=== PATIENT | female | born 1960 | race Caucasian/White ===

== ENCOUNTER 2017-02-13 14:07 | Emergency (ER) | payer OTHER ==
[~2017-02-13] VITALS: Ht 175.3 cm; Wt 78.0 kg
[~2017-02-13 14:07] MED LIST: CIPR1TAB10 PO; LACTCHW3 PO; LISI-729 PO; MAGN400T6 PO; NYSS/ PO; OMEP40CA PO; POTA1TAB97 PO; PRED10TA PO
[2017-02-13 14:15] VITALS: TEMP 37.2; Ht 175.3 cm; Wt 78.0 kg
[2017-02-13] MEDS ORDERED: OXYC-164 PO (14:43)
[2017-02-13] MEDS ORDERED: GING550C PO (14:43)
[2017-02-13] MEDS ORDERED: ZNTT/150 PO (14:43)
[2017-02-13] MEDS ORDERED: ASPI81TA28 PO (14:43)
[2017-02-13 15:08] LABS: BASO % 0.2 %; BASO ABS # 0.03 K/uL (0-0.2); COMPLETE YES; EOS % 0.4 %; HEMATOCRIT 45.7 % (37-47); IG% 0.2 %; LYMPH % 7.8 %; LYMPH ABS # 1.39 K/uL (1.2-3.4); MEAN CELL VOLUME 93.5 fL (80-100); MEAN CORPUSCULAR HEMOGLOBIN 30.7 pg (25-34); MEAN CORPUSCULAR HGB CONC 32.8 g/dl (32-36); MEAN PLATELET VOLUME 10.1 fL (7.4-10.4); MONO % 3.3 %; NEUT % 88.1 %; PLATELET COUNT 398 K/uL (130-400); RED BLOOD COUNT 4.89 M/uL (4.2-5.4); WHITE BLOOD COUNT 17.93 K/uL (4.8-10.8)
[2017-02-13 15:12] LABS: PREG INTERNAL NEGATIVE QC NEG CLEAR BACKGROUND; PREG INTERNAL POSITIVE QC POS CONTROL LINE
--- NOTE | 2017-02-13 15:17 | DIAGNOSTIC IMAGING REPORT ---
CHEST ONE VIEW PORTABLE HISTORY: Atypical CHEST PAIN COMPARISON: Chest 11/24/2014. FINDINGS: The lungs are clear. Cardiac silhouette is normal in size. No pleural effusions. No pneumothorax. IMPRESSION: No acute process. Electronically signed by: Quincy Zepeda M.D. 02/13/2017 3:15 PM Dictated Date/Time: 02/13/2017 3:14 PM
[2017-02-13 15:20] VITALS: O2SAT 95
[2017-02-13 15:20] LABS: BLOOD UREA NITROGEN 19 mg/dl (7-18); BUN/CREATININE RATIO 12.6 (10-20); CALCIUM 9.6 mg/dl (8.5-10.1); CARBON DIOXIDE 30 mmol/L (21-32); CHLORIDE 103 mmol/L (98-107); GLUCOSE 114 mg/dl (70-99); POTASSIUM 4.2 mmol/L (3.5-5.1); SODIUM 139 mmol/L (136-145)
[2017-02-13 15:27] LABS: ALKALINE PHOSPHATASE 67 U/L (45-117); ALT/SGPT 21 U/L (12-78); AST/SGOT 15 U/L (15-37); CKMB/CK RATIO 1.9 (0-3.0)
[2017-02-13] MEDS ORDERED: OPTIRAY 320 IV PRN (16:15)
--- NOTE | 2017-02-13 17:16 | DIAGNOSTIC IMAGING REPORT ---
CHEST CTA for AORTIC DISSECTION CT DOSE: 595.23 mGy.cm HISTORY: Right upper chest pain. TECHNIQUE: Multiaxial CT images of the chest were performed both before and after the intravenous administration of contrast to evaluate the aorta. Maximal intensity projection images were also obtained. COMPARISON STUDY: Chest 02/13/2017. FINDINGS: Normal caliber thoracic aorta with no evidence for dissection. Mild atherosclerotic plaque within the thoracic aorta. The central pulmonary arteries are patent. No pleural or pericardial effusions. The visualized liver, spleen, and adrenal glands are unremarkable. Cholecystectomy. An 11 mm hypodense lesion within the upper pole the left kidney. This favors a cyst. No mediastinal or hilar lymphadenopathy. No fractures within the visualized osseous structures. Approximately 80% stenosis at the proximal left subclavian artery due to the atherosclerotic plaque. No pneumothorax. The central airways are patent. Mild emphysema. A 7 mm groundglass nodule within the left upper lobe on image 142. Groundglass densities at the lung bases favor mild dependent change. No focal lung consolidations to suggest pneumonia. There are 2 adjacent 3 mm nodules within the right lower lobe on image 171. IMPRESSION: 1. No evidence for an aortic dissection. 2. Mild emphysema. 3. A few subcentimeter indeterminate pulmonary nodules as described above. Dominant 7 mm groundglass nodule seen within the left upper lobe. Please refer to the chart below for recommended follow-up. 4. Approximately 80% stenosis at the proximal left subclavian artery due to the atherosclerotic plaque. Please refer to below summary of Fleischner criteria recommendations for follow-up of incidental CT nodules (Oral Waldrop, Guidelines for management of small pulmonary nodules detected on CT scans: A statement from the Fleischner Society, Radiology 237: [phone].) SOLID NODULES Solitary nodule size: <6 mm * Low risk patients: no follow-up needed * high risk patients: optional CT at 12 months Solitary nodule size: 6-8 mm * Low risk patients: follow-up at 6-12 months, then consider further follow-up at 18-24 months * high risk patients: initial follow-up CT at 6-12 months and then at 18-24 months if no change Solitary nodule size: >8 mm * either low or high risk patients - consider follow-up CT at 3 months, and/or CT-PET, and/or biopsy Multiple nodules size: <6 mm * Low risk patients: no routine follow-up * high risk patients: optional CT at 12 months Multiple nodules size: 6-8 mm * Low risk patients: follow-up at 3-6 months, then consider further follow-up at 18-24 months * high risk patients: follow-up at 3-6 months, then at 18-24 months if no change Multiple nodules size: >8 mm * Low risk patients: follow-up at 3-6 months, then consider further follow-up at 18-24 months * high risk patients: follow-up at 3-6 months, then at 18-24 months if no change Note: newly detected indeterminate nodule in persons 35 years of age or older. * Low risk patients: minimal or absent history of smoking and/or other known risk factors * high risk patients: history of smoking or of other known risk factors (e.g. first degree relative with lung cancer, or exposure to asbestos, radon, uranium) * if a nodule up to 8 mm is partly solid or is ground glass further follow-up is required after 24 months to exclude possible slow growing adenocarcinoma (BOBBY) SUBSOLID NODULES Solitary pure ground-glass nodule * nodule size <6 mm - no CT follow-up required * nodule size >=6 mm - follow-up CT at 6-12 months, then every 2 years until 5 years Solitary part-solid nodule * nodule size <6 mm - no CT follow-up required * nodule size >=6 mm - follow-up CT at 3-6 months. If unchanged, and solid component remains <6 mm, then annual follow-up for 5 years Multiple subsolid nodules * nodule size <6 mm - follow-up CT at 3-6 months, consider further follow-up at 2 and 4 years if stable * nodule size >=6 mm - follow-up CT at 3-6 months, subsequent management based on the most suspicious nodule(s) Electronically signed by: Quincy Zepeda M.D. 02/13/2017 5:15 PM Dictated Date/Time: 02/13/2017 5:06 PM
[2017-02-13 17:42] VITALS: BP 130/78; PULSE 79; O2SAT 96
--- NOTE | 2017-02-13 23:44 | EMERGENCY ROOM VISIT NOTE ---
History Report prepared by Chris: Heidi Olivera Under the Supervision of: Dr. Luis Carlos Weeks M.D. First contact with patient: 14:58 Chief Complaint: CHEST PAIN Stated Complaint: CHEST PAIN RADIATIING IN BACK RIGHT SHOULDER AND N Nursing Triage Summary: Chest pain radiating through to back. Patient was seen at [facility] ER on . The pain has been present since Wednesday and it has really never really gone away. History of Present Illness The patient is a 56 year old female who presents to the Emergency Room with complaints of constant right-sided chest pain for the past 4 days. She was evaluated 2 days ago in the ER at [facility] for this pain. She had negative testing for blood clots and was diagnosed with indigestion and discharged. She states that her pain has continued since that time. It has not worsened, but has been persistent at about a 7/10 in severity. Her pain is exacerbated with deep breathing and lying flat. She states that her pain goes into her back and radiates up the right side of her neck. She has never experienced pain like this before. She was given Toradol while in [place] and states that helped to alleviate her pain for a short time. She takes 40mg of oxycodone daily for chronic back pain. Pt denies LOC, headache, fevers, chills, diaphoresis, visual changes, tearing pain radiating to the back, personal history or family history of aneurysm or pulmonary embolism, uncontrolled hypertension, breathing difficulties, leg swelling, coagulation abnormalities, prolonged travel, recent surgery or immobilization, nausea, vomiting, abdominal pain, melena, hematochezia, urinary symptoms, numbness, weakness, lymphadenopathy, rash, or other complaints. Source of History: patient, family (daughter) Onset: 4 days ago Position: chest (right) Symptom Intensity: 7/10 Quality: other (radiating) Timing: constant Modifying Factors (Worsening): breathing, other (lying flat) Modifying Factors (Relieving): other (Toradol) Review of Systems See HPI for pertinent positives and negatives. A total of ten systems were reviewed and were otherwise negative. Past Medical & Surgical Medical Problems: (1) Abdominal aortic aneurysm without rupture (2) C. difficile colitis (3) Chronic headache disorder (4) Chronic renal failure, stage 3 (moderate) (5) COPD exacerbation (6) Diverticulosis of colon without diverticulitis (7) History of - peptic ulcer (8) Hypercholesterolemia (9) L5 disc disease (10) Lumbar vertebral fracture (11) Nicotine dependence (12) Rheumatoid arthritis Surgical Problems: (1) History of endovascular stent graft for abdominal aortic aneurysm (AAA) Family History Cancer Gallbladder disease Heart disease Hypertension Lung disease Social History Smoking Status: Current Every Day Smoker Alcohol Use: none Drug Use: none Marital Status: Housing Status: lives with family Occupation Status: employed Current/Historical Medications Scheduled Aspirin (Aspirin Ec), 81 MG PO DAILY Judith (Zingiber Officinalis) (Judith Root), 1,100 MG PO DAILY Lisinopril (Zestril), 5 MG PO DAILY Oxycodone Hcl (Oxycodone Hcl), 1 TAB PO QID Prednisone (Prednisone), 10 MG PO DAILY Ranitidine (Zantac), 150 MG PO DAILY Allergies Coded Allergies: Codeine (Verified Allergy, Severe, Difficulty Breathing, 02/13/17) Adalimumab (Verified Allergy, Intermediate, Rash, 02/13/17) Penicillins (Verified Allergy, Intermediate, Rash, 02/13/17) Physical Exam Vital Signs Date Time Temp Pulse Resp B/P Pulse Ox O2 Delivery O2 Flow Rate FiO2 02/13/17 17:42 79 18 130/78 96 Room Air 02/13/17 16:05 90 20 114/74 95 Room Air 02/13/17 15:20 95 Room Air 02/13/17 14:33 94 02/13/17 14:32 94 Room Air 02/13/17 14:24 95 Room Air 02/13/17 14:15 37.2 97 20 148/84 95 Room Air Physical Exam GENERAL: Awake, alert, well-appearing, in no distress HENT: Normocephalic, atraumatic. Oropharynx unremarkable. EYES: Normal conjunctiva. Sclera non-icteric. NECK: Supple. No nuchal rigidity. FROM. No JVD. RESPIRATORY: Clear to auscultation. CARDIAC: Regular rate, normal rhythm. Extremities warm and well perfused. Pulses equal. ABDOMEN: Soft, non-distended. No tenderness to palpation. No rebound or guarding. No masses. RECTAL: Deferred. MUSCULOSKELETAL: Chest examination reveals no tenderness. The back is symmetrical on inspection without obvious abnormality. There is no CVA tenderness to palpation. No joint edema. Sore to touch over the right posterior lateral ribs. LOWER EXTREMITIES: Calves are equal size bilaterally and non-tender. No edema. No discoloration. NEURO: Normal sensorium. No sensory or motor deficits noted. SKIN: No rash or jaundice noted. Medical Decision & Procedures ER Provider Diagnostic Interpretation: Radiology results as stated below per my review and radiologist interpretation: CHEST ONE VIEW PORTABLE HISTORY: Atypical CHEST PAIN COMPARISON: Chest 11/24/2014. FINDINGS: The lungs are clear. Cardiac silhouette is normal in size. No pleural effusions. No pneumothorax. IMPRESSION: No acute process. Electronically signed by: Quincy Zepeda M.D. 02/13/2017 3:15 PM Dictated Date/Time: 02/13/2017 3:14 PM CHEST CTA for AORTIC DISSECTION CT DOSE: 595.23 mGy.cm HISTORY: Right upper chest pain. TECHNIQUE: Multiaxial CT images of the chest were performed both before and after the intravenous administration of contrast to evaluate the aorta. Maximal intensity projection images were also obtained. COMPARISON STUDY: Chest 02/13/2017. FINDINGS: Normal caliber thoracic aorta with no evidence for dissection. Mild atherosclerotic plaque within the thoracic aorta. The central pulmonary arteries are patent. No pleural or pericardial effusions. The visualized liver, spleen, and adrenal glands are unremarkable. Cholecystectomy. An 11 mm hypodense lesion within the upper pole the left kidney. This favors a cyst. No mediastinal or hilar lymphadenopathy. No fractures within the visualized osseous structures. Approximately 80% stenosis at the proximal left subclavian artery due to the atherosclerotic plaque. No pneumothorax. The central airways are patent. Mild emphysema. A 7 mm groundglass nodule within the left upper lobe on image 142. Groundglass densities at the lung bases favor mild dependent change. No focal lung consolidations to suggest pneumonia. There are 2 adjacent 3 mm nodules within the right lower lobe on image 171. IMPRESSION: 1. No evidence for an aortic dissection. 2. Mild emphysema. 3. A few subcentimeter indeterminate pulmonary nodules as described above. Dominant 7 mm groundglass nodule seen within the left upper lobe. Please refer to the chart below for recommended follow-up. 4. Approximately 80% stenosis at the proximal left subclavian artery due to the atherosclerotic plaque. Please refer to below summary of Fleischner criteria recommendations for follow-up of incidental CT nodules (Oral Waldrop, Guidelines for management of small pulmonary nodules detected on CT scans: A statement from the Fleischner Society, Radiology 237: [phone].) SOLID NODULES Solitary nodule size: <6 mm * Low risk patients: no follow-up needed * high risk patients: optional CT at 12 months Solitary nodule size: 6-8 mm * Low risk patients: follow-up at 6-12 months, then consider further follow-up at 18-24 months * high risk patients: initial follow-up CT at 6-12 months and then at 18-24 months if no change Solitary nodule size: >8 mm * either low or high risk patients - consider follow-up CT at 3 months, and/or CT-PET, and/or biopsy Multiple nodules size: <6 mm * Low risk patients: no routine follow-up * high risk patients: optional CT at 12 months Multiple nodules size: 6-8 mm * Low risk patients: follow-up at 3-6 months, then consider further follow-up at 18-24 months * high risk patients: follow-up at 3-6 months, then at 18-24 months if no change Multiple nodules size: >8 mm * Low risk patients: follow-up at 3-6 months, then consider further follow-up at 18-24 months * high risk patients: follow-up at 3-6 months, then at 18-24 months if no change Note: newly detected indeterminate nodule in persons 35 years of age or older. * Low risk patients: minimal or absent history of smoking and/or other known risk factors * high risk patients: history of smoking or of other known risk factors (e.g. first degree relative with lung cancer, or exposure to asbestos, radon, uranium) * if a nodule up to 8 mm is partly solid or is ground glass further follow-up is required after 24 months to exclude possible slow growing adenocarcinoma (BOBBY) SUBSOLID NODULES Solitary pure ground-glass nodule * nodule size <6 mm - no CT follow-up required * nodule size >=6 mm - follow-up CT at 6-12 months, then every 2 years until 5 years Solitary part-solid nodule * nodule size <6 mm - no CT follow-up required * nodule size >=6 mm - follow-up CT at 3-6 months. If unchanged, and solid component remains <6 mm, then annual follow-up for 5 years Multiple subsolid nodules * nodule size <6 mm - follow-up CT at 3-6 months, consider further follow-up at 2 and 4 years if stable * nodule size >=6 mm - follow-up CT at 3-6 months, subsequent management based on the most suspicious nodule(s) Electronically signed by: Quincy Zepeda M.D. 02/13/2017 5:15 PM Dictated Date/Time: 02/13/2017 5:06 PM Laboratory Results 02/13/17 14:30 Red Blood Count 4.89, Mean Corpuscular Volume 93.5, Mean Corpuscular Hemoglobin 30.7, Mean Corpuscular Hemoglobin Concent 32.8, Mean Platelet Volume 10.1, Neutrophils (%) (Auto) 88.1, Lymphocytes (%) (Auto) 7.8, Monocytes (%) (Auto) 3.3, Eosinophils (%) (Auto) 0.4, Basophils (%) (Auto) 0.2, Neutrophils # (Auto) 15.81, Lymphocytes # (Auto) 1.39, Monocytes # (Auto) 0.59, Eosinophils # (Auto) 0.07, Basophils # (Auto) 0.03 02/13/17 14:30 Test 02/13/17 14:30 02/13/17 15:03 White Blood Count 17.93 K/uL (4.8-10.8) Red Blood Count 4.89 M/uL (4.2-5.4) Hemoglobin 15.0 g/dL (12.0-16.0) Hematocrit 45.7 % (37-47) Mean Corpuscular Volume 93.5 fL (80-100) Mean Corpuscular Hemoglobin 30.7 pg (25-34) Mean Corpuscular Hemoglobin Concent 32.8 g/dl (32-36) Platelet Count 398 K/uL (130-400) Mean Platelet Volume 10.1 fL (7.4-10.4) Neutrophils (%) (Auto) 88.1 % Lymphocytes (%) (Auto) 7.8 % Monocytes (%) (Auto) 3.3 % Eosinophils (%) (Auto) 0.4 % Basophils (%) (Auto) 0.2 % Neutrophils # (Auto) 15.81 K/uL (1.4-6.5) Lymphocytes # (Auto) 1.39 K/uL (1.2-3.4) Monocytes # (Auto) 0.59 K/uL (0.11-0.59) Eosinophils # (Auto) 0.07 K/uL (0-0.5) Basophils # (Auto) 0.03 K/uL (0-0.2) RDW Standard Deviation 48.3 fL (36.4-46.3) RDW Coefficient of Variation 14.2 % (11.5-14.5) Immature Granulocyte % (Auto) 0.2 % Immature Granulocyte # (Auto) 0.04 K/uL (0.00-0.02) Anion Gap 6.0 mmol/L (3-11) Est Creatinine Clear Calc Drug Dose 44.8 ml/min Estimated GFR () 45.3 Estimated GFR (Non- 39.1 BUN/Creatinine Ratio 12.6 (10-20) Calcium Level 9.6 mg/dl (8.5-10.1) Total Bilirubin 0.4 mg/dl (0.2-1) Direct Bilirubin < 0.1 mg/dl (0-0.2) Aspartate Amino Transf (AST/SGOT) 15 U/L (15-37) Alanine Aminotransferase (ALT/SGPT) 21 U/L (12-78) Alkaline Phosphatase 67 U/L (45-117) Total Creatine Kinase 74 U/L (26-192) Creatine Kinase MB 1.4 ng/ml (0.5-3.6) Creatine Kinase MB Ratio 1.9 (0-3.0) Total Protein 7.5 gm/dl (6.4-8.2) Albumin 3.7 gm/dl (3.4-5.0) Lipase 292 U/L (73-393) Human Chorionic Gonadotropin, Qual NEG (NEG) Bedside D-Dimer > 450 ng/mlFEU (0-450) Bedside Troponin I 0.000 ng/ml (0-0.045) Laboratory results reviewed by me ECG Indication: chest pain Rate (beats per minute): 86 Rhythm: normal sinus Findings: Q waves (Septal), no acute ischemic change, no ectopy ED Course 1501: The patient was evaluated in room C3. A complete history and physical exam was performed. 1558: I reassessed the patient at this time. She is doing well and resting comfortably. I informed her about her thoracic aortic aneurysm that was found at [place]. 1729: I reassessed the patient at this time. She is feeling better and resting comfortably. I discussed the results and treatment plan with the patient. I answered all pertaining questions that she had. She expressed understanding and verbalized agreement. The patient will be discharged home. Medical Decision Triage Nursing notes reviewed. The patient's presentation and history were concerning for chest pain. Etiologies such as cardiac ischemia, aortic dissection, pulmonary embolism, pneumonia, pneumothorax, musculoskeletal, infections, gastrointestinal, as well as others were entertained. The patient was evaluated. She had right-sided chest discomfort for 4 days. It was constant. She has this despite taking oxycodone for her chronic back pain. The patient notes a workup done 2 days ago at the [facility]. She had a CT performed and was told it was negative. ECG was nonischemic. The patient had blood work obtained. She had an unremarkable chemistry panel. CBC was concerning for leukocytosis. Record was obtained from the [place] ED visit. This patient had serial troponins that were reported as negative. Her CT scan did not reveal any obvious PE. 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 The patient had an elevated leukocytosis. The patient's record review reveals she has had a leukocytosis pre-much consistently. The patient is on prednisone as well. She has rheumatoid. Her CBC and chemistry panel were otherwise unremarkable. The patient does have an elevated d-dimer. This does raise some concerns although it is difficult to interpret in light of her recent negative PE study and her rheumatoid arthritis. Because of the questionable aortic issues and her history of AAA the patient underwent CT scan for dissection. No significant aortic issues were seen. 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 She was counseled on this. The patient has had constant pain for 4 days. She had serial troponins a [place] or negative. She had a troponin here that was negative. This does not appear to be consistent with cardiac chest pain. She has no findings to support aortic pathology. There is no pneumothorax or pneumonia. The patient did have some tenderness in her right posterior lateral ribs. This may be musculoskeletal. The patient does have pain issues and is on chronic pain medication. She did not want pain medication here. After discussing all of the findings with her, the patient was satisfied with the results and feels comfortable with conservative outpatient management. I spent significant amount of time talking with her and she was comfortable. I gave my usual and customary discussion regarding this issue. By the evaluation outlined above other emergent etiologies such as those listed in the differential, as well as others, were deemed relatively unlikely. The patient and family were informed about the findings as listed above. All questions were answered and they were pleased with the treatment. Return instructions were outlined and the patient was discharged in stable condition. The patient was referred to her PCP for follow-up Wednesday for a recheck of the current condition. The chart was completed utilizing [employer] Speech voice recognition software. Grammatical errors, random word insertions, pronoun errors, and incomplete sentences are an occasional consequence of this system due to software limitations, ambient noise, and hardware issues. Any formal questions or concerns about the content, text, or information contained within the body of this dictation should be directly addressed to the physician for clarification. Impression Primary Impression: Right-sided chest pain Scribe Attestation The scribe's documentation has been prepared under my direction and personally reviewed by me in its entirety. I confirm that the note above accurately reflects all work, treatment, procedures, and medical decision making performed by me. Departure Information Dispostion Home / Self-Care Referrals Gustavo Stone M.D. (PCP) Forms HOME CARE DOCUMENTATION FORM, IMPORTANT VISIT INFORMATION Patient Instructions My [facility] Additional Instructions CHEST PAIN INSTRUCTIONS: Warm compresses for 20 minutes at a time four times daily for 2-3 days. Rest and drink plenty of fluids as tolerated. Continue current medications. Avoid strenuous activities and anything that worsens your pain. Resume normal activities once your symptoms resolve. Return to the ER immediately for worsening or persistent chest pain, abdominal pain, vomiting, fevers, chest pains, difficulty breathing, worsening of your condition, or as needed. Follow up with your primary physician in 2-3 days for a recheck of your current condition. A follow-up chest CT will be necessary in 6 months as discussed. You will also need another in 12 months after that. This can be coordinated with your primary office as pulmonary nodules were seen and being a smoker this puts you at high risk. If these develop further specialty referral will be necessary to rule out cancer.
== END 2017-02-13 18:10 | disposition home or self-care (01) ==
LOC: C.EDB 14:09 → C.EDC 18:10
DX: R07.89 Other chest pain (principal); N18.3 Chronic kidney disease, stage 3 (moderate); Z87.11 Personal history of peptic ulcer disease; M06.9 Rheumatoid arthritis, unspecified; G89.29 Other chronic pain; M54.9 Dorsalgia, unspecified; F17.200 Nicotine dependence, unspecified, uncomplicated; Z98.890 Other specified postprocedural states; Z82.49 Family history of ischemic heart disease and other diseases of the circulatory system; Z79.82 Long term (current) use of aspirin; Z79.52 Long term (current) use of systemic steroids; Z79.899 Other long term (current) drug therapy

== ENCOUNTER 2018-02-03 15:01 | Emergency (ER) | payer OTHER ==
[~2018-02-03] VITALS: Ht 172.7 cm; Wt 78.0 kg
[~2018-02-03 15:01] MED LIST changes: +ASPI81TA28 PO; -CIPR1TAB10 PO; +GING550C PO; -LACTCHW3 PO; -MAGN400T6 PO; -NYSS/ PO; -OMEP40CA PO; +OXYC-164 PO; -POTA1TAB97 PO; +RANI150T85 PO
[2018-02-03 15:17] VITALS: Ht 172.7 cm; Wt 78.0 kg
[2018-02-03 16:56] VITALS: TEMP 37.3
[2018-02-03 17:25] LABS: BASO % 0.2 %; BASO ABS # 0.03 K/uL (0-0.2); EOS % 0.1 %; EOS ABS # 0.02 K/uL (0-0.5); HEMATOCRIT 46.4 % (37-47); HEMOGLOBIN 15.3 g/dL (12.0-16.0); IG# 0.05 K/uL (0.00-0.02); LYMPH % 14.6 %; LYMPH ABS # 2.46 K/uL (1.2-3.4); MEAN CELL VOLUME 91.9 fL (80-100); MEAN CORPUSCULAR HEMOGLOBIN 30.3 pg (25-34); MEAN PLATELET VOLUME 9.5 fL (7.4-10.4); MONO % 3.1 %; MONO ABS # 0.52 K/uL (0.11-0.59); NEUT % 81.7 %; NEUT ABS # 13.73 K/uL (1.4-6.5); PLATELET COUNT 381 K/uL (130-400); RED CELL DISTRIBUTION WIDTH CV 14.3 % (11.5-14.5); WHITE BLOOD COUNT 16.81 K/uL (4.8-10.8)
[2018-02-03 17:44] LABS: ALBUMIN 3.8 gm/dl (3.4-5.0); ALT/SGPT 62 U/L (12-78); AST/SGOT 45 U/L (15-37); BLOOD UREA NITROGEN 16 mg/dl (7-18); CALCIUM 9.7 mg/dl (8.5-10.1); CARBON DIOXIDE 28 mmol/L (21-32); CREATININE 1.28 mg/dl (0.60-1.20); GLUCOSE 103 mg/dl (70-99); LIPASE 166 U/L (73-393); SODIUM 138 mmol/L (136-145)
[2018-02-03 17:46] LABS: ALKALINE PHOSPHATASE 58 U/L (45-117); TOTAL PROTEIN 7.8 gm/dl (6.4-8.2)
--- NOTE | 2018-02-03 17:47 | DIAGNOSTIC IMAGING REPORT ---
THORACIC SPINE 3 VIEWS ROUTINE CLINICAL HISTORY: 57 years-old Female presenting with mid back pain. TECHNIQUE: 3 views of the thoracic spine were obtained. COMPARISON: CT from 02/13/2017. FINDINGS: No scoliosis. Normal thoracic kyphosis. Visualization of the upper thoracic spine is slightly limited due to overlapping structures. Allowing for this, vertebral bodies maintain normal height and alignment. Intervertebral disc heights preserved. Degenerative changes evidenced by osteophytosis noted at the thoracolumbar junction. Mild compression deformity in a mid thoracic vertebral body with approximately 25% anterior vertebral body height loss. Visualized portion of the cervical spine normal. Visualized portion of the thorax normal. IMPRESSION: Approximately 25% anterior vertebral body height loss of a midthoracic level concerning for compression deformity. This is new since the prior CT. The report will be called/faxed according to standard departmental protocol. Electronically signed by: Ramakrishna Cartagena M.D. 02/03/2018 5:46 PM Dictated Date/Time: 02/03/2018 5:43 PM
[2018-02-03] MEDS ORDERED: OPTIRAY 320 IV PRN (18:00)
--- NOTE | 2018-02-03 18:55 | DIAGNOSTIC IMAGING REPORT ---
ABDOMEN AND PELVIS CT WITH IV CONTRAST CT DOSE: 780.78 mGycm HISTORY: Acute lower back pain with bilateral flank pain lower back/flank pain TECHNIQUE: Multiaxial CT images of the abdomen and pelvis were performed following the use of intravenous contrast. A dose lowering technique was utilized adhering to the principles of ALARA. COMPARISON STUDY: CT abdomen and pelvis 08/19/2011. FINDINGS: Mild dependent subsegmental bibasilar atelectasis. There are a few solid pulmonary nodules of the right middle lobe measuring up to 2 mm. No pneumatosis or pneumoperitoneum identified. Imaged inferior cardiac chambers are unremarkable. Mitral annular calcifications. Prior cholecystectomy. Mild intrahepatic biliary ductal dilation, likely secondary to postcholecystectomy state. 5 mm low attenuating lesion of the lateral left hepatic lobe is too small to characterize however suggests hepatic cyst. Spleen, pancreas and adrenal glands are within normal limits. Low attenuating lesions of the kidneys bilaterally are seen measuring up to 1.7 cm within the superior pole left kidney suggesting cysts. Parenchymal thinning with cortical scarring is noted within the inferior pole left kidney. No renal calculi or hydronephrosis. Ureters and urinary bladder are within normal limits. Uterus and adnexa are also unremarkable. Extensive mixed plaquing of the abdominal aorta. Aneurysmal dilation of the abdominal aorta level of the kidneys measures 2.7 x 3.3 cm. Aortobiiliac stent graft is noted within a fusiform infrarenal abdominal aortic aneurysm measuring 3.0 cm. The right common iliac artery is dilated measuring 3.3 cm. The left is dilated measuring 2.7 cm. Normal caliber iliac vessels seen on comparison from 2010. No bulky adenopathy. No bowel obstruction or focal bowel wall thickening identified. Colonic diverticulosis without evidence of acute diverticulitis. Normal appendix. Scattered air-fluid levels within nondilated loops of small bowel are likely physiologic. Mild asymmetric atrophy of the right rectus musculature. Bones appear intact. No compression deformity with kyphoplasty changes at L2. Discectomy with posterior interbody tay and screw fusion at L4-L5. IMPRESSION: 1. No acute intra-abdominal or intrapelvic abnormality identified. No bowel obstruction or focal bowel wall thickening. 2. Prior cholecystectomy. 3. Fusiform aneurysmal dilation of the suprarenal abdominal aorta measures up to 3.3 cm. Aortobiiliac stent graft is in place with progressive dilation of the bilateral common iliac arteries, right greater than left as above. 4. Colonic diverticulosis without evidence of acute diverticulitis. 5. Additional findings as above. Electronically signed by: Td Mullins M.D. 02/03/2018 6:53 PM Dictated Date/Time: 02/03/2018 6:44 PM
--- NOTE | 2018-02-03 19:29 | DIAGNOSTIC IMAGING REPORT ---
CHEST ONE VIEW PORTABLE CLINICAL HISTORY: 57 years-old Female presenting with cough. TECHNIQUE: Portable upright AP view of the chest was obtained. COMPARISON: 02/13/2017. FINDINGS: Atherosclerosis of the aortic arch. Cardiac silhouette normal in size. Lungs and pleural spaces clear. Osseous structures normal. Upper abdomen normal. IMPRESSION: 1. No acute cardiopulmonary disease. Electronically signed by: Ramakrishna Cartagena M.D. 02/03/2018 7:28 PM Dictated Date/Time: 02/03/2018 7:27 PM
--- NOTE | 2018-02-03 19:29 | DIAGNOSTIC IMAGING REPORT ---
LUMBAR SPINE WITHOUT CLINICAL HISTORY: 57 years-old Female presenting with lower back/ flank pain . TECHNIQUE: Multidetector CT of the lumbar spine was performed without the use of intravenous contrast. IV contrast: None. A dose lowering technique was used consistent with the principles of ALARA (as low as reasonably achievable). COMPARISON: MR of the lumbar spine January 2012. CT DOSE (mGy.cm): The estimated cumulative dose is 780.70. 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 Aortic endograft stent. Kyphoplasty. Posterior lumbar fusion at L4-5. Postsurgical changes of bilateral transpedicular screw and tay fixation of L4-5 with an interbody spacer. No hardware complication. Post procedural changes of kyphoplasty of L2 with a chronic compression deformity. Minimal retropulsion of the superior aspect of the L2 vertebral body without significant osseous spinal canal narrowing. No scoliosis. Normal lumbar lordosis is essentially preserved. No acute compression deformity or subluxation. Mild degenerative changes in the lower lumbar spine. The spinal canal appears narrowed at L3-4 secondary to disc bulge and epidural fat prominence. Neural foraminal narrowing suggested at L5-S1. Sacrum intact. Visualized soft tissues demonstrate cortical atrophy of the lower pole of the left kidney as well as a left renal cyst. An aortobiiliac endograft stent is patent. Aneurysmal dilatation of the bilateral common iliac arteries, which measure 3.4 cm on the right and 3.1 cm on the left. Paraspinal musculature within normal limits. IMPRESSION: 1. No acute osseous injury of the lumbar spine. 2. Postsurgical changes of posterior fusion of L4-5. 3. Kyphoplasty changes of L2 with a chronic compression deformity. 4. Within limitations of CT, suggestion of spinal canal narrowing at L3-4. 5. Neural foraminal narrowing suggested at L5-S1. Electronically signed by: Ramakrishna Cartagena M.D. 02/03/2018 7:27 PM Dictated Date/Time: 02/03/2018 7:22 PM
[2018-02-03 20:13] VITALS: BP 153/101; PULSE 96; O2SAT 96
--- NOTE | 2018-02-03 22:19 | EMERGENCY ROOM VISIT NOTE ---
History Report prepared by Chris: Basim Kinney Under the Supervision of: Dr. Andrae Elam D.O. First contact with patient: 16:58 Chief Complaint: BACK PAIN Stated Complaint: LOWER BACK PAIN, HEADACHE, NAUSEA History of Present Illness The patient is a 57 year old female who presents to the Emergency Room with complaints of "continuously worsening" lower back pain which she deals with chronically. The patient has been experiencing the acute worsening of her pain for the past week or so. She describes the pain as an "ache" and "burn" across her whole lower back. The pain is worsened with "every move I make." Pain tracks from the thoracic region to her lower lumbar. There is no numbness in the left groin and she has normal control of her bowels and bladder. This is the patient's third visit to an ER, as she has been to the [facility] twice prior to this visit. She has had multiple abdominal CTs and blood work performed which were all normal. She is also currently complaining of blurred vision and a headache, as well as some unusual "pressure" with urination. She did have some sort of infection, which she states was "an infection in my blood " and was placed on an Antibiotic. She did not have an inpatient hospitalization. She denies any fevers. The patient stated that she has had leukocytosis for 10+ years. [facility]. Source of History: patient Onset: Chronic Position: back (lower) Quality: ache, burning Timing: worsening Modifying Factors (Worsening): other (Every movement) Associated Symptoms: + headache, + urinary symptoms ("pressure") Note: Pt complains of blurred vision. Review of Systems See HPI for pertinent positives & negatives. A total of 10 systems reviewed and were otherwise negative. Past Medical & Surgical Medical Problems: (1) Abdominal aortic aneurysm without rupture (2) C. difficile colitis (3) Chronic headache disorder (4) Chronic renal failure, stage 3 (moderate) (5) COPD exacerbation (6) Diverticulosis of colon without diverticulitis (7) History of - peptic ulcer (8) Hypercholesterolemia (9) L5 disc disease (10) Lumbar vertebral fracture (11) Nicotine dependence (12) Rheumatoid arthritis Surgical Problems: (1) History of endovascular stent graft for abdominal aortic aneurysm (AAA) Family History Cancer Gallbladder disease Heart disease Hypertension Lung disease Social History Smoking Status: Current Every Day Smoker Alcohol Use: none Drug Use: none Marital Status: Housing Status: lives with family Occupation Status: employed Current/Historical Medications Scheduled Aspirin (Aspirin Ec), 81 MG PO DAILY Judith (Zingiber Officinalis) (Judith Root), 1,100 MG PO DAILY Lisinopril (Zestril), 5 MG PO DAILY Oxycodone Hcl (Oxycodone Hcl), 1 TAB PO QID Prednisone (Prednisone), 10 MG PO DAILY Ranitidine (Zantac), 150 MG PO DAILY Allergies Coded Allergies: Codeine (Verified Allergy, Severe, Difficulty Breathing, 02/03/18) Adalimumab (Verified Allergy, Intermediate, Rash, 02/03/18) Penicillins (Verified Allergy, Intermediate, Rash, 02/03/18) Physical Exam Vital Signs Date Time Temp Pulse Resp B/P (MAP) Pulse Ox O2 Delivery O2 Flow Rate FiO2 02/03/18 20:13 96 20 153/101 96 02/03/18 18:49 86 18 138/84 96 Room Air 02/03/18 16:56 37.3 114 20 108/70 96 Room Air 02/03/18 15:17 36.9 110 20 112/79 96 Room Air Physical Exam GENERAL: Sitting up in bed, alert, chronically-ill appearing, well nourished, disheveled, non-toxic EYE EXAM: normal conjunctiva. OROPHARYNX: no exudate, no erythema, lips, buccal mucosa, and tongue normal and mucous membranes are moist NECK: supple, no nuchal rigidity, no adenopathy, non-tender LUNGS: Clear to auscultation. Normal chest wall mechanics HEART: no murmurs, S1 normal and S2 normal ABDOMEN: abdomen soft, with faint tenderness in the left mid abdomen. normo- active bowel sounds, no masses, no rebound or guarding. BACK: Back is symmetrical on inspection and there is no deformity, there is an old midline incisional scar in the lower lumbar region with midline and paraspinal tenderness. This is worse on the left. SKIN: no rashes and no bruising UPPER EXTREMITIES: upper extremities are grossly normal. LOWER EXTREMITIES: No pitting edema. Flexion and extension of the hip/knee/ ankle and EHL are 5/5 bilaterally. Gross sensation is intact. DPs are 2/4, patellar and Achilles reflexes are 1/4. Ambulates without difficulty NEURO EXAM: Normal sensorium, cranial nerves II-XII grossly intact, normal speech, no gross weakness of arms. Medical Decision & Procedures ER Provider Diagnostic Interpretation: Radiology results as stated below per my review and the radiologist's interpretation: CHEST ONE VIEW PORTABLE CLINICAL HISTORY: 57 years-old Female presenting with cough. TECHNIQUE: Portable upright AP view of the chest was obtained. COMPARISON: 02/13/2017. FINDINGS: Atherosclerosis of the aortic arch. Cardiac silhouette normal in size. Lungs and pleural spaces clear. Osseous structures normal. Upper abdomen normal. IMPRESSION: 1. No acute cardiopulmonary disease. Electronically signed by: Ramakrishna Cartagena M.D. 02/03/2018 7:28 PM Dictated Date/Time: 02/03/2018 7:27 PM ABDOMEN AND PELVIS CT WITH IV CONTRAST CT DOSE: 780.78 mGycm HISTORY: Acute lower back pain with bilateral flank pain lower back/flank pain TECHNIQUE: Multiaxial CT images of the abdomen and pelvis were performed following the use of intravenous contrast. A dose lowering technique was utilized adhering to the principles of ALARA. COMPARISON STUDY: CT abdomen and pelvis 08/19/2011. FINDINGS: Mild dependent subsegmental bibasilar atelectasis. There are a few solid pulmonary nodules of the right middle lobe measuring up to 2 mm. No pneumatosis or pneumoperitoneum identified. Imaged inferior cardiac chambers are unremarkable. Mitral annular calcifications. Prior cholecystectomy. Mild intrahepatic biliary ductal dilation, likely secondary to postcholecystectomy state. 5 mm low attenuating lesion of the lateral left hepatic lobe is too small to characterize however suggests hepatic cyst. Spleen, pancreas and adrenal glands are within normal limits. Low attenuating lesions of the kidneys bilaterally are seen measuring up to 1.7 cm within the superior pole left kidney suggesting cysts. Parenchymal thinning with cortical scarring is noted within the inferior pole left kidney. No renal calculi or hydronephrosis. Ureters and urinary bladder are within normal limits. Uterus and adnexa are also unremarkable. Extensive mixed plaquing of the abdominal aorta. Aneurysmal dilation of the abdominal aorta level of the kidneys measures 2.7 x 3.3 cm. Aortobiiliac stent graft is noted within a fusiform infrarenal abdominal aortic aneurysm measuring 3.0 cm. The right common iliac artery is dilated measuring 3.3 cm. The left is dilated measuring 2.7 cm. Normal caliber iliac vessels seen on comparison from 2010. No bulky adenopathy. No bowel obstruction or focal bowel wall thickening identified. Colonic diverticulosis without evidence of acute diverticulitis. Normal appendix. Scattered air-fluid levels within nondilated loops of small bowel are likely physiologic. Mild asymmetric atrophy of the right rectus musculature. Bones appear intact. No compression deformity with kyphoplasty changes at L2. Discectomy with posterior interbody tay and screw fusion at L4-L5. IMPRESSION: 1. No acute intra-abdominal or intrapelvic abnormality identified. No bowel obstruction or focal bowel wall thickening. 2. Prior cholecystectomy. 3. Fusiform aneurysmal dilation of the suprarenal abdominal aorta measures up to 3.3 cm. Aortobiiliac stent graft is in place with progressive dilation of the bilateral common iliac arteries, right greater than left as above. 4. Colonic diverticulosis without evidence of acute diverticulitis. 5. Additional findings as above. Electronically signed by: Td Mullins M.D. 02/03/2018 6:53 PM Dictated Date/Time: 02/03/2018 6:44 PM LUMBAR SPINE WITHOUT CLINICAL HISTORY: 57 years-old Female presenting with lower back/ flank pain . TECHNIQUE: Multidetector CT of the lumbar spine was performed without the use of intravenous contrast. IV contrast: None. A dose lowering technique was used consistent with the principles of ALARA (as low as reasonably achievable). COMPARISON: MR of the lumbar spine January 2012. CT DOSE (mGy.cm): The estimated cumulative dose is 780.70. 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 Aortic endograft stent. Kyphoplasty. Posterior lumbar fusion at L4-5. Postsurgical changes of bilateral transpedicular screw and tay fixation of L4-5 with an interbody spacer. No hardware complication. Post procedural changes of kyphoplasty of L2 with a chronic compression deformity. Minimal retropulsion of the superior aspect of the L2 vertebral body without significant osseous spinal canal narrowing. No scoliosis. Normal lumbar lordosis is essentially preserved. No acute compression deformity or subluxation. Mild degenerative changes in the lower lumbar spine. The spinal canal appears narrowed at L3-4 secondary to disc bulge and epidural fat prominence. Neural foraminal narrowing suggested at L5-S1. Sacrum intact. Visualized soft tissues demonstrate cortical atrophy of the lower pole of the left kidney as well as a left renal cyst. An aortobiiliac endograft stent is patent. Aneurysmal dilatation of the bilateral common iliac arteries, which measure 3.4 cm on the right and 3.1 cm on the left. Paraspinal musculature within normal limits. IMPRESSION: 1. No acute osseous injury of the lumbar spine. 2. Postsurgical changes of posterior fusion of L4-5. 3. Kyphoplasty changes of L2 with a chronic compression deformity. 4. Within limitations of CT, suggestion of spinal canal narrowing at L3-4. 5. Neural foraminal narrowing suggested at L5-S1. Electronically signed by: Ramakrishna Cartagena M.D. 02/03/2018 7:27 PM Dictated Date/Time: 02/03/2018 7:22 PM THORACIC SPINE 3 VIEWS ROUTINE CLINICAL HISTORY: 57 years-old Female presenting with mid back pain. TECHNIQUE: 3 views of the thoracic spine were obtained. COMPARISON: CT from 02/13/2017. FINDINGS: No scoliosis. Normal thoracic kyphosis. Visualization of the upper thoracic spine is slightly limited due to overlapping structures. Allowing for this, vertebral bodies maintain normal height and alignment. Intervertebral disc heights preserved. Degenerative changes evidenced by osteophytosis noted at the thoracolumbar junction. Mild compression deformity in a mid thoracic vertebral body with approximately 25% anterior vertebral body height loss. Visualized portion of the cervical spine normal. Visualized portion of the thorax normal. IMPRESSION: Approximately 25% anterior vertebral body height loss of a midthoracic level concerning for compression deformity. This is new since the prior CT. The report will be called/faxed according to standard departmental protocol. Electronically signed by: Ramakrishna Cartagena M.D. 02/03/2018 5:46 PM Dictated Date/Time: 02/03/2018 5:43 PM Laboratory Results 02/03/18 17:15 Red Blood Count 5.05, Mean Corpuscular Volume 91.9, Mean Corpuscular Hemoglobin 30.3, Mean Corpuscular Hemoglobin Concent 33.0, Mean Platelet Volume 9.5, Neutrophils (%) (Auto) 81.7, Lymphocytes (%) (Auto) 14.6, Monocytes (%) (Auto) 3.1, Eosinophils (%) (Auto) 0.1, Basophils (%) (Auto) 0.2, Neutrophils # (Auto) 13.73, Lymphocytes # (Auto) 2.46, Monocytes # (Auto) 0.52, Eosinophils # (Auto) 0.02, Basophils # (Auto) 0.03 02/03/18 17:15 Test 02/03/18 14:56 02/03/18 17:15 Urine Color DK YELLOW Urine Appearance CLEAR (CLEAR) Urine pH 7.0 (4.5-7.5) Urine Specific [place] 1.019 (1.000-1.030) Urine Protein NEG (NEG) Urine Glucose (UA) NEG (NEG) Urine Ketones NEG (NEG) Urine Occult Blood TRACE (NEG) Urine Nitrite NEG (NEG) Urine Bilirubin NEG (NEG) Urine Urobilinogen NEG (NEG) Urine Leukocyte Esterase NEG (NEG) Urine WBC (Auto) 1-5 /hpf (0-5) Urine RBC (Auto) 10-30 /hpf (0-4) Urine Hyaline Casts (Auto) 1-5 /lpf (0-5) Urine Epithelial Cells (Auto) 20-30 /lpf (0-5) Urine Bacteria (Auto) NEG (NEG) White Blood Count 16.81 K/uL (4.8-10.8) Red Blood Count 5.05 M/uL (4.2-5.4) Hemoglobin 15.3 g/dL (12.0-16.0) Hematocrit 46.4 % (37-47) Mean Corpuscular Volume 91.9 fL (80-100) Mean Corpuscular Hemoglobin 30.3 pg (25-34) Mean Corpuscular Hemoglobin Concent 33.0 g/dl (32-36) Platelet Count 381 K/uL (130-400) Mean Platelet Volume 9.5 fL (7.4-10.4) Neutrophils (%) (Auto) 81.7 % Lymphocytes (%) (Auto) 14.6 % Monocytes (%) (Auto) 3.1 % Eosinophils (%) (Auto) 0.1 % Basophils (%) (Auto) 0.2 % Neutrophils # (Auto) 13.73 K/uL (1.4-6.5) Lymphocytes # (Auto) 2.46 K/uL (1.2-3.4) Monocytes # (Auto) 0.52 K/uL (0.11-0.59) Eosinophils # (Auto) 0.02 K/uL (0-0.5) Basophils # (Auto) 0.03 K/uL (0-0.2) RDW Standard Deviation 48.0 fL (36.4-46.3) RDW Coefficient of Variation 14.3 % (11.5-14.5) Immature Granulocyte % (Auto) 0.3 % Immature Granulocyte # (Auto) 0.05 K/uL (0.00-0.02) Anion Gap 3.0 mmol/L (3-11) Est Creatinine Clear Calc Drug Dose 54.5 ml/min Estimated GFR () 54.5 Estimated GFR (Non- 47.0 BUN/Creatinine Ratio 12.9 (10-20) Calcium Level 9.7 mg/dl (8.5-10.1) Total Bilirubin 0.4 mg/dl (0.2-1) Direct Bilirubin < 0.1 mg/dl (0-0.2) Aspartate Amino Transf (AST/SGOT) 45 U/L (15-37) Alanine Aminotransferase (ALT/SGPT) 62 U/L (12-78) Alkaline Phosphatase 58 U/L (45-117) Total Protein 7.8 gm/dl (6.4-8.2) Albumin 3.8 gm/dl (3.4-5.0) Lipase 166 U/L (73-393) Laboratory results per my review. ED Course ED COURSE: Vital signs were reviewed and showed tachycardic vitals. The patients medical record was reviewed The above diagnostic studies were performed and reviewed. ED treatments and interventions as stated above. 1658: The patient was evaluated in room A10. A complete history and physical examination was performed. 8: I checked on the patient she is doing well. 1947: I discussed the case with Dr. Lunsford - Orthopedics. He states that the patient should follow-up in the outpatient setting. 2004: Upon reevaluation, the patient is resting in bed.I discussed my findings with the patient and she understands and agrees with the treatment plan. Based on the patients age, coexisting illnesses, exam and lab findings the decision to treat as an outpatient was made. The patient remained stable while under my care. The patient appeared well at the time of discharge. Medical Decision Differential diagnoses includes but is not limited to lumbar radiculopathy, kidney stone, muscle strain, facture, cauda equina, mass, and disc herniation. Patient is a 57-year-old female who presents the ER for back pain which is been present for the past week and a half. She also admits to pressure with urination with cough present since September. No focal weakness or numbness in her legs. No fevers. Does have a history of a chronic leukocytosis. On steroids. Patient had a leukocytosis of 16,000. Upon review white count appears to trend around 13 17,000. This appears to be consistent with her baseline. BMP along with LFTs, bilirubin lipase is normal. UA was negative. CT abdomen was benign. CT lumbar spine was unremarkable. X-rays of the thoracic spine do show an acute fracture with 25% loss and compression deformity. Discussed with spine. Patient will follow up with them as an outpatient. Patient has been afebrile. Did entertain possible abscess but with the persistent elevation in her white count which is been present for the past decade without fevers I did not feel it was prudent to MRI her spine at this point. There is no focal deficit. Patient was discharged to follow-up with orthopedics as an outpatient. She does have pain meds at home. Discussed with Pt concerning signs and symptoms to watch out for. Pt was instructed to follow up with their PCP and discussed with the patient their option to return to the ED at anytime for persistent or worsening symptoms. The appropriate anticipatory guidance and out-patient management, including indications for return to the emergency department, were explained at length to the patient and understood. Medication Reconcilliation Current Medication List: was personally reviewed by me Blood Pressure Screening Patient's blood pressure: Normal blood pressure Consults Time Called: 1941 Consulting Physician: Dr. Isatu Dunbar Returned Call: 1947 I discussed the case with Dr. Isatu Dunbar. He states that the patient should follow-up in the outpatient setting. Impression Primary Impression: Thoracic spine fracture Additional Impressions: Back pain Leukocytosis Scribe Attestation The scribe's documentation has been prepared under my direction and personally reviewed by me in its entirety. I confirm that the note above accurately reflects all work, treatment, procedures, and medical decision making performed by me. Departure Information Dispostion Home / Self-Care Referrals Gustavo Stone M.D. (PCP) Forms HOME CARE DOCUMENTATION FORM, IMPORTANT VISIT INFORMATION Patient Instructions My [facility] Additional Instructions Please follow up with your primary care doctor with in the next 24 hours. Any worsening of your symptoms, please return to the ED immediately. This includes any fevers greater than 100.4, worsening pain, chest pain, shortness breath, persistent nausea, vomiting, unable to eat or drink, weakness or numbness in your groin or legs, unable to urinate, unable to move her bowels, or any other concerning signs or symptoms from your standpoint. You were given medications during this visit that will inhibit your ability to drive, operate machinery and work. Please do NOT drive, operate machinery, drink alcohol or work for the next 12hrs. Please follow-up with your spine surgeon within 1 week. Please follow-up with your vascular surgeon as you have slight increase in dilation of your aorta within the next month. Problem Qualifiers Primary Impression: Thoracic spine fracture Encounter type: initial encounter Thoracic vertebra fracture level: unspecified thoracic vertebra Fracture type: closed Fracture morphology: unspecified fracture morphology Qualified Codes: S22.009A - Unspecified fracture of unspecified thoracic vertebra, initial encounter for closed fracture Additional Impressions: Back pain Back pain location: back pain in unspecified location Chronicity: acute Back pain laterality: midline Qualified Codes: M54.9 - Dorsalgia, unspecified Leukocytosis Leukocytosis type: unspecified Qualified Codes: D72.829 - Elevated white blood cell count, unspecified
== END 2018-02-03 20:13 | disposition home or self-care (01) ==
LOC: C.EDB 15:01 → C.EDA 20:13
DX: S22.000A Wedge compression fracture of unspecified thoracic vertebra, initial encounter for closed fracture (principal); X58.XXXA Exposure to other specified factors, initial encounter; D72.829 Elevated white blood cell count, unspecified; G89.29 Other chronic pain; H53.8 Other visual disturbances; R51 Headache; R05 Cough; R39.9 Unspecified symptoms and signs involving the genitourinary system; N18.3 Chronic kidney disease, stage 3 (moderate); J44.9 Chronic obstructive pulmonary disease, unspecified; F17.200 Nicotine dependence, unspecified, uncomplicated; Z79.82 Long term (current) use of aspirin; Z79.899 Other long term (current) drug therapy; Z88.0 Allergy status to penicillin; Z88.8 Allergy status to other drugs, medicaments and biological substances; Z88.6 Allergy status to analgesic agent; Z83.79 Family history of other diseases of the digestive system; Z82.49 Family history of ischemic heart disease and other diseases of the circulatory system; Z83.6 Family history of other diseases of the respiratory system

== ENCOUNTER 2020-08-07 20:39 | Inpatient (IN) ==
--- NOTE | 2020-08-07 21:17 | Emergency Department Note ---
Impression & Plan Pulmonary emboli, Abdominal pain, Arterial aneurysm, DVT (deep venous thrombosis) ED Provider Note NAME: SOLITARIO CONTE AGE: 60 SEX: F : 1960 ARRIVES VIA: Walk-In INFORMANT: Patient, ED PROVIDER(S): Mata Dodson MD Chief Complaint: Lump in arm, abdominal pain HPI: Patient states that she first noticed that she had a lump in her right axilla. The patient noticed that this morning that the patient did have some bruising from the axilla down to the elbow. The patient does have some mild discomfort but denies any numbness tingling or weakness. Patient also has associated abdominal pain that she describes in the right lower quadrant with radiation to the back. The patient is a prior history of aneurysms status post repair were completed before by Dr. Black. He does take oxycodone 10 mg every 6 hours. Patient states that she has been compliant with her medications and does not take any blood thinners. The patient denies any nausea or vomiting. The patient denies any dysuria or hematuria. ROS: See HPI for pertinent positives and negatives. A total of 10 systems were reviewed and otherwise negative. Past medical history: See below Surgical history: See below Social history: See below Physical Exam: GENERAL: Tearful, uncomfortable in appearance. NAD, non-toxic. EYE EXAM: Normal conjunctiva. PERRL, no anisocoria and EOM's grossly intact w/o pain. NECK: Supple, no nuchal rigidity, no adenopathy, non-tender. No signs of meningismus. LUNGS: Clear to auscultation. Normal chest wall mechanics. HEART: NSR, no MRG. ABDOMEN: Abdomen soft, right lower quadrant pain. Normo-active bowel sounds, no masses, no rebound or guarding. BACK: No CVA TTP. SKIN: No rashes and no bruising. UPPER EXTREMITIES: Ecchymosis on the dorsal aspect of the right upper extremity from the right axilla distally just proximal to the elbow, neurovascularly intact distally to sensation and motor, good radial pulse. LOWER EXTREMITIES: Grossly normal, no edema. NEURO EXAM: A&O x3, cranial nerves II-XII grossly intact, normal speech, moves all 4 extremities on command w/o issue. Differential diagnoses: Appendicitis, ovarian cyst, ovarian torsion, ectopic , TOA, PID, infections, diverticulitis, UTI, obstruction, mesenteric ischemia, aortic pathology, inflammatory bowel disease, renal colic, PUD, pancreatitis, biliary pathology, hernia, volvulus, constipation, as well as other pathologies. Course: Patient was seen and evaluated the bedside. Full history physical exam was per formed. EKG: Indication: Abdominal pain Sinus tachycardia, rate of 107, normal intervals, normal axis, no obvious ST changes or T WI. Imaging Studies: Chest x-ray Impression: No acute abnormality. CT angiography of the chest shows no thoracic aortic dissection. There are acute occlusive pulmonary emboli within the medial right lower lobe and possible right upper lobe segmental branches. No central PE. 1 cm posterior left upper lobe groundglass nodule. No pathologic adenopathy within the chest. CT abdomen pelvis with and without contrast. Patient does not have any evidence of abdominal aortic aneurysm or dissection. Enlarging 7 cm distal right common iliac artery aneurysm with mild mural thrombus. No evidence for rupture. Enlarging 4.6 distal left common iliac artery aneurysm with moderate mural thrombus. Patent bilateral external iliac and common femoral arteries. Acute DVT in the right common femoral and iliac vein and probably within bilateral pelvic veins. Marked atrophy right kidney with left renal cyst. No hydronephrosis. No evidence of diverticulitis. Old left sacral fracture. CT angiogram right humerus patent right innominate, subclavian, axillary and b rachial arteries. Presumed high bifurcation of the brachial artery. Patent radial ulnar and interosseous arteries into the forearm proximally. No aneurysm. Cardiac monitoring: An order was placed for continuous cardiac monitoring. The monitor shows a rate of 105 with sinus tachycardia rhythm. MDM: Patient did present with multiple complaints and given the patient's prior history of aneurysm the patient did have blood work completed along with a CT angiography of the right humerus chest abdomen and pelvis. The patient's imaging noted that the patient did have pulmonary emboli, DVT, worsening aneurysms. There is no evidence of any dissection or rupture. The patient does have a white count of 19 with a normal H&H. The patient does have some kidney dysfunction and the patient was ordered some IV fluids. Patient also did have an elevated lipase. There is no evidence of obvious pancreatitis on CT per the radiologist read and the patient did not have epigastric pain. I did inform the patient of these findings. I did speak with the on-call vascular surgeon Dr. Wayne MD who stated that given the current findings that should be amenable to fix and heparin would not be a contraindication to undergoing a procedure as she would require this for the DVT and PEs. I did speak the on-call hospitalist Dr. Johnny DO and the patient was admitted to the medicine service. Critical Care: I have personally spent 95 minutes of critical care time in direct management of this patient. This includes bedside care, interpretation of diagnostic studies, and testing, discussion with consultants, patient, and family members, and other require inpatient management activities. This 95 minutes is in excess of all separately billable procedures. Past Med/Surg History Medical History Aortic aneurysm s/p AAA repair (2010, revision 2018) Chronic back pain Chronic kidney disease, stage 3 Diverticular disease Hearing deficit History of bronchitis reason for inhaler prn History of peptic ulcer Hx of blood clots developed in right kidney after stent placement Hyperlipidemia Hypertension Lung nodules found on CT scan--under surveillance Rheumatoid arthritis Seizure 12/2018--felt r/t lisinopril--no deficits, follows with Dr. Saba Pop in [place] Stroke 12/2018--felt r/t lisinopril--no deficits, follows with Dr. Saba Pop in [place] Surgical History Fusion of spine 2010 @ [facility] Dr. Sanchez H/O abdominal aortic aneurysm repair 2010 Dr. Black @ [facility] History of abdominal aortic aneurysm (AAA) repair 06/2018 @ [place]--per pt had to "put a collar around the previous AAA repair" also had a renal artery stent placed at the same time History of cholecystectomy History of colonoscopy History of esophagogastroduodenoscopy (EGD) History of kyphoplasty 2014 @ [facility] History of stent insertion of renal artery 2017 @ [place] History of tubal ligation History of wisdom tooth extraction Family History Mother Family history of diabetes mellitus Brother Family hx of colon cancer Other No family history of adverse response to anesthesia Rheumatoid arthritis Stroke Social History Smoking Status: Never smoker Second Hand Exposure: Yes (parents/family smoked); Hx Alcohol Use: No Hx Substance Use: No Preferred Language: Libyan Communication Ability: Effective Blow Torch Burner Required: No Beliefs That Will Affect Care: None Current Living Situation: Family Current Living Situation Comment: Lives with son Feels Safe at Home: Yes Assistive Devices: Glasses Allergies Allergies Allergy/AdvReac Type Severity Reaction Status Date / Time codeine Allergy Severe Difficulty Verified 08/07/20 22:27 Breathing lisinopril Allergy Severe caused Verified 08/07/20 22:27 seizure/stroke adalimumab Allergy Intermediate Rash Verified 08/07/20 22:27 hydroxychloroquine Allergy Intermediate "whole Verified 08/07/20 22:27 [From Plaquenil] body turns red" leflunomide [From Arava] Allergy Intermediate rash/hive Verified 08/07/20 22:27 at injection site nickel Allergy Intermediate swelling Verified 08/07/20 22:27 with earrings Penicillins Allergy Intermediate Rash Verified 08/07/20 22:27 hydromorphone Allergy Mild Rash Verified 08/07/20 22:27 Home Meds Home Medications Medication Instructions Recorded Confirmed acetaminophen 500 mg PO BID 04/05/20 08/07/20 albuterol sulfate 2 puff INHALATION QID PRN 04/05/20 08/07/20 amlodipine 5 mg PO QAM 04/05/20 08/07/20 aspirin [Aspirin Low Dose] 81 mg PO QAM 04/05/20 08/07/20 cholecalciferol (vitamin D3) 2,000 unit PO QAM 04/05/20 08/07/20 [Vitamin D3] losartan 50 mg PO HS 04/05/20 08/07/20 meclizine 25 mg PO TID PRN 04/05/20 08/07/20 metoprolol tartrate 25 mg PO BID 04/05/20 08/07/20 omeprazole 20 mg PO DAILY PRN 04/05/20 08/07/20 oxycodone 10 mg PO Q6H 04/05/20 08/07/20 potassium gluconate 50 mg PO QAM 04/05/20 08/07/20 prednisone 10 mg PO QAM 04/05/20 08/07/20 cyclobenzaprine [Flexeril] 5 mg PO HS 08/07/20 08/07/20 Results & Data (ED) Vital Signs Vital Signs - 24 hr 08/07/20 20:41 08/07/20 22:16 08/07/20 22:20 Temperature 37.2 C Temperature Source Oral Pulse Rate 110 H 103 H 104 H Pulse Rate from SpO2 Sensor 104 H 104 H Respiratory Rate 18 28 H 19 Respiratory Effort / Characteristics Non-Labored Spontaneous Respiratory Depth Normal Blood Pressure 148/75 H Blood Pressure Mean 99 Pulse Oximetry 97 96 94 Oxygen Delivery Method Room Air Sepsis Recent Fever Within 48 Hours No Sepsis New/Unexplained Change in Mental Status No Sepsis Action Taken by Nursing No Action Required 08/07/20 22:30 08/08/20 01:18 Temperature Temperature Source Pulse Rate 103 H 113 H Pulse Rate from SpO2 Sensor 103 H 112 H Respiratory Rate 18 16 Respiratory Effort / Characteristics Respiratory Depth Blood Pressure 149/86 H Blood Pressure Mean 112 Pulse Oximetry 91 96 Oxygen Delivery Method Sepsis Recent Fever Within 48 Hours Sepsis New/Unexplained Change in Mental Status Sepsis Action Taken by Intermediate Medications Current Medication List: was personally reviewed by me Laboratory Data Attestation: I reviewed the patient's lab results. Result diagrams: 08/07/20 21:57 08/07/20 21:57 Lab Results 08/07/20 08/07/20 08/07/20 Range/Units 21:57 21:57 21:57 WBC 19.26 H (4.8-10.8) K/uL RBC 4.64 (4.2-5.4) M/uL Hgb 14.5 (12.0-16.0) g/dL Hct 43.7 (37-47) % MCV 94.2 (80-100) fL MCH 31.3 (25-34) pg MCHC 33.2 (32-36) g/dL RDW Std Deviation 50.8 H (36.4-46.3) fL RDW Coeff of Jesus 14.9 H (11.5-14.5) % Plt Count 395 (130-400) K/uL MPV 9.9 (7.4-10.4) fL Immature Gran % (Auto) 0.3 % Neut % (Auto) 87.0 % Lymph % (Auto) 7.2 % Frederick % (Auto) 5.3 % Eos % (Auto) 0.1 % Baso % (Auto) 0.1 % Neut # (Auto) 16.75 H (1.4-6.5) K/uL Lymph # (Auto) 1.39 (1.2-3.4) K/uL Frederick # (Auto) 1.03 H (0.11-0.59) K/uL Eos # (Auto) 0.01 (0-0.5) K/uL Baso # (Auto) 0.02 (0-0.2) K/uL Immature Gran # (Auto) 0.06 H (0.00-0.02) K/uL PT 9.8 (9.0-12.0) Seconds INR 0.9 (0.9-1.1) APTT 24.0 (21.0-31.0) Seconds PTT Ratio 0.9 Sodium 138 (136-145) mmol/L Potassium 4.1 (3.5-5.1) mmol/L Chloride 105 (98-107) mmol/L Carbon Dioxide 28 (21-32) mmol/L Anion Gap 5.0 (3-11) BUN 28 H (7-18) mg/dl Creatinine 2.28 H (0.6-1.2) mg/dl Est Cr Clr Drug Dosing 30.6 ml/min Est GFR ( Amer) 26.6 Est GFR (Non-Af Amer) 22.9 BUN/Creatinine Ratio 12.4 (10-20) Glucose 115 H (70-99) mg/dl Calcium 10.6 H (8.5-10.1) mg/dl Total Bilirubin 0.4 (0.2-1) mg/dl AST 16 (15-37) U/L ALT 24 (12-78) U/L Alkaline Phosphatase 66 (45-117) U/L Troponin I < 0.015 (0-0.045) ng/ml Total Protein 8.1 (6.4-8.2) gm/dl Albumin 3.5 (3.4-5.0) gm/dl Globulin 4.6 H (2.5-4.0) gm/dl Albumin/Globulin Ratio 0.8 L (0.9-2) Lipase 925 H (73-393) U/L Blood Type Antibody Screen 08/08/20 Range/Units 00:53 WBC (4.8-10.8) K/uL RBC (4.2-5.4) M/uL Hgb (12.0-16.0) g/dL Hct (37-47) % MCV (80-100) fL MCH (25-34) pg MCHC (32-36) g/dL RDW Std Deviation (36.4-46.3) fL RDW Coeff of Jesus (11.5-14.5) % Plt Count (130-400) K/uL MPV (7.4-10.4) fL Immature Gran % (Auto) % Neut % (Auto) % Lymph % (Auto) % Frederick % (Auto) % Eos % (Auto) % Baso % (Auto) % Neut # (Auto) (1.4-6.5) K/uL Lymph # (Auto) (1.2-3.4) K/uL Frederick # (Auto) (0.11-0.59) K/uL Eos # (Auto) (0-0.5) K/uL Baso # (Auto) (0-0.2) K/uL Immature Gran # (Auto) (0.00-0.02) K/uL PT (9.0-12.0) Seconds INR (0.9-1.1) APTT (21.0-31.0) Seconds PTT Ratio Sodium (136-145) mmol/L Potassium (3.5-5.1) mmol/L Chloride (98-107) mmol/L Carbon Dioxide (21-32) mmol/L Anion Gap (3-11) BUN (7-18) mg/dl Creatinine (0.6-1.2) mg/dl Est Cr Clr Drug Dosing ml/min Est GFR ( Amer) Est GFR (Non-Af Amer) BUN/Creatinine Ratio (10-20) Glucose (70-99) mg/dl Calcium (8.5-10.1) mg/dl Total Bilirubin (0.2-1) mg/dl AST (15-37) U/L ALT (12-78) U/L Alkaline Phosphatase (45-117) U/L Troponin I (0-0.045) ng/ml Total Protein (6.4-8.2) gm/dl Albumin (3.4-5.0) gm/dl Globulin (2.5-4.0) gm/dl Albumin/Globulin Ratio (0.9-2) Lipase (73-393) U/L Blood Type O Positive Antibody Screen NEGATIVE Administered Medications Fentanyl Citrate (Fentanyl Citrate 100 Mcg/2 Ml Vial) 50 mcg IV Q30M PRN PRN Reason: Pain Stop: 08/22/20 00:50 Last Admin: 08/08/20 02:58 Dose: 50 mcg Documented by: [id number] Admin: 08/08/20 02:20 Dose: 50 mcg Documented by: [id number] Admin: 08/08/20 01:18 Dose: 50 mcg Documented by: [id number] Heparin Sodium/Dextrose (Heparin Sodium/Dextrose) 25,000 units in 500 mls @ 26 mls/hr IV .[id number] [facility]; Protocol Stop: 09/07/20 00:59 Last Admin: 08/08/20 01:35 Dose: 1,300 units/hr, 26 mls/hr Documented by: [id number] Cosigned by: [id number] Discontinued Medications Fentanyl Citrate (Fentanyl Citrate 100 Mcg/2 Ml Vial) 75 mcg IV NOW STA Stop: 08/07/20 21:44 Last Admin: 08/07/20 22:07 Dose: 75 mcg Documented by: [id number] Fentanyl Citrate (Fentanyl Citrate 100 Mcg/2 Ml Vial) 100 mcg IV NOW STA Stop: 08/07/20 23:32 Last Admin: 08/08/20 00:14 Dose: 100 mcg Documented by: [id number] Heparin Sodium (Porcine) (Heparin Bolus Ed Use Only) 5,000 units IV NOW STA Stop: 08/08/20 01:03 Last Admin: 08/08/20 01:35 Dose: 5,000 units Documented by: [id number] Cosigned by: [id number] Heparin Sodium/Dextrose (Heparin Iv Standard With Bolus) 1 ea IV NOW STA; Protocol Stop: 08/08/20 00:49 Last Admin: 08/08/20 01:40 Dose: Not Given Documented by: [id number] Ioversol (Optiray 320 125ml) 125 ml IV ONCE ONE Stop: 08/08/20 00:08 Last Admin: 08/08/20 00:07 Dose: 119 ml Documented by: [id number] Ondansetron HCl (Ondansetron Inj 2 Mg/Ml 2 Ml Vial) 4 mg IV NOW STA Stop: 08/07/20 21:39 Last Admin: 08/07/20 22:07 Dose: 4 mg Documented by: [id number] Discharge Plan Visit Data Chief Complaint: Skin Problem Stated Complaint: LUMP/HEMATOMA UNDER RIGHT ARMPIT ED Provider: Mata Dodson Discharge Problem: Pulmonary emboli, Abdominal pain, Arterial aneurysm, DVT (deep venous thrombosis) Forms Stand Alone Forms: [facility] Prescriptions Prescriptions: No Action losartan 50 mg Tablet 50 mg PO HS RF: 0 prednisone 10 mg Tablet 10 mg PO QAM RF: 0 amlodipine 5 mg Tablet 5 mg PO QAM RF: 0 aspirin [Aspirin Low Dose] 81 mg Tablet,Delayed Release (Dr/Ec) 81 mg PO QAM RF: 0 acetaminophen 500 mg Tablet 500 mg PO BID RF: 0 meclizine 25 mg Tablet 25 mg PO TID PRN (Reason: Dizziness) RF: 0 metoprolol tartrate 50 mg Tablet 25 mg PO BID RF: 0 albuterol sulfate 90 mcg/actuation Hfa Aerosol Inhaler 2 puff INHALATION QID PRN (Reason: Shortness Of Breath) RF: 0 potassium gluconate 595 mg (99 mg) Tablet 50 mg PO QAM RF: 0 omeprazole 20 mg Tablet,Delayed Release (Dr/Ec) 20 mg PO DAILY PRN (Reason: Acid Reflux) RF: 0 oxycodone 10 mg Tablet 10 mg PO Q6H RF: 0 cholecalciferol (vitamin D3) [Vitamin D3] 50 mcg (2,000 unit) Tablet 2,000 unit PO QAM RF: 0 cyclobenzaprine [Flexeril] 5 mg Tablet 5 mg PO HS RF: 0 Discharge Problem: Pulmonary emboli Qualifiers: Pulmonary embolism type: unspecified Chronicity: acute Acute cor pulmonale presence: unspecified Qualified Code(s): I26.99 - Other pulmonary embolism without acute cor pulmonale Abdominal pain Qualifiers: Abdominal location: right lower quadrant Qualified Code(s): R10.31 - Right lower quadrant pain DVT (deep venous thrombosis) Qualifiers: DVT location: lower extremity Affected thrombotic vein of extremity: femoral Chronicity: acute Laterality: right Qualified Code(s): I82.411 - Acute embolism and thrombosis of right femoral vein
[2020-08-07] MEDS ORDERED: ONDANSETRON INJ 2 MG/ML 2 ML VIAL IV STA (21:38)
[2020-08-07] MEDS ORDERED: fentaNYL citrate 100 MCG/2 ML VIAL IV STA ×2 (21:43→23:31)
[2020-08-07 22:12] LABS: Basophils # (auto) 0.02 K/uL (0-0.2); Basophils % (auto) 0.1 %; Eosinophils # (auto) 0.01 K/uL (0-0.5); Eosinophils % (auto) 0.1 %; Hematocrit (blood only) 43.7 % (37-47); Hemoglobin 14.5 g/dL (12.0-16.0); Immature Granulocytes # (auto) 0.06 K/uL (0.00-0.02); Immature Granulocytes % (auto) 0.3 %; Lymphocytes # (auto) 1.39 K/uL (1.2-3.4); Lymphocytes % (auto) 7.2 %; Mean Corpuscular Hemoglobin 31.3 pg (25-34); Mean Corpuscular Hgb Conc 33.2 g/dL (32-36); Mean Corpuscular Volume 94.2 fL (80-100); Mean Platelet Volume 9.9 fL (7.4-10.4); Monocytes # (auto) 1.03 K/uL (0.11-0.59); Monocytes % (auto) 5.3 %; Neutrophils # (auto) 16.75 K/uL (1.4-6.5); Platelet Count 395 K/uL (130-400); RDW Coefficient of Variation 14.9 % (11.5-14.5); RDW Standard Deviation 50.8 fL (36.4-46.3); Red Blood Count 4.64 M/uL (4.2-5.4); White Blood Count 19.26 K/uL (4.8-10.8)
[2020-08-07 22:30] LABS: INR 0.9 (0.9-1.1); Partial Thromboplastin Ratio 0.9; Prothrombin Time 9.8 Seconds (9.0-12.0)
[2020-08-07 22:35] LABS: Alanine Aminotransferase 24 U/L (12-78); Albumin Level 3.5 gm/dl (3.4-5.0); Aspartate Aminotransferase 16 U/L (15-37); BUN Creatinine Ratio 12.4 (10-20); Blood Urea Nitrogen 28 mg/dl (7-18); Calcium 10.6 mg/dl (8.5-10.1); Carbon Dioxide 28 mmol/L (21-32); Chloride 105 mmol/L (98-107); Creatinine Clr Calc Pharmacy 30.6 ml/min; Est GFR (African American) 26.6; Est GFR (Non-African American) 22.9; Glucose 115 mg/dl (70-99); Lipase 925 U/L (73-393); Potassium 4.1 mmol/L (3.5-5.1); Sodium 138 mmol/L (136-145)
[2020-08-07 22:40] LABS: Albumin Globulin Ratio 0.8 (0.9-2); Alkaline Phosphatase 66 U/L (45-117); Bilirubin,Total 0.4 mg/dl (0.2-1); Globulin 4.6 gm/dl (2.5-4.0); Total Protein 8.1 gm/dl (6.4-8.2); Troponin I < 0.015 ng/ml (0-0.045)
[2020-08-08] MEDS ORDERED: OPTIRAY 320 125ml IV ONE (00:07)
[2020-08-08] MEDS ORDERED: Heparin BOLUS **ED Use Only IV STA (01:02)
[2020-08-08] MEDS: fentaNYL citrate 100 MCG/2 ML VIAL IV PRN ×4 (01:18→03:56)
[2020-08-08] MEDS: HEPARIN SODIUM/DEXTROSE 25,000 UNITS/500 ML BAG IV SCH ×2 (01:35→19:48)
--- NOTE | 2020-08-08 02:45 | History & Physical Report ---
Date of Service August 08, 2020 Assessment & Plan (1) Pulmonary emboli: Pt is a 60yo with a PMHx significant for AAA, iliac artery aneurysms, CKD stage 4, chronic back pain, COPD and a Hx of blood clots in the right kidney after stent placement who was admitted with acute PEs and DVTs. Acute PEs/DVTs -Pt states she had a lump under her R arm that eventually became a large bruise, associated w/ right groin pain -CTA chest showed occlusive PEs within the RLL and RUL segmental branches, diffuse atherosclerosis of the great vessels, moderate to severe stenosis of proximal L subclavian artery and tiny pulmonary nodules with a 1cm posterior LENARD ground glass nodule. -CTA abd/pelvis showed an acute DVT in R common femoral and iliac vein and possibly bilateral pelvic veins, 7cm and 4.6cm iliac artery anuerysms with mural thrombi, an atrophic R kidney and a L renal cyst with inferior L renal calculi. -CTA right humerus showed patent arteries, no anuerysm. -Of note pt states she has been a smoker since age of 8 (SIX). Quit 2 years ago. -lipid panel, hgba1c ordered for AM -continue heparin drip started in the ED -NPO -consult placed to vascular surgery, Dr. Black Chronic Back pain -pt states she takes oxycodone 10mg q6h daily for her back pain -Follows with a pain clinic in [place] -continue oxycodone 10mg q6h daily -continue home flexeril 5mg qhs -consider pain management consult Acute on Chronic Kidney Injury -Baseline Cr of 1.61 -Cr elevated to 2.28 this admission -NSS @125mls/hr -trend Cr with AM labs -hold nephrotoxic meds (losartan 50mg qhs) Elevated lipase -lipase increased to 925 -does not appear to be acute pancreatitis, possibly due to embolic infarction? -pt on fluids as above, however @ 125mls/hr COPD -continue home inhaler HTN -continue home amlodipine 5mg, metoprolol tartrate 25mg bid -hold losartan 50mg with BRITTANY above -consider PRN lopressor or hydralazine for additional BP support until Cr myriam ntrends to baseline GERD -continue home omeprazole 20mg daily RA -continue home prednisone 10mg daily FEN/GI: NPO, NSS @125mls/hr DVT prophylaxis: on heparin drip CODE STATUS: Conditional code- wants CPR,defibrillation, no intubation or ventilator support. Dispo: PCU/tele (2) DVT (deep venous thrombosis): (3) Chronic kidney disease, stage 3: (4) Chronic back pain: History of Present Illness Primary Care Provider: Gustavo Stone Pt is a 60yo with a PMHx significant for AAA, iliac artery aneurysms, CKD stage 4, chronic back pain, COPD and a Hx of blood clots in the right kidney after stent placement who was admitted with acute PEs and DVTs. Pt states that she noticed a lump under her right arm 4 days ago that progressed to purplish bruising. Was also having right groin pain with it and that brought her in today. No Hx of DVTs except years ago when she had one develop after a stent was placed in her kidney. No fam Hx of blood clots. No recent surgery or travel. Was a smoker for many years, says she started at age 8 because her older siblings forced her to. She states that by age 15 she was smoking 1 ppd. Quit smoking 2 years ago. Also has a history of chronic back pain for which she follows with a pain clinic in [place]. States she has lumbar stenosis and had shattered vetebrae. She currently takes oxycodone 10mg q6h daily. She lives at home with her son in a [address] home but she stays mostly on the first floor. She has not touched alcohol for the last 5 years. No recreational drug use. Allergies Allergy/AdvReac Type Severity Reaction Status Date / Time codeine Allergy Severe Difficulty Verified 08/07/20 22:27 Breathing lisinopril Allergy Severe caused Verified 08/07/20 22:27 seizure/stroke adalimumab Allergy Intermediate Rash Verified 08/07/20 22:27 hydroxychloroquine Allergy Intermediate "whole Verified 08/07/20 22:27 [From Plaquenil] body turns red" leflunomide [From Arava] Allergy Intermediate rash/hive Verified 08/07/20 22:27 at injection site nickel Allergy Intermediate swelling Verified 08/07/20 22:27 with earrings Penicillins Allergy Intermediate Rash Verified 08/07/20 22:27 hydromorphone Allergy Mild Rash Verified 08/07/20 22:27 Home Medications Home Medications Medication Instructions Recorded Confirmed Type acetaminophen 500 mg PO BID 04/05/20 08/07/20 History albuterol sulfate 2 puff INHALATION QID PRN 04/05/20 08/07/20 History amlodipine 5 mg PO QAM 04/05/20 08/07/20 History aspirin [Aspirin Low Dose] 81 mg PO QAM 04/05/20 08/07/20 History cholecalciferol (vitamin D3) 2,000 unit PO QAM 04/05/20 08/07/20 History [Vitamin D3] losartan 50 mg PO HS 04/05/20 08/07/20 History meclizine 25 mg PO TID PRN 04/05/20 08/07/20 History metoprolol tartrate 25 mg PO BID 04/05/20 08/07/20 History omeprazole 20 mg PO DAILY PRN 04/05/20 08/07/20 History oxycodone 10 mg PO Q6H PRN 04/05/20 08/07/20 History potassium gluconate 50 mg PO QAM 04/05/20 08/07/20 History prednisone 10 mg PO QAM 04/05/20 08/07/20 History cyclobenzaprine [Flexeril] 5 mg PO HS 08/07/20 08/07/20 History Past Med/Surg History Medical History Aortic aneurysm s/p AAA repair (2010, revision 2018) Chronic back pain Chronic kidney disease, stage 3 Diverticular disease Hearing deficit History of bronchitis reason for inhaler prn History of peptic ulcer Hx of blood clots developed in right kidney after stent placement Hyperlipidemia Hypertension Lung nodules found on CT scan--under surveillance Rheumatoid arthritis Seizure 12/2018--felt r/t lisinopril--no deficits, follows with Dr. Saba Pop in [place] Stroke 12/2018--felt r/t lisinopril--no deficits, follows with Dr. Saba Pop in [place] Surgical History Fusion of spine 2010 @ [facility] Dr. Sanchez H/O abdominal aortic aneurysm repair 2010 Dr. Black @ [facility] History of abdominal aortic aneurysm (AAA) repair 06/2018 @ [place]--per pt had to "put a collar around the previous AAA repair" also had a renal artery stent placed at the same time History of cholecystectomy History of colonoscopy History of esophagogastroduodenoscopy (EGD) History of kyphoplasty 2015 @ [facility] History of stent insertion of renal artery 2018 @ [place] History of tubal ligation History of wisdom tooth extraction Family History Mother Family history of diabetes mellitus Brother Family hx of colon cancer Other No family history of adverse response to anesthesia Rheumatoid arthritis Stroke Social History Smoking Status: Former smoker Second Hand Exposure: Yes (parents/family smoked); Hx Alcohol Use: Yes Hx Substance Use: No Preferred Language: Kiswahili Communication Ability: Effective Barge Captain Required: No Beliefs That Will Affect Care: None Current Living Situation: Family Current Living Situation Comment: Lives with son Feels Safe at Home: Yes Assistive Devices: Glasses and Walker Review of Systems Constitutional: no fever, no chills and no sweats Eyes: no worsening vision Ear, Nose, Mouth, Throat: no nasal congestion and no sore throat Respiratory: no cough and no dyspnea Cardiovascular: no chest pain, no dyspnea on exertion, no palpitations and no edema Gastrointestinal: no abdominal pain, no nausea, no vomiting, no constipation and no diarrhea/loose stools Genitourinary: no dysuria and no hematuria Musculoskeletal: + back pain and + muscle weakness Integumentary: no rash Neurologic: no tingling, no numbness, no headache(s) and no confusion Psychiatric: no confusion Physical Exam Physical Exam: General: Alert, oriented. In some distress on the bed, tearful Skin: purple bruise noted on right inner arm Psych: Depressed mood and affect Neuro: No gross deficits HEENT: NC/AT Chest: Nontender to palpation. CV: RRR, Normal s1, s2. No murmurs appreciated Resp: Breath sounds clear bilaterally, no increased effort of breathing. No crackles/rhonchi/rales. Abdomen: Soft, tender in lower abdomen, nondistended. No guarding. Extremities: No edema in lower extremities bilaterally. Results & Data Results & Data ([facility]) Vital Signs (Past 12 Hours) Vital Signs Temp Pulse Resp BP Pulse Ox 08/08/20 01:18 113 H 16 149/86 H 96 08/07/20 22:30 103 H 18 91 08/07/20 22:20 104 H 19 94 08/07/20 22:16 103 H 28 H 96 08/07/20 20:41 37.2 C 110 H 18 148/75 H 97 Code Status & VTE Plan VTE Prophylaxis Plan VTE Prophylaxis will be ordered: Yes Supervising Physician Co-Signing Physician Notes Patient seen and examined, chart reviewed, case discussed with Dr. [facility] and I agree with her assessment and plan as documented above. Resident Activity Tracking Resident Involvement: Resident Care Provided Care Provided: Adult Hospital Medicine (1) DVT (deep venous thrombosis) Affected thrombotic vein of extremity: femoral Chronicity: acute DVT location: lower extremity Laterality: right Qualified Code(s): I82.411 - Acute embolism and thrombosis of right femoral vein (2) Pulmonary emboli Acute cor pulmonale presence: unspecified Chronicity: acute Pulmonary embolism type: unspecified Qualified Code(s): I26.99 - Other pulmonary embolism without acute cor pulmonale
[2020-08-08] MEDS ORDERED: SODIUM CHLORIDE 0.9% 1000ML 1,000 ML IV ONE (03:06)
[2020-08-08] MEDS ORDERED: MoRPHine SULFATE 4 MG/ML 1 ML CARP\\VIAL IV STA ×2 (04:12→05:48)
[2020-08-08] MEDS ORDERED: MECLIZINE HCL 25 MG TAB PO PRN (05:49)
[2020-08-08] MEDS ORDERED: ALBUTEROL HFA 8 GM INHALER INH PRN (05:49)
[2020-08-08] MEDS ORDERED: Heparin IV Standard *NO* Bolus IV ONE (05:49)
[2020-08-08] MEDS ORDERED: ONDANSETRON INJ 2 MG/ML 2 ML VIAL IV PRN (05:49)
[2020-08-08] MEDS ORDERED: ACETAMINOPHEN 1000 MG/100 ML IV IV PRN (05:49)
[2020-08-08] MEDS ORDERED: HEPARIN SODIUM/DEXTROSE 25,000 UNITS/500 ML BAG IV SCH (05:49)
[2020-08-08] MEDS ORDERED: CLINDAMYCIN 600 MG/54 ML BAG IV SCH (06:00)
[2020-08-08] MEDS ORDERED: PANTOprazole 40 MG TAB PO PRN (06:01)
--- NOTE | 2020-08-08 06:22 | Billing Data ---
Date of Service August 08, 2020 Coding Level of Care Code 19034 Initial Inpt Care Lvl 3
[2020-08-08] MEDS: SODIUM CHLORIDE 0.9% 1000ML 1,000 ML IV SCH ×3 (06:26→22:15)
[2020-08-08] MEDS: oxyCODONE HCL IR 5 MG TAB (IMMEDIATE RELEASE) PO PRN ×3 (08:07→23:53)
--- NOTE | 2020-08-08 08:07 | CT Scan Report ---
CT angio humerus RT wo/w con HISTORY: 60 years-old Female r/o aneurysm acute pain of the right axilla with clinical concern for p ossible axillary or brachial aneurysm. COMPARISON: CTA of the chest of same day TECHNIQUE: CTA of the right humerus was obtained both with and without the use of moderate 119 mL Opt iray 320. 3-D coronal and sagittal MIPS were obtained from the axial data set and were symmetric for review. All measurements were obtained according to NASCET criteria. A dose lowering technique was us ed consistent with the principals of MARGUERITE. FINDINGS: Pulmonary bullae are noted within segmental branches of the right upper and lower lobes. Mild emphyse ma with right-sided bronchial wall thickening. Soft tissues of the right chest are unremarkable. Chol ecystectomy. Dilation of the common bile duct, likely postsurgical. Severe right renal atrophy with p unctate interpolar calcification. The soft tissues of the right upper extremity are unremarkable. The visualized innominate artery is patent. Mild mixed plaque of the proximal right subclavian and ax illary arteries without high-grade stenosis. Patent subclavian, axillary and brachial arteries. The i giovanni radial and ulnar arteries also appear patent. There is no aneurysm, dissection, high-grade sten osis or occlusion identified. No pseudoaneurysm. Mild subcutaneous edema of the dorsomedial elbow. No acute fracture. Kyphoplasty changes of the lumbar spine. IMPRESSION: 1. Unremarkable CTA of the right humerus. 2. Segmental pulmonary emboli of the right upper and lower lobes. Please refer to CTA chest study of same day. 3. Emphysema. 4. Severe right renal atrophy. ACT 112: Negative or not required by law. The above report was generated using voice recognition software. It may contain grammatical, syntax o r spelling errors. Electronically signed by: Td Mullins M.D. 08/08/2020 8:05 AM
--- NOTE | 2020-08-08 08:24 | XRay Report ---
SINGLE VIEW CHEST CLINICAL HISTORY: Atypical chest pain. FINDINGS: An AP, portable, upright chest radiograph is compared to study dated 08/07/2020. The cardio mediastinal silhouette is unremarkable noting atherosclerotic calcification of the thoracic aorta. Em physematous change is noted. There is mild elevation of left hemidiaphragm with plate like atelectasi s at the left lung base. The lungs and pleural spaces are otherwise clear. No pneumothorax is seen. T he bony thorax is grossly intact. IMPRESSION: Emphysematous change with no acute cardiopulmonary abnormality. ACT 112: Negative or not required by law. Electronically signed by: Neville Saravia M.D. 08/08/2020 8:22 AM
[2020-08-08 08:58] LABS: Partial Thromboplastin Ratio 1.9
[2020-08-08 09:10] LABS: Partial Thromboplastin Time 53.6 Seconds (21.0-31.0)
--- NOTE | 2020-08-08 09:30 | Consultation ---
Date of Consultation August 08, 2020 Assessment & Plan (1) Iliac artery aneurysm, bilateral: Pateint with very large bilateral iliac artery aneurysms. Would recommend extensions of her previously placed endograft. This would cover her internal iliac arteries however they don't show up that well on CTA. This would be done tomorrow. I have discussed the risks options and benefits of the procedure with the patient. The patient understands the risks options and benefits and agrees to the procedure. Would keep the heparin running till surgery. No need to stop it pre op. Thank you very much for letting us participate in the care of this patient. History of Present Illness Reason for Consultation: Bilateral iliac artery aneurysms Attending Physician: Brad Castro History of Present Illness Pt is a 60yo who had a PEVAR of her AAA done in 2010. She also has had a left renal artery stent and a proximal extension of her endograft. She has CKD stage 4, chronic back pain, COPD and a Hx of blood clots in the right kidney after stent placement. She is admitted now for acute DVT of the lower extremity and small PE's. Hx of DVTs. o fam Hx of blood clots. No recent surgery or travel. Was a smoker for many years, says she started at age 8 because her older siblings forced her to. She states that by age 15 she was smoking 1 ppd. Quit smoking 2 years ago. She denies any claudication or symptoms of cerebrovascular insufficiency. Allergies Allergy/AdvReac Type Severity Reaction Status Date / Time codeine Allergy Severe Difficulty Verified 08/07/20 22:27 Breathing lisinopril Allergy Severe caused Verified 08/07/20 22:27 seizure/stroke adalimumab Allergy Intermediate Rash Verified 08/07/20 22:27 hydroxychloroquine Allergy Intermediate "whole Verified 08/07/20 22:27 [From Plaquenil] body turns red" leflunomide [From Arava] Allergy Intermediate rash/hive Verified 08/07/20 22:27 at injection site nickel Allergy Intermediate swelling Verified 08/07/20 22:27 with earrings Penicillins Allergy Intermediate Rash Verified 08/07/20 22:27 hydromorphone Allergy Mild Rash Verified 08/07/20 22:27 Home Medications Home Medications Medication Instructions Recorded Confirmed Type acetaminophen 500 mg PO BID 04/05/20 08/07/20 History albuterol sulfate 2 puff INHALATION QID PRN 04/05/20 08/07/20 History amlodipine 5 mg PO QAM 04/05/20 08/07/20 History aspirin [Aspirin Low Dose] 81 mg PO QAM 04/05/20 08/07/20 History cholecalciferol (vitamin D3) 2,000 unit PO QAM 04/05/20 08/07/20 History [Vitamin D3] losartan 50 mg PO HS 04/05/20 08/07/20 History meclizine 25 mg PO TID PRN 04/05/20 08/07/20 History metoprolol tartrate 25 mg PO BID 04/05/20 08/07/20 History omeprazole 20 mg PO DAILY PRN 04/05/20 08/07/20 History oxycodone 10 mg PO Q6H PRN 04/05/20 08/07/20 History potassium gluconate 50 mg PO QAM 04/05/20 08/07/20 History prednisone 10 mg PO QAM 04/05/20 08/07/20 History cyclobenzaprine [Flexeril] 5 mg PO HS 08/07/20 08/07/20 History Patient History Medical History Aortic aneurysm s/p AAA repair (2010, revision 2018) Chronic back pain Chronic kidney disease, stage 3 Diverticular disease Hearing deficit History of bronchitis reason for inhaler prn History of peptic ulcer Hx of blood clots developed in right kidney after stent placement Hyperlipidemia Hypertension Lung nodules found on CT scan--under surveillance Rheumatoid arthritis Seizure 12/2018--felt r/t lisinopril--no deficits, follows with Dr. Saba Pop in [place] Stroke 12/2018--felt r/t lisinopril--no deficits, follows with Dr. Saba Pop in [place] Surgical History Fusion of spine 2010 @ [facility] Dr. Sanchez H/O abdominal aortic aneurysm repair 2010 Dr. Black @ [facility] History of abdominal aortic aneurysm (AAA) repair 06/2018 @ [place]--per pt had to "put a collar around the previous AAA repair" also had a renal artery stent placed at the same time History of cholecystectomy History of colonoscopy History of esophagogastroduodenoscopy (EGD) History of kyphoplasty 2014 @ [facility] History of stent insertion of renal artery 2018 @ [place] History of tubal ligation History of wisdom tooth extraction Family History Mother Family history of diabetes mellitus Brother Family hx of colon cancer Other No family history of adverse response to anesthesia Rheumatoid arthritis Stroke Social History Smoking Status: Former smoker Second Hand Exposure: Yes (parents/family smoked); Hx Alcohol Use: Yes Hx Substance Use: No Preferred Language: Sinhala Communication Ability: Effective Financial Services Technician Required: No Beliefs That Will Affect Care: None Current Living Situation: Family Current Living Situation Comment: Lives with son Feels Safe at Home: Yes Assistive Devices: Oxygen - Continuous Review of Systems Review of Systems: All systems reviewed & are unremarkable except as noted in HPI & below Physical Exam Constitutional: WD/WN, vitals as above well developed, well nourished, cooperative and comfortable; no acute distress Respiratory: normal respiratory effort, lungs clear to auscultation Cardiovascular: Rate/Rhythm: regular rate and regular rhythm Heart Sounds: normal S1 and normal S2; no murmur Vessels: femoral pulses present and radial pulses present Extremities: normal capillary refill Gastrointestinal (Abdomen): Inspection/Auscultation: abdomen normal to inspection Percussion/Palpation: abdomen soft; abdomen nontender pulsatile masses felt in lower pelvis Musculoskeletal: Extremities: extremities normal to inspection Neurologic: normal touch/pain/proprioception and CN's II-XI intact bilaterally Psychiatric: Orientation: alert and oriented x 3 Results & Data ([facility]) Vital Signs (Past 12 Hours) Vital Signs Temp Pulse Pulse Resp BP BP Pulse Ox 08/08/20 08:19 37.1 C 128 H 128 H 21 119/63 95 08/08/20 05:53 37.1 C 114 H 16 154/93 H 93 08/08/20 05:30 116 H 18 154/93 H 97 08/08/20 05:00 112 H 20 154/94 H 100 08/08/20 04:39 89 L 08/08/20 04:30 112 H 15 156/87 H 87 L 08/08/20 04:00 114 H 22 173/88 H 91 08/08/20 03:59 116 H 17 181/86 H 93 10/22/20 02:55 114 H 14 160/93 H 91 08/08/20 01:18 113 H 16 149/86 H 96 08/07/20 22:30 103 H 18 91 08/07/20 22:20 104 H 19 94 08/07/20 22:16 103 H 28 H 96
[2020-08-08] MEDS: ASPIRIN 81 MG ECTAB PO SCH (09:42)
[2020-08-08] MEDS: amLODIPine BESYLATE 5 MG TAB PO SCH (09:42)
[2020-08-08] MEDS: METOPROLOL TARTRATE 25 MG TAB PO SCH ×2 (09:42→20:23)
[2020-08-08] MEDS: predniSONE 10 MG TABLET PO SCH (09:43)
--- NOTE | 2020-08-08 10:29 | CT Scan Report ---
CT angio chest dissec wo/w con, CT angio abdomen pelvis w con HISTORY: 60 years-old Female r/o dissection follow-up study in a patient with abdominal aortic aneur ysm. COMPARISON: CT abdomen and pelvis 09/24/2018, CTA chest 02/13/2017 TECHNIQUE: Multiple axial CT images of the chest, abdomen and pelvis were obtained following the intr avenous ministration of 119 mL Optiray 320. Noncontrast CTA of the chest was also obtained. All measu rements were obtained according to NASCET criteria. 3-D coronal and sagittal MIPS were obtained from the axial data set and were submitted for review. FINDINGS: CTA CHEST: The noncontrast scan demonstrates no intramural or mediastinal hematoma. The heart is normal in size. Moderate coronary artery calcifications are noted with mild aortic and moderate mitral annular calci fications. Moderate to extensive calcified plaque of the thoracic aorta. The ascending thoracic aorta is normal measuring 3.1 cm transversely. There is no dissection. There is ectasia of the aortic isth mus and proximal descending thoracic aorta measuring up to 3.4 cm transversely, previously 3.1 cm. Sa ccular aneurysmal outpouching along the inferior left lateral margin of the aortic isthmus measuring 2.3 x 2.0 cm is new from comparison. Severe mixed plaque of the proximal left subclavian artery resul ts in approximately 75% luminal narrowing, image 60 series 9 which is unchanged. The remaining imaged great vessels are widely patent. Segmental pulmonary emboli of the right upper and lower lobes. No c entral pulmonary emboli or right heart strain. CT CHEST: Tiny subcentimeter posterior left thyroid hypodense nodule. There is no adenopathy. No pneumothorax, pleural effusion, airspace consolidation or overt pulmonary edema. There is mild emphysema. 5 mm grou ndglass nodule of the right lung apex, image 95 series 9 appears unchanged. 10 mm groundglass nodule of the left upper lobe on image 136 series 9 previously measured 7 mm. There are 2 solid nodules pres ent within the superior segment right lower lobe measuring up to 4 mm which are unchanged. Bronchial wall thickening with minimal bibasilar mucous plugging. Central airways are patent. Soft tissues are unremarkable. Degenerative changes of the shoulders and spine. Healed remote fractur e of the lateral right second rib. CTA ABDOMEN/PELVIS: Mixed mixed plaque of the abdominal aorta. Aortobiiliac stent graft. Mild fusiform aneurysmal dilatio n of the abdominal aorta measures up to 3.1 cm transversely, unchanged. The bilateral iliac grafts ar e patent. Partially thrombosed aneurysmal dilation of the [place] left common iliac artery measures 4. 5 cm transversely, previously measuring 2.9 cm. There is marked fusiform aneurysmal dilation of the r ight [place] common iliac artery measuring up to 6.7 cm transversely, previously 3.9 cm. The bilateral external iliac arteries are patent. There is an AV fistula which appears to involve the right recording [employer] al iliac artery and right external iliac vein. Arterial phase of contrast is noted within the right e xternal iliac vein. Thrombus is noted within branches of the bilateral internal iliac arteries and ri ght external iliac vein an also likely within the right common femoral vein. Moderate stenosis at the origin of the celiac trunk. The superior mesenteric artery is patent. Right renal artery stent is completely thrombosed which appears chronic. Moderate luminal narrowing involve s the proximal left renal artery. CT ABDOMEN/PELVIS: No pneumatosis or pneumoperitoneum. The spleen, pancreas and adrenal glands are unremarkable. Cholecy stectomy. Heterogeneous appearance of the liver. Atrophy with cortical thinning of the inferior pole left kidney. Calculi of the inferior pole left kidney measure up to 8 mm. Cyst of the superior pole l eft kidney, 2.6 cm. Severe right renal atrophy. Partial distention of the bladder. Unremarkable uteru s. No bowel obstruction or bowel wall thickening. Colonic diverticulosis without acute diverticulitis . Normal appendix. Trace hemorrhage is noted within the right retroperitoneum tracking along the righ t psoas and iliacus. Demineralized appearance of the bones. Remote compression deformity with kyphopl asty L2. Posterior interbody tay and screw fusion with discectomy at L4-L5. Likely remote compression deformity is also noted at T6. IMPRESSION: 1. Patent aortobiiliac stent graft with unchanged fusiform aneurysmal dilation of the abdominal aorta . 2. Aneurysmal dilation of the bilateral common iliac arteries measures 4.5 cm on the left and 6.7 cm on the right, progressively increased in size from 2018. Trace hemorrhage within the right retroperit oneum tracking along the psoas and iliacus muscles is suspicious for small aneurysm rupture. Vascular surgery consultation is needed. 3. AV fistula involves the right internal iliac artery and right external iliac vein. Thrombi are not ed within branches of the bilateral internal iliac arteries, right external and common femoral veins. 4. New saccular aneurysmal dilation of the aortic isthmus measures 2.3 x 2.0 cm. 5. Segmental pulmonary emboli of the right upper and lower lobes. 6. 10 mm groundglass nodule of the left upper lobe has increased in size from 2018, suspicious for a possible low-grade adenocarcinoma. 7. Nonobstructing left renal calculi. 8. 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 9. High-grade stenosis of the proximal left subclavian artery, unchanged. 10. Additional findings as above. Findings were discussed with the resident physician Arsi Bueno on 08/08/2020 at 10:23 AM. Please refer to below summary of Fleischner criteria recommendations for follow-up of incidental CT n odules ([facility], Guidelines for management of small pulmonary nodules detected on CT scans: A sta tement from the Fleischner Society, Radiology 237: [phone].) SOLID NODULES Solitary nodule size: <6 mm * Low risk patients: no follow-up needed * high risk patients: optional CT at 12 months Solitary nodule size: 6-8 mm * Low risk patients: follow-up at 6-12 months, then consider further follow-up at 18-24 months * high risk patients: initial follow-up CT at 6-12 months and then at 18-24 months if no change Solitary nodule size: >8 mm * either low or high risk patients - consider follow-up CT at 3 months, and/or CT-PET, and/or biopsy Multiple nodules size: <6 mm * Low risk patients: no routine follow-up * high risk patients: optional CT at 12 months Multiple nodules size: 6-8 mm * Low risk patients: follow-up at 3-6 months, then consider further follow-up at 18-24 months * high risk patients: follow-up at 3-6 months, then at 18-24 months if no change Multiple nodules size: >8 mm * Low risk patients: follow-up at 3-6 months, then consider further follow-up at 18-24 months * high risk patients: follow-up at 3-6 months, then at 18-24 months if no change Note: newly detected indeterminate nodule in persons 35 years of age or older. * Low risk patients: minimal or absent history of smoking and/or other known risk factors * high risk patients: history of smoking or of other known risk factors (e.g. first degree relative with lung cancer, or exposure to asbestos, radon, uranium) * if a nodule up to 8 mm is partly solid or is ground glass further follow-up is required after 24 m onths to exclude possible slow growing adenocarcinoma (BOBBY) SUBSOLID NODULES Solitary pure ground-glass nodule * nodule size <6 mm - no CT follow-up required * nodule size >=6 mm - follow-up CT at 6-12 months, then every 2 years until 5 years Solitary part-solid nodule * nodule size <6 mm - no CT follow-up required * nodule size >=6 mm - follow-up CT at 3-6 months. If unchanged, and solid component remains <6 mm, then annual follow-up for 5 years Multiple subsolid nodules * nodule size <6 mm - follow-up CT at 3-6 months, consider further follow-up at 2 and 4 years if sta ble * nodule size >=6 mm - follow-up CT at 3-6 months, subsequent management based on the most suspiciou s nodule(s) The above report was generated using voice recognition software. It may contain grammatical, syntax o r spelling errors. ACT 112: Negative or not required by law. The above report was generated using voice recognition software. It may contain grammatical, syntax o r spelling errors. Electronically signed by: Td Mullins M.D. 08/08/2020 10:27 AM
[2020-08-08] MEDS: ACETYLCYSTEINE 600 MG CAP PO SCH ×2 (10:53→20:23)
--- NOTE | 2020-08-08 11:58 | Electrocardiogram Report ---
Test Reason : Blood Pressure : / mmHG Vent. Rate : 107 BPM Atrial Rate : 107 BPM P-R Int : 144 ms QRS Dur : 074 ms QT Int : 332 ms P-R-T Axes : 055 060 041 degrees QTc Int : 443 ms Sinus tachycardia Possible Left atrial enlargement Low voltage QRS Borderline ECG When compared with ECG of 19-SEP-2018 17:54, No significant change Confirmed by Emigdio Cordova ([id number]) on 08/08/2020 11:57:58 AM Referred By: REFERRED SELF Confirmed By:Emigdio Cordova
[2020-08-08] MEDS ORDERED: CEFEPIME CONSULT ACTIVE PRN ×2 (12:00→12:43)
[2020-08-08 14:15] LABS: Basophils # (auto) 0.04 K/uL (0-0.2); Basophils % (auto) 0.2 %; Eosinophils # (auto) 0.06 K/uL (0-0.5); Eosinophils % (auto) 0.3 %; Hematocrit (blood only) 38.6 % (37-47); Hemoglobin 12.2 g/dL (12.0-16.0); Immature Granulocytes # (auto) 0.09 K/uL (0.00-0.02); Immature Granulocytes % (auto) 0.4 %; Lymphocytes # (auto) 2.59 K/uL (1.2-3.4); Lymphocytes % (auto) 11.4 %; Mean Corpuscular Hemoglobin 29.8 pg (25-34); Mean Corpuscular Hgb Conc 31.6 g/dL (32-36); Mean Corpuscular Volume 94.4 fL (80-100); Mean Platelet Volume 9.5 fL (7.4-10.4); Monocytes # (auto) 1.88 K/uL (0.11-0.59); Monocytes % (auto) 8.3 %; Neutrophils # (auto) 18.02 K/uL (1.4-6.5); Neutrophils % (auto) 79.4 %; Platelet Count 326 K/uL (130-400); RDW Coefficient of Variation 14.9 % (11.5-14.5); RDW Standard Deviation 50.7 fL (36.4-46.3); Red Blood Count 4.09 M/uL (4.2-5.4); White Blood Count 22.68 K/uL (4.8-10.8)
[2020-08-08 14:41] LABS: Albumin Globulin Ratio 0.7 (0.9-2); Albumin Level 2.7 gm/dl (3.4-5.0); BUN Creatinine Ratio 12.3 (10-20); Bilirubin,Total 0.5 mg/dl (0.2-1); Calcium 8.3 mg/dl (8.5-10.1); Creatinine Clr Calc Pharmacy 30.8 ml/min; Est GFR (African American) 26.8; Est GFR (Non-African American) 23.2; Globulin 3.7 gm/dl (2.5-4.0); Potassium 4.1 mmol/L (3.5-5.1); Total Protein 6.4 gm/dl (6.4-8.2)
[2020-08-08] MEDS ORDERED: ALBUT/IPRATROP 3MG/0.5MG NEB 3 ML VIAL NEB PRN (19:41)
[2020-08-08] MEDS ORDERED: KETOROLAC TROMETHAMINE 15 MG/ML VIAL IV ONE (19:46)
[2020-08-08] MEDS ORDERED: MoRPHine SULFATE 2 MG/ML CARP IV STA ×2 (20:25→23:41)
--- NOTE | 2020-08-08 20:48 | Anesthesiology Consultation ---
Date of Service August 08, 2020 Assessment & Plan (1) Encounter for pre-operative examination: Chart Review Chart Review: Acceptable Risk for Surgery and Patient NOT seen in Pre Admission Testing Patient typed and screened 08/08/2020. COVID NEGATIVE 08/08/2020. Consults Requested none History Surgery Operation Date: 08/09/20 12:30 Proposed Procedures p Bilateral Endovascular Aneurysm Iliac Repair - Sudheer Black MD Height/Weight Height: 5 ft 8 in Weight: 84.1 kg Allergies Allergy/AdvReac Type Severity Reaction Status Date / Time codeine Allergy Severe Difficulty Verified 08/07/20 22:27 Breathing lisinopril Allergy Severe caused Verified 08/07/20 22:27 seizure/stroke adalimumab Allergy Intermediate Rash Verified 08/07/20 22:27 hydroxychloroquine Allergy Intermediate "whole Verified 08/07/20 22:27 [From Plaquenil] body turns red" leflunomide [From Arava] Allergy Intermediate rash/hive Verified 08/07/20 22:27 at injection site nickel Allergy Intermediate swelling Verified 08/07/20 22:27 with earrings Penicillins Allergy Intermediate Rash Verified 08/07/20 22:27 hydromorphone Allergy Mild Rash Verified 08/07/20 22:27 Medications Home Medications Medication Instructions Recorded Confirmed Last Taken acetaminophen 500 mg PO BID 04/05/20 08/07/20 08/07/20 albuterol sulfate 2 puff INHALATION QID PRN 04/05/20 08/07/20 Unknown amlodipine 5 mg PO QAM 04/05/20 08/07/20 08/07/20 aspirin [Aspirin Low Dose] 81 mg PO QAM 04/05/20 08/07/20 08/07/20 cholecalciferol (vitamin D3) 2,000 unit PO QAM 04/05/20 08/07/20 08/07/20 [Vitamin D3] losartan 50 mg PO HS 04/05/20 08/07/20 08/07/20 meclizine 25 mg PO TID PRN 04/05/20 08/07/20 Unknown metoprolol tartrate 25 mg PO BID 04/05/20 08/07/20 08/07/20 omeprazole 20 mg PO DAILY PRN 04/05/20 08/07/20 Unknown oxycodone 10 mg PO Q6H PRN 06/08/07/20 08/07/20 18:00 potassium gluconate 50 mg PO QAM 04/05/20 08/07/20 08/07/20 prednisone 10 mg PO QAM 04/05/20 08/07/20 08/07/20 cyclobenzaprine [Flexeril] 5 mg PO HS 08/07/20 08/07/20 08/07/20 Active Medications Generic Name Dose Route Start Last Admin Trade Name Freq PRN Reason Stop Dose Admin Acetylcysteine 600 mg 08/08/20 09:45 08/08/20 20:23 Acetylcysteine 600 Mg Cap PO 08/09/20 21:46 600 mg Q12H ARIANA Administration Amlodipine Besylate 5 mg 08/08/20 09:00 08/08/20 09:42 Amlodipine Besylate 5 Mg Tab PO 09/07/20 08:59 5 mg QAM ARIANA Administration Aspirin 81 mg 08/08/20 09:00 08/08/20 09:42 Aspirin 81 Mg Ectab PO 09/07/20 08:59 81 mg QAM ARIANA Administration Cyclobenzaprine HCl 5 mg 08/08/20 21:00 08/08/20 20:23 Cyclobenzaprine Hcl 5 Mg Tab PO 09/07/20 20:59 5 mg HS ARIANA Administration Heparin Sodium/Dextrose 25,000 units in 500 mls @ 26 mls/hr 08/08/20 01:00 08/08/20 19:48 Heparin Sodium/Dextrose IV 09/07/20 00:59 1,300 units/hr .[id number] ARIANA 26 mls/hr Administration Protocol 1,300 UNITS/HR Sodium Chloride 1,000 mls @ 125 mls/hr 08/08/20 05:49 08/08/20 14:18 Nss 1000ml IV 08/09/20 08:00 125 mls/hr .Q8H ARIANA Administration Metoprolol Tartrate 25 mg 08/08/20 09:00 08/08/20 20:23 Metoprolol Tartrate 25 Mg Tab PO 09/07/20 08:59 25 mg BID ARIANA Administration Ondansetron HCl 4 mg 08/08/20 05:49 08/08/20 06:26 Ondansetron Inj 2 Mg/Ml 2 Ml Vial IV 09/07/20 05:48 4 mg Q6H PRN Administration Nausea And Vomiting Oxycodone HCl 10 mg 08/08/20 05:49 08/08/20 16:44 Oxycodone Hcl Ir 5 Mg Tab (Immediate Release) PO 08/22/20 05:48 10 mg Q6H PRN Administration Pain Prednisone 10 mg 08/08/20 09:00 08/08/20 09:43 Prednisone 10 Mg Tablet PO 09/07/20 08:59 10 mg QAM ARIANA Administration Past Medical History Medical History (Updated 08/08/20 @ 20:46 by Juan Daniel Eldridge MD) Aortic aneurysm s/p AAA repair (2010, revision 2018) Chronic back pain Chronic kidney disease, stage 3 Diverticular disease DVT (deep venous thrombosis) Hearing deficit History of bronchitis reason for inhaler prn History of peptic ulcer Hx of blood clots developed in right kidney after stent placement Hyperlipidemia Hypertension Iliac artery aneurysm, bilateral Lung nodules found on CT scan--under surveillance Pulmonary emboli Pt is a 60yo with a PMHx significant for AAA, iliac artery aneurysms, CKD stage 4, chronic back pain, COPD and a Hx of blood clots in the right kidney after stent placement who was admitted with acute PEs and DVTs. Acute PEs/DVTs -Pt states she had a lump under her R arm that eventually became a large bruise, associated w/ right groin pain -CTA chest showed occlusive PEs within the RLL and RUL segmental branches, diffuse atherosclerosis of the great vessels, moderate to severe stenosis of proximal L subclavian artery and tiny pulmonary nodules with a 1cm posterior LENARD ground glass nodule. -CTA abd/pelvis showed an acute DVT in R common femoral and iliac vein and possibly bilateral pelvic veins, 7cm and 4.6cm iliac artery anuerysms with mural thrombi, an atrophic R kidney and a L renal cyst with inferior L renal calculi. -CTA right humerus showed patent arteries, no anuerysm. Rheumatoid arthritis Seizure 12/2018--felt r/t lisinopril--no deficits, follows with Dr. Saba Pop in [place] Stroke 12/2018--felt r/t lisinopril--no deficits, follows with Dr. Saba Pop in [place] Past Family History Family History Mother Family history of diabetes mellitus Brother Family hx of colon cancer Other No family history of adverse response to anesthesia Rheumatoid arthritis Stroke Past Surgical History Surgical History Fusion of spine 2010 @ [facility] Dr. Sanchez H/O abdominal aortic aneurysm repair 2010 Dr. Black @ [facility] History of abdominal aortic aneurysm (AAA) repair 06/2018 @ [place]--per pt had to "put a collar around the previous AAA repair" also had a renal artery stent placed at the same time History of cholecystectomy History of colonoscopy History of esophagogastroduodenoscopy (EGD) History of kyphoplasty 2014 @ [facility] ([facility]) History of stent insertion of renal artery 2017 @ [place] History of tubal ligation History of wisdom tooth extraction Social History Smoking Status: Former smoker tobacco type: cigarettes Hx Alcohol Use: Yes alcohol intake frequency: holidays/special occasions only Hx Substance Use: No substance use type: does not use Physical Exam Vital Signs Last Vital Signs Temp 37.4 C 08/08/20 19:32 Pulse 118 H 08/08/20 19:32 Resp 24 08/08/20 19:32 BP 137/73 08/08/20 19:32 Pulse Ox 90 08/08/20 19:32 Testing Laboratory Results 08/08/20 14:06 08/08/20 14:06 PT 9.8 Seconds (9.0-12.0) 08/07/20 21:57 INR 0.9 (0.9-1.1) 08/07/20 21:57 APTT 53.6 Seconds (21.0-31.0) H* 08/08/20 08:11 Blood Type Cancelled 08/08/20 09:43 Antibody Screen Cancelled 08/08/20 09:43 08/08/20 08/08/20 20:37 16:23 POC Glucose 152 H 194 H Electrocardiogram Date: 08/07/20 Findings: + ST @ (107) Sinus tachycardia Possible Left atrial enlargement Low voltage QRS Borderline ECG When compared with ECG of 19-SEP-2018 17:54, No significant change Confirmed by Emigdio Cordova ([id number]) on 08/08/2020 11:57:58 AM Chest X-Ray Date: 08/07/20 SINGLE VIEW CHEST CLINICAL HISTORY: Atypical chest pain. FINDINGS: An AP, portable, upright chest radiograph is compared to study dated 08/07/2020. The cardiomediastinal silhouette is unremarkable noting atherosclerotic calcification of the thoracic aorta. Emphysematous change is noted. There is mild elevation of left hemidiaphragm with plate like atelectasis at the left lung base. The lungs and pleural spaces are otherwise clear. No pneumothorax is seen. The bony thorax is grossly intact. IMPRESSION: Emphysematous change with no acute cardiopulmonary abnormality. Echocardiogram Date: 09/20/18 Normal LV ventricular size with hyperdynamic systolic function. EF >70%. No RWMA. Severe LVH. Type 1 DD. There is moderate mitral annular calcification.
[2020-08-08] MEDS ORDERED: CYCLOBENZAPRINE HCL 5 MG TAB PO SCH (21:00)
--- NOTE | 2020-08-08 23:18 | Hospitalist Progress Note ---
Date of Service August 08, 2020 Assessment & Plan (1) Pulmonary emboli: (2) DVT (deep venous thrombosis): (3) Chronic kidney disease, stage 3: (4) Chronic back pain: Admission and Anticipated Discharge Date Admission Date: August 08, 2020 Results & Data Results & Data ([facility]) Vital Signs (Past 12 Hours) Vital Signs Temp Pulse Pulse Resp BP Pulse Ox 08/08/20 19:32 37.4 C 118 H 24 137/73 90 08/08/20 19:11 37.8 C H 113 H 21 100/65 90 08/08/20 15:18 37.6 C H 106 H 20 99/62 L 94 08/08/20 14:33 37.3 C 119 H 20 95/63 L 96 08/08/20 13:48 112 H 20 95 PG Care Time/CCT Total # of Minutes Spent Total Time Spent with Patient: Total time spent is greater than 50% in coordination of care (as documented) at patient's floor/unit and/or counseling patient: Coding Diagnoses Pulmonary emboli I26.99 Acute cor pulmonale presence: unspecified Chronicity: acute Pulmonary embolism type: unspecified DVT (deep venous thrombosis) I82.411 Affected thrombotic vein of extremity: femoral Chronicity: acute DVT location: lower extremity Laterality: right Chronic kidney disease, stage 3 N18.3 Chronic back pain M54.9; G89.29 (1) Pulmonary emboli Acute cor pulmonale presence: unspecified Chronicity: acute Pulmonary embolism type: unspecified Qualified Code(s): I26.99 - Other pulmonary embolism without acute cor pulmonale (2) DVT (deep venous thrombosis) Affected thrombotic vein of extremity: femoral Chronicity: acute DVT location: lower extremity Laterality: right Qualified Code(s): I82.411 - Acute embolism and thrombosis of right femoral vein
[2020-08-09 01:01] LABS: Basophils # (auto) 0.03 K/uL (0-0.2); Basophils % (auto) 0.1 %; Eosinophils # (auto) 0.01 K/uL (0-0.5); Hematocrit (blood only) 36.4 % (37-47); Hemoglobin 11.4 g/dL (12.0-16.0); Immature Granulocytes % (auto) 0.4 %; Lymphocytes # (auto) 2.45 K/uL (1.2-3.4); Lymphocytes % (auto) 10.4 %; Mean Corpuscular Hemoglobin 29.7 pg (25-34); Mean Corpuscular Hgb Conc 31.3 g/dL (32-36); Mean Corpuscular Volume 94.8 fL (80-100); Mean Platelet Volume 9.3 fL (7.4-10.4); Monocytes # (auto) 1.67 K/uL (0.11-0.59); Monocytes % (auto) 7.1 %; Neutrophils # (auto) 19.34 K/uL (1.4-6.5); Platelet Count 318 K/uL (130-400); RDW Standard Deviation 51.7 fL (36.4-46.3); Red Blood Count 3.84 M/uL (4.2-5.4)
[2020-08-09 01:17] LABS: Albumin Level 2.7 gm/dl (3.4-5.0); Calcium 7.9 mg/dl (8.5-10.1); Est GFR (Non-African American) 21.5; Magnesium 1.8 mg/dl (1.8-2.4); Potassium 3.9 mmol/L (3.5-5.1)
[2020-08-09 01:21] LABS: Albumin Globulin Ratio 0.8 (0.9-2); Bilirubin,Total 0.5 mg/dl (0.2-1); Globulin 3.5 gm/dl (2.5-4.0); Phosphorus 3.7 mg/dl (2.5-4.9); Total Protein 6.2 gm/dl (6.4-8.2)
[2020-08-09] MEDS ORDERED: LORazepam 1 MG/2 ML VIAL IV STA (01:30)
[2020-08-09] MEDS ORDERED: LORazepam 2 MG/4 ML VIAL ONE (01:33)
[2020-08-09] MEDS ORDERED: CLINDAMYCIN 600 MG/54 ML BAG IV SCH (06:00)
[2020-08-09] MEDS ORDERED: SODIUM CHLORIDE 0.9% 1000ML 500 ML IV ONE (06:02)
--- NOTE | 2020-08-09 06:08 | Ultrasound Report ---
ULTRASOUND OF THE ABDOMINAL AORTA AND ILIAC ARTERIES CLINICAL HISTORY: Iliac artery aneurysms. COMPARISON STUDY: CT angiogram of the abdomen and pelvis dated 08/07/2020. TECHNIQUE: Multiple craft scale, color Doppler, and spectral Doppler sonograms of the abdominal aorta and iliac arteries are performed. Images are reviewed in the transverse and longitudinal planes. FINDINGS: There is advanced atherosclerotic calcification and irregularity noted throughout the abdominal aorta . The proximal abdominal aorta measures 3.0 x 2.9 cm (AP times transverse). The midportion of the abd ominal aorta is not visualized due to overlying bowel gas. An aortic stent graft is in place. The dis [place] abdominal aorta measures 2.0 x 3.6 cm. There is a 6.7 x 6.7 cm aneurysm of the right common iliac artery. The vessel is tortuous and appears patent. There are elevated velocities within the right co mmon iliac artery measuring up to 252 cm below the aneurysm. A left iliac artery aneurysm measures 5. 2 x 4.2 cm. No hematoma is seen in the pelvis. Normal flow and spectral Doppler waveforms are seen wi thin the proximal abdominal aorta with velocities measuring up to 74 cm/s. There are elevated velocit ies within the distal abdominal aorta measuring up to 772 cm/s. This may be artifactual as no signifi cant stenosis was identified on the recent CT angiogram. IMPRESSION: 1. There are right larger than left iliac artery aneurysms as above. These were better assessed on th e recent CT angiogram. There is no sonographic evidence of rupture at this time. 2. Elevated velocities within the distal abdominal aorta are likely artifactual as no stenosis was sh own on the recent CT angiogram. 3. Elevated velocities within the right iliac artery below the aneurysm may be related to tortuosity of the vessel. No significant stenosis was shown on the CT angiogram.. ACT 112: Negative or not required by law. Electronically signed by: Neville Saravia M.D. 08/09/2020 6:07 AM
[2020-08-09] MEDS: SODIUM CHLORIDE 0.9% 1000ML 1,000 ML IV SCH (06:12)
--- NOTE | 2020-08-09 06:26 | Communication Note ---
Date of Service: August 08, 2020 D/W Dr. Black about CTA of abd/ pelvis report. He will perform an intervention tomorrow in the AM. D/W patient who reports feeling better. willl continue to monitor. will hold off transfer at this point.
[2020-08-09 07:07] LABS: Hematocrit (blood only) 35.3 % (37-47); Hemoglobin 11.2 g/dL (12.0-16.0); Mean Corpuscular Hemoglobin 29.9 pg (25-34); Mean Corpuscular Hgb Conc 31.7 g/dL (32-36); Mean Corpuscular Volume 94.4 fL (80-100); Mean Platelet Volume 9.6 fL (7.4-10.4); Platelet Count 286 K/uL (130-400); RDW Coefficient of Variation 15.1 % (11.5-14.5); RDW Standard Deviation 51.9 fL (36.4-46.3); Red Blood Count 3.74 M/uL (4.2-5.4); White Blood Count 27.63 K/uL (4.8-10.8)
[2020-08-09 07:24] LABS: Partial Thromboplastin Time 27.9 Seconds (21.0-31.0)
[2020-08-09 07:28] LABS: Estimated Average Glucose 108 mg/dl; Hemoglobin A1C 5.4 % (4.5-5.6)
[2020-08-09 07:35] LABS: Basophils # (auto) 0.03 K/uL (0-0.2); Basophils % (auto) 0.1 %; Eosinophils # (auto) 0.01 K/uL (0-0.5); Immature Granulocytes # (auto) 0.14 K/uL (0.00-0.02); Immature Granulocytes % (auto) 0.5 %; Lymphocytes # (auto) 3.15 K/uL (1.2-3.4); Lymphocytes % (auto) 11.4 %; Monocytes # (auto) 2.01 K/uL (0.11-0.59); Monocytes % (auto) 7.3 %; Neutrophils # (auto) 22.29 K/uL (1.4-6.5); Neutrophils % (auto) 80.7 %
[2020-08-09 07:40] LABS: Bilirubin Direct 0.4 mg/dl (0-0.2)
[2020-08-09 07:41] LABS: Albumin Globulin Ratio 0.7 (0.9-2); Albumin Level 2.5 gm/dl (3.4-5.0); BUN Creatinine Ratio 12.2 (10-20); Bilirubin,Total 0.9 mg/dl (0.2-1); Calcium 7.5 mg/dl (8.5-10.1); Creatinine Clr Calc Pharmacy 26.5 ml/min; Est GFR (African American) 22.3; Est GFR (Non-African American) 19.3; Globulin 3.4 gm/dl (2.5-4.0); Potassium 4.2 mmol/L (3.5-5.1); Total Protein 5.9 gm/dl (6.4-8.2)
--- NOTE | 2020-08-09 07:47 | History & Physical Bridge Note ---
Date of Service August 09, 2020 History & Physical Bridge Note Patient for endovascular repair of bilateral iliac artery aneurysms today. I have discussed the risks options and benefits of the procedure with the patient. The patient understands the risks options and benefits and agrees to the procedure. I have examined the patient, reviewed the History & Physical and in the interval since the performance of the History & Physical I have noted the following changes of clinical significance: no changes noted
[2020-08-09] MEDS ORDERED: SODIUM CHLORIDE 0.9% 1000ML 1,000 ML IV SCH ×2 (08:00→09:15)
--- NOTE | 2020-08-09 08:40 | Electrocardiogram Report ---
Test Reason : Blood Pressure : / mmHG Vent. Rate : 113 BPM Atrial Rate : 113 BPM P-R Int : 130 ms QRS Dur : 076 ms QT Int : 340 ms P-R-T Axes : 054 065 044 degrees QTc Int : 466 ms Sinus tachycardia Low voltage QRS Borderline Criteria for Old Septal infarct Abnormal ECG When compared with ECG of 07-AUG-2020 21:51, Borderline Criteria for Septal infarct now present Otherwise no significant change Confirmed by Ronak Henry ([id number]) on 08/09/2020 8:40:32 AM Referred By: REFERRED SELF Confirmed By:Ronak Henry
[2020-08-09] MEDS ORDERED: SODIUM BICARBONATE 8.4% 100 MEQ in WATER, STERILE 1,000 ML IV SCH (08:45)
[2020-08-09] MEDS ORDERED: GLYCOPYRROLATE 0.2 MG/ML VIAL ONE (08:56)
[2020-08-09] MEDS ORDERED: ONDANSETRON INJ 2 MG/ML 2 ML VIAL ONE (08:56)
[2020-08-09] MEDS ORDERED: fentaNYL citrate 100 MCG/2 ML VIAL ONE ×2 (08:56→10:40)
[2020-08-09] MEDS ORDERED: NEOSTIGMINE METHYLSULFATE 5 MG/5 ML SYR ONE (08:56)
[2020-08-09] MEDS ORDERED: SUCCINYLCHOLINE CHLORIDE 20 MG/ML 10 ML VIAL IV ONE (08:56)
[2020-08-09] MEDS ORDERED: DEXAMETHASONE SOD INJ 4 MG/ML VIAL ONE (08:56)
[2020-08-09] MEDS ORDERED: CISATRACURIUM BESYLATE IV SOLN 2 MG/ML 10 ML VIAL IV ONE (08:56)
[2020-08-09] MEDS ORDERED: MIDAZOLAM HCL 1 MG/ML 2ML VIAL ONE (08:56)
[2020-08-09] MEDS ORDERED: PROPOFOL IV EMULSION 10 MG/ML 20 ML VIAL IV ONE (08:56)
[2020-08-09] MEDS ORDERED: LIDOCAINE HCL 2% 2 ML VIAL/AMP(20MG/ML) INFIL ONE (08:56)
[2020-08-09] MEDS ORDERED: CHOLECALCIFEROL 1,000 UNITS 25 MCG TAB PO SCH (09:00)
--- NOTE | 2020-08-09 09:26 | CT Scan Report ---
CT OF THE ABDOMEN AND PELVIS WITHOUT CONTRAST CLINICAL HISTORY: iliac aneurysm, possible rupture COMPARISON STUDY: CTA of the abdomen and pelvis August 07, 2020. TECHNIQUE: Axial images of the abdomen and pelvis were obtained without IV contrast. Images were revi ewed in the axial, sagittal, and coronal planes. Automated exposure control was utilized for the hermelindo dy. A dose lowering technique was utilized adhering to the principles of ALARA. FINDINGS: Imaged portions of the lower chest demonstrate interval development of small bilateral pleu ral effusions, right larger left. Associated airspace opacity is noted. No free air is present. There has been interval development of moderate mesenteric venous gas and pneumatosis associated with casey ral small bowel loops since prior CT of August 07, 2020. Evaluation of the abdomen and pelvis is sub optimal on this unenhanced exam. There is no biliary ductal dilatation status post cholecystectomy. A cyst within the upper pole of the left kidney is noted. The spleen is small. Pancreas is unremarkabl e on this unenhanced exam. No evidence for a bowel obstruction. Postoperative findings within the spi ne are noted. Marked right renal atrophy is noted. Note is made of a right renal artery stent. Bifurcated aortoilia c stent graft is noted. Patency cannot be assessed on this unenhanced exam. Aneurysmal dilatation of the right common iliac artery is noted to this is similar to prior CT of August 07, 2020. This aneur ysm measures 6.9 cm. A left common iliac artery aneurysm measures 4.8 cm. A small amount of right ret roperitoneal fluid centered on the right common iliac artery aneurysm is noted. This is slightly incr eased since prior examination. No large hematoma is present. Disc colonic diverticulosis without evid ence for acute diverticulitis. IMPRESSION: 1. Redemonstration of bilateral common iliac artery aneurysms, right larger than left. No change in a neurysm size since CT of August 07, 2020. Right common artery aneurysm measures 6.9 cm. Slight incre ase in small amount of right retroperitoneal fluid which suggests hemorrhage since prior CT. This fav ors a slow leak from the right common iliac artery aneurysm. 2. Interval development of mesenteric venous gas and pneumatosis associated with several small bowel loops. This is concerning for small bowel ischemia. Findings discussed with Sunitha Lama at time o f dictation. 3. Interval development of small bilateral pleural effusions and associated airspace opacities. ACT 112: Negative or not required by law. Electronically signed by: Patrick Coates M.D. 08/09/2020 9:25 AM
[2020-08-09] MEDS ORDERED: ETOMIDATE 2 MG/ML 20 ML VIAL IV ONE (09:53)
[2020-08-09] MEDS ORDERED: CALCIUM CHLORIDE 10% 10 ML SYR IV ONE (09:54)
--- NOTE | 2020-08-09 10:09 | Anesthesia Procedure Note ---
Anesthesia Procedure Note Central Line Note Date of procedure: 08/09/20 Indication: Central intravenous access Consent: Risk / Benefits Reviewed With: Emergency Monitors attached: Blood Pressure, CO2, EKG and Pulse Oximetry Oxygen delivery method: ETT Time out completed: Yes Premedication: General anesthesia Laterality: Right Location: Internal Jugular Surgical Prep: Hand hygeine: Alcohol based hand rub Equipment/Supplies: Cap, Mask, Sterile gown, Sterile gloves, Sterile drapes and Sterile procedures used Skin prep: Chloraprep Ultrasound Guidance: Ultrasound used: Yes US equipment and supplies: Sterile Gel and Sterile Probe Cover Central line lumen: Triple Catheter sutured at: CM (15 cm) Attempts: 1 Procedure Summary: Right IJ vein ID'ed with U/S;prepped w/ chloroprep;hand washed w/ chlorhexidine;sterile gown,mask ,gloves drape ; using sterile technique right IJ vein cannulated w/ 3-lumen cv cath w/o incident.CXR ordered for placement confirmation post op in ICU. Post-Procedure: Pt hemodynamically stable (pt is critical), Pt tolerates well, No complication and Post placement CXR ordered
[2020-08-09] MEDS ORDERED: HEPARIN SOD (PORCINE) 1000 UNIT/ML 10 ML VIAL ONE (10:10)
[2020-08-09] MEDS ORDERED: ROCURONIUM BROMIDE 10 MG/ML 5 ML VIAL IV ONE (10:20)
[2020-08-09] MEDS ORDERED: ceFAZolin 2000MG 2,000 MG/15 ML SYR IV ONE (10:20)
[2020-08-09] MEDS ORDERED: VISIPAQUE IV PRN (10:26)
[2020-08-09 10:43] LABS: iSTAT Creatinine 2.6 mg/dl (0.6-1.3); iSTAT Hemoglobin 12.2 g/dl (12.0-16.0); iSTAT Ionized Calcium 1.1 mmol/l (1.12-1.32); iSTAT Potassium 4.3 mmol/L (3.3-5.0)
[2020-08-09 10:43] LABS: iSTAT Arterial Blood Gas HCO3 18 meg/L (19-24); iSTAT Arterial Blood Gas pCO2 37 mmHg (35-46); iSTAT Arterial Blood Gas pH 7.29 (7.35-7.45); iSTAT Arterial Blood Gas pO2 298 mmHg (80-95); iSTAT Carbon Dioxide 19 mmol/L (24-31); iSTAT Hematocrit 32 % (37-47); iSTAT Hemoglobin 10.9 g/dl (12.0-16.0); iSTAT Potassium 4.9 mmol/L (3.3-5.0); iSTAT Sodium 136 mmol/L (135-144)
--- NOTE | 2020-08-09 10:45 | Post Operative Brief Note ---
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
--- NOTE | 2020-08-09 10:47 | History & Physical Bridge Note ---
Date of Service August 09, 2020 History & Physical Bridge Note Patient had a rupture of her right iliac artery aneurysm into her vena cava. She became very unstable. Emergency surgery was needed without written consent. She had given oral consent yesterday for repair of her iliac aneurysm. I have examined the patient, reviewed the History & Physical and in the interval since the performance of the History & Physical I have noted the following changes of clinical significance: no changes noted
[2020-08-09] MEDS ORDERED: ATROPINE SULFATE 0.1 MG/ML 10ML SYR IV PRN (11:10)
[2020-08-09] MEDS ORDERED: fentaNYL citrate 100 MCG/2 ML VIAL IV PRN (11:10)
[2020-08-09] MEDS ORDERED: ePHEDrine sulfate 50 MG/ML AMP IV PRN (11:10)
[2020-08-09] MEDS ORDERED: LABETALOL HCL IV 5 MG/ML 20ML IV PRN (11:10)
[2020-08-09] MEDS ORDERED: MoRPHine SULFATE 4 MG/ML 1 ML CARP\\VIAL IV PRN (11:34)
[2020-08-09] MEDS ORDERED: MEROPENEM CONSULT ACITVE PRN ×2 (11:38)
[2020-08-09] MEDS ORDERED: STAT IV Infusion **Titration per Protocol STA (11:40)
[2020-08-09] MEDS ORDERED: PROPOFOL BOLUS FROM BAG IV PRN (11:40)
--- NOTE | 2020-08-09 11:40 | Operative Report ---
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 I identified the patient and participated in the time-out.: Yes Procedure Operation Date: 08/09/20 12:30 Actual Procedures p Endovascular Repair of Right iliac artery aneurysm; RIght common femoral artery endarectomy with patch; mechanical closure left common femoral artery(Not Applicable) - Sudheer Black MD Surgeon Sudheer Black MD Overseamer Vaishali,PAC Estimated Blood Loss 150 Findings Consistent with Post-Op Diagnosis Specimens None Complications none Disposition Accompanied Patient To Recovery: No Disposition: Surgical ICU Indications This is a 60-year-old female who has a large right iliac artery aneurysm approximately 7 cm and a 5 cm left iliac artery aneurysm. Repair was recommended. She has had a previous PEVAR in the past. She agreed to undergo endovascular repair of her aneurysms. She understood the risk option benefits. Prior to surgery today she became hypotensive and mottled and had severe lower abdominal pain. Emergency surgery was recommended at that time. Consent cannot be obtained but she did give oral consent yesterday for the procedure. Description of Procedure The patient was taken the operating placed in the supine position. Both groins and abdomen were prepped draped in a sterile manner. Timeout was performed. A percutaneous puncture was made of the left common femoral artery and a 8 [place]i sheath was inserted. This was done for monitoring purposes me and there was difficulty getting the art line in the wrist. Next the cutdown was done in the right groin. She has had previous surgery in the right groin. Fair amount of scar tissue was encountered. With the common femoral artery was identified. Was freed up in the inguinal ligament down past the bifurcation of the profunda and superficial femoral arteries. Puncture was then made of the right common femoral artery. 8 [place]i sheath was inserted. Using an 035 Glidewire and a Kumpe catheter the wire was passed through the aneurysm sac into the right limb of the aortic endograft. Hand-injection was then done through the sheath which showed a large iliac to either iliac vein or vena cava fistula. No internal iliac could be appreciated on this injection. The Kumpe was advanced into the limb. Wire was exchanged to a Krause wire. We then inserted a 16 x 14 and half by 12 contralateral limb and an iliac to iliac tube endograft was placed. Good overlap was seen proximally per the distal end was overlapped with the external iliac but only a short distance. We used the Q50 balloon to expand the graft down to the distal end. We then inserted a 8 x 29 VBX. We overlapped that with the contralateral limb endograft and expanded it with a 14 x 20 balloon. We inserted the 14 x 20 balloon higher up and expanded fully to the 14 mm to the part of the VBX which was in the aneurysm sac. Completion angiogram was then performed once a pigtail was inserted. This showed good flow through the endograft. There was slight blushing of the aneurysm sac on extremely late views. This was believed to be venous filling in the venous phase of the injection. That point the pigtail sheath and wire were removed. The femoral artery was clamped. The puncture site was repaired interrupted 5-0 Prolene. When clamps were removed there was flow seen through the common femoral artery but I did not think it was pulsatile enough. We then opened up the common femoral artery longitudinally after reclamping it. There was fibrous hyperplasia present in the mid common femoral artery. Luz was passed upward extracting small amount of fresh thrombus in the distal external iliac. Excellent inflow was seen good backbleeding was noted. The arteriotomy was then closed with a bovine patch using a 5-0 Prolene suture in the usual vascular fashion. Once this was completed the clamps were removed. Good Doppler signals were heard distally. Adequate stasis was then noted of the wound. The wounds were then closed in usual fashion using running 2-0 Vicryl suture to femoral sheath 3-0 Vicryl subtendinous layer and osbaldo for the skin. The puncture site in the left groin was then closed using a Star closure device. Loda were used and the skin puncture on the left side. Sterile dressings were applied all the wounds. The patient left the operation room in stable condition directly to the intensive care unit. And tolerated the procedure well. All needle and sponge counts were correct at the end of the procedure. I attest to the content of the Intraoperative Record and any orders documented therein. Any exceptions are noted below.
[2020-08-09] MEDS ORDERED: fentaNYL DRIP 1,250 MCG/250 ML BAG IV SCH (11:45)
--- NOTE | 2020-08-09 11:47 | XRay Report ---
XR chest 1V portable CLINICAL HISTORY: ETT placement and right IJ vein CV cath placement RESPIRATORY FAILURE COMPARISON STUDY: 08/07/2020 FINDINGS: There is an endotracheal 2 55 mm above the medhat. There is a right internal jugular which projects in the superior vena cava. There is no pneumothorax. The cardiac and mediastinal contours re main stable. There is diffuse elevation of interstitium, suggesting pulmonary vascular congestion. Th ere is a more focal airspace opacity within the right midlung zone, focal edema versus an infectious/ inflammatory process[ IMPRESSION: 1. Interval placement of an endotracheal tube 35 mm above the medhat 2. Interval placement of a right internal jugular central venous catheter. The tip projects over the superior vena cava. No evidence of pneumothorax. 3. Radiographic evidence of mild pulmonary vascular congestion/fluid overload. ACT 112: Negative or not required by law. Electronically signed by: Mihir Martin M.D. 08/09/2020 11:45 AM
--- NOTE | 2020-08-09 11:52 | Critical Care Consultation ---
Date of Consultation August 09, 2020 Assessment & Plan (1) Aneurysm of right iliac artery: Patient is status post endovascular repair of the right iliac artery aneurysm and inferior vena cava fistula. She became extremely hypertensive post surgery likely due to increased adrenergic response from reperfusion. I gave her 5 mg of labetalol and we have started her on propofol and fentanyl with improvement of blood pressure. Aim to keep her systolic blood pressure around 160 mmHg. Will attempt a spontaneous breathing trial and extubation tomorrow morning. She does have evidence of pulmonary edema likely related to her hypertensive emergency. We will hold on diuretic therapy at this time as urine output appears to be adequate and she does have an BRITTANY. She received several loads of contrast. She does have evidence of CKD. She also has evidence of small bowel ischemia likely related to her underlying vasculopathy. I am starting her on meropenem and caspofungin. Blood cultures are pending. Lactate is pending. Continue to monitor extremities for evidence of circulation and worsening ischemia. She has a pulmonary embolism and a DVT which will need anticoagulation. Dr. Black noted that she can be restarted on anticoagulation 6-8 hours. Will restart anticoagulation around 8 PM with heparin and no bolus. I will get a CT of her head given the severely elevated blood pressure as she is at extreme risk for subarachnoid hemorrhage. She also had evidence of confusion prior to surgery which may have actually been related to hypotension and delirium. We will get a urine drug screen to evaluate for amphetamines and cocaine. She will clearly remain in the ICU at this time. Notably her CODE STATUS is listed as a conditional code. This was ordered by the admitting resident physician. She apparently indicated that she is okay for cardiac resuscitation, but would not like intubation or mechanical ventilation for respiratory failure. She is currently intubated as she just had surgery. We will have to address this with the family. I am hopeful that we will be able to extubate her in the next 24 to 48 hours barring any significant complications. CRITICAL CARE TIME - I have personally spent 63 minutes of critical care time in the direct management of this patient. This is a life/limb threatening event. This includes time spent evaluating patient, direct bedside care, chart review, placing orders, interpretation of diagnostic studies, discussion with consultants, patient, and family members, as well as other required patient management activities. This time is exclusive of all separately billable procedures, and teaching time and separate from and in addition to any other critical care service time. (2) Vasculopathy: (3) Retroperitoneal hematoma: (4) Hypertensive emergency: (5) Rheumatoid arthritis: (6) BRITTANY (acute kidney injury): (7) Small bowel ischemia: (8) DVT (deep venous thrombosis): (9) Pulmonary embolism: History of Present Illness Reason for Consultation: Intubated, hypertensive emergency Requesting Physician: Dr. Black Attending Physician: Sherita Bailon, History of Present Illness 60-year-old female with a past medical history of AAA repaired by Dr. Black, iliac artery aneurysms, CKD stage IV and reported history of COPD who apparently presented to the hospital on 08/08/2020 due to a lump found under her right arm and right groin pain. I am unable to obtain any history from the patient and she is currently intubated. Dr. Black vascular surgery was consulted yesterday for large bilateral iliac artery aneurysms. Notably, on admission she had a CTA of her chest on 08/07/2020 which demonstrated patent aortoiliac stent graft with unchanged fusiform aneurysmal dilation of the abdominal aorta. Aneurysmal dilation of the bilateral common iliac arteries with trace hemorrhage within the right retroperitoneum tracking along the psoas and iliacus muscles. AV fistula involving the right internal iliac artery and right external iliac vein with thrombi noted within the b ranches of the bilateral internal iliac arteries, right external and common femoral veins. Segmental pulmonary emboli of the right upper and lower lobes. 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 High-grade stenosis of the proximal left subclavian artery. She had a follow-up CT of the abdomen and pelvis without contrast which redemonstrated bilateral common iliac artery aneurysms right greater than left. She had interval development of mesenteric venous gas and pneumatosis associated with several small bowel loops. This is concerning for small bowel ischemia. Interval development of small bilateral effusions were noted as well and airspace opacities. She was apparently very combative, confused and hypotensive with cyanotic extremities during her CT abdomen today. Dr. Black performed endovascular repair of the right iliac artery aneurysm due to rupture and inferior vena cava fistula on an emergent basis. Roughly 150 cc of blood loss. He did discuss the case with me and we went over the imaging. He recommended to restart anticoagulation in 6 to 8 hours. Prior to surgery she was apparently hypotensive and mottled and had severe lower abdominal pain. Emergency surgery was recommended and thus was performed by Dr. Black. During surgery and after repair of the right iliac artery aneurysm, he noted severe hypertension. Currently she is intubated. She is not on any sedation. Her blood pressure is 263/126. She has an arterial line in place. Temperature is 99.9 F. She is currently on 50% FiO2 and a PEEP of 5 with a saturation of 93%. Repeat CBC, BMP, lactic acid, DIC panel and ABG is pending. Allergies Allergy/AdvReac Type Severity Reaction Status Date / Time codeine Allergy Severe Difficulty Verified 08/07/20 22:27 Breathing lisinopril Allergy Severe caused Verified 08/07/20 22:27 seizure/stroke adalimumab Allergy Intermediate Rash Verified 08/07/20 22:27 hydroxychloroquine Allergy Intermediate "whole Verified 08/07/20 22:27 [From Plaquenil] body turns red" leflunomide [From Arava] Allergy Intermediate rash/hive Verified 08/07/20 22:27 at injection site nickel Allergy Intermediate swelling Verified 08/07/20 22:27 with earrings Penicillins Allergy Intermediate Rash Verified 08/07/20 22:27 hydromorphone Allergy Mild Rash Verified 08/07/20 22:27 Home Medications Home Medications Medication Instructions Recorded Confirmed Type acetaminophen 500 mg PO BID 04/05/20 08/07/20 History albuterol sulfate 2 puff INHALATION QID PRN 04/05/20 08/07/20 History amlodipine 5 mg PO QAM 04/05/20 08/07/20 History aspirin [Aspirin Low Dose] 81 mg PO QAM 04/05/20 08/07/20 History cholecalciferol (vitamin D3) 2,000 unit PO QAM 04/05/20 08/07/20 History [Vitamin D3] losartan 50 mg PO HS 04/05/20 08/07/20 History meclizine 25 mg PO TID PRN 04/05/20 08/07/20 History metoprolol tartrate 25 mg PO BID 04/05/20 08/07/20 History omeprazole 20 mg PO DAILY PRN 04/05/20 08/07/20 History oxycodone 10 mg PO Q6H PRN 04/05/20 08/07/20 History potassium gluconate 50 mg PO QAM 04/05/20 08/07/20 History prednisone 10 mg PO QAM 04/05/20 08/07/20 History cyclobenzaprine [Flexeril] 5 mg PO HS 08/07/20 08/07/20 History Patient History Medical History Aortic aneurysm s/p AAA repair (2010, revision 2017) Chronic back pain Chronic kidney disease, stage 3 Diverticular disease DVT (deep venous thrombosis) Hearing deficit History of bronchitis reason for inhaler prn History of peptic ulcer Hx of blood clots developed in right kidney after stent placement Hyperlipidemia Hypertension Iliac artery aneurysm, bilateral Lung nodules found on CT scan--under surveillance Pulmonary emboli Pt is a 60yo with a PMHx significant for AAA, iliac artery aneurysms, CKD stage 4, chronic back pain, COPD and a Hx of blood clots in the right kidney after stent placement who was admitted with acute PEs and DVTs. Acute PEs/DVTs -Pt states she had a lump under her R arm that eventually became a large bruise, associated w/ right groin pain -CTA chest showed occlusive PEs within the RLL and RUL segmental branches, diffuse atherosclerosis of the great vessels, moderate to severe stenosis of proximal L subclavian artery and tiny pulmonary nodules with a 1cm posterior LENARD ground glass nodule. -CTA abd/pelvis showed an acute DVT in R common femoral and iliac vein and possibly bilateral pelvic veins, 7cm and 4.6cm iliac artery anuerysms with mural thrombi, an atrophic R kidney and a L renal cyst with inferior L renal calculi. -CTA right humerus showed patent arteries, no anuerysm. Rheumatoid arthritis Seizure 12/2018--felt r/t lisinopril--no deficits, follows with Dr. Saba Pop in [place] Stroke 12/2018--felt r/t lisinopril--no deficits, follows with Dr. Saba Pop in [place] Surgical History Fusion of spine 2010 @ [facility] Dr. Sanchez H/O abdominal aortic aneurysm repair 2010 Dr. Black @ [facility] History of abdominal aortic aneurysm (AAA) repair 06/2018 @ [facility]--per pt had to "put a collar around the previous AAA repair" also had a renal artery stent placed at the same time History of cholecystectomy History of colonoscopy History of esophagogastroduodenoscopy (EGD) History of kyphoplasty 2014 @ [facility] History of stent insertion of renal artery 2018 @ [facility] History of tubal ligation History of wisdom tooth extraction Family History Mother Family history of diabetes mellitus Brother Family hx of colon cancer Other No family history of adverse response to anesthesia Rheumatoid arthritis Stroke Social History Smoking Status: Former smoker Second Hand Exposure: Yes (parents/family smoked); Hx Alcohol Use: Yes Hx Substance Use: No Preferred Language: Malian Communication Ability: Effective Director Of Informatics Required: No Beliefs That Will Affect Care: None Current Living Situation: Family Current Living Situation Comment: Lives with son Feels Safe at Home: Yes Assistive Devices: Oxygen - Continuous Review of Systems Review of Systems: Unobtainable due to endotracheal tube Physical Exam Constitutional: Patient is currently intubated. Not responding to my comman ds. Eyes: PERRL, conjunctivae normal, anicteric sclerae ENMT: external ear and nose normal, oropharynx normal Endotracheal tube in place. Neck: normal visual inspection Respiratory: Mild crackles at the bases bilaterally. Cardiovascular: Rate/Rhythm: regular rhythm and + tachycardic Heart Sounds: normal S1 and normal S2 Palpation: + thrill and + heave Vessels: + posterior tibial pulses abnormal and + dorsalis pedis pulses abnormal Extremities: + pedal edema and + vascular access device Gastrointestinal (Abdomen): Inspection/Auscultation: abdomen normal to inspection Percussion/Palpation: abdomen nontender and no guarding Hypoactive bowel sounds. Musculoskeletal: no cyanosis or clubbing, extremities motor strength 5/5 Skin: no rashes, warm and dry Neurologic: Unable to assess as the patient is intubated and recently received paralytics Psychiatric: Unable to assess due to intubation status Results & Data Results & Data ([facility]) Vital Signs (Past 12 Hours) Vital Signs Temp Pulse Pulse Pulse Resp BP BP 08/09/20 11:38 99.9 F H 94 H 18 232/120 H 192/117 H 10/23/20 11:33 99.7 F H 93 H 21 157/88 H 127/83 08/09/20 11:27 99.9 F H 88 16 133/78 106/83 08/09/20 11:23 99.9 F H 90 14 190/102 H 127/83 08/09/20 11:17 100.2 F H 91 H 16 147/84 H 08/09/20 11:15 98 H 19 08/09/20 08:08 98.1 F 126 H 19 104/67 08/09/20 04:40 91/50 L 08/09/20 04:01 97.7 F 127 H 20 96/55 L 08/09/20 00:25 99.1 F 122 H 25 H 116/67 Pulse Ox 08/09/20 11:38 93 08/09/20 11:33 92 08/09/20 11:27 96 08/09/20 11:23 96 08/09/20 11:17 100 08/09/20 11:15 100 08/09/20 08:08 97 08/09/20 04:40 08/09/20 04:01 95 08/09/20 00:25 94 I reviewed the vital signs, labs and imaging Coding Level of Care Code Critical Care 1st 30-74 mins Diagnoses Aneurysm of right iliac artery I72.3 Vasculopathy I99.9 Retroperitoneal hematoma K66.1 Hypertensive emergency I16.1 Rheumatoid arthritis M06.9 BRITTANY (acute kidney injury) N17.9 Small bowel ischemia K55.9 DVT (deep venous thrombosis) I82.409 Pulmonary embolism I26.99 Time Spent (min) 63
[2020-08-09] MEDS ORDERED: LABETALOL HCL IV 5 MG/ML 20ML IV ONE (11:54)
[2020-08-09] MEDS ORDERED: CASPOFUNGIN 70 MG in SODIUM CHLORIDE 0.9% 250 ML IV ONE (12:00)
[2020-08-09 12:07] LABS: Basophils # (auto) 0.02 K/uL (0-0.2); Basophils % (auto) 0.1 %; Eosinophils # (auto) 0.01 K/uL (0-0.5); Hematocrit (blood only) 36.9 % (37-47); Hemoglobin 11.8 g/dL (12.0-16.0); Immature Granulocytes # (auto) 0.12 K/uL (0.00-0.02); Immature Granulocytes % (auto) 0.5 %; Lymphocytes # (auto) 1.66 K/uL (1.2-3.4); Lymphocytes % (auto) 7.3 %; Mean Corpuscular Hemoglobin 29.8 pg (25-34); Mean Corpuscular Volume 93.2 fL (80-100); Mean Platelet Volume 9.5 fL (7.4-10.4); Monocytes # (auto) 1.32 K/uL (0.11-0.59); Monocytes % (auto) 5.8 %; Neutrophils # (auto) 19.61 K/uL (1.4-6.5); Neutrophils % (auto) 86.3 %; Platelet Count 257 K/uL (130-400); RDW Coefficient of Variation 15.7 % (11.5-14.5); RDW Standard Deviation 53.3 fL (36.4-46.3); Red Blood Count 3.96 M/uL (4.2-5.4); White Blood Count 22.74 K/uL (4.8-10.8)
[2020-08-09] MEDS: propofoL 1,000 MG/100 ML VIAL IV SCH ×3 (12:11→21:32)
[2020-08-09 12:16] LABS: Base Excess ABG -7.5 mEq/L (-9-1.8); HCO3 ABG 19 mmol/L (19-24); Oxygen Saturation ABG 92.9 % (90-95); PCO2 ABG 41 mmHg (35-46); PO2 ABG 68 mmHg (80-95); pH ABG 7.28 (7.35-7.45)
[2020-08-09 12:17] LABS: Allen Test Pos (Pos)
[2020-08-09] MEDS: SODIUM CHLORIDE 0.9% 500 ML IV SCH ×2 (12:18→18:06)
[2020-08-09 12:24] LABS: BUN Creatinine Ratio 13.5 (10-20); Calcium 7.4 mg/dl (8.5-10.1); Creatinine Clr Calc Pharmacy 30.8 ml/min; Est GFR (African American) 24.5; Est GFR (Non-African American) 21.1; Magnesium 1.6 mg/dl (1.8-2.4); Potassium 4.1 mmol/L (3.5-5.1)
[2020-08-09 12:28] LABS: Fibrinogen 548 mg/dl (184-400); INR 1.1 (0.9-1.1); Partial Thromboplastin Ratio 2.4; Prothrombin Time 11.4 Seconds (9.0-12.0)
[2020-08-09 12:30] LABS: Partial Thromboplastin Time 66.5 Seconds (21.0-31.0)
--- NOTE | 2020-08-09 12:30 | Anesthesiology Progress Note ---
Date of Service August 09, 2020 Anesthesia Post Procedure Vital Signs Vital Signs: Temp Pulse Pulse Pulse Resp BP BP 08/09/20 11:38 37.7 C H 94 H 18 232/120 H 192/117 H 08/09/20 11:33 37.6 C H 93 H 21 157/88 H 127/83 08/09/20 11:27 37.7 C H 88 16 133/78 106/83 08/09/20 11:23 37.7 C H 90 14 190/102 H 127/83 08/09/20 11:17 37.9 C H 91 H 16 147/84 H 08/09/20 11:15 98 H 19 08/09/20 08:08 36.7 C 126 H 19 104/67 08/09/20 04:40 91/50 L 08/09/20 04:01 36.5 C 127 H 20 96/55 L 08/09/20 00:25 37.3 C 122 H 25 H 116/67 08/08/20 23:23 37.3 C 112 H 20 112/69 08/08/20 19:32 37.4 C 118 H 24 137/73 08/08/20 19:11 37.8 C H 113 H 21 100/65 08/08/20 15:18 37.6 C H 106 H 20 99/62 L 08/08/20 14:33 37.3 C 119 H 20 95/63 L 08/08/20 13:48 112 H 20 Pulse Ox 08/09/20 11:38 93 08/09/20 11:33 92 08/09/20 11:27 96 08/09/20 11:23 96 08/09/20 11:17 100 08/09/20 11:15 100 08/09/20 08:08 97 08/09/20 04:40 08/09/20 04:01 95 08/09/20 00:25 94 08/08/20 23:23 93 08/08/20 19:32 90 08/08/20 19:11 90 08/08/20 15:18 94 08/08/20 14:33 96 08/08/20 13:48 95 Pain Intensity Right Flank: Pain Intensity: 9 Transfer of Care Handoff Completed per policy Notes Mental Status: see notes below (intubated) Patient Amnestic to Procedure: Yes Nausea / Vomiting: adequately controlled Pain: adequately controlled Airway Patency, RR, SpO2: see Notes below (intubated) BP & HR: stable & adequate (critical) Hydration State: stable & adequate Anesthetic Complications: no major complications apparent
[2020-08-09 12:31] LABS: D Dimer 4750 ug/L FEU (0-500)
[2020-08-09 12:47] LABS: Troponin I 0.925 ng/ml (0-0.045)
--- NOTE | 2020-08-09 13:21 | CT Scan Report ---
CT SCAN OF THE BRAIN WITHOUT IV CONTRAST CLINICAL HISTORY: Change in mental status. Hypertensive emergency. COMPARISON STUDY: CT of the brain dated 09/19/2018. TECHNIQUE: Unenhanced axial CT scan of the brain is performed from the vertex to the skull base. A d ose lowering technique was utilized adhering to the principles of ALARA. The examination is modestly degraded by motion artifact. CT DOSE: 720.95 mGycm FINDINGS: An endotracheal tube is noted on the patent engineer tomogram. Brain parenchyma: There is mild subcortical and periventricular microangiopathic disease. There is no hemorrhage, mass effect, or evidence of acute territorial ischemia by CT criteria. Mayfield-white matter differentiation is preserved. No extra-axial fluid collection is seen. Ventricles, sulci, cisterns: Normal in configuration. Intracranial vasculature: There is atherosclerotic calcification of the cavernous carotid arteries. Calvarium: Unremarkable. Sinuses and mastoids: There is mild mucosal thickening in the left posterior ethmoid sinuses. Trace m ucosal thickening is seen in the left sphenoid sinus. The mastoid air cells are well pneumatized. Orbits: The bony orbits are grossly intact. IMPRESSION: There is no hemorrhage, mass effect, or evidence of acute territorial ischemia by CT hoda newell. ACT 112: Negative or not required by law. Electronically signed by: Neville Saravia M.D. 08/09/2020 1:20 PM
[2020-08-09] MEDS: ASPIRIN 81 MG ECTAB PO SCH (13:45)
[2020-08-09] MEDS: METOPROLOL TARTRATE 25 MG TAB PO SCH (13:46)
[2020-08-09] MEDS: amLODIPine BESYLATE 5 MG TAB PO SCH (13:46)
[2020-08-09] MEDS: predniSONE 10 MG TABLET PO SCH (13:46)
[2020-08-09] MEDS: ACETYLCYSTEINE 600 MG CAP PO SCH (13:47)
[2020-08-09] MEDS: MEROPENEM 500 MG in SYRINGE 0 ML IV SCH ×2 (14:00→20:41)
--- NOTE | 2020-08-09 15:57 | Surgery Consultation ---
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 She also had portal venous air and pneumatosis of her small bowel likely related to rupture, She has had a previous PEVAR of her AAA done in 2010. She also has had a left renal artery stent and a proximal extension of her endograft. She has CKD stage 4, chronic back pain, COPD and a Hx of blood clots in the right kidney after stent placement. She was admitted now initially for an acute DVT of the lower extremity and small PE's. Allergies Allergy/AdvReac Type Severity Reaction Status Date / Time codeine Allergy Severe Difficulty Verified 08/07/20 22:27 Breathing lisinopril Allergy Severe caused Verified 08/07/20 22:27 seizure/stroke adalimumab Allergy Intermediate Rash Verified 08/07/20 22:27 hydroxychloroquine Allergy Intermediate "whole Verified 08/07/20 22:27 [From Plaquenil] body turns red" leflunomide [From Arava] Allergy Intermediate rash/hive Verified 08/07/20 22:27 at injection site nickel Allergy Intermediate swelling Verified 08/07/20 22:27 with earrings Penicillins Allergy Intermediate Rash Verified 08/07/20 22:27 hydromorphone Allergy Mild Rash Verified 08/07/20 22:27 Home Medications Home Medications Medication Instructions Recorded Confirmed Type acetaminophen 500 mg PO BID 04/05/20 08/07/20 History albuterol sulfate 2 puff INHALATION QID PRN 04/05/20 08/07/20 History amlodipine 5 mg PO QAM 04/05/20 08/07/20 History aspirin [Aspirin Low Dose] 81 mg PO QAM 04/05/20 08/07/20 History cholecalciferol (vitamin D3) 2,000 unit PO QAM 04/05/20 08/07/20 History [Vitamin D3] losartan 50 mg PO HS 04/05/20 08/07/20 History meclizine 25 mg PO TID PRN 04/05/20 08/07/20 History metoprolol tartrate 25 mg PO BID 04/05/20 08/07/20 History omeprazole 20 mg PO DAILY PRN 04/05/20 08/07/20 History oxycodone 10 mg PO Q6H PRN 04/05/20 08/07/20 History potassium gluconate 50 mg PO QAM 04/05/20 08/07/20 History prednisone 10 mg PO QAM 04/05/20 08/07/20 History cyclobenzaprine [Flexeril] 5 mg PO HS 08/07/20 08/07/20 History Patient History Medical History (Updated 08/09/20 @ 12:18 by Chan Cotter MD) Aneurysm of right iliac artery Aortic aneurysm s/p AAA repair (2010, revision 2018) Chronic back pain Chronic kidney disease, stage 3 Diverticular disease DVT (deep venous thrombosis) DVT (deep venous thrombosis) Hearing deficit History of bronchitis reason for inhaler prn History of peptic ulcer Hx of blood clots developed in right kidney after stent placement Hyperlipidemia Hypertension Hypertensive emergency Iliac artery aneurysm, bilateral Lung nodules found on CT scan--under surveillance Pulmonary emboli Pt is a 60yo with a PMHx significant for AAA, iliac artery aneurysms, CKD stage 4, chronic back pain, COPD and a Hx of blood clots in the right kidney after stent placement who was admitted with acute PEs and DVTs. Acute PEs/DVTs -Pt states she had a lump under her R arm that eventually became a large bruise, associated w/ right groin pain -CTA chest showed occlusive PEs within the RLL and RUL segmental branches, diffuse atherosclerosis of the great vessels, moderate to severe stenosis of proximal L subclavian artery and tiny pulmonary nodules with a 1cm posterior LENARD ground glass nodule. -CTA abd/pelvis showed an acute DVT in R common femoral and iliac vein and possibly bilateral pelvic veins, 7cm and 4.6cm iliac artery anuerysms with mural thrombi, an atrophic R kidney and a L renal cyst with inferior L renal calculi. -CTA right humerus showed patent arteries, no anuerysm. Pulmonary embolism Retroperitoneal hematoma Rheumatoid arthritis Seizure 12/2018--felt r/t lisinopril--no deficits, follows with Dr. Saba Pop in [place] Small bowel ischemia Stroke 12/2018--felt r/t lisinopril--no deficits, follows with Dr. Saba Pop in [place] Vasculopathy Surgical History Fusion of spine 2010 @ [facility] Dr. Sanchez H/O abdominal aortic aneurysm repair 2010 Dr. Black @ [facility] History of abdominal aortic aneurysm (AAA) repair 06/2018 @ [place]--per pt had to "put a collar around the previous AAA repair" also had a renal artery stent placed at the same time History of cholecystectomy History of colonoscopy History of esophagogastroduodenoscopy (EGD) History of kyphoplasty 2014 @ [facility] History of stent insertion of renal artery 2017 @ [place] History of tubal ligation History of wisdom tooth extraction Family History Mother Family history of diabetes mellitus Brother Family hx of colon cancer Other No family history of adverse response to anesthesia Rheumatoid arthritis Stroke Social History Smoking Status: Former smoker Second Hand Exposure: Yes (parents/family smoked); Hx Alcohol Use: Yes Hx Substance Use: No Preferred Language: Serbian Communication Ability: Unable Manager Resource Required: No Beliefs That Will Affect Care: None Current Living Situation: Family Current Living Situation Comment: Lives with son Feels Safe at Home: Yes Assistive Devices: Oxygen - Continuous Review of Systems Review of Systems: Unobtainable due to endotracheal tube Physical Exam Constitutional: well developed and well nourished Neck: trachea midline Respiratory: Auscultation: lungs clear to auscultation bilaterally Cardiovascular: Rate/Rhythm: regular rate and regular rhythm Gastrointestinal (Abdomen): Inspection/Auscultation: abdomen normal to inspection and normal bowel sounds; abdomen not distended Percus jayson/Palpation: abdomen nontender and no guarding Musculoskeletal: Head/Neck/Chest: normocephalic Skin: no rashes, warm and dry Results & Data ([facility]) Vital Signs (Past 12 Hours) Vital Signs Temp Pulse Pulse Pulse Resp BP BP 08/09/20 15:00 37.3 C 88 08/09/20 14:52 37.3 C 87 143/90 H 08/09/20 14:30 37.4 C 89 08/09/20 14:00 37.5 C 89 08/09/20 13:35 37.5 C 90 144/86 H 08/09/20 13:30 88 20 08/09/20 12:45 37.8 C H 85 08/09/20 12:38 37.8 C H 84 120/87 08/09/20 12:30 37.8 C H 84 08/09/20 12:24 37.8 C H 84 120/80 08/09/20 12:15 37.8 C H 85 08/09/20 12:08 37.7 C H 89 214/118 H 08/09/20 12:03 37.7 C H 86 219/135 H 08/09/20 12:00 37.7 C H 84 08/09/20 11:52 37.7 C H 101 H 244/136 H 08/09/20 11:46 37.7 C H 94 H 192/117 H 08/09/20 11:45 37.7 C H 93 H 08/09/20 11:40 92 H 150/107 H 08/09/20 11:38 37.7 C H 94 H 18 232/120 H 08/09/20 11:34 08/09/20 11:33 37.6 C H 93 H 21 157/88 H 08/09/20 11:27 37.7 C H 88 16 133/78 08/09/20 11:25 84 15 08/09/20 11:23 37.7 C H 90 14 190/102 H 08/09/20 11:17 37.9 C H 91 H 16 08/09/20 11:15 98 H 19 08/09/20 08:08 36.7 C 126 H 19 104/67 08/09/20 04:40 91/50 L 08/09/20 04:01 36.5 C 127 H 20 96/55 L BP Pulse Ox Pulse Ox 08/09/20 15:00 95 08/09/20 14:52 94 08/09/20 14:30 93 08/09/20 14:00 94 08/09/20 13:35 95 08/09/20 13:30 96 08/09/20 12:45 96 08/09/20 12:38 95 08/09/20 12:30 94 08/09/20 12:24 97 08/09/20 12:15 95 08/09/20 12:08 93 08/09/20 12:03 94 08/09/20 12:00 93 08/09/20 11:52 93 08/09/20 11:46 93 08/09/20 11:45 93 08/09/20 11:40 92 08/09/20 11:38 192/117 H 93 08/09/20 11:34 96 08/09/20 11:33 127/83 92 08/09/20 11:27 106/83 96 08/09/20 11:25 94 08/09/20 11:23 127/83 96 08/09/20 11:17 147/84 H 100 08/09/20 11:15 100 08/09/20 08:08 97 08/09/20 04:40 08/09/20 04:[address] OF THE ABDOMEN AND PELVIS WITHOUT CONTRAST CLINICAL HISTORY: iliac aneurysm, possible rupture COMPARISON STUDY: CTA of the abdomen and pelvis August 07, 2020. TECHNIQUE: Axial images of the abdomen and pelvis were obtained without IV contrast. Images were reviewed in the axial, sagittal, and coronal planes. Automated exposure control was utilized for the study. A dose lowering technique was utilized adhering to the principles of ALARA. FINDINGS: Imaged portions of the lower chest demonstrate interval development of small bilateral pleural effusions, right larger left. Associated airspace opacity is noted. No free air is present. There has been interval development of moderate mesenteric venous gas and pneumatosis associated with several small bowel loops since prior CT of August 07, 2020. Evaluation of the abdomen and pelvis is suboptimal on this unenhanced exam. There is no biliary ductal dilatation status post cholecystectomy. A cyst within the upper pole of the left kidney is noted. The spleen is small. Pancreas is unremarkable on this unenhanced exam. No evidence for a bowel obstruction. Postoperative findings within the spine are noted. Marked right renal atrophy is noted. Note is made of a right renal artery stent. Bifurcated aortoiliac stent graft is noted. Patency cannot be assessed on this unenhanced exam. Aneurysmal dilatation of the right common iliac artery is noted to this is similar to prior CT of August 07, 2020. This aneurysm measures 6.9 cm. A left common iliac artery aneurysm measures 4.8 cm. A small amount of right retroperitoneal fluid centered on the right common iliac artery aneurysm is noted. This is slightly increased since prior examination. No large hematoma is present. Disc colonic diverticulosis without evidence for acute diverticulitis. IMPRESSION: 1. Redemonstration of bilateral common iliac artery aneurysms, right larger than left. No change in aneurysm size since CT of August 07, 2020. Right common artery aneurysm measures 6.9 cm. Slight increase in small amount of right retroperitoneal fluid which suggests hemorrhage since prior CT. This favors a slow leak from the right common iliac artery aneurysm. 2. Interval development of mesenteric venous gas and pneumatosis associated with several small bowel loops. This is concerning for small bowel ischemia. Findings discussed with Sunitha Lama at time of dictation. 3. Interval development of small bilateral pleural effusions and associated airspace opacities.
--- NOTE | 2020-08-09 16:12 | Nephrology Consultation ---
Date of Consultation August 09, 2020 Assessment & Plan (1) BRITTANY (acute kidney injury): * Nonoliguric BRITTANY/CKD due to preoperative hypotension and IV contrast administration * BP has stabilized without pressor support, patient is oxygenating well on 50% FiO2, electrolyte balance is acceptable - no acute indication for [employer] at this time * CMP, CBC and urinalysis w/ microscopy orders for tomorrow are active in EMR * Pharmacy has been consulted to assist w/ antibiotic dosing in the setting of BRITTANY * Continue hydration due to recent IV contrast administration (2) Chronic kidney disease, stage 3: * Baseline Cr 1.6 - 2.0 due to renal vascular disease * h/o L renal artery stent * Abdominal CT this admission reveals severe atrophy of the R kidney (3) Aneurysm of right iliac artery: * s/p emergent vascular repair 08/09/20 (4) Small bowel ischemia: * Dr. Ojeda was present at the time of my evaluation * Pneumatosis of small bowel felt to be a consequence of iliac aneurysm rupture * Broad spectrum antibiotics, volume resuscitation and clinical monitoring recommended History of Present Illness Reason for Consultation: BRITTANY/CKD Attending Physician: Sherita Bailon DO History of Present Illness Ms. Zhao is a 60 year old white female who is seen at the request of Dr. Cotter for evaluation of BRITTANY/CKD. Medical records in the EMR were reviewed today and are summarized as follows: Ms. Zhao has stage III CKD w/ baseline Cr 1.6 - 2.0. Her medical history is significant for AAA s/p PEVAR 2010, L renal artery stent, COPD, HTN, hyperlipidemia, RA and h/o seizure and CVA. Ms. Zhao presented to the ED 08/07/20 for evaluation of a lump under her R arm and R groin pain. CTA of the R arm, chest and abdomen revealed pulmonary emboli to the R upper and lower lobes, aneurysmal dilation of the common iliac arteries w/ evidence of trace hemorrhage on the right. Severe R renal atrophy, thinning of the lower pole of the L kidney and small L kidney stones were also reported and there was evidence of small bowel ischemia. Ms. Zhao underwent emergent repair of her R iliac artery aneurysm and subsequently developed severe HTN. She received sedation and was admitted to the ICU for ongoing mechanical ventilation and medical support. Cr has risen to 2.6 but patient remains nonoliguric and electrolyte balance is acceptable. Allergies Allergy/AdvReac Type Severity Reaction Status Date / Time codeine Allergy Severe Difficulty Verified 08/07/20 22:27 Breathing lisinopril Allergy Severe caused Verified 08/07/20 22:27 seizure/stroke adalimumab Allergy Intermediate Rash Verified 08/07/20 22:27 hydroxychloroquine Allergy Intermediate "whole Verified 08/07/20 22:27 [From Plaquenil] body turns red" leflunomide [From Arava] Allergy Intermediate rash/hive Verified 08/07/20 22:27 at injection site nickel Allergy Intermediate swelling Verified 08/07/20 22:27 with earrings Penicillins Allergy Intermediate Rash Verified 08/07/20 22:27 hydromorphone Allergy Mild Rash Verified 08/07/20 22:27 Home Medications Home Medications Medication Instructions Recorded Confirmed Type acetaminophen 500 mg PO BID 04/05/20 08/07/20 History albuterol sulfate 2 puff INHALATION QID PRN 04/05/20 08/07/20 History amlodipine 5 mg PO QAM 04/05/20 08/07/20 History aspirin [Aspirin Low Dose] 81 mg PO QAM 04/05/20 08/07/20 History cholecalciferol (vitamin D3) 2,000 unit PO QAM 04/05/20 08/07/20 History [Vitamin D3] losartan 50 mg PO HS 04/05/20 08/07/20 History meclizine 25 mg PO TID PRN 04/05/20 08/07/20 History metoprolol tartrate 25 mg PO BID 04/05/20 08/07/20 History omeprazole 20 mg PO DAILY PRN 04/05/20 08/07/20 History oxycodone 10 mg PO Q6H PRN 04/05/20 08/07/20 History potassium gluconate 50 mg PO QAM 04/05/20 08/07/20 History prednisone 10 mg PO QAM 04/05/20 08/07/20 History cyclobenzaprine [Flexeril] 5 mg PO HS 08/07/20 08/07/20 History Patient History Medical History Aneurysm of right iliac artery Aortic aneurysm s/p AAA repair (2010, revision 2018) Chronic back pain Chronic kidney disease, stage 3 Diverticular disease DVT (deep venous thrombosis) DVT (deep venous thrombosis) Hearing deficit History of bronchitis reason for inhaler prn History of peptic ulcer Hx of blood clots developed in right kidney after stent placement Hyperlipidemia Hypertension Hypertensive emergency Iliac artery aneurysm, bilateral Lung nodules found on CT scan--under surveillance Pulmonary emboli Pt is a 60yo with a PMHx significant for AAA, iliac artery aneurysms, CKD stage 4, chronic back pain, COPD and a Hx of blood clots in the right kidney after stent placement who was admitted with acute PEs and DVTs. Acute PEs/DVTs -Pt states she had a lump under her R arm that eventually became a large bruise, associated w/ right groin pain -CTA chest showed occlusive PEs within the RLL and RUL segmental branches, diffuse atherosclerosis of the great vessels, moderate to severe stenosis of proximal L subclavian artery and tiny pulmonary nodules with a 1cm posterior LENARD ground glass nodule. -CTA abd/pelvis showed an acute DVT in R common femoral and iliac vein and possibly bilateral pelvic veins, 7cm and 4.6cm iliac artery anuerysms with mural thrombi, an atrophic R kidney and a L renal cyst with inferior L renal calculi. -CTA right humerus showed patent arteries, no anuerysm. Pulmonary embolism Retroperitoneal hematoma Rheumatoid arthritis Seizure 12/2018--felt r/t lisinopril--no deficits, follows with Dr. Saba Pop in [place] Small bowel ischemia Stroke 12/2018--felt r/t lisinopril--no deficits, follows with Dr. Saba Pop in [place] Vasculopathy Surgical History Fusion of spine 2010 @ [facility] Dr. Sanchez H/O abdominal aortic aneurysm repair 2010 Dr. Black @ [facility] History of abdominal aortic aneurysm (AAA) repair 06/2018 @ [place]--per pt had to "put a collar around the previous AAA repair" also had a renal artery stent placed at the same time History of cholecystectomy History of colonoscopy History of esophagogastroduodenoscopy (EGD) History of kyphoplasty 2014 @ [facility] History of stent insertion of renal artery 2017 @ [place] History of tubal ligation History of wisdom tooth extraction Family History Mother Family history of diabetes mellitus Brother Family hx of colon cancer Other No family history of adverse response to anesthesia Rheumatoid arthritis Stroke Social History Smoking Status: Former smoker Second Hand Exposure: Yes (parents/family smoked); Hx Alcohol Use: Yes Hx Substance Use: No Preferred Language: Finnish Communication Ability: Unable High Worker Required: No Beliefs That Will Affect Care: None Current Living Situation: Family Current Living Situation Comment: Lives with son Feels Safe at Home: Yes Assistive Devices: Oxygen - Continuous Review of Systems Review of Systems: Unobtainable due to endotracheal tube Physical Exam Constitutional: sedated w/ fentanyl & propofol gtts, mechanically ventilated - currently on FiO2 50% w/ SaO2 95%. Not requiring pressor support at this time Eyes: PERRL, conjunctivae normal, anicteric sclerae ENMT: orotracheal tube in place Neck: trachea midline Respiratory: coarse BS bilaterally Cardiovascular: Rate/Rhythm: regular rate and regular rhythm Extremities: no edema (palpable DP pulses) Gastrointestinal (Abdomen): Percussion/Palpation: abdomen soft no bowel sounds Musculoskeletal: Extremities: no cyanosis Skin: clean, dry dressing overlying R femoral site Genitourinary: harrington catheter in place w/ 500 cc clear yellow urine in collection bag Results & Data ([facility]) Vital Signs (Past 12 Hours) Vital Signs Temp Pulse Pulse Pulse Resp BP BP 08/09/20 15:00 37.3 C 88 08/09/20 14:52 37.3 C 87 143/90 H 08/09/20 14:30 37.4 C 89 08/09/20 14:00 37.5 C 89 08/09/20 13:35 37.5 C 90 144/86 H 08/09/20 13:30 88 20 08/09/20 12:45 37.8 C H 85 08/09/20 12:38 37.8 C H 84 120/87 08/09/20 12:30 37.8 C H 84 08/09/20 12:24 37.8 C H 84 120/80 08/09/20 12:15 37.8 C H 85 08/09/20 12:08 37.7 C H 89 214/118 H 08/09/20 12:03 37.7 C H 86 219/135 H 08/09/20 12:00 37.7 C H 84 08/09/20 11:52 37.7 C H 101 H 244/136 H 08/09/20 11:46 37.7 C H 94 H 192/117 H 08/09/20 11:45 37.7 C H 93 H 08/09/20 11:40 92 H 150/107 H 08/09/20 11:38 37.7 C H 94 H 18 232/120 H 08/09/20 11:34 08/09/20 11:33 37.6 C H 93 H 21 157/88 H 08/09/20 11:27 37.7 C H 88 16 133/78 08/09/20 11:25 84 15 08/09/20 11:23 37.7 C H 90 14 190/102 H 08/09/20 11:17 37.9 C H 91 H 16 08/09/20 11:15 98 H 19 08/09/20 08:08 36.7 C 126 H 19 104/67 08/09/20 04:40 91/50 L 08/09/20 04:01 36.5 C 127 H 20 96/55 L BP Pulse Ox Pulse Ox 08/09/20 15:00 95 08/09/20 14:52 94 08/09/20 14:30 93 08/09/20 14:00 94 08/09/20 13:35 95 08/09/20 13:30 96 08/09/20 12:45 96 08/09/20 12:38 95 08/09/20 12:30 94 08/09/20 12:24 97 08/09/20 12:15 95 08/09/20 12:08 93 08/09/20 12:03 94 08/09/20 12:00 93 08/09/20 11:52 93 08/09/20 11:46 93 08/09/20 11:45 93 08/09/20 11:40 92 08/09/20 11:38 192/117 H 93 08/09/20 11:34 96 08/09/20 11:33 127/83 92 08/09/20 11:27 106/83 96 08/09/20 11:25 94 08/09/20 11:23 127/83 96 08/09/20 11:17 147/84 H 100 08/09/20 11:15 100 08/09/20 08:08 97 08/09/20 04:40 08/09/20 04:01 95 PG Care Time/CCT Total # of Minutes Spent Total Time Spent with Patient: Total time spent is greater than 50% in coordination of care (as documented) at patient's floor/unit and/or counseling patient: Coding Level of Care Code 62806 Inpt Consult Level 5 Diagnoses BRITTANY (acute kidney injury) N17.9 Chronic kidney disease, stage 3 N18.3 Aneurysm of right iliac artery I72.3 Small bowel ischemia K55.9
[2020-08-09] MEDS: HYDROCORTISONE SOD 50 MG in SYRINGE 0 ML IV SCH (20:42)
[2020-08-09 20:49] LABS: Hematocrit (blood only) 38.3 % (37-47); Hemoglobin 12.4 g/dL (12.0-16.0)
[2020-08-09] MEDS ORDERED: Heparin IV Standard *NO* Bolus ONE (21:04)
[2020-08-09] MEDS: HEPARIN SODIUM/DEXTROSE 25,000 UNITS/500 ML BAG IV SCH ×2 (21:16→21:28)
--- NOTE | 2020-08-09 22:01 | Hospitalist Progress Note ---
Date of Service August 09, 2020 Assessment & Plan (1) Pulmonary embolism: (1) Pulmonary emboli: Pt is a 60yo with a PMHx significant for AAA, iliac artery aneurysms, CKD stage 4, chronic back pain, COPD and a Hx of blood clots in the right kidney after stent placement who was admitted with acute PEs and DVTs. Acute PEs/DVTs -Pt states she had a lump under her R arm that eventually became a large bruise, associated w/ right groin pain -CTA chest showed occlusive PEs within the RLL and RUL segmental branches, diffuse atherosclerosis of the great vessels, moderate to severe stenosis of proximal L subclavian artery and tiny pulmonary nodules with a 1cm posterior LENARD ground glass nodule. -CTA abd/pelvis showed an acute DVT in R common femoral and iliac vein and possibly bilateral pelvic veins, 7cm and 4.6cm iliac artery anuerysms with mural thrombi, an atrophic R kidney and a L renal cyst with inferior L renal calculi. -CTA right humerus showed patent arteries, no anuerysm. -Of note pt states she has been a smoker since age of 8 (SIX). Quit 2 years ago. -lipid panel, hgba1c ordered for AM -continue heparin drip started in the ED -NPO -Dr. Black initially planning for extension of endograft, however pt with rupture AAA s/p repair on 08/09 Chronic Back pain -pt states she takes oxycodone 10mg q6h daily for her back pain -Follows with a pain clinic in [place] -continue oxycodone 10mg q6h daily -continue home flexeril 5mg qhs -consider pain management consult Acute on Chronic Kidney Injury -Baseline Cr of 1.61 -Cr elevated to 2.28 this admission -NSS @125mls/hr -trend Cr with AM labs -hold nephrotoxic meds (losartan 50mg qhs) Elevated lipase -lipase increased to 925 -does not appear to be acute pancreatitis, possibly due to embolic infarction? -pt on fluids as above, however @ 125mls/hr COPD -continue home inhaler HTN -continue home amlodipine 5mg, metoprolol tartrate 25mg bid -hold losartan 50mg with BRITTANY above -consider PRN lopressor or hydralazine for additional BP support until Cr downtrends to baseline GERD -continue home omeprazole 20mg daily RA -continue home prednisone 10mg daily LENARD nodulue noted on CTA, will need addressed once more acute issues are resolved Concerning in appearance for adenocarcinoma, but even more so in light of pt's extensive tobacco use hx DVT prophylaxis: on heparin drip CODE STATUS: Per admitting resident: Conditional code- wants CPR,defibrillation, no intubation or ventilator support. D/w daughter today post-op, states she would not want prolonged mechanical life support, but would be fine with the short term intubation that occurred post-op. (2) DVT (deep venous thrombosis): (3) Chronic kidney disease, stage 3: (4) Chronic back pain: (2) DVT (deep venous thrombosis): (3) Small bowel ischemia: (4) Hypertensive emergency: (5) Vasculopathy: (6) Aneurysm of right iliac artery: (7) Arterial aneurysm: (8) Chronic kidney disease, stage 3: (9) Chronic back pain: Admission and Anticipated Discharge Date Admission Date: August 08, 2020 Subjective Pt seen post-op, intbuated and sedated. Daughter is present and states that pt has been resting comfortably since she has been in. No new concerns. Review of Systems Review of Systems: Unable to obtain ROS due to intubation/sedation status Physical Exam Constitutional: WD/WN, vitals as above Eyes: normal visual wilks by confrontation and + anicteric sclerae Neck: normal visual inspection and trachea midline Respiratory: normal respiratory effort, lungs clear to auscultation Cardiovascular: Rate/Rhythm: regular rate and regular rhythm Gastrointestinal (Abdomen): Inspection/Auscultation: abdomen not distended Percussion/Palpation: abdomen soft; abdomen nontender Musculoskeletal: Head/Neck/Chest: normocephalic and head atraumatic negative for edema, peripheral pulses intact Skin: no rashes, warm and dry Neurologic: Intubated and sedated Psychiatric: Intubated and sedated Results & Data Results & Data ([facility]) Vital Signs (Past 12 Hours) Vital Signs Temp Pulse Pulse Resp BP BP BP 08/09/20 20:09 99 H 17 08/09/20 16:25 90 14 08/09/20 15:00 37.3 C 88 08/09/20 14:52 37.3 C 87 143/90 H 08/09/20 14:30 37.4 C 89 08/09/20 14:00 37.5 C 89 08/09/20 13:35 37.5 C 90 144/86 H 08/09/20 13:30 88 20 08/09/20 12:45 37.8 C H 85 08/09/20 12:38 37.8 C H 84 120/87 08/09/20 12:30 37.8 C H 84 08/09/20 12:24 37.8 C H 84 120/80 08/09/20 12:15 37.8 C H 85 08/09/20 12:08 37.7 C H 89 214/118 H 08/09/20 12:03 37.7 C H 86 219/135 H 08/09/20 12:00 37.7 C H 84 08/09/20 11:52 37.7 C H 101 H 244/136 H 08/09/20 11:46 37.7 C H 94 H 192/117 H 08/09/20 11:45 37.7 C H 93 H 08/09/20 11:40 92 H 150/107 H 08/09/20 11:38 37.7 C H 94 H 18 232/120 H 192/117 H 08/09/20 11:34 08/09/20 11:33 37.6 C H 93 H 21 157/88 H 127/83 08/09/20 11:27 37.7 C H 88 16 133/78 106/83 08/09/20 11:25 84 15 08/09/20 11:23 37.7 C H 90 14 190/102 H 127/83 08/09/20 11:17 37.9 C H 91 H 16 147/84 H 08/09/20 11:15 98 H 19 Pulse Ox Pulse Ox 08/09/20 20:09 95 08/09/20 16:25 99 08/09/20 15:00 95 08/09/20 14:52 94 08/09/20 14:30 93 08/09/20 14:00 94 08/09/20 13:35 95 08/09/20 13:30 96 08/09/20 12:45 96 08/09/20 12:38 95 08/09/20 12:30 94 08/09/20 12:24 97 08/09/20 12:15 95 08/09/20 12:08 93 08/09/20 12:03 94 08/09/20 12:00 93 08/09/20 11:52 93 08/09/20 11:46 93 08/09/20 11:45 93 08/09/20 11:40 92 08/09/20 11:38 93 08/09/20 11:34 96 08/09/20 11:33 92 08/09/20 11:27 96 08/09/20 11:25 94 08/09/20 11:23 96 08/09/20 11:17 100 08/09/20 11:15 100 PG Care Time/CCT Total # of Minutes Spent Total Time Spent with Patient: Total time spent is greater than 50% in coordination of care (as documented) at patient's floor/unit and/or counseling patient: Coding Level of Care Code 98948 Subseq Hosp Care Lvl 3 Diagnoses Pulmonary embolism I26.99 DVT (deep venous thrombosis) I82.409 Small bowel ischemia K55.9 Hypertensive emergency I16.1 Vasculopathy I99.9 Aneurysm of right iliac artery I72.3 Arterial aneurysm I72.9 Chronic kidney disease, stage 3 N18.3 Chronic back pain M54.9; G89.29
[2020-08-10] MEDS: SODIUM CHLORIDE 0.9% 500 ML IV SCH ×2 (02:27→02:28)
[2020-08-10] MEDS: SODIUM CHLORIDE 0.9% 1000ML 1,000 ML IV SCH ×3 (02:30→23:11)
[2020-08-10 03:19] LABS: Hematocrit (blood only) 35.7 % (37-47); Hemoglobin 11.9 g/dL (12.0-16.0); Mean Corpuscular Hemoglobin 30.5 pg (25-34); Mean Corpuscular Hgb Conc 33.3 g/dL (32-36); Mean Corpuscular Volume 91.5 fL (80-100); Mean Platelet Volume 9.6 fL (7.4-10.4); Platelet Count 229 K/uL (130-400); RDW Coefficient of Variation 15.7 % (11.5-14.5); RDW Standard Deviation 52.7 fL (36.4-46.3); White Blood Count 24.63 K/uL (4.8-10.8)
[2020-08-10 03:43] LABS: BUN Creatinine Ratio 15.2 (10-20); Calcium 6.9 mg/dl (8.5-10.1); Creatinine Clr Calc Pharmacy 39.3 ml/min; Est GFR (African American) 32.9; Est GFR (Non-African American) 28.4; Potassium 3.6 mmol/L (3.5-5.1)
[2020-08-10 03:45] LABS: Albumin Globulin Ratio 0.6 (0.9-2); Bilirubin,Total 0.5 mg/dl (0.2-1); Globulin 3.5 gm/dl (2.5-4.0); Total Protein 5.5 gm/dl (6.4-8.2)
[2020-08-10 03:48] LABS: Partial Thromboplastin Ratio 1.9
[2020-08-10 03:57] LABS: Partial Thromboplastin Time 52.6 Seconds (21.0-31.0)
[2020-08-10 03:58] LABS: Basophils # (auto) 0.01 K/uL (0-0.2); Immature Granulocytes # (auto) 0.09 K/uL (0.00-0.02); Immature Granulocytes % (auto) 0.4 %; Lymphocytes # (auto) 0.78 K/uL (1.2-3.4); Lymphocytes % (auto) 3.2 %; Monocytes % (auto) 3.7 %; Neutrophils # (auto) 22.85 K/uL (1.4-6.5); Neutrophils % (auto) 92.7 %; RBC Morphology Unremarkable
[2020-08-10] MEDS: propofoL 1,000 MG/100 ML VIAL IV SCH (04:17)
[2020-08-10] MEDS: MEROPENEM 500 MG in SYRINGE 0 ML IV SCH ×3 (04:18→20:40)
[2020-08-10] MEDS ORDERED: POTASSIUM CHLORIDE 20 MEQ/15 ML UDC PO STA (05:16)
[2020-08-10 05:42] LABS: iSTAT Arterial Blood Gas HCO3 19 meg/L (19-24); iSTAT Arterial Blood Gas pCO2 33 mmHg (35-46); iSTAT Arterial Blood Gas pH 7.38 (7.35-7.45); iSTAT Arterial Blood Gas pO2 70 mmHg (80-95); iSTAT Carbon Dioxide 20 mmol/L (24-31); iSTAT FiO2 30 %; iSTAT Site Art Line
--- NOTE | 2020-08-10 06:40 | Surgery Progress Note ---
Date of Service August 10, 2020 Assessment & Plan (1) Small bowel ischemia: clinically improving WBC up a little continue IV antibiotics con't resuscitation wean vent Admission and Anticipated Discharge Date Admission Date: August 08, 2020 Subjective intubated wakes and follows commands no complaints of abdominal pain weaning from vent Review of Systems Constitutional: no fever Gastrointestinal: no abdominal pain Physical Exam Constitutional: well developed and well nourished Neck: trachea midline Respiratory: normal respiratory effort Auscultation: + diminished lung sounds Cardiovascular: RRR, no murmur, no edema Gastrointestinal (Abdomen): Inspection/Auscultation: abdomen normal to inspection and normal bowel sounds Percussion/Palpation: abdomen soft; abdomen nontender and no guarding Musculoskeletal: Head/Neck/Chest: normocephalic and head atraumatic Skin: no rashes, warm and dry Neurologic: moves all extremities Results & Data ([facility]) Vital Signs (Past 12 Hours) Vital Signs Temp Pulse Resp BP Pulse Ox 08/10/20 06:00 36.2 C L 100 H 93 08/10/20 05:53 36.3 C L 103 H 134/82 92 08/10/20 05:28 97 H 15 94 08/10/20 05:10 99 H 13 97 08/10/20 05:00 36.7 C 96 H 95 08/10/20 04:53 36.9 C 95 H 124/85 95 08/10/20 04:00 36.6 C 95 H 94 08/10/20 03:52 36.6 C 95 H 128/82 94 08/10/20 03:00 36.4 C L 97 H 95 08/10/20 02:52 36.4 C L 96 H 125/81 94 08/10/20 02:10 97 H 17 96 08/10/20 02:00 36.6 C 94 H 94 08/10/20 01:52 36.6 C 94 H 126/75 94 08/10/20 01:00 36.7 C 94 H 94 08/10/20 00:52 36.6 C 95 H 122/71 94 08/10/20 00:00 36.8 C 94 H 95 08/09/20 23:52 36.8 C 94 H 120/81 95 08/09/20 23:20 94 H 15 97 08/09/20 23:00 36.9 C 94 H 98 08/09/20 22:52 36.8 C 94 H 127/91 98 08/09/20 22:00 36.8 C 94 H 98 08/09/20 21:52 36.8 C 94 H 116/81 97 08/09/20 21:00 36.7 C 95 H 96 08/09/20 20:53 36.7 C 96 H 124/78 97 08/09/20 20:09 99 H 17 95 08/09/20 20:00 96 H 94 08/09/20 19:54 37.5 C 92 H 153/109 H 97 08/09/20 19:00 37.4 C 93 H 100 08/09/20 18:52 37.4 C 91 H 124/86 99 08/09/20 18:45 37.4 C 91 H 98
[2020-08-10] MEDS ORDERED: STAT IV Infusion **Titration per Protocol STA (07:51)
[2020-08-10] MEDS: HYDROCORTISONE SOD 50 MG in SYRINGE 0 ML IV SCH (07:55)
[2020-08-10] MEDS ORDERED: niCARdipine 25 MG in SODIUM CHLORIDE 0.9% 240 ML IV SCH (08:00)
--- NOTE | 2020-08-10 08:02 | Critical Care Progress Note ---
Date of Service August 10, 2020 Assessment & Plan (1) S/P admission to ICU (intensive care unit): Patient is improving overall. Mental status appears intact. CT head yesterday was negative for evidence of bleed or ischemia. Repeat lactate is pending. She has ongoing small bowel ischemia which appears stable at this point. Surgery is following. Appreciate the recommendations. Right iliac artery was repaired by Dr. Black. Hemoglobin is stable. Continue heparin drip per her pulmonary and DVT. She is on minimal vent support at this time. We will try to extubate her this morning. She had evidence of hypertensive emergency yesterday. I have ordered a nicardipine drip in case her blood pressure continues to climb once the sedation is stopped. Continue meropenem and caspofungin for her small bowel ischemia. Leukocytosis slightly worsened. Renal function is improving which is a reassuring sign. Appreciate nephrology consultation. Pain control likely be an issue when she is extubated. Continue pantoprazole once daily. Continue hydrocortisone 50 mg twice daily as she was previously on chronic prednisone at 20 mg. We will reduce fluids to 80 mL an hour. CRITICAL CARE TIME - I have personally spent 33 minutes of critical care time in the direct management of this patient. This is a life/limb threatening event. This includes time spent evaluating patient, direct bedside care, chart review, placing orders, interpretation of diagnostic studies, discussion with consultants, patient, and family members, as well as other required patient management activities. This time is exclusive of all separately billable procedures, and teaching time and separate from and in addition to any other critical care service time. (2) Pulmonary embolism: (3) DVT (deep venous thrombosis): (4) Hypertensive emergency: (5) Retroperitoneal hematoma: (6) Vasculopathy: (7) Aneurysm of right iliac artery: (8) Metabolic encephalopathy: Admission and Anticipated Discharge Date Admission Date: August 08, 2020 Subjective The patient is currently on propofol and fentanyl. She does follow commands. She is on minimal vent support currently. No significant events overnight. She has pain when palpating the abdomen. The belly is soft. NG tube is in place. Review of Systems Review of Systems: All systems reviewed & are unremarkable except as noted in HPI & below and Unobtainable due to endotracheal tube Physical Exam Constitutional: WD/WN, vitals as above Eyes: PERRL, conjunctivae normal, anicteric sclerae ENMT: Endotracheal tube in place NG/surgery in place Neck: trachea midline, no thyromegaly Respiratory: normal respiratory effort, lungs clear to auscultation Cardiovascular: RRR, no murmur, no edema Gastrointestinal (Abdomen): Inspection/Auscultation: abdomen not distended, no abdominal edema and no scaphoid Mild tenderness to palpation Musculoskeletal: no cyanosis or clubbing, extremities motor strength 5/5 Skin: no rashes, warm and dry Neurologic: PERRL, EOMI, accommodation nl, no face palsy, no dysarthria Psychiatric: A+Ox3, euthymic affect Results & Data Results & Data ([facility]) Vital Signs (Past 12 Hours) Vital Signs Temp Pulse Resp BP Pulse Ox 08/10/20 07:40 103 H 20 95 08/10/20 06:00 97.2 F L 100 H 93 08/10/20 05:53 97.3 F L 103 H 134/82 92 08/10/20 05:28 97 H 15 94 08/10/20 05:10 99 H 13 97 08/10/20 05:00 98.1 F 96 H 95 08/10/20 04:53 98.4 F 95 H 124/85 95 08/10/20 04:00 97.9 F 95 H 94 08/10/20 03:52 97.9 F 95 H 128/82 94 08/10/20 03:00 97.5 F L 97 H 95 08/10/20 02:52 97.5 F L 96 H 125/81 94 08/10/20 02:10 97 H 17 96 08/10/20 02:00 97.9 F 94 H 94 08/10/20 01:52 97.9 F 94 H 126/75 94 08/10/20 01:00 98.1 F 94 H 94 08/10/20 00:52 97.9 F 95 H 122/71 94 08/10/20 00:00 98.2 F 94 H 95 08/09/20 23:52 98.2 F 94 H 120/81 95 08/09/20 23:20 94 H 15 97 08/09/20 23:00 98.4 F 94 H 98 08/09/20 22:52 98.2 F 94 H 127/91 98 08/09/20 22:00 98.2 F 94 H 98 08/09/20 21:52 98.2 F 94 H 116/81 97 08/09/20 21:00 98.1 F 95 H 96 08/09/20 20:53 98.1 F 96 H 124/78 97 08/09/20 20:09 99 H 17 95 08/09/20 20:00 96 H 94 I reviewed vital signs, labs and imaging Coding Level of Care Code Critical Care 1st 30-74 mins Diagnoses S/P admission to ICU (intensive care unit) Pulmonary embolism I26.99 DVT (deep venous thrombosis) I82.409 Hypertensive emergency I16.1 Retroperitoneal hematoma K66.1 Vasculopathy I99.9 Aneurysm of right iliac artery I72.3 Metabolic encephalopathy G93.41 Time Spent (min) 33
--- NOTE | 2020-08-10 08:47 | Surgery Progress Note ---
Date of Service August 10, 2020 Assessment & Plan (1) Aneurysm of right common iliac artery: Patient POD#1 from a ruptured right iliac artery aneurysm. She is doing well post op. Will get her OOB today. ICU care appreciated. Admission and Anticipated Discharge Date Admission Date: August 08, 2020 Subjective Patient no complaints of leg pain. Claims feeling better than yesterday. Denies significant abdominal pain. Physical Exam Constitutional: WD/WN, vitals as above Respiratory: Auscultation: lungs clear to auscultation bilaterally Cardiovascular: Rate/Rhythm: regular rate and regular rhythm dopplers heard in both feet Gastrointestinal (Abdomen): Percussion/Palpation: + abdomen tender (mild tenderness) and abdomen soft; no guarding and no pulsatile mass Skin: + incision (dressing intact) Results & Data ([facility]) Vital Signs (Past 12 Hours) Vital Signs Temp Pulse Resp BP Pulse Ox 08/10/20 07:51 102 H 11 L 95 08/10/20 07:40 103 H 20 95 08/10/20 06:00 36.2 C L 100 H 93 08/10/20 05:53 36.3 C L 103 H 134/82 92 08/10/20 05:28 97 H 15 94 08/10/20 05:10 99 H 13 97 08/10/20 05:00 36.7 C 96 H 95 08/10/20 04:53 36.9 C 95 H 124/85 95 08/10/20 04:00 36.6 C 95 H 94 08/10/20 03:52 36.6 C 95 H 128/82 94 08/10/20 03:00 36.4 C L 97 H 95 08/10/20 02:52 36.4 C L 96 H 125/81 94 08/10/20 02:10 97 H 17 96 08/10/20 02:00 36.6 C 94 H 94 08/10/20 01:52 36.6 C 94 H 126/75 94 08/10/20 01:00 36.7 C 94 H 94 08/10/20 00:52 36.6 C 95 H 122/71 94 08/10/20 00:00 36.8 C 94 H 95 08/09/20 23:52 36.8 C 94 H 120/81 95 08/09/20 23:20 94 H 15 97 08/09/20 23:00 36.9 C 94 H 98 08/09/20 22:52 36.8 C 94 H 127/91 98 08/09/20 22:00 36.8 C 94 H 98 08/09/20 21:52 36.8 C 94 H 116/81 97 08/09/20 21:00 36.7 C 95 H 96 08/09/20 20:53 36.7 C 96 H 124/78 97
--- NOTE | 2020-08-10 10:28 | Anesthesiology Progress Note ---
Date of Service August 10, 2020 Anesthesia Post Procedure Vital Signs Vital Signs: Temp Pulse Pulse Resp BP BP BP 08/10/20 09:00 36.8 C 105 H 08/10/20 08:53 36.6 C 103 H 153/88 H 08/10/20 08:30 36.3 C L 103 H 08/10/20 08:00 36.1 C L 103 H 08/10/20 07:53 35.8 C L 103 H 129/92 08/10/20 07:51 102 H 11 L 08/10/20 07:40 103 H 20 08/10/20 07:30 36.1 C L 102 H 08/10/20 07:00 30.6 C L 102 H 08/10/20 06:00 36.2 C L 100 H 08/10/20 05:53 36.3 C L 103 H 134/82 08/10/20 05:28 97 H 15 08/10/20 05:10 99 H 13 08/10/20 05:00 36.7 C 96 H 08/10/20 04:53 36.9 C 95 H 124/85 08/10/20 04:00 36.6 C 95 H 08/10/20 03:52 36.6 C 95 H 128/82 08/10/20 03:00 36.4 C L 97 H 08/10/20 02:52 36.4 C L 96 H 125/81 08/10/20 02:10 97 H 17 08/10/20 02:00 36.6 C 94 H 08/10/20 01:52 36.6 C 94 H 126/75 08/10/20 01:00 36.7 C 94 H 08/10/20 00:52 36.6 C 95 H 122/71 08/10/20 00:00 36.8 C 94 H 08/09/20 23:52 36.8 C 94 H 120/81 08/09/20 23:20 94 H 15 08/09/20 23:00 36.9 C 94 H 08/09/20 22:52 36.8 C 94 H 127/91 08/09/20 22:00 36.8 C 94 H 08/09/20 21:52 36.8 C 94 H 116/81 08/09/20 21:00 36.7 C 95 H 08/09/20 20:53 36.7 C 96 H 124/78 08/09/20 20:09 99 H 17 08/09/20 20:00 96 H 08/09/20 19:54 37.5 C 92 H 153/109 H 08/09/20 19:00 37.4 C 93 H 08/09/20 18:52 37.4 C 91 H 124/86 08/09/20 18:45 37.4 C 91 H 08/09/20 16:25 90 14 08/09/20 15:00 37.3 C 88 08/09/20 14:52 37.3 C 87 143/90 H 08/09/20 14:30 37.4 C 89 08/09/20 14:00 37.5 C 89 08/09/20 13:35 37.5 C 90 144/86 H 08/09/20 13:30 88 20 08/09/20 12:45 37.8 C H 85 08/09/20 12:38 37.8 C H 84 120/87 08/09/20 12:30 37.8 C H 84 08/09/20 12:24 37.8 C H 84 120/80 08/09/20 12:15 37.8 C H 85 08/09/20 12:08 37.7 C H 89 214/118 H 08/09/20 12:03 37.7 C H 86 219/135 H 08/09/20 12:00 37.7 C H 84 08/09/20 11:52 37.7 C H 101 H 244/136 H 08/09/20 11:46 37.7 C H 94 H 192/117 H 08/09/20 11:45 37.7 C H 93 H 08/09/20 11:40 92 H 150/107 H 08/09/20 11:38 37.7 C H 94 H 18 232/120 H 192/117 H 08/09/20 11:34 08/09/20 11:33 37.6 C H 93 H 21 157/88 H 127/83 08/09/20 11:27 37.7 C H 88 16 133/78 106/83 08/09/20 11:25 84 15 08/09/20 11:23 37.7 C H 90 14 190/102 H 127/83 08/09/20 11:17 37.9 C H 91 H 16 147/84 H 08/09/20 11:15 98 H 19 Pulse Ox Pulse Ox 08/10/20 09:00 94 08/10/20 08:53 94 08/10/20 08:30 93 08/10/20 08:00 98 08/10/20 07:53 94 08/10/20 07:51 95 08/10/20 07:40 95 08/10/20 07:30 95 08/10/20 07:00 95 08/10/20 06:00 93 08/10/20 05:53 92 08/10/20 05:28 94 08/10/20 05:10 97 08/10/20 05:00 95 08/10/20 04:53 95 08/10/20 04:00 94 08/10/20 03:52 94 08/10/20 03:00 95 08/10/20 02:52 94 08/10/20 02:10 96 08/10/20 02:00 94 08/10/20 01:52 94 08/10/20 01:00 94 08/10/20 00:52 94 08/10/20 00:00 95 08/09/20 23:52 95 08/09/20 23:20 97 08/09/20 23:00 98 08/09/20 22:52 98 08/09/20 22:00 98 08/09/20 21:52 97 08/09/20 21:00 96 08/09/20 20:53 97 08/09/20 20:09 95 08/09/20 20:00 94 08/09/20 19:54 97 08/09/20 19:00 100 08/09/20 18:52 99 08/09/20 18:45 98 08/09/20 16:25 99 08/09/20 15:00 95 08/09/20 14:52 94 08/09/20 14:30 93 08/09/20 14:00 94 08/09/20 13:35 95 08/09/20 13:30 96 08/09/20 12:45 96 08/09/20 12:38 95 08/09/20 12:30 94 08/09/20 12:24 97 08/09/20 12:15 95 08/09/20 12:08 93 08/09/20 12:03 94 08/09/20 12:00 93 08/09/20 11:52 93 08/09/20 11:46 93 08/09/20 11:45 93 08/09/20 11:40 92 08/09/20 11:38 93 08/09/20 11:34 96 08/09/20 11:33 92 08/09/20 11:27 96 08/09/20 11:25 94 08/09/20 11:23 96 08/09/20 11:17 100 08/09/20 11:15 100 Pain Intensity Right Flank: Pain Intensity: 9 Transfer of Care Handoff Completed per policy Notes Mental Status: alert / awake / arousable and participated in evaluation Patient Amnestic to Procedure: Yes Nausea / Vomiting: adequately controlled Pain: adequately controlled Airway Patency, RR, SpO2: stable & adequate BP & HR: stable & adequate Hydration State: stable & adequate Anesthetic Complications: no major complications apparent and Pt Satisfied with anesthetic care
[2020-08-10] MEDS ORDERED: LABETALOL HCL IV 5 MG/ML 20ML IV STA (11:30)
[2020-08-10] MEDS: CASPOFUNGIN 50 MG in SODIUM CHLORIDE 0.9% 250 ML IV SCH (12:11)
[2020-08-10] MEDS: PANTOprazole 40 MG in SYRINGE 0 ML IV SCH (12:11)
[2020-08-10] MEDS: ACETAMINOPHEN 1,000 MG/100 ML VIAL IV PRN (12:30)
--- NOTE | 2020-08-10 12:34 | Nephrology Progress Note ---
Date of Service August 10, 2020 Assessment & Plan (1) BRITTANY (acute kidney injury): Ariane presented to the hospital with right iliac artery aneurysm with impending rupture and had emergency surgery and repair of the aneurysm. She developed acute kidney injury, hemodynamically mediated with hypotension and IV contrast exposure, creatinine peaked to 2.6. Has baseline CKD with creatinine around 1.6 with renovascular disease with history of right renal artery stenosis and stent placement before, right kidney is atrophic. Creatinine improved to 1.9 this morning, electrolyte acceptable. --Continue to monitor renal function and electrolyte with daily renal panel, monitor urine output, discontinue IV fluid -- expect renal function to continue to improve Will follow (2) Hypertension: (3) Chronic kidney disease, stage 3: (4) Aneurysm of right iliac artery: Admission and Anticipated Discharge Date Admission Date: August 08, 2020 Subjective Ariane was seen and examined in her room in ICU, with her family at bedside. Overall she is feeling better except mild postsurgical pain. Blood pressure has been elevated. Has been having decent urine output. Renal function improved to creatinine down to 1.9 from 2.6 yesterday, electrolyte acceptable. Review of Systems Review of Systems: All systems reviewed & are unremarkable except as noted in HPI & below Physical Exam Constitutional: WD/WN, vitals as above no acute distress Respiratory: normal respiratory effort; no respiratory distress Auscultation: + diminished lung sounds Cardiovascular: RRR, no murmur, no edema Neurologic: awake; no focal motor deficits and not confused Psychiatric: A+Ox3, euthymic affect Results & Data ([facility]) Vital Signs (Past 12 Hours) Vital Signs Temp Pulse Resp BP Pulse Ox 08/10/20 09:00 36.8 C 105 H 94 08/10/20 08:53 36.6 C 103 H 153/88 H 94 08/10/20 08:30 36.3 C L 103 H 93 08/10/20 08:00 36.1 C L 103 H 98 08/10/20 07:53 35.8 C L 103 H 129/92 94 08/10/20 07:51 102 H 11 L 95 08/10/20 07:40 103 H 20 95 08/10/20 07:30 36.1 C L 102 H 95 08/10/20 07:00 30.6 C L 102 H 95 08/10/20 06:00 36.2 C L 100 H 93 08/10/20 05:53 36.3 C L 103 H 134/82 92 08/10/20 05:28 97 H 15 94 08/10/20 05:10 99 H 13 97 08/10/20 05:00 36.7 C 96 H 95 08/10/20 04:53 36.9 C 95 H 124/85 95 08/10/20 04:00 36.6 C 95 H 94 08/10/20 03:52 36.6 C 95 H 128/82 94 08/10/20 03:00 36.4 C L 97 H 95 08/10/20 02:52 36.4 C L 96 H 125/81 94 08/10/20 02:10 97 H 17 96 08/10/20 02:00 36.6 C 94 H 94 08/10/20 01:52 36.6 C 94 H 126/75 94 08/10/20 01:00 36.7 C 94 H 94 08/10/20 00:52 36.6 C 95 H 122/71 94 PG Care Time/CCT Total # of Minutes Spent Total Time Spent with Patient: Total time spent is greater than 50% in coordination of care (as documented) at patient's floor/unit and/or counseling patient: Coding Level of Care Code 34359 Subseq Hosp Care Lvl 3 Diagnoses BRITTANY (acute kidney injury) N17.9 Hypertension I10 Chronic kidney disease, stage 3 N18.3 Aneurysm of right iliac artery I72.3
[2020-08-10] MEDS ORDERED: Nursing to Pharmacy Communication SCH ×2 (15:30→17:45)
[2020-08-10] MEDS ORDERED: fentaNYL citrate 100 MCG/2 ML VIAL ONE (15:32)
[2020-08-10] MEDS ORDERED: fentaNYL citrate 100 MCG/2 ML VIAL IV PRN (15:34)
[2020-08-10] MEDS: HEPARIN SODIUM/DEXTROSE 25,000 UNITS/500 ML BAG IV SCH (15:37)
[2020-08-10] MEDS: LABETALOL HCL IV 5 MG/ML 20ML IV PRN (17:27)
[2020-08-10] MEDS ORDERED: fentaNYL citrate 100 MCG/2 ML VIAL IV ONE (17:45)
--- NOTE | 2020-08-10 18:16 | Hospitalist Progress Note ---
Date of Service August 10, 2020 Assessment & Plan (1) Pulmonary embolism: (1) Pulmonary emboli: Pt is a 60yo with a PMHx significant for AAA, iliac artery aneurysms, CKD stage 4, chronic back pain, COPD and a Hx of blood clots in the right kidney after stent placement who was admitted with acute PEs and DVTs. Acute PEs/DVTs -Pt states she had a lump under her R arm that eventually became a large bruise, associated w/ right groin pain -CTA chest showed occlusive PEs within the RLL and RUL segmental branches, diffuse atherosclerosis of the great vessels, moderate to severe stenosis of proximal L subclavian artery and tiny pulmonary nodules with a 1cm posterior LENARD ground glass nodule. -CTA abd/pelvis showed an acute DVT in R common femoral and iliac vein and possibly bilateral pelvic veins, 7cm and 4.6cm iliac artery anuerysms with mural thrombi, an atrophic R kidney and a L renal cyst with inferior L renal calculi. -CTA right humerus showed patent arteries, no anuerysm. -Of note pt states she has been a smoker since age of 8 (SIX). Quit 2 years ago. -lipid panel, hgba1c ordered for AM -continue heparin drip started in the ED -Dr. Black initially planning for extension of endograft, however pt with rupture AAA prior to OR s/p repair on 08/09 with extension of endograft Pt extubated AM 08/10 and tolerating Small bowel ischemia, started on meropenem and caspofungin 08/09 Chronic Back pain -pt states she takes oxycodone 10mg q6h daily for her back pain -Follows with a pain clinic in [place] -continue oxycodone 10mg q6h daily -continue home flexeril 5mg qhs -consider pain management consult Acute on Chronic Kidney Injury -Baseline Cr of 1.61 -Cr elevated to 2.28 this admission -trend Cr with AM labs -hold nephrotoxic meds (losartan 50mg qhs) Elevated lipase -lipase increased to 925 -does not appear to be acute pancreatitis, possibly due to embolic infarction? -pt on fluids as above, however @ 125mls/hr COPD -continue home inhaler HTN -continue home amlodipine 5mg, metoprolol tartrate 25mg bid -hold losartan 50mg with BRITTANY above -consider PRN lopressor or hydralazine for additional BP support until Cr downtrends to baseline GERD -continue home omeprazole 20mg daily RA -continue home prednisone 10mg daily LENARD nodule noted on CTA, will need addressed once more acute issues are resolved Concerning in appearance for adenocarcinoma, but even more so in light of pt's extensive tobacco use hx DVT prophylaxis: on heparin drip CODE STATUS: Per admitting resident: Conditional code- wants CPR,defibrillation, no intubation or ventilator support. D/w daughter post-op, states she would not want prolonged mechanical life support, but would be fine with the short term intubation that occurred post-op. (2) DVT (deep venous thrombosis): (3) Chronic kidney disease, stage 3: (4) Chronic back pain: (2) DVT (deep venous thrombosis): (3) Small bowel ischemia: (4) Hypertensive emergency: (5) Vasculopathy: (6) Aneurysm of right iliac artery: (7) Arterial aneurysm: (8) Chronic kidney disease, stage 3: (9) Chronic back pain: Admission and Anticipated Discharge Date Admission Date: August 08, 2020 Subjective Pt states she feels overall better, but is tired. She has pain to her R groin and numbness to her R LE post-op. She did not eat much today due to no appetite. Pt denies fever, SOB, chest pain, abd pain, n/v/c/d, LE swelling. Review of Systems Review of Systems: Unable to obtain ROS due to intubation/sedation status Physical Exam Constitutional: WD/WN, vitals as above Eyes: normal visual wilks by confrontation and + anicteric sclerae Neck: normal visual inspection and trachea midline Respiratory: normal respiratory effort, lungs clear to auscultation Cardiovascular: Rate/Rhythm: regular rate and regular rhythm Gastrointestinal (Abdomen): Inspection/Auscultation: abdomen not distended Percussion/Palpation: abdomen soft; abdomen nontender Musculoskeletal: Head/Neck/Chest: normocephalic and head atraumatic Skin: no rashes, warm and dry Neurologic: CN's II-XI intact bilaterally and awake; not confused Speech / Cognition: normal speech Psychiatric: A+Ox3, euthymic affect Results & Data Results & Data ([facility]) Vital Signs (Past 12 Hours) Vital Signs Temp Pulse Resp BP Pulse Ox Pulse Ox 08/10/20 14:31 100 H 16 173/101 H 97 08/10/20 14:26 101 H 17 173/101 H 98 08/10/20 14:00 99 H 16 98 08/10/20 13:53 99 H 19 162/107 H 98 08/10/20 13:00 98 H 22 95 08/10/20 12:53 96 H 21 148/91 H 96 08/10/20 12:00 37.3 C 107 H 94 08/10/20 11:53 37.2 C 105 H 157/92 H 93 08/10/20 11:00 37.1 C 108 H 93 96 08/10/20 10:53 37.1 C 106 H 159/90 H 93 08/10/20 10:00 36.7 C 105 H 93 08/10/20 09:53 36.7 C 107 H 161/89 H 93 08/10/20 09:00 36.8 C 105 H 94 08/10/20 08:53 36.6 C 103 H 153/88 H 94 08/10/20 08:30 36.3 C L 103 H 93 08/10/20 08:00 36.1 C L 103 H 98 08/10/20 07:53 35.8 C L 103 H 129/92 94 08/10/20 07:51 102 H 11 L 95 08/10/20 07:40 103 H 20 95 08/10/20 07:30 36.1 C L 102 H 95 08/10/20 07:00 30.6 C L 102 H 95 PG Care Time/CCT Total # of Minutes Spent Total Time Spent with Patient: Total time spent is greater than 50% in coordination of care (as documented) at patient's floor/unit and/or counseling patient: Coding Level of Care Code 23987 Subseq Hosp Care Lvl 3 Diagnoses Pulmonary embolism I26.99 DVT (deep venous thrombosis) I82.409 Small bowel ischemia K55.9 Hypertensive emergency I16.1 Vasculopathy I99.9 Aneurysm of right iliac artery I72.3 Arterial aneurysm I72.9 Chronic kidney disease, stage 3 N18.3 Chronic back pain M54.9; G89.29
[2020-08-10] MEDS: HYDROCORTISONE SOD 25 MG in SYRINGE 0 ML IV SCH (20:41)
[2020-08-10] MEDS: fentaNYL citrate 100 MCG/2 ML VIAL IV PRN (21:56)
[2020-08-11] MEDS: fentaNYL citrate 100 MCG/2 ML VIAL IV PRN ×4 (00:02→07:16)
[2020-08-11] MEDS: LABETALOL HCL IV 5 MG/ML 20ML IV PRN ×2 (00:03→07:19)
[2020-08-11 04:44] LABS: Hematocrit (blood only) 35.5 % (37-47); Hemoglobin 11.6 g/dL (12.0-16.0); Mean Corpuscular Hemoglobin 29.6 pg (25-34); Mean Corpuscular Hgb Conc 32.7 g/dL (32-36); Mean Corpuscular Volume 90.6 fL (80-100); Mean Platelet Volume 9.8 fL (7.4-10.4); Platelet Count 230 K/uL (130-400); RDW Coefficient of Variation 15.6 % (11.5-14.5); RDW Standard Deviation 51.6 fL (36.4-46.3); Red Blood Count 3.92 M/uL (4.2-5.4); White Blood Count 22.67 K/uL (4.8-10.8)
[2020-08-11 04:58] LABS: Partial Thromboplastin Ratio 1.5; Partial Thromboplastin Time 40.8 Seconds (21.0-31.0)
[2020-08-11] MEDS: MEROPENEM 500 MG in SYRINGE 0 ML IV SCH ×4 (04:58→21:42)
[2020-08-11 05:02] LABS: Albumin Level 1.9 gm/dl (3.4-5.0); Calcium 6.8 mg/dl (8.5-10.1); Creatinine Clr Calc Pharmacy 50.1 ml/min; Est GFR (African American) 44.1; Magnesium 1.9 mg/dl (1.8-2.4); Potassium 3.6 mmol/L (3.5-5.1)
[2020-08-11 05:06] LABS: Albumin Globulin Ratio 0.5 (0.9-2); Bilirubin,Total 0.6 mg/dl (0.2-1); Globulin 3.8 gm/dl (2.5-4.0); Phosphorus 2.9 mg/dl (2.5-4.9); Total Protein 5.7 gm/dl (6.4-8.2)
[2020-08-11 05:40] LABS: Eosinophils # (auto) 0.01 K/uL (0-0.5); Immature Granulocytes # (auto) 0.09 K/uL (0.00-0.02); Immature Granulocytes % (auto) 0.4 %; Lymphocytes # (auto) 1.08 K/uL (1.2-3.4); Lymphocytes % (auto) 4.8 %; Monocytes # (auto) 0.96 K/uL (0.11-0.59); Monocytes % (auto) 4.2 %; Neutrophils # (auto) 20.53 K/uL (1.4-6.5); Neutrophils % (auto) 90.6 %
[2020-08-11] MEDS ORDERED: POTASSIUM CHLORIDE 20 MEQ TABCR PO STA (06:13)
[2020-08-11] MEDS: POTASSIUM CHLORIDE / WTR 20 MEQ/100 ML PLCT IV SCH ×2 (06:43→08:12)
[2020-08-11] MEDS ORDERED: HEPARIN IV BOLUS 6,000 UNITS in SYRINGE 0 ML IV ONE (06:55)
[2020-08-11] MEDS: HYDROCORTISONE SOD 25 MG in SYRINGE 0 ML IV SCH (08:11)
[2020-08-11] MEDS: HEPARIN SODIUM/DEXTROSE 25,000 UNITS/500 ML BAG IV SCH ×2 (08:14→23:47)
[2020-08-11] MEDS ORDERED: POTASSIUM PHOS 3 MMOL/1 ML INFUSION IV STA (09:10)
--- NOTE | 2020-08-11 09:27 | Surgery Progress Note ---
Date of Service August 11, 2020 Assessment & Plan (1) Aneurysm of right common iliac artery: Doing well. Up in chair this am and started on cl liq diet Her leg numbness is mostly in distribution that results from the groin incision. Will start PT/OT Admission and Anticipated Discharge Date Admission Date: August 08, 2020 Subjective Patient complaining of right leg mostly inner thigh. No foot pain. Starting on clear liquid diet Physical Exam Cardiovascular: good foot dopplers Gastrointestinal (Abdomen): Percussion/Palpation: abdomen soft mild tenderness on deep palpation Skin: Dressing intact. Results & Data ([facility]) Vital Signs (Past 12 Hours) Vital Signs Temp Pulse Pulse Resp BP BP Pulse Ox 08/11/20 08:00 37.1 C 94 H 20 141/88 H 94 08/11/20 05:00 99 H 24 94 08/11/20 04:53 98 H 23 157/94 H 94 08/11/20 04:00 37.1 C 100 H 20 95 08/11/20 03:53 97 H 19 149/94 H 94 08/11/20 03:00 99 H 16 94 08/11/20 02:53 96 H 19 141/88 H 94 08/11/20 02:00 96 H 18 95 08/11/20 01:53 95 H 18 150/92 H 95 08/11/20 01:00 99 H 16 95 08/11/20 00:53 94 H 17 154/91 H 96 08/11/20 00:11 94 H 22 93 08/11/20 00:10 99 H 31 H 147/90 H 94 08/11/20 00:00 37.1 C 102 H 23 93 08/10/20 23:53 101 H 23 174/101 H 94 08/10/20 23:00 99 H 19 95 08/10/20 22:53 101 H 23 161/102 H 95 08/10/20 22:00 100 H 21 96 08/10/20 21:53 100 H 20 167/106 H 96
[2020-08-11] MEDS ORDERED: POTASSIUM PHOSPHATE 30 MMOL in SODIUM CHLORIDE 0.9% 500 ML IV ONE (09:30)
[2020-08-11] MEDS: predniSONE 10 MG TABLET PO SCH (09:32)
[2020-08-11] MEDS: METOPROLOL TARTRATE 25 MG TAB PO SCH ×2 (09:32→21:43)
[2020-08-11] MEDS: oxyCODONE HCL IR 5 MG TAB (IMMEDIATE RELEASE) PO PRN ×4 (09:35→21:42)
--- NOTE | 2020-08-11 09:38 | Surgery Progress Note ---
Date of Service August 11, 2020 Assessment & Plan (1) Small bowel ischemia: SB ischemia improving clinically with revascularization WBC and lactate improved con't IV abx if not taking po well consider restarting IVF pain should con't to improve with supportive care Admission and Anticipated Discharge Date Admission Date: August 08, 2020 Subjective patient extubated complains of some abdominal pain able to move around in chair without significant worsening of pain Review of Systems Constitutional: no fever and no chills Respiratory: no cough and no dyspnea Cardiovascular: no chest pain Gastrointestinal: + abdominal pain and + diarrhea/loose stools; no nausea and no vomiting Genitourinary: no dysuria Musculoskeletal: no back pain Physical Exam Constitutional: well developed and well nourished Neck: trachea midline Respiratory: normal respiratory effort Auscultation: + diminished lung sounds Cardiovascular: Rate/Rhythm: + tachycardic Gastrointestinal (Abdomen): Inspection/Auscultation: abdomen normal to inspection, + abdomen distended and normal bowel sounds Percussion/Palpation: + abdomen tender; no guarding and no hernia Musculoskeletal: Head/Neck/Chest: normocephalic and head atraumatic Skin: no rashes, warm and dry Results & Data ([facility]) Vital Signs (Past 12 Hours) Vital Signs Temp Pulse Pulse Resp BP BP Pulse Ox 08/11/20 08:00 37.1 C 94 H 20 141/88 H 94 08/11/20 05:00 99 H 24 94 08/11/20 04:53 98 H 23 157/94 H 94 08/11/20 04:00 37.1 C 100 H 20 95 08/11/20 03:53 97 H 19 149/94 H 94 08/11/20 03:00 99 H 16 94 08/11/20 02:53 96 H 19 141/88 H 94 08/11/20 02:00 96 H 18 95 08/11/20 01:53 95 H 18 150/92 H 95 08/11/20 01:00 99 H 16 95 08/11/20 00:53 94 H 17 154/91 H 96 08/11/20 00:11 94 H 22 93 08/11/20 00:10 99 H 31 H 147/90 H 94 08/11/20 00:00 37.1 C 102 H 23 93 08/10/20 23:53 101 H 23 174/101 H 94 08/10/20 23:00 99 H 19 95 08/10/20 22:53 101 H 23 161/102 H 95 08/10/20 22:00 100 H 21 96 08/10/20 21:53 100 H 20 167/106 H 96
[2020-08-11] MEDS: PANTOprazole 40 MG in SYRINGE 0 ML IV SCH (10:24)
--- NOTE | 2020-08-11 10:33 | Critical Care Progress Note ---
Date of Service August 11, 2020 Assessment & Plan (1) S/P admission to ICU (intensive care unit): Patient is improving overall. She is extubated. She is doing well on nasal cannula. Surgery is following her for her ischemic bowel. She also has evidence of mild pancreatitis based on lipase and clinical symptoms. Continue caspofungin and meropenem. I recommend continuing antibiotics for 2 weeks. We will try to advance diet to clear liquids today. Right iliac artery was repaired by Dr. Black. Hemoglobin is stable. Continue heparin drip for her pulmonary embolism and DVT. She will need to be started on oral agent very soon. We will hold off on oral agent for today given her recent ischemic bowel and pneumo intestinalis. Will order a KUB for today. I am starting her metoprolol 12.5 twice daily. Continue meropenem and caspofungin for her small bowel ischemia. Renal function is improving which is a reassuring sign. LFTs are improving. LFT derangements likely secondary to ischemic hepatopathy. Started on p.o. oxycodone for pain control. Continue pantoprazole once daily. I switched her back to her chronic home dose of prednisone which was 10 mg. Holding IV fluids at this time. She is stable for transfer to the floor with telemetry. I discussed CODE STATUS with the patient and she indicated that she would like to be full code. (2) Pulmonary embolism: (3) DVT (deep venous thrombosis): (4) Hypertensive emergency: (5) Retroperitoneal hematoma: (6) Vasculopathy: (7) Aneurysm of right iliac artery: Patient is status post endovascular repair of the right iliac artery aneurysm and inferior vena cava fistula. She became extremely hypertensive post surgery likely due to increased adrenergic response from reperfusion. I gave her 5 mg of labetalol and we have started her on propofol and fentanyl with improvement of blood pressure. Aim to keep her systolic blood pressure around 160 mmHg. Will attempt a spontaneous breathing trial and extubation tomorrow morning. She does have evidence of pulmonary edema likely related to her hypertensive emergency. We will hold on diuretic therapy at this time as urine output appears to be adequate and she does have an BRITTANY. She received several loads of contrast. She does have evidence of CKD. She also has evidence of small bowel ischemia likely related to her underlying vasculopathy. I am starting her on meropenem and caspofungin. Blood cultures are pending. Lactate is pending. Continue to monitor extremities for evidence of circulation and worsening ischemia. She has a pulmonary embolism and a DVT which will need anticoagulation. Dr. Black noted that she can be restarted on anticoagulation 6-8 hours. Will restart anticoagulation around 8 PM with heparin and no bolus. I will get a CT of her head given the severely elevated blood pressure as she is at extreme risk for subarachnoid hemorrhage. She also had evidence of confusion prior to surgery which may have actually been related to hypotension and delirium. We will get a urine drug screen to evaluate for amphetamines and cocaine. She will clearly remain in the ICU at this time. Notably her CODE STATUS is listed as a conditional code. This was ordered by the admitting resident physician. She apparently indicated that she is okay for cardiac resuscitation, but would not like intubation or mechanical ventilation for respiratory failure. She is currently intubated as she just had surgery. We will have to address this with the family. I am hopeful that we will be able to extubate her in the next 24 to 48 hours barring any significant complications. CRITICAL CARE TIME - I have personally spent 63 minutes of critical care time in the direct management of this patient. This is a life/limb threatening event. This includes time spent evaluating patient, direct bedside care, chart review, placing orders, interpretation of diagnostic studies, discussion with consultants, patient, and family members, as well as other required patient management activities. This time is exclusive of all separately billable procedures, and teaching time and separate from and in addition to any other critical care service time. (8) Metabolic encephalopathy: Admission and Anticipated Discharge Date Admission Date: August 08, 2020 Subjective Patient continues to complain of some mild abdominal pain. She does not have a significant appetite at the moment. No fevers or chills. Hemodynamically stable. She denies chest pain. Review of Systems Review of Systems: All systems reviewed & are unremarkable except as noted in HPI & below Physical Exam Constitutional: WD/WN, vitals as above Eyes: PERRL, conjunctivae normal, anicteric sclerae ENMT: external ear and nose normal, oropharynx normal Neck: normal visual inspection Respiratory: normal respiratory effort, lungs clear to auscultation Cardiovascular: Heart Sounds: normal S1, normal S2 and + murmur Right greater than left lower extremity edema. warm from knees bilaterally. Gastrointestinal (Abdomen): Mild tenderness to palpation diffusely. Hypoactive bowel sounds. Musculoskeletal: no cyanosis or clubbing, extremities motor strength 5/5 Skin: no rashes, warm and dry Neurologic: PERRL, EOMI, accommodation nl, no face palsy, no dysarthria Psychiatric: A+Ox3, euthymic affect Results & Data Results & Data ([facility]) Vital Signs (Past 12 Hours) Vital Signs Temp Pulse Pulse Resp BP BP Pulse Ox 08/11/20 08:00 98.8 F 94 H 20 141/88 H 94 08/11/20 05:00 99 H 24 94 08/11/20 04:53 98 H 23 157/94 H 94 08/11/20 04:00 98.8 F 100 H 20 95 08/11/20 03:53 97 H 19 149/94 H 94 08/11/20 03:00 99 H 16 94 08/11/20 02:53 96 H 19 141/88 H 94 08/11/20 02:00 96 H 18 95 08/11/20 01:53 95 H 18 150/92 H 95 08/11/20 01:00 99 H 16 95 08/11/20 00:53 94 H 17 154/91 H 96 08/11/20 00:11 94 H 22 93 08/11/20 00:10 99 H 31 H 147/90 H 94 08/11/20 00:00 98.8 F 102 H 23 93 08/10/20 23:53 101 H 23 174/101 H 94 08/10/20 23:00 99 H 19 95 08/10/20 22:53 101 H 23 161/102 H 95 I reviewed the vital signs, labs and imaging Coding Level of Care Code 43271 Subseq Hosp Care Lvl 3 Diagnoses S/P admission to ICU (intensive care unit) Pulmonary embolism I26.99 DVT (deep venous thrombosis) I82.409 Hypertensive emergency I16.1 Retroperitoneal hematoma K66.1 Vasculopathy I99.9 Aneurysm of right iliac artery I72.3 Metabolic encephalopathy G93.41
[2020-08-11] MEDS: CASPOFUNGIN 50 MG in SODIUM CHLORIDE 0.9% 250 ML IV SCH (11:27)
--- NOTE | 2020-08-11 11:54 | Nephrology Progress Note ---
Date of Service August 11, 2020 Assessment & Plan (1) BRITTANY (acute kidney injury): Ariane presented to the hospital with right iliac artery aneurysm with impending rupture and had emergency surgery and repair of the aneurysm. She developed acute kidney injury, hemodynamically mediated with hypotension and IV contrast exposure, creatinine peaked to 2.6. Has baseline CKD with creatinine around 1.6 with renovascular disease with history of right renal artery stenosis and stent placement before, right kidney is atrophic. Creatinine improved to 1.9 this morning, electrolyte acceptable. BRITTANY resolved and creatinine down to her baseline, electrolyte acceptable. -- start on amlodipine 5 mg p.o. daily, continue to hold ARB for now -- Continue to monitor renal function and electrolyte with daily renal panel, monitor urine output, discontinue IV fluid -- please schedule for outpatient follow-up with Dr. [facility] few weeks after discharge Will sign off. (2) Hypertension: (3) Chronic kidney disease, stage 3: (4) Aneurysm of right iliac artery: * Admission and Anticipated Discharge Date Admission Date: August 08, 2020 Subjective Ariane was seen and examined in her room in ICU. Overall she is feeling better except mild postsurgical pain. Blood pressure has been elevated. Has been having decent urine output. Renal function improved to creatinine down to 1.5 from 2.6 yesterday, electrolyte acceptable. Review of Systems Review of Systems: All systems reviewed & are unremarkable except as noted in HPI & below Physical Exam Constitutional: WD/WN, vitals as above no acute distress Respiratory: normal respiratory effort; no respiratory distress Auscultation: + diminished lung sounds Cardiovascular: RRR, no murmur, no edema Neurologic: awake; no focal motor deficits and not confused Psychiatric: A+Ox3, euthymic affect Results & Data ([facility]) Vital Signs (Past 12 Hours) Vital Signs Temp Pulse Pulse Resp BP BP BP 08/11/20 11:00 37.3 C 93 H 22 159/100 H 08/11/20 08:00 37.1 C 94 H 20 141/88 H 08/11/20 05:00 99 H 24 08/11/20 04:53 98 H 23 157/94 H 08/11/20 04:00 37.1 C 100 H 20 08/11/20 03:53 97 H 19 149/94 H 08/11/20 03:00 99 H 16 08/11/20 02:53 96 H 19 141/88 H 08/11/20 02:00 96 H 18 08/11/20 01:53 95 H 18 150/92 H 08/11/20 01:00 99 H 16 08/11/20 00:53 94 H 17 154/91 H 08/11/20 00:11 94 H 22 08/11/20 00:10 99 H 31 H 147/90 H 08/11/20 00:00 37.1 C 102 H 23 Pulse Ox 08/11/20 11:00 97 08/11/20 08:00 94 08/11/20 05:00 94 08/11/20 04:53 94 08/11/20 04:00 95 08/11/20 03:53 94 08/11/20 03:00 94 08/11/20 02:53 94 08/11/20 02:00 95 08/11/20 01:53 95 08/11/20 01:00 95 08/11/20 00:53 96 08/11/20 00:11 93 08/11/20 00:10 94 08/11/20 00:00 93 PG Care Time/CCT Total # of Minutes Spent Total Time Spent with Patient: Total time spent is greater than 50% in coordination of care (as documented) at patient's floor/unit and/or counseling patient: Coding Level of Care Code 39241 Subseq Hosp Care Lvl 3 Diagnoses BRITTANY (acute kidney injury) N17.9 Hypertension I10 Chronic kidney disease, stage 3 N18.3 Aneurysm of right iliac artery I72.3
[2020-08-11 13:38] LABS: Partial Thromboplastin Ratio 2.3
--- NOTE | 2020-08-11 13:43 | XRay Report ---
KUB HISTORY: Generalized abdominal pain. ischemic bowel COMPARISON: Abdomen and pelvis CT 08/09/2020. FINDINGS: There are no dilated loops of bowel to suggest an obstruction. No pneumoperitoneum or pneum atosis identified at this time. Aortobiiliac stent graft is again noted. L4-L5 posterior fusion. L2 v ertebroplasty. Bilateral inguinal skin osbaldo are noted. Cholecystectomy. No renal calculi. No urete ral calculi. IMPRESSION: Unremarkable bowel gas pattern. No evidence for bowel obstruction. ACT 112: Negative or not required by law. Electronically signed by: Quincy Zepeda M.D. 08/11/2020 1:42 PM
[2020-08-11 13:46] LABS: Partial Thromboplastin Time 65.5 Seconds (21.0-31.0)
--- NOTE | 2020-08-11 15:19 | Hospitalist Progress Note ---
Date of Service August 11, 2020 Assessment & Plan (1) Pulmonary embolism: (1) Pulmonary emboli: Pt is a 60yo with a PMHx significant for AAA, iliac artery aneurysms, CKD stage 4, chronic back pain, COPD and a Hx of blood clots in the right kidney after stent placement who was admitted with acute PEs and DVTs. Acute PEs/DVTs -Pt states she had a lump under her R arm that eventually became a large bruise, associated w/ right groin pain -CTA chest showed occlusive PEs within the RLL and RUL segmental branches, diffuse atherosclerosis of the great vessels, moderate to severe stenosis of proximal L subclavian artery and tiny pulmonary nodules with a 1cm posterior LENARD ground glass nodule. -CTA abd/pelvis showed an acute DVT in R common femoral and iliac vein and possibly bilateral pelvic veins, 7cm and 4.6cm iliac artery anuerysms with mural thrombi, an atrophic R kidney and a L renal cyst with inferior L renal calculi. -CTA right humerus showed patent arteries, no anuerysm. -Of note pt states she has been a smoker since age of 8 (SIX). Quit 2 years ago. -lipid panel, hgba1c ordered for AM -continue heparin drip started in the ED -Dr. Black initially planning for extension of endograft, however pt with rupture AAA prior to OR s/p repair on 08/09 with extension of endograft Pt extubated AM 08/10 and tolerating Small bowel ischemia, started on meropenem and caspofungin 08/09 KUB 08/11 neg for obstruction Will defer to ICU team Chronic Back pain -pt states she takes oxycodone 10mg q6h daily for her back pain -Follows with a pain clinic in [place] -continue oxycodone 10mg q6h daily -continue home flexeril 5mg qhs -consider pain management consult Acute on Chronic Kidney Injury -Baseline Cr of 1.61 -Cr elevated to 2.28 this admission -trend Cr with AM labs -hold nephrotoxic meds (losartan 50mg qhs) Elevated lipase -lipase increased to 925 -does not appear to be acute pancreatitis, possibly due to embolic infarction? -pt on fluids as above, however @ 125mls/hr COPD -continue home inhaler HTN -continue home amlodipine 5mg, metoprolol tartrate 25mg bid -hold losartan 50mg with BRITTANY above -consider PRN lopressor or hydralazine for additional BP support until Cr downtrends to baseline GERD -continue home omeprazole 20mg daily RA -continue home prednisone 10mg daily LENARD nodule noted on CTA, will need addressed once more acute issues are resolved Concerning in appearance for adenocarcinoma, but even more so in light of pt's extensive tobacco use hx DVT prophylaxis: on heparin drip CODE STATUS: Per admitting resident: Conditional code- wants CPR,defibrillation, no intubation or ventilator support. D/w daughter post-op, states she would not want prolonged mechanical life support, but would be fine with the short term intubation that occurred post-op. (2) DVT (deep venous thrombosis): (3) Chronic kidney disease, stage 3: (4) Chronic back pain: (2) DVT (deep venous thrombosis): (3) Small bowel ischemia: (4) Hypertensive emergency: (5) Vasculopathy: (6) Aneurysm of right iliac artery: (7) Arterial aneurysm: (8) Chronic kidney disease, stage 3: (9) Chronic back pain: Admission and Anticipated Discharge Date Admission Date: August 08, 2020 Subjective Pt states she is having worsening abd pain today. States she d/w ICU and surgery earlier today. Mild nausea, no emesis. She feels she is SOB and when asked further, feels it is more because she cannot take a deep breath due to abd pain. States she feels bloated. No chest pain. Diarrhea today. Trial of clears, but pt did not like the saltiness of the broth. Pt denies fever, chest pain, LE swelling. Ongoing R LE groin pain. Review of Systems Review of Systems: Unable to obtain ROS due to intubation/sedation status Physical Exam Constitutional: WD/WN, vitals as above Eyes: normal visual wilks by confrontation and + anicteric sclerae Neck: normal visual inspection and trachea midline Respiratory: normal respiratory effort, lungs clear to auscultation Cardiovascular: Rate/Rhythm: regular rate and regular rhythm Gastrointestinal (Abdomen): Inspection/Auscultation: + abdomen distended Percussion/Palpation: + abdomen tender and abdomen soft Musculoskeletal: Head/Neck/Chest: normocephalic and head atraumatic Skin: no rashes, warm and dry Neurologic: CN's II-XI intact bilaterally and awake; not confused Speech / Cognition: normal speech Psychiatric: A+Ox3, euthymic affect Results & Data Results & Data ([facility]) Vital Signs (Past 12 Hours) Vital Signs Temp Pulse Pulse Resp BP BP BP 08/11/20 11:00 37.3 C 93 H 22 159/100 H 08/11/20 08:00 37.1 C 94 H 20 141/88 H 08/11/20 05:00 99 H 24 08/11/20 04:53 98 H 23 157/94 H 08/11/20 04:00 37.1 C 100 H 20 08/11/20 03:53 97 H 19 149/94 H Pulse Ox 08/11/20 11:00 97 08/11/20 08:00 94 08/11/20 05:00 94 08/11/20 04:53 94 08/11/20 04:00 95 08/11/20 03:53 94 PG Care Time/CCT Total # of Minutes Spent Total Time Spent with Patient: Total time spent is greater than 50% in coordination of care (as documented) at patient's floor/unit and/or counseling patient: Coding Level of Care Code 88424 Subseq Hosp Care Lvl 3 Diagnoses Pulmonary embolism I26.99 DVT (deep venous thrombosis) I82.409 Small bowel ischemia K55.9 Hypertensive emergency I16.1 Vasculopathy I99.9 Aneurysm of right iliac artery I72.3 Arterial aneurysm I72.9 Chronic kidney disease, stage 3 N18.3 Chronic back pain M54.9; G89.29
[2020-08-12] MEDS: oxyCODONE HCL IR 5 MG TAB (IMMEDIATE RELEASE) PO PRN ×5 (02:29→19:58)
[2020-08-12] MEDS: MEROPENEM 500 MG in SYRINGE 0 ML IV SCH ×4 (04:14→21:44)
[2020-08-12 04:46] LABS: Basophils # (auto) 0.01 K/uL (0-0.2); Basophils % (auto) 0.1 %; Eosinophils # (auto) 0.02 K/uL (0-0.5); Eosinophils % (auto) 0.1 %; Hematocrit (blood only) 36.9 % (37-47); Immature Granulocytes # (auto) 0.14 K/uL (0.00-0.02); Immature Granulocytes % (auto) 0.7 %; Lymphocytes # (auto) 1.47 K/uL (1.2-3.4); Lymphocytes % (auto) 7.6 %; Mean Corpuscular Hemoglobin 29.9 pg (25-34); Mean Corpuscular Hgb Conc 32.5 g/dL (32-36); Mean Corpuscular Volume 91.8 fL (80-100); Mean Platelet Volume 10.2 fL (7.4-10.4); Monocytes % (auto) 5.7 %; Neutrophils % (auto) 85.8 %; Platelet Count 266 K/uL (130-400); RDW Coefficient of Variation 15.7 % (11.5-14.5); Red Blood Count 4.02 M/uL (4.2-5.4); White Blood Count 19.24 K/uL (4.8-10.8)
[2020-08-12 05:09] LABS: Partial Thromboplastin Ratio 1.8
[2020-08-12 05:24] LABS: Albumin Level 1.9 gm/dl (3.4-5.0); BUN Creatinine Ratio 18.3 (10-20); Calcium 7.2 mg/dl (8.5-10.1); Creatinine Clr Calc Pharmacy 57.3 ml/min; Est GFR (African American) 51.4; Est GFR (Non-African American) 44.4; Magnesium 2.4 mg/dl (1.8-2.4); Potassium 3.6 mmol/L (3.5-5.1)
[2020-08-12 05:28] LABS: Albumin Globulin Ratio 0.5 (0.9-2); Bilirubin,Total 0.6 mg/dl (0.2-1); Globulin 3.9 gm/dl (2.5-4.0); Phosphorus 2.6 mg/dl (2.5-4.9); Total Protein 5.8 gm/dl (6.4-8.2)
[2020-08-12] MEDS: METOPROLOL TARTRATE 25 MG TAB PO SCH ×2 (07:36→20:34)
[2020-08-12] MEDS: predniSONE 10 MG TABLET PO SCH (07:36)
--- NOTE | 2020-08-12 09:33 | Surgery Progress Note ---
Date of Service pt is doing better, less abdominal pain, the pain is located just above umbilical area, no nausea, no vomiting, no bloody stool, August 12, 2020 Assessment & Plan (1) Small bowel ischemia: SB ischemia improving clinically with revascularization WBC and lactate improved con't IV abx if not taking po well consider restarting IVF pain should con't to improve with supportive care 08/12/2020 9:29AM SB ischemia improving clinically with revascularization doing better, WBC 19.000 no surgical indication now clear diet, continue IV antibiotic repeat labs in am, will F/U Admission and Anticipated Discharge Date Admission Date: August 08, 2020 Subjective Pt states she is having worsening abd pain today. States she d/w ICU and surgery earlier today. Mild nausea, no emesis. She feels she is SOB and when asked further, feels it is more because she cannot take a deep breath due to abd pain. States she feels bloated. No chest pain. Diarrhea today. Trial of clears, but pt did not like the saltiness of the broth. Pt denies fever, chest pain, LE swelling. Ongoing R LE groin pain. Review of Systems Gastrointestinal: + abdominal pain and + diarrhea/loose stools; no nausea and no vomiting Physical Exam Constitutional: WD/WN, vitals as above well developed and well nourished Eyes: PERRL, conjunctivae normal, anicteric sclerae ENMT: external ear and nose normal, oropharynx normal Neck: trachea midline, no thyromegaly Respiratory: normal respiratory effort, lungs clear to auscultation Cardiovascular: RRR, no murmur, no edema Gastrointestinal (Abdomen): Percussion/Palpation: abdomen soft mild tenderness just above umbilical area, no rebound pain, no distend, BS + Musculoskeletal: no cyanosis or clubbing, extremities motor strength 5/5 Neurologic: patellar DTR's 2+ bilat, sensation intact Psychiatric: Orientation: alert and oriented x 3 Results & Data ([facility]) Vital Signs (Past 12 Hours) Vital Signs Pulse Resp BP Pulse Ox 08/12/20 08:00 107 H 17 95 08/12/20 07:53 112 H 22 167/103 H 95 08/12/20 07:39 102 H 20 141/109 H 94 08/12/20 07:00 101 H 23 91 Laboratory Results Abnormal lab results 08/11/20 08/12/20 08/12/20 Range/Units 13:12 04:19 04:19 WBC 19.24 H (4.8-10.8) K/uL RBC 4.02 L (4.2-5.4) M/uL Hct 36.9 L (37-47) % RDW Std Deviation 53.0 H (36.4-46.3) fL RDW Coeff of Jesus 15.7 H (11.5-14.5) % Neut # (Auto) 16.50 H (1.4-6.5) K/uL [place] # (Auto) 1.10 H (0.11-0.59) K/uL Immature Gran # (Auto) 0.14 H (0.00-0.02) K/uL APTT 65.5 H* (21.0-31.0) Seconds Chloride 111 H (98-107) mmol/L BUN 24 H (7-18) mg/dl Creatinine 1.32 H (0.6-1.2) mg/dl Calcium 7.2 L (8.5-10.1) mg/dl AST 69 H (15-37) U/L ALT 188 H (12-78) U/L Total Protein 5.8 L (6.4-8.2) gm/dl Albumin 1.9 L (3.4-5.0) gm/dl Albumin/Globulin Ratio 0.5 L (0.9-2) 08/12/20 Range/Units 04:19 WBC (4.8-10.8) K/uL RBC (4.2-5.4) M/uL Hct (37-47) % RDW Std Deviation (36.4-46.3) fL RDW Coeff of Jesus (11.5-14.5) % Neut # (Auto) (1.4-6.5) K/uL [place] # (Auto) (0.11-0.59) K/uL Immature Gran # (Auto) (0.00-0.02) K/uL APTT 50.0 H* (21.0-31.0) Seconds Chloride (98-107) mmol/L BUN (7-18) mg/dl Creatinine (0.6-1.2) mg/dl Calcium (8.5-10.1) mg/dl AST (15-37) U/L ALT (12-78) U/L Total Protein (6.4-8.2) gm/dl Albumin (3.4-5.0) gm/dl Albumin/Globulin Ratio (0.9-2)
--- NOTE | 2020-08-12 09:40 | Surgery Progress Note ---
Date of Service August 12, 2020 Assessment & Plan (1) Aneurysm of right common iliac artery: Pt improving post op. Taking CL PO without N/V. Continue increasing activity/PT/OT. Ok for transfer to PCU from vascular standpoint. Admission and Anticipated Discharge Date Admission Date: August 08, 2020 Subjective 60 yo f POD #3 after emergent endovascular repair of R iliac art aneurysm, seen in f/u today. Pt admits pain in R groin and numbness of RLE. Has been increasing PO intake with CL. Continnues to have abd pain, but states is no worse than yesterday. Denies any other new complaints. Review of Systems Review of Systems: All systems reviewed & are unremarkable except as noted in HPI & below Physical Exam Constitutional: WD/WN, vitals as above Respiratory: normal respiratory effort, lungs clear to auscultation Auscultation: lungs clear to auscultation bilaterally Cardiovascular: Rate/Rhythm: regular rate and regular rhythm Heart Sounds: no murmur Vessels: femoral pulses present and radial pulses present Extrem ities: normal capillary refill and + edema (RLE) Gastrointestinal (Abdomen): Inspection/Auscultation: abdomen normal to inspection Percussion/Palpation: + abdomen tender (mild tenderness) and abdomen soft; no guarding and no pulsatile mass Musculoskeletal: Extremities: extremities normal to inspection Skin: + incision (dressing intact) Neurologic: normal touch/pain/proprioception and CN's II-XI intact bilaterally Psychiatric: Orientation: alert and oriented x 3 Results & Data ([place]) Vital Signs (Past 12 Hours) Vital Signs Pulse Resp BP Pulse Ox 08/12/20 08:00 107 H 17 95 08/12/20 07:53 112 H 22 167/103 H 95 08/12/20 07:39 102 H 20 141/109 H 94 08/12/20 07:00 101 H 23 91
[2020-08-12] MEDS: ACETAMINOPHEN 1,000 MG/100 ML VIAL IV PRN (10:22)
[2020-08-12] MEDS: PANTOprazole 40 MG in SYRINGE 0 ML IV SCH (11:18)
[2020-08-12] MEDS: amLODIPine BESYLATE 5 MG TAB PO SCH (11:29)
[2020-08-12] MEDS: PANTOprazole 40 MG TAB PO SCH (11:29)
[2020-08-12] MEDS: CASPOFUNGIN 50 MG in SODIUM CHLORIDE 0.9% 250 ML IV SCH (11:32)
--- NOTE | 2020-08-12 13:11 | Hospitalist Progress Note ---
Date of Service August 12, 2020 Assessment & Plan (1) Pulmonary embolism: (1) Pulmonary emboli: Pt is a 60yo with a PMHx significant for AAA, iliac artery aneurysms, CKD stage 4, chronic back pain, COPD and a Hx of blood clots in the right kidney after stent placement who was admitted with acute PEs and DVTs. Acute PEs/DVTs -Pt states she had a lump under her R arm that eventually became a large bruise, associated w/ right groin pain -CTA chest showed occlusive PEs within the RLL and RUL segmental branches, diffuse atherosclerosis of the great vessels, moderate to severe stenosis of proximal L subclavian artery and tiny pulmonary nodules with a 1cm posterior LENARD ground glass nodule. -CTA abd/pelvis showed an acute DVT in R common femoral and iliac vein and possibly bilateral pelvic veins, 7cm and 4.6cm iliac artery anuerysms with mural thrombi, an atrophic R kidney and a L renal cyst with inferior L renal calculi. -CTA right humerus showed patent arteries, no anuerysm. -Of note pt states she has been a smoker since age of 8 (SIX). Quit 2 years ago. -continue heparin drip for time being, will d/w vascular surgery about time frame for PO anticoagulation -Dr. Black initially planning for extension of endograft, however pt with rupture AAA prior to OR s/p repair on 08/09 with extension of endograft Pt extubated AM 08/10 and tolerating Small bowel ischemia, started on meropenem and caspofungin 08/09 KUB 08/11 neg for obstruction complete 7 days total, last day would be 08/15 Chronic Back pain -pt states she takes oxycodone 10mg q6h daily for her back pain -Follows with a pain clinic in [place] -continue oxycodone 10mg q6h daily -continue home flexeril 5mg qhs -pain is tolerable today Acute on Chronic Kidney Injury -Baseline Cr of 1.61 -Cr elevated to 2.28 this admission -down to 1.3 today, electrolytes stable, making adequate urine Elevated lipase -lipase increased to 925 -does not appear to be acute pancreatitis, possibly due to embolic infarction? -treated with fluids, will stop them today as she is taking PO liquids COPD -continue home inhaler HTN -continue home amlodipine 5mg, metoprolol tartrate 25mg bid -resume losartan 50mg HS as her Cr is back to normal GERD -continue home omeprazole 20mg daily RA -continue home prednisone 10mg daily LENARD nodule noted on CTA, will need addressed once more acute issues are resolved Concerning in appearance for adenocarcinoma, but even more so in light of pt's extensive tobacco use hx DVT prophylaxis: on heparin drip CODE STATUS: Per admitting resident: Conditional code- wants CPR,defibrillation, no intubation or ventilator support. D/w daughter post-op, states she would not want prolonged mechanical life support, but would be fine with the short term intubation that occurred post-op. (2) DVT (deep venous thrombosis): (3) Chronic kidney disease, stage 3: (4) Chronic back pain: (2) DVT (deep venous thrombosis): (3) Small bowel ischemia: (4) Hypertensive emergency: (5) Vasculopathy: (6) Aneurysm of right iliac artery: (7) Arterial aneurysm: (8) Chronic kidney disease, stage 3: (9) Chronic back pain: Admission and Anticipated Discharge Date Admission Date: August 08, 2020 Subjective patient transferred out of the ICU this morning, stable condition she says she still feels more short of breath than normal but better she is tolerating liquid diet, her daughter brought in homemade broth her right leg is still swollen and tender discussed with ICU as well as vascular surgery, she is recovering well plan for rehab after a few more days in hospital BP elevated, will resume her Losartan since her renal function back to baseline reviewed the chart and labs WBC is 19k, Hb 12, plts 266k, Cr down to 1.32 and electrolytes stable Review of Systems Review of Systems: All systems reviewed & are unremarkable except as noted in Subjective Physical Exam Constitutional: well developed, well nourished and comfortable; no acute distress Neck: trachea midline, no thyromegaly Respiratory: normal respiratory effort, lungs clear to auscultation Cardiovascular: Rate/Rhythm: regular rate and regular rhythm Heart Sounds: normal S1 and normal S2; no murmur Vessels: no JVD Extremities: + edema (right leg) Gastrointestinal (Abdomen): normal bowel sounds, soft, nontender, no hepatosplenomegaly Musculoskeletal: no cyanosis or clubbing, extremities motor strength 5/5 Skin: no rashes, warm and dry Neurologic: patellar DTR's 2+ bilat, sensation intact and PERRL, EOMI, accommodation nl, no face palsy, no dysarthria Psychiatric: A+Ox3, euthymic affect Results & Data Results & Data ([facility]) Vital Signs (Past 12 Hours) Vital Signs Pulse Resp BP Pulse Ox Pulse Ox 08/12/20 11:00 97 08/12/20 08:00 107 H 17 95 08/12/20 07:53 112 H 22 167/103 H 95 08/12/20 07:39 102 H 20 141/109 H 94 08/12/20 07:00 101 H 23 91 Laboratory Results Laboratory Results - last 24 hr 08/11/20 08/12/20 08/12/20 13:12 04:19 04:19 WBC 19.24 H RBC 4.02 L Hgb 12.0 Hct 36.9 L MCV 91.8 MCH 29.9 MCHC 32.5 RDW Std Deviation 53.0 H RDW Coeff of Jesus 15.7 H Plt Count 266 MPV 10.2 Immature Gran % (Auto) 0.7 Neut % (Auto) 85.8 Lymph % (Auto) 7.6 [place] % (Auto) 5.7 Eos % (Auto) 0.1 Baso % (Auto) 0.1 Neut # (Auto) 16.50 H Lymph # (Auto) 1.47 [place] # (Auto) 1.10 H Eos # (Auto) 0.02 Baso # (Auto) 0.01 Immature Gran # (Auto) 0.14 H APTT 65.5 H* PTT Ratio 2.3 Sodium 141 Potassium 3.6 Chloride 111 H Carbon Dioxide 25 Anion Gap 5.0 BUN 24 H Creatinine 1.32 H Est Cr Clr Drug Dosing 57.3 Est GFR ( Amer) 51.4 Est GFR (Non-Af Amer) 44.4 BUN/Creatinine Ratio 18.3 Glucose 95 Calcium 7.2 L Phosphorus 2.6 Magnesium 2.4 Total Bilirubin 0.6 AST 69 H ALT 188 H Alkaline Phosphatase 64 Total Protein 5.8 L Albumin 1.9 L Globulin 3.9 Albumin/Globulin Ratio 0.5 L 08/12/20 04:19 WBC RBC Hgb Hct MCV MCH MCHC RDW Std Deviation RDW Coeff of Jesus Plt Count MPV Immature Gran % (Auto) Neut % (Auto) Lymph % (Auto) [place] % (Auto) Eos % (Auto) Baso % (Auto) Neut # (Auto) Lymph # (Auto) [place] # (Auto) Eos # (Auto) Baso # (Auto) Immature Gran # (Auto) APTT 50.0 H* PTT Ratio 1.8 Sodium Potassium Chloride Carbon Dioxide Anion Gap BUN Creatinine Est Cr Clr Drug Dosing Est GFR ( Amer) Est GFR (Non-Af Amer) BUN/Creatinine Ratio Glucose Calcium Phosphorus Magnesium Total Bilirubin AST ALT Alkaline Phosphatase Total Protein Albumin Globulin Albumin/Globulin Ratio Medications Administered Current Inpatient Medications Amlodipine Besylate (Amlodipine Besylate 5 Mg Tab) 5 mg PO QAM ARIANA Stop: 09/11/20 10:29 Last Admin: 08/12/20 11:29 Dose: 5 mg Documented by: Heparin Sodium (Beef Lung) (Heparin 10 Unit/Ml 5 Ml Flush) 5 ml FLUSH PRN PRN PRN Reason: Flush Stop: 09/08/20 23:20 Caspofungin 50 mg/ Sodium (Chloride) 260 mls @ 250 mls/hr IV DAILY@1200 [facility] Stop: 09/09/20 11:59 Last Infusion: 08/12/20 12:50 Dose: Infused Documented by: Heparin Sodium/Dextrose (Heparin Sodium/Dextrose) 25,000 units in 500 mls @ 34 mls/hr IV .[id number] [facility]; Protocol Stop: 09/08/20 21:14 Last Titration: 08/12/20 07:01 Dose: 1,700 units/hr, 34 mls/hr Documented by: Meropenem 500 mg/ Syringe 10 mls @ 2 mls/min IV Q6H [facility]; Protocol Stop: 08/19/20 09:59 Last Admin: 08/12/20 10:41 Dose: 2 mls/min Documented by: Losartan Potassium (Losartan Potassium 50 Mg Tab) 50 mg PO QPM ARI[facility] Stop: 09/11/20 20:59 Meropenem (Meropenem Consult Acitve) 1 ea N/A UD PRN PRN Reason: Consult Stop: 09/08/20 11:37 Metoprolol Tartrate (Metoprolol Tartrate 25 Mg Tab) 25 mg PO BID [facility] Stop: 09/11/20 20:59 Oxycodone HCl (Oxycodone Hcl Ir 5 Mg Tab (Immediate Release)) 5 mg PO Q4H PRN PRN Reason: Pain Stop: 08/25/20 09:09 Last Admin: 08/12/20 12:01 Dose: 5 mg Documented by: Pantoprazole Sodium (Pantoprazole 40 Mg Tab) 40 mg PO [facility] Stop: 08/14/20 08:59 Last Admin: 08/12/20 11:29 Dose: 40 mg Documented by: Prednisone (Prednisone 10 Mg Tablet) [facility] Stop: 09/10/20 08:59 Last Admin: 08/12/20 07:36 Dose: 10 mg Documented by: PG Care Time/CCT Total # of Minutes Spent Total Time Spent with Patient: Total time spent is greater than 50% in coordination of care (as documented) at patient's floor/unit and/or counseling patient: Coding Level of Care Code 51036 Subseq Hosp Care Lvl 3 Diagnoses Pulmonary embolism I26.99 DVT (deep venous thrombosis) I82.409 Small bowel ischemia K55.9 Hypertensive emergency I16.1 Vasculopathy I99.9 Aneurysm of right iliac artery I72.3 Arterial aneurysm I72.9 Chronic kidney disease, stage 3 N18.3 Chronic back pain M54.9; G89.29
[2020-08-12] MEDS: HEPARIN SODIUM/DEXTROSE 25,000 UNITS/500 ML BAG IV SCH (13:50)
[2020-08-12] MEDS: LOSARTAN POTASSIUM 50 MG TAB PO SCH (20:34)
[2020-08-13] MEDS: oxyCODONE HCL IR 5 MG TAB (IMMEDIATE RELEASE) PO PRN ×5 (00:21→23:01)
[2020-08-13] MEDS: MEROPENEM 500 MG in SYRINGE 0 ML IV SCH ×4 (04:03→21:08)
[2020-08-13] MEDS: HEPARIN SODIUM/DEXTROSE 25,000 UNITS/500 ML BAG IV SCH ×3 (04:33→19:26)
[2020-08-13 05:41] LABS: Basophils # (auto) 0.02 K/uL (0-0.2); Basophils % (auto) 0.1 %; Eosinophils # (auto) 0.27 K/uL (0-0.5); Eosinophils % (auto) 1.6 %; Hematocrit (blood only) 37.7 % (37-47); Hemoglobin 12.4 g/dL (12.0-16.0); Immature Granulocytes # (auto) 0.18 K/uL (0.00-0.02); Immature Granulocytes % (auto) 1.1 %; Lymphocytes # (auto) 2.15 K/uL (1.2-3.4); Lymphocytes % (auto) 13.1 %; Mean Corpuscular Hemoglobin 29.7 pg (25-34); Mean Corpuscular Hgb Conc 32.9 g/dL (32-36); Mean Corpuscular Volume 90.4 fL (80-100); Mean Platelet Volume 10.2 fL (7.4-10.4); Monocytes # (auto) 1.15 K/uL (0.11-0.59); Neutrophils # (auto) 12.69 K/uL (1.4-6.5); Neutrophils % (auto) 77.1 %; Platelet Count 255 K/uL (130-400); RDW Coefficient of Variation 15.4 % (11.5-14.5); RDW Standard Deviation 50.9 fL (36.4-46.3); Red Blood Count 4.17 M/uL (4.2-5.4); White Blood Count 16.46 K/uL (4.8-10.8)
[2020-08-13 05:59] LABS: Partial Thromboplastin Ratio 1.7
[2020-08-13 06:07] LABS: Albumin Level 1.9 gm/dl (3.4-5.0); BUN Creatinine Ratio 19.5 (10-20); Calcium 7.6 mg/dl (8.5-10.1); Creatinine Clr Calc Pharmacy 58.6 ml/min; Est GFR (African American) 52.9; Est GFR (Non-African American) 45.6; Magnesium 2.3 mg/dl (1.8-2.4); Potassium 3.4 mmol/L (3.5-5.1)
[2020-08-13 06:22] LABS: Partial Thromboplastin Time 46.6 Seconds (21.0-31.0)
[2020-08-13 06:27] LABS: Albumin Globulin Ratio 0.5 (0.9-2); Bilirubin,Total 0.4 mg/dl (0.2-1); Globulin 3.8 gm/dl (2.5-4.0); Phosphorus 1.9 mg/dl (2.5-4.9); Total Protein 5.7 gm/dl (6.4-8.2)
[2020-08-13] MEDS ORDERED: POTASSIUM PHOS 3 MMOL/1 ML INFUSION IV STA (07:33)
--- NOTE | 2020-08-13 07:35 | Hospitalist Progress Note ---
Date of Service August 13, 2020 Assessment & Plan (1) Pulmonary embolism: (1) Pulmonary emboli: Pt is a 60yo with a PMHx significant for AAA, iliac artery aneurysms, CKD stage 4, chronic back pain, COPD and a Hx of blood clots in the right kidney after stent placement who was admitted with acute PEs and DVTs. Acute PEs/DVTs -CTA chest showed occlusive PEs within the RLL and RUL segmental branches, diffuse atherosclerosis of the great vessels, moderate to severe stenosis of proximal L subclavian artery and tiny pulmonary nodules with a 1cm posterior LENARD ground glass nodule. -CTA abd/pelvis showed an acute DVT in R common femoral and iliac vein and possibly bilateral pelvic veins, 7cm and 4.6cm iliac artery aneurysms with mural thrombi, an atrophic R kidney and a L renal cyst with inferior L renal calculi. -CTA right humerus showed patent arteries, no anuerysm. -Of note pt states she has been a smoker since age of 8 (SIX). Quit 2 years ago. -continue heparin drip for time being, will d/w vascular surgery about time frame for PO anticoagulation -Dr. Black initially planning for extension of endograft, however pt with rupture AAA prior to OR s/p repair on 08/09 with extension of endograft patient breathing well, no chest pain, PTT therapeutic suspected Small bowel ischemia due to AAA rupture, started on meropenem and caspofungin 08/09 KUB 08/11 neg for obstruction complete 7 days total, last day would be 08/15 minimal abdominal pain, poor appetite, no nausea Right foot drop new finding, concerns for spinal cord ischemia around time of AAA consulted neurology plan for MRI of thoracic/lumbar spine Chronic Back pain -pt states she takes oxycodone 10mg q6h daily for her back pain -Follows with a pain clinic in [place] -continue oxycodone 10mg q6h daily -continue home flexeril 5mg qhs -pain is tolerable today Acute on Chronic Kidney Injury -Baseline Cr of 1.61 -Cr elevated to 2.28 this admission after AAA rupture/repair -down to 1.29 today, electrolytes stable, making adequate urine Electrolyte imbalance hypokalemia at 3.4 and hypophosphatemia at 1.9 replaced with potassium phosphate 21mmol, repeat levels in morning Elevated lipase -lipase increased to 925 -does not appear to be acute pancreatitis, possibly due to embolic infarction? -treated with fluids, fluids now stopped COPD -continue home inhaler HTN -continue home amlodipine 5mg, metoprolol tartrate 25mg bid -resume losartan 50mg HS as her Cr is back to normal GERD -continue home omeprazole 20mg daily RA -continue home prednisone 10mg daily LENARD nodule noted on CTA, will need addressed once more acute issues are resolved Concerning in appearance for adenocarcinoma, but even more so in light of pt's extensive tobacco use hx DVT prophylaxis: on heparin drip CODE STATUS: Per admitting resident: Conditional code- wants CPR,defibrillation, no intubation or ventilator support. D/w daughter post-op, states she would not want prolonged mechanical life support, but would be fine with the short term intubation that occurred post-op. (2) DVT (deep venous thrombosis): (3) Chronic kidney disease, stage 3: (4) Chronic back pain: (2) DVT (deep venous thrombosis): (3) Small bowel ischemia: (4) Hypertensive emergency: (5) Vasculopathy: (6) Aneurysm of right iliac artery: (7) Arterial aneurysm: (8) Chronic kidney disease, stage 3: (9) Chronic back pain: (10) Right foot drop: Admission and Anticipated Discharge Date Admission Date: August 08, 2020 Subjective patient doing okay today with therapy, she was found to have weakness in right leg, foot drop which is new issue she describes her right leg as feeling like it has pins and needles, not really painful it is still swollen boot placed on right foot, neurology consult placed by vascular surgery for suspicion of ischemia to spinal cord reviewed labs, WBC down to 16, Hb 12.4, plts 255, K 3.4, Cr 1.29, phos 1.9 Review of Systems Review of Systems: All systems reviewed & are unremarkable except as noted in Subjective Constitutional: no fever, no chills, no sweats, no fatigue and no weakness Cardiovascular: + edema (right leg); no chest pain Gastrointestinal: + abdominal pain; no nausea, no vomiting, no constipation, no diarrhea/loose stools and no melena Musculoskeletal: + muscle weakness (right foot) Neurologic: + localized weakness (right foot drop) Physical Exam Constitutional: well developed, well nourished and comfortable; no acute distress Neck: trachea midline, no thyromegaly Respiratory: normal respiratory effort, lungs clear to auscultation Cardiovascular: Rate/Rhythm: regular rate and regular rhythm Heart Sounds: normal S1 and normal S2; no murmur Vessels: no JVD Extremities: + edema (right leg) Gastrointestinal (Abdomen): normal bowel sounds, soft, nontender, no hepatosplenomegaly Musculoskeletal: no cyanosis or clubbing, extremities motor strength 5/5 Skin: no rashes, warm and dry Neurologic: patellar DTR's 2+ bilat, sensation intact and PERRL, EOMI, accommodation nl, no face palsy, no dysarthria + focal motor deficit (right foot drop) Psychiatric: A+Ox3, euthymic affect Lymphatic: no cervical or axillary lymphadenopathy Results & Data Results & Data ([facility]) Vital Signs (Past 12 Hours) Vital Signs Temp Pulse Pulse Resp BP Pulse Ox 08/13/20 03:00 37.1 C 87 17 159/88 H 92 08/12/20 23:59 85 08/12/20 22:33 37.0 C 83 17 153/79 H 93 Laboratory Results Laboratory Results - last 24 hr 08/13/20 08/13/20 08/13/20 05:27 05:27 05:27 WBC 16.46 H RBC 4.17 L Hgb 12.4 Hct 37.7 MCV 90.4 MCH 29.7 MCHC 32.9 RDW Std Deviation 50.9 H RDW Coeff of Jesus 15.4 H Plt Count 255 MPV 10.2 Immature Gran % (Auto) 1.1 Neut % (Auto) 77.1 Lymph % (Auto) 13.1 [place] % (Auto) 7.0 Eos % (Auto) 1.6 Baso % (Auto) 0.1 Neut # (Auto) 12.69 H Lymph # (Auto) 2.15 [place] # (Auto) 1.15 H Eos # (Auto) 0.27 Baso # (Auto) 0.02 Immature Gran # (Auto) 0.18 H APTT 46.6 H* PTT Ratio 1.7 Sodium 139 Potassium 3.4 L Chloride 110 H Carbon Dioxide 22 Anion Gap 8.0 BUN 25 H Creatinine 1.29 H Est Cr Clr Drug Dosing 58.6 Est GFR ( Amer) 52.9 Est GFR (Non-Af Amer) 45.6 BUN/Creatinine Ratio 19.5 Glucose 96 Calcium 7.6 L Phosphorus 1.9 L Magnesium 2.3 Total Bilirubin 0.4 AST 30 ALT 117 H Alkaline Phosphatase 67 Total Protein 5.7 L Albumin 1.9 L Globulin 3.8 Albumin/Globulin Ratio 0.5 L Medications Administered Current Inpatient Medications Amlodipine Besylate (Amlodipine Besylate 5 Mg Tab) 5 mg PO QAM [facility] Stop: 09/11/20 10:29 Last Admin: 08/12/20 11:29 Dose: 5 mg Documented by: Heparin Sodium (Beef Lung) (Heparin 10 Unit/Ml 5 Ml Flush) 5 ml FLUSH PRN PRN PRN Reason: Flush Stop: 09/08/20 23:20 Caspofungin 50 mg/ Sodium (Chloride) 260 mls @ 250 mls/hr IV DAILY@1200 [facility] Stop: 09/09/20 11:59 Last Infusion: 08/12/20 12:50 Dose: Infused Documented by: Heparin Sodium/Dextrose (Heparin Sodium/Dextrose) 25,000 units in 500 mls @ 34 mls/hr IV .[id number] [facility]; Protocol Stop: 09/08/20 21:14 Last Titration: 08/13/20 06:59 Dose: 1,700 units/hr, 34 mls/hr Documented by: Meropenem 500 mg/ Syringe 10 mls @ 2 mls/min IV Q6H [facility]; Protocol Stop: 08/19/20 09:59 Last Admin: 08/13/20 04:03 Dose: 2 mls/min Documented by: Losartan Potassium (Losartan Potassium 50 Mg Tab) 50 mg PO QPM [facility] Stop: 09/11/20 20:59 Last Admin: 08/12/20 20:34 Dose: 50 mg Documented by: Meropenem (Meropenem Consult Acitve) 1 ea N/A UD PRN PRN Reason: Consult Stop: 09/08/20 11:37 Metoprolol Tartrate (Metoprolol Tartrate 25 Mg Tab) 25 mg PO BID [facility] Stop: 09/11/20 20:59 Last Admin: 08/12/20 20:34 Dose: 25 mg Documented by: Oxycodone HCl (Oxycodone Hcl Ir 5 Mg Tab (Immediate Release)) 5 mg PO Q4H PRN PRN Reason: Pain Stop: 08/25/20 09:09 Last Admin: 10/27/20 04:03 Dose: 5 mg Documented by: Pantoprazole Sodium (Pantoprazole 40 Mg Tab) 40 mg PO QAM [facility] Stop: 08/14/20 08:59 Last Admin: 08/12/20 11:29 Dose: 40 mg Documented by: Potassium Phosphate (Potassium Phos 3 Mmol/1 Ml Infusion) 24 mmol IV NOW STA Stop: 08/13/20 07:34 Prednisone (Prednisone 10 Mg Tablet) 10 mg PO QAM [facility] Stop: 09/10/20 08:59 Last Admin: 08/12/20 07:36 Dose: 10 mg Documented by: PG Care Time/CCT Total # of Minutes Spent Total Time Spent with Patient: Total time spent is greater than 50% in coordination of care (as documented) at patient's floor/unit and/or counseling patient: Coding Level of Care Code 68981 Subseq Hosp Care Lvl 3 Diagnoses Pulmonary embolism I26.99 DVT (deep venous thrombosis) I82.409 Small bowel ischemia K55.9 Hypertensive emergency I16.1 Vasculopathy I99.9 Aneurysm of right iliac artery I72.3 Arterial aneurysm I72.9 Chronic kidney disease, stage 3 N18.3 Chronic back pain M54.9; G89.29 Right foot drop M21.371
[2020-08-13] MEDS ORDERED: POTASSIUM PHOSPHATE 24 MMOL in SODIUM CHLORIDE 0.9% 500 ML IV ONE (07:45)
[2020-08-13] MEDS: amLODIPine BESYLATE 5 MG TAB PO SCH (09:08)
[2020-08-13] MEDS: predniSONE 10 MG TABLET PO SCH (09:08)
[2020-08-13] MEDS: PANTOprazole 40 MG TAB PO SCH (09:08)
[2020-08-13] MEDS: METOPROLOL TARTRATE 25 MG TAB PO SCH ×2 (09:09→21:06)
--- NOTE | 2020-08-13 09:47 | Surgery Progress Note ---
Date of Service August 13, 2020 Assessment & Plan (1) Aneurysm of right common iliac artery: Pt improving post op. We will order a boot for the foot drop of her right leg. We will continue with PT OT therapy. I will consult neurology for the possibility of spinal cord ischemia. Admission and Anticipated Discharge Date Admission Date: August 08, 2020 Subjective Patient is complaining of right lower abdominal pain but better than what it was yesterday. She denies any leg or foot pain but does complain of continued numbness in her right lower extremity and inability to dorsiflex the toes and foot.. Physical Exam Constitutional: WD/WN, vitals as above well developed, well nourished, cooperative and comfortable; no acute distress Respiratory: normal respiratory effort, lungs clear to auscultation Auscult ation: lungs clear to auscultation bilaterally Cardiovascular: Rate/Rhythm: regular rate and regular rhythm Heart Sounds: normal S1 and normal S2; no murmur Vessels: femoral pulses present and radial pulses present Extremities: normal capillary refill Gastrointestinal (Abdomen): Inspection/Auscultation: abdomen normal to inspection Percussion/Palpation: + abdomen tender (mild tenderness) and abdomen soft; no guarding and no pulsatile mass Musculoskeletal: Extremities: extremities normal to inspection Skin: + incision (Incision is dry and clean without drainage.) Neurologic: Patient continues to have weakness with dorsiflexion of the right foot and toes. Psychiatric: Orientation: alert and oriented x 3 Results & Data ([facility]) Vital Signs (Past 12 Hours) Vital Signs Temp Pulse Pulse Resp BP Pulse Ox 08/13/20 07:46 37.3 C 95 H 18 147/87 H 91 08/13/20 03:00 37.1 C 87 17 159/88 H 92 08/12/20 23:59 85 08/12/20 22:33 37.0 C 83 17 153/79 H 93
[2020-08-13] MEDS: CASPOFUNGIN 50 MG in SODIUM CHLORIDE 0.9% 250 ML IV SCH (11:46)
--- NOTE | 2020-08-13 13:31 | Neurology Consultation ---
Date of Consultation August 13, 2020 Assessment & Plan (1) Aneurysm of right common iliac artery: (2) Pulmonary embolism: (3) DVT (deep venous thrombosis): (4) Vasculopathy: (5) Right foot drop: Ariane Zhao is a 60 yo woman w/ PMH of known AAA, iliac artery aneurysms, CKDIV, chronic LBP on opiates, COPD, rheumatoid arthritis on chronic prednisone, HLD, HTN, tobacco abuse, and h/o blood clot after stent placement to right kidney whom neurology is consulted on for possible spinal cord ischemia given new onset right foot drop a/w right groin pain. # Right foot drop: Most likely a peripheral process given absent reflexes on the right but would recommend the following: - MRI L-spine and pelvis to r/o lower spinal cord infarct or compressive lesion leading to neuropathic symptoms (ordered) - PT eval for likely rehab - can have an outpatient EMG in 4 weeks if symptoms are still persistent/bothersome - continue with right foot brace Thank you for this interesting consult. Plan of care discussed with primary team. Please call or text with questions. History of Present Illness Attending Physician: Benjie Colbert, DO History of Present Illness Ariane Zhao is a 60 yo woman w/ PMH of known AAA, iliac artery aneurysms, CKDIV, chronic LBP on opiates, COPD, rheumatoid arthritis on chronic prednisone, HLD, HTN, tobacco abuse, and h/o blood clot after stent placement to right kidney whom neurology is consulted on for possible spinal cord ischemia given new onset right foot drop a/w right groin pain. She initially p/t [facility] with lump under right arm, found to have extensive blood clots with PE in RUL/RLL of lung, DVT in R common femoral and iliac veins, 7 cm and 4.6 cm iliac artery aneurysms with mural thrombi. 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 Was noted to have RLE numbness and weakness on 08/13/20, prompting neurology consultation. On examination today, she reports that she noticed right lower extremity numbness/tingling and right foot weakness after her surgery. Denies having any weakness proximally in the right lower extremity, saddle anesthesia, or urinary/fecal retention or incontinence. Does endorse having pain in her groin region and that the numbness/tingling encompasses her entire right lower extremity from the hip to her foot. Allergies Allergy/AdvReac Type Severity Reaction Status Date / Time codeine Allergy Severe Difficulty Verified 08/07/20 22:27 Breathing lisinopril Allergy Severe caused Verified 08/07/20 22:27 seizure/stroke adalimumab Allergy Intermediate Rash Verified 08/07/20 22:27 hydroxychloroquine Allergy Intermediate "whole Verified 08/07/20 22:27 [From Plaquenil] body turns red" leflunomide [From Arava] Allergy Intermediate rash/hive Verified 08/07/20 22:27 at injection site nickel Allergy Intermediate swelling Verified 08/07/20 22:27 with earrings Penicillins Allergy Intermediate Rash Verified 08/07/20 22:27 hydromorphone Allergy Mild Rash Verified 08/07/20 22:27 Home Medications Home Medications Medication Instructions Recorded Confirmed Type acetaminophen 500 mg PO BID 04/05/20 08/07/20 History albuterol sulfate 2 puff INHALATION QID PRN 04/05/20 08/07/20 History amlodipine 5 mg PO QAM 04/05/20 08/07/20 History aspirin [Aspirin Low Dose] 81 mg PO QAM 04/05/20 08/07/20 History cholecalciferol (vitamin D3) 2,000 unit PO QAM 04/05/20 08/07/20 History [Vitamin D3] losartan 50 mg PO HS 04/05/20 08/07/20 History meclizine 25 mg PO TID PRN 04/05/20 08/07/20 History metoprolol tartrate 25 mg PO BID 04/05/20 08/07/20 History omeprazole 20 mg PO DAILY PRN 04/05/20 08/07/20 History oxycodone 10 mg PO Q6H PRN 04/05/20 08/07/20 History potassium gluconate 50 mg PO QAM 04/05/20 08/07/20 History prednisone 10 mg PO QAM 04/05/20 08/07/20 History cyclobenzaprine [Flexeril] 5 mg PO HS 08/07/20 08/07/20 History Patient History Medical History Aneurysm of right iliac artery Aortic aneurysm s/p AAA repair (2010, revision 2018) Chronic back pain Chronic kidney disease, stage 3 Diverticular disease DVT (deep venous thrombosis) DVT (deep venous thrombosis) Hearing deficit History of bronchitis reason for inhaler prn History of peptic ulcer Hx of blood clots developed in right kidney after stent placement Hyperlipidemia Hypertension Hypertensive emergency Iliac artery aneurysm, bilateral Lung nodules found on CT scan--under surveillance Pulmonary emboli Pt is a 60yo with a PMHx significant for AAA, iliac artery aneurysms, CKD stage 4, chronic back pain, COPD and a Hx of blood clots in the right kidney after stent placement who was admitted with acute PEs and DVTs. Acute PEs/DVTs -Pt states she had a lump under her R arm that eventually became a large bruise, associated w/ right groin pain -CTA chest showed occlusive PEs within the RLL and RUL segmental branches, diffuse atherosclerosis of the great vessels, moderate to severe stenosis of proximal L subclavian artery and tiny pulmonary nodules with a 1cm posterior LENARD ground glass nodule. -CTA abd/pelvis showed an acute DVT in R common femoral and iliac vein and possibly bilateral pelvic veins, 7cm and 4.6cm iliac artery anuerysms with mural thrombi, an atrophic R kidney and a L renal cyst with inferior L renal calculi. -CTA right humerus showed patent arteries, no anuerysm. Pulmonary embolism Retroperitoneal hematoma Rheumatoid arthritis S/P admission to ICU (intensive care unit) Seizure 12/2018--felt r/t lisinopril--no deficits, follows with Dr. Saba Pop in [place] Small bowel ischemia Stroke 12/2018--felt r/t lisinopril--no deficits, follows with Dr. Saba Pop in [place] Vasculopathy Surgical History Fusion of spine 2010 @ [facility] Dr. Sanchez H/O abdominal aortic aneurysm repair 2010 Dr. Black @ [facility] History of abdominal aortic aneurysm (AAA) repair 06/2018 @ [place]--per pt had to "put a collar around the previous AAA repair" also had a renal artery stent placed at the same time History of cholecystectomy History of colonoscopy History of esophagogastroduodenoscopy (EGD) History of kyphoplasty 2015 @ [facility] History of stent insertion of renal artery 2018 @ [place] History of tubal ligation History of wisdom tooth extraction Family History Mother Family history of diabetes mellitus Brother Family hx of colon cancer Other No family history of adverse response to anesthesia Rheumatoid arthritis Stroke Social History Smoking Status: Former smoker Second Hand Exposure: Yes (parents/family smoked); Hx Alcohol Use: Yes Hx Substance Use: No Preferred Language: Bahamian Communication Ability: Unable Key Carrier Required: No Beliefs That Will Affect Care: None Current Living Situation: Family Current Living Situation Comment: Lives with son Feels Safe at Home: Yes Assistive Devices: Oxygen - Continuous and Walker Review of Systems Review of Systems: 14 point review of systems completed and negative except as in HPI. Exam (Neuro) Physical Exam: General Exam: GEN: NAD, lying in bed. HEENT: No conjunctival injection, no rhinorrhea. CV: RRR, no peripheral edema PULM: Nonlabored respirations on room air. Neuro Exam: MS: Awake and Alert. Oriented to person, place, and month/year. Speech fluent and appropriate without dysarthria or paraphasic errors. Language intact including naming, comprehension, repetition. Cognition and memory grossly i ntact. Attention intact. No neglect. CN: Visual wilks full. No extinction to double simultaneous stimuli. No optic disc edema on fundoscopic exam. PERRLA OU. EOMI without nystagmus. Facial sensation intact to LT. Facial muscles full and symmetric. Hearing intact to conversation. Uvula midline with symmetric palatal elevation. Shoulder shrug normal. Tongue midline. MOTOR: Normal bulk and tone. No pronator drift. BUE strength 5/5 at deltoids, biceps, triceps, wrist flexors and extensors, and hand grasp bilaterally. LLE strength 5/5 at iliopsoas, hamstrings, quadriceps, tibialis anterior, and ga strocnemius. RLE strength 4+/5 at iliopsoas, 5-/5 hamstrings, 5-/5 quadriceps, 0/5 tibialis anterior, and 5/5 gastrocnemius. REFLEXES: 2+ at biceps, triceps, brachioradialis, 2+ and brisk in L patella, absent R patella and absent Achilles bilaterally. Flexor plantar responses bilaterally. SENSORY: Intact to LT without extinction to double simultaneous stimuli. Vibration intact throughout. COORDINATION: No dysmetria or ataxia on [id number] bilaterally. Normal Camilla bilaterally. GAIT: deferred given physical status/fall risk Results & Data ([facility]) Vital Signs (Past 12 Hours) Vital Signs Temp Pulse Pulse Resp BP Pulse Ox 08/13/20 08:00 92 H 08/13/20 07:46 37.3 C 95 H 18 147/87 H 91 08/13/20 03:00 37.1 C 87 17 159/88 H 92 PG Care Time/CCT Total # of Minutes Spent Total Time Spent with Patient: Total time spent is greater than 50% in coordination of care (as documented) at patient's floor/unit and/or counseling patient: Coding Level of Care Code 13881 Initial Inpt Care Lvl 3 Diagnoses Aneurysm of right common iliac artery I72.3 Pulmonary embolism I26.99 DVT (deep venous thrombosis) I82.409 Vasculopathy I99.9 Right foot drop M21.371
--- NOTE | 2020-08-13 15:45 | Surgery Progress Note ---
Date of Service pt feels better, less abdominal pain, no nausea, no vomiting, no fever, August 13, 2020 Assessment & Plan (1) Small bowel ischemia: SB ischemia improving clinically with revascularization WBC and lactate improved con't IV abx if not taking po well consider restarting IVF pain should con't to improve with supportive care 08/12/2020 9:29AM SB ischemia improving clinically with revascularization doing better, WBC 19.000 no surgical indication now clear diet, continue IV antibiotic repeat labs in am, will F/U 08/13/2020 3:44PM doing better, WBC 17,000 continue iv antibiotic will F/U Admission and Anticipated Discharge Date Admission Date: August 08, 2020 Subjective Patient is complaining of right lower abdominal pain but better than what it was yesterday. She denies any leg or foot pain but does complain of continued numbness in her right lower extremity and inability to dorsiflex the toes and foot.. Review of Systems Gastrointestinal: + abdominal pain and + diarrhea/loose stools; no nausea and no vomiting Physical Exam Constitutional: WD/WN, vitals as above well developed and well nourished Eyes: PERRL, conjunctivae normal, anicteric sclerae ENMT: external ear and nose normal, oropharynx normal Neck: trachea midline, no thyromegaly Respiratory: normal respiratory effort, lungs clear to auscultation Cardiovascular: RRR, no murmur, no edema Gastrointestinal (Abdomen): normal bowel sounds, soft, nontender, no hepatosplenomegaly Percussion/Palpation: abdomen soft Musculoskeletal: no cyanosis or clubbing, extremities motor strength 5/5 Neurologic: patellar DTR's 2+ bilat, sensation intact Psychiatric: Orientation: alert and oriented x 3 Results & Data ([facility]) Vital Signs (Past 12 Hours) Vital Signs Temp Pulse Pulse Resp BP Pulse Ox 08/13/20 08:00 92 H 08/13/20 07:46 37.3 C 95 H 18 147/87 H 91
[2020-08-13] MEDS ORDERED: diazePAM 5 MG TABLET PO PRN (18:00)
[2020-08-13] MEDS: LOSARTAN POTASSIUM 50 MG TAB PO SCH (21:05)
[2020-08-14] MEDS ORDERED: NYSTATIN POWDER 15GM BTL EXT PRN (00:03)
[2020-08-14] MEDS: MEROPENEM 500 MG in SYRINGE 0 ML IV SCH ×4 (04:00→21:54)
[2020-08-14 04:59] LABS: Basophils # (auto) 0.02 K/uL (0-0.2); Basophils % (auto) 0.1 %; Eosinophils # (auto) 0.38 K/uL (0-0.5); Eosinophils % (auto) 2.4 %; Hematocrit (blood only) 35.9 % (37-47); Immature Granulocytes # (auto) 0.19 K/uL (0.00-0.02); Immature Granulocytes % (auto) 1.2 %; Lymphocytes % (auto) 14.7 %; Mean Corpuscular Hemoglobin 30.4 pg (25-34); Mean Corpuscular Hgb Conc 33.4 g/dL (32-36); Mean Corpuscular Volume 90.9 fL (80-100); Mean Platelet Volume 10.1 fL (7.4-10.4); Monocytes % (auto) 7.7 %; Neutrophils # (auto) 11.52 K/uL (1.4-6.5); Neutrophils % (auto) 73.9 %; Platelet Count 274 K/uL (130-400); RDW Coefficient of Variation 15.5 % (11.5-14.5); RDW Standard Deviation 51.8 fL (36.4-46.3); Red Blood Count 3.95 M/uL (4.2-5.4); White Blood Count 15.61 K/uL (4.8-10.8)
[2020-08-14] MEDS: oxyCODONE HCL IR 5 MG TAB (IMMEDIATE RELEASE) PO PRN ×4 (05:09→20:42)
[2020-08-14 05:20] LABS: Albumin Level 1.9 gm/dl (3.4-5.0); BUN Creatinine Ratio 18.5 (10-20); Calcium 7.9 mg/dl (8.5-10.1); Creatinine Clr Calc Pharmacy 60.5 ml/min; Est GFR (African American) 57.7; Est GFR (Non-African American) 49.8; Magnesium 2.2 mg/dl (1.8-2.4); Potassium 3.5 mmol/L (3.5-5.1)
[2020-08-14 05:24] LABS: Partial Thromboplastin Ratio 2.1
[2020-08-14 05:38] LABS: Partial Thromboplastin Time 59.3 Seconds (21.0-31.0)
[2020-08-14 05:40] LABS: Albumin Globulin Ratio 0.6 (0.9-2); Bilirubin,Total 0.5 mg/dl (0.2-1); Globulin 3.4 gm/dl (2.5-4.0); Phosphorus 2.5 mg/dl (2.5-4.9); Total Protein 5.3 gm/dl (6.4-8.2)
--- NOTE | 2020-08-14 05:51 | Communication Note ---
Date of Service: August 14, 2020 Notified that pt was having some redness around [place], nystatin ordered. Resident Activity Tracking Resident Involvement: Grab Jack Man Coverage Note Care Provided: Adult Hospital Medicine
[2020-08-14] MEDS: amLODIPine BESYLATE 5 MG TAB PO SCH (08:11)
[2020-08-14] MEDS: predniSONE 10 MG TABLET PO SCH (08:11)
[2020-08-14] MEDS: METOPROLOL TARTRATE 25 MG TAB PO SCH ×2 (08:11→20:42)
[2020-08-14] MEDS: HEPARIN SODIUM/DEXTROSE 25,000 UNITS/500 ML BAG IV SCH (11:13)
[2020-08-14] MEDS: CASPOFUNGIN 50 MG in SODIUM CHLORIDE 0.9% 250 ML IV SCH (11:46)
--- NOTE | 2020-08-14 13:17 | Surgery Progress Note ---
Date of Service August 14, 2020 Assessment & Plan (1) Aneurysm of right common iliac artery: Pt improving post op. We will move her out of telemetry today if okay with the medical service. We will DC the Farmer today. Hopefully we may be able to increase her diet if okay with general surgery. Appreciate neurology input however an MRI cannot be done for at least 30 days after insertion of an endograft. We will continue OT and PT at this time. Admission and Anticipated Discharge Date Admission Date: August 08, 2020 Subjective Patient still complaining of abdominal tightness and bloating. She does claim her abdominal discomfort is slightly better but still present. She claims to be moving her right lower extremity better with the some tingling but less num bness. Physical Exam Constitutional: WD/WN, vitals as above well developed, well nourished, cooperative and comfortable; no acute distress Respiratory: Auscultation: lungs clear to auscultation bilaterally Cardiovascular: Rate/Rhythm: regular rate and regular rhythm Vessels: femoral pulses present and radial pulses present Extremities: normal capillary refill Gastrointestinal (Abdomen): Inspection/Auscultation: abdomen normal to inspection Percussion/Palpation: + abdomen tender (mild tenderness) and abdomen soft; no guarding and no pulsatile mass Musculoskeletal: Extremities: extremities normal to inspection Skin: + incision (Incision is dry and clean without drainage.) Neurologic: normal touch/pain/proprioception and CN's II-XI intact bilaterally Psychiatric: Orientation: alert and oriented x 3 Results & Data ([facility]) Vital Signs (Past 12 Hours) Vital Signs Temp Pulse Pulse Resp BP BP Pulse Ox 08/14/20 11:11 37.1 C 84 18 149/83 H 92 08/14/20 09:49 89 08/14/20 07:33 36.7 C 90 18 160/81 H 92 08/14/20 04:00 37.0 C 83 18 147/88 H 93
[2020-08-14] MEDS: APIXABAN 5 MG TABLET PO SCH ×2 (14:46→21:53)
--- NOTE | 2020-08-14 18:59 | Hospitalist Progress Note ---
Date of Service August 14, 2020 Assessment & Plan (1) Pulmonary embolism: (1) Pulmonary emboli: Pt is a 60yo with a PMHx significant for AAA, iliac artery aneurysms, CKD stage 4, chronic back pain, COPD and a Hx of blood clots in the right kidney after stent placement who was admitted with acute PEs and DVTs. Acute PEs/DVTs -CTA chest showed occlusive PEs within the RLL and RUL segmental branches, diffuse atherosclerosis of the great vessels, moderate to severe stenosis of proximal L subclavian artery and tiny pulmonary nodules with a 1cm posterior LENARD ground glass nodule. -CTA abd/pelvis showed an acute DVT in R common femoral and iliac vein and possibly bilateral pelvic veins, 7cm and 4.6cm iliac artery aneurysms with mural thrombi, an atrophic R kidney and a L renal cyst with inferior L renal calculi. -CTA right humerus showed patent arteries, no anuerysm. -Of note pt states she has been a smoker since age of 8 (SIX). Quit 2 years ago. - treated with heparin drip for several days, change to Eliquis 10mg BID starting today, will change to 5mg BID after 7 days -Dr. Black initially planning for extension of endograft, however pt with rupture AAA prior to OR s/p repair on 08/09 with extension of endograft patient breathing well, no chest pain, downgrade to medical status suspected Small bowel ischemia due to AAA rupture, started on meropenem and caspofungin 08/09 KUB 08/11 neg for obstruction complete 7 days total, last day would be 08/15 (tomorrow) minimal abdominal pain, advance to regular diet today after she was tolerating liquids Right foot drop new finding, concerns for spinal cord ischemia around time of AAA consulted neurology cannot get MRI until 30 days after endograft Chronic Back pain -pt states she takes oxycodone 10mg q6h daily for her back pain -Follows with a pain clinic in [place] -continue oxycodone 10mg q6h daily -continue home flexeril 5mg qhs -pain is tolerable for several days Acute on Chronic Kidney Injury -Baseline Cr of 1.61 -Cr elevated to 2.28 this admission after AAA rupture/repair -down to 1.2 today, electrolytes stable, making adequate urine Electrolyte imbalance hypokalemia up to 3.5 today and phosphorus up to 2.5 no replacement needed today Elevated lipase - resolved -does not appear to be acute pancreatitis, possibly due to embolic infarction or could have been from AAA -advance to regular diet today COPD -continue home inhaler HTN -continue home amlodipine 5mg, metoprolol tartrate 25mg bid -resume losartan 50mg HS as her Cr is back to normal GERD -continue home omeprazole 20mg daily RA -continue home prednisone 10mg daily LENARD nodule noted on CTA, will need addressed once more acute issues are resolved Concerning in appearance for adenocarcinoma, but even more so in light of pt's extensive tobacco use hx DVT prophylaxis: on heparin drip CODE STATUS: Per admitting resident: Conditional code- wants CPR,defibrillation, no intubation or ventilator support. D/w daughter post-op, states she would not want prolonged mechanical life support, but would be fine with the short term intubation that occurred post-op. (2) DVT (deep venous thrombosis): (3) Chronic kidney disease, stage 3: (4) Chronic back pain: (2) DVT (deep venous thrombosis): (3) Small bowel ischemia: (4) Hypertensive emergency: (5) Vasculopathy: (6) Aneurysm of right iliac artery: (7) Arterial aneurysm: (8) Chronic kidney disease, stage 3: (9) Chronic back pain: (10) Right foot drop: Admission and Anticipated Discharge Date Admission Date: August 08, 2020 Subjective patient doing better today, tolerating diet, wants to try real food [place] pulled, making urine she has moved her bowels twice today still with right leg numbness and some weakness and pain discussed with vascular surgery, downgrade to medical status they are okay with Eliquis, will change to Eliquis from heparin Review of Systems Review of Systems: All systems reviewed & are unremarkable except as noted in Subjective Physical Exam Constitutional: well developed, well nourished and comfortable; no acute distress Neck: trachea midline, no thyromegaly Respiratory: normal respiratory effort, lungs clear to auscultation Cardiovascular: Rate/Rhythm: regular rate and regular rhythm Heart Sounds: normal S1 and normal S2; no murmur Vessels: no JVD Extremities: + edema (right leg) Gastrointestinal (Abdomen): normal bowel sounds, soft, nontender, no hepatosplenomegaly Musculoskeletal: no cyanosis or clubbing, extremities motor strength 5/5 Skin: no rashes, warm and dry Neurologic: patellar DTR's 2+ bilat, sensation intact and PERRL, EOMI, accommodation nl, no face palsy, no dysarthria + focal motor deficit (right foot drop) Psychiatric: A+Ox3, euthymic affect Lymphatic: no cervical or axillary lymphadenopathy Results & Data Results & Data ([facility]) Vital Signs (Past 12 Hours) Vital Signs Temp Pulse Pulse Resp BP Pulse Ox 08/14/20 15:25 84 08/14/20 11:11 37.1 C 84 18 149/83 H 92 08/14/20 09:49 89 08/14/20 07:33 36.7 C 90 18 160/81 H 92 Laboratory Results Laboratory Results - last 24 hr 08/14/20 08/14/20 08/14/20 04:48 04:48 04:48 WBC 15.61 H RBC 3.95 L Hgb 12.0 Hct 35.9 L MCV 90.9 MCH 30.4 MCHC 33.4 RDW Std Deviation 51.8 H RDW Coeff of Jesus 15.5 H Plt Count 274 MPV 10.1 Immature Gran % (Auto) 1.2 Neut % (Auto) 73.9 Lymph % (Auto) 14.7 [place] % (Auto) 7.7 Eos % (Auto) 2.4 Baso % (Auto) 0.1 Neut # (Auto) 11.52 H Lymph # (Auto) 2.30 [place] # (Auto) 1.20 H Eos # (Auto) 0.38 Baso # (Auto) 0.02 Immature Gran # (Auto) 0.19 H APTT 59.3 H* PTT Ratio 2.1 Sodium 139 Potassium 3.5 Chloride 109 H Carbon Dioxide 26 Anion Gap 4.0 BUN 22 H Creatinine 1.20 Est Cr Clr Drug Dosing 60.5 Est GFR ( Amer) 57.7 Est GFR (Non-Af Amer) 49.8 BUN/Creatinine Ratio 18.5 Glucose 88 Calcium 7.9 L Phosphorus 2.5 Magnesium 2.2 Total Bilirubin 0.5 AST 26 ALT 83 H Alkaline Phosphatase 78 Total Protein 5.3 L Albumin 1.9 L Globulin 3.4 Albumin/Globulin Ratio 0.6 L Medications Administered Current Inpatient Medications Amlodipine Besylate (Amlodipine Besylate 5 Mg Tab) 5 mg PO QAM [facility] Stop: 09/11/20 10:29 Last Admin: 08/14/20 08:11 Dose: 5 mg Documented by: Apixaban (Apixaban 5 Mg Tablet) 10 mg PO BID [facility] Stop: 08/20/20 21:01 Last Admin: 08/14/20 14:46 Dose: 10 mg Documented by: Diazepam (Diazepam 5 Mg Tablet) 5 mg PO ONE PRN PRN Reason: PRIOR TO MRI Stop: 09/12/20 17:59 Heparin Sodium (Beef Lung) (Heparin 10 Unit/Ml 5 Ml Flush) 5 ml FLUSH PRN PRN PRN Reason: Flush Stop: 09/08/20 23:20 Caspofungin 50 mg/ Sodium (Chloride) 260 mls @ 250 mls/hr IV DAILY@1200 [facility] Stop: 09/09/20 11:59 Last Infusion: 08/14/20 13:27 Dose: Infused Documented by: Meropenem 500 mg/ Syringe 10 mls @ 2 mls/min IV Q6H [facility]; Protocol Stop: 08/19/20 09:59 Last Admin: 08/14/20 16:42 Dose: 2 mls/min Documented by: Losartan Potassium (Losartan Potassium 50 Mg Tab) 50 mg PO QPM [facility] Stop: 09/11/20 20:59 Last Admin: 08/13/20 21:05 Dose: 50 mg Documented by: Meropenem (Meropenem Consult Acitve) 1 ea N/A UD PRN PRN Reason: Consult Stop: 09/08/20 11:37 Metoprolol Tartrate (Metoprolol Tartrate 25 Mg Tab) 25 mg PO BID [facility] Stop: 09/11/20 20:59 Last Admin: 08/14/20 08:11 Dose: 25 mg Documented by: Nystatin (Nystatin Powder 15gm Btl) 1 appln EXT TID PRN PRN Reason: Affected Skin Folds Stop: 09/13/20 00:02 Last Admin: 08/14/20 05:09 Dose: 1 appln Documented by: Oxycodone HCl (Oxycodone Hcl Ir 5 Mg Tab (Immediate Release)) 5 mg PO Q4H PRN PRN Reason: Pain Stop: 08/25/20 09:09 Last Admin: 08/14/20 16:47 Dose: 5 mg Documented by: Prednisone (Prednisone 10 Mg Tablet) 10 mg PO QAM [facility] Stop: 09/10/20 08:59 Last Admin: 08/14/20 08:11 Dose: 10 mg Documented by: PG Care Time/CCT Total # of Minutes Spent Total Time Spent with Patient: Total time spent is greater than 50% in coordination of care (as documented) at patient's floor/unit and/or counseling patient: Coding Level of Care Code 57653 Subseq Hosp Care Lvl 2 Diagnoses Pulmonary embolism I26.99 DVT (deep venous thrombosis) I82.409 Small bowel ischemia K55.9 Hypertensive emergency I16.1 Vasculopathy I99.9 Aneurysm of right iliac artery I72.3 Arterial aneurysm I72.9 Chronic kidney disease, stage 3 N18.3 Chronic back pain M54.9; G89.29 Right foot drop M21.371
[2020-08-14] MEDS: LOSARTAN POTASSIUM 50 MG TAB PO SCH (20:43)
[2020-08-15] MEDS: MEROPENEM 500 MG in SYRINGE 0 ML IV SCH ×3 (04:33→15:48)
[2020-08-15] MEDS: oxyCODONE HCL IR 5 MG TAB (IMMEDIATE RELEASE) PO PRN ×3 (04:43→14:49)
[2020-08-15] MEDS: predniSONE 10 MG TABLET PO SCH (08:39)
[2020-08-15] MEDS: amLODIPine BESYLATE 5 MG TAB PO SCH (08:39)
[2020-08-15] MEDS: APIXABAN 5 MG TABLET PO SCH (08:39)
[2020-08-15] MEDS: METOPROLOL TARTRATE 25 MG TAB PO SCH (08:39)
--- NOTE | 2020-08-15 10:49 | Surgery Progress Note ---
Date of Service doing better, no abdominal pain, no nausea, no vomiting, tolerated diet, August 15, 2020 Assessment & Plan (1) Small bowel ischemia: SB ischemia improving clinically with revascularization WBC and lactate improved con't IV abx if not taking po well consider restarting IVF pain should con't to improve with supportive care 08/12/2020 9:29AM SB ischemia improving clinically with revascularization doing better, WBC 19.000 no surgical indication now clear diet, continue IV antibiotic repeat labs in am, will F/U 08/13/2020 3:44PM doing better, WBC 17,000 continue iv antibiotic will F/U 08/15/2020, 10:48AM doing fine, no surgical indication ischemic bowel resolved, WBC 15,000, down, sign off today, please call with questions, Admission and Anticipated Discharge Date Admission Date: August 08, 2020 Subjective patient doing better today, tolerating diet, wants to try real food [place] pulled, making urine she has moved her bowels twice today still with right leg numbness and some weakness and pain discussed with vascular surgery, downgrade to medical status they are okay with Eliquis, will change to Eliquis from heparin Review of Systems Gastrointestinal: + abdominal pain and + diarrhea/loose stools; no nausea and no vomiting Physical Exam Constitutional: WD/WN, vitals as above well developed and well nourished Eyes: PERRL, conjunctivae normal, anicteric sclerae ENMT: external ear and nose normal, oropharynx normal Neck: trachea midline, no thyromegaly Respiratory: normal respiratory effort, lungs clear to auscultation Cardiovascular: RRR, no murmur, no edema Gastrointestinal (Abdomen): normal bowel sounds, soft, nontender, no hepatosplenomegaly Percussion/Palpation: abdomen soft Musculoskeletal: no cyanosis or clubbing, extremities motor strength 5/5 Neurologic: patellar DTR's 2+ bilat, sensation intact Psychiatric: Orientation: alert and oriented x 3 Results & Data ([facility]) Vital Signs (Past 12 Hours) Vital Signs Temp Pulse Pulse Resp BP BP Pulse Ox 08/15/20 07:47 90 08/15/20 07:31 36.7 C 87 18 132/83 92 08/15/20 03:38 37.1 C 87 20 132/82 90 08/14/20 23:00 37.0 C 82 18 126/89 91
[2020-08-15] MEDS: CASPOFUNGIN 50 MG in SODIUM CHLORIDE 0.9% 250 ML IV SCH (12:18)
--- NOTE | 2020-08-15 13:24 | Neurology Progress Note ---
Date of Service August 15, 2020 Assessment & Plan (1) Aneurysm of right common iliac artery: (2) Pulmonary embolism: (3) DVT (deep venous thrombosis): (4) Vasculopathy: (5) Right foot drop: Ariane Zhao is a 60 yo woman w/ PMH of known AAA, iliac artery aneurysms, CKDIV, chronic LBP on opiates, COPD, rheumatoid arthritis on chronic prednisone, HLD, HTN, tobacco abuse, and h/o blood clot after stent placement to right kidney whom neurology is consulted on for possible spinal cord ischemia given new onset right foot drop a/w right groin pain. # Right foot drop: Most likely a peripheral process given absent reflexes on the right (sciatic neuropathy from hematoma vs lumbosacral plexopathy, less likely peroneal nerve injury) - MRI L-spine in 4 weeks to r/o lower spinal cord infarct. - Repeat CT A/P to r/o compressive lesion leading to neuropathic symptoms (ordered) - PT eval for likely rehab - can have an outpatient EMG in 4 weeks if symptoms are still persistent/bothersome despite rehab - continue with right foot AFO to help with gait - can follow up in neurology in 4-6 weeks if still symptomatic Thank you for this interesting consult. Plan of care discussed with primary team. Please call or text with questions. Admission and Anticipated Discharge Date Admission Date: August 08, 2020 Subjective NAEs overnight. Reports that she has ongoing right groin pain, as well as pain in her right foot. Endorses ongoing N/T both anteriorly/posteriorly on her leg with mild decrease in proximal muscle weakness and right foot drop (with normal gastroc function) suggestive of peripheral etioology. Was unable to get MRIs completed due to recent endograft stent placement. Review of Systems Review of Systems: 14 point review of systems completed and negative except as in HPI. Results & Data ([facility]) Vital Signs (Past 12 Hours) Vital Signs Temp Pulse Pulse Resp BP Pulse Ox 08/15/20 11:47 36.8 C 73 18 127/80 92 08/15/20 07:47 90 08/15/20 07:31 36.7 C 87 18 132/83 92 08/15/20 03:38 37.1 C 87 20 132/82 90 Exam (Neuro) Physical Exam: General Exam: GEN: NAD, lying in bed. HEENT: No conjunctival injection, no rhinorrhea. CV: RRR, no peripheral edema PULM: Nonlabored respirations on room air. Neuro Exam: MS: Awake and Alert. Oriented to person, place, and month/year. Speech fluent and appropriate without dysarthria or paraphasic errors. Language intact including naming, comprehension, repetition. Cognition and memory grossly intact. Attention intact. No neglect. CN: Visual wilks full. No extinction to double simultaneous stimuli. No optic disc edema on fundoscopic exam. PERRLA OU. EOMI without nystagmus. Facial sensation intact to LT. Facial muscles full and symmetric. Hearing intact to conversation. Uvula midline with symmetric palatal elevation. Shoulder shrug normal. Tongue midline. MOTOR: Normal bulk and tone. No pronator drift. BUE strength 5/5 at deltoids, biceps, triceps, wrist flexors and extensors, and hand grasp bilaterally. LLE strength 5/5 at iliopsoas, hamstrings, quadriceps, tibialis anterior, and gastrocnemius. RLE strength 4+/5 at iliopsoas, 5-/5 hamstrings, 5-/5 quadriceps, 0/5 tibialis anterior, and 5/5 gastrocnemius. REFLEXES: 2+ at biceps, triceps, brachioradialis, 2+ and brisk in L patella, absent R patella and absent Achilles bilaterally. Flexor plantar responses bilaterally. SENSORY: Intact to LT without extinction to double simultaneous stimuli. Vibration intact throughout. COORDINATION: No dysmetria or ataxia on [id number] bilaterally. Normal [place]illa bilaterally. GAIT: deferred given physical status/fall risk PG Care Time/CCT Total # of Minutes Spent Total Time Spent with Patient: Total time spent is greater than 50% in coordination of care (as documented) at patient's floor/unit and/or counseling patient: Coding Level of Care Code 06504 Subseq Hosp Care Lvl 3 Diagnoses Aneurysm of right common iliac artery I72.3 Pulmonary embolism I26.99 DVT (deep venous thrombosis) I82.409 Vasculopathy I99.9 Right foot drop M21.371
--- NOTE | 2020-08-15 14:11 | Surgery Progress Note ---
Date of Service August 15, 2020 Assessment & Plan (1) Aneurysm of right common iliac artery: Doing well from a vascular standpoint. She can go to rehab if cleared by gen surg. We will see her in one week after discharge for followup Admission and Anticipated Discharge Date Admission Date: August 08, 2020 Subjective Still complains of mild abdominal discomfort. Physical Exam Skin: + incision (dry and clean) Neurologic: numbness of right leg and weakness of right foot unchanged. Results & Data ([facility]) Vital Signs (Past 12 Hours) Vital Signs Temp Pulse Pulse Resp BP Pulse Ox 08/15/20 11:47 36.8 C 73 18 127/80 92 08/15/20 07:47 90 08/15/20 07:31 36.7 C 87 18 132/83 92 08/15/20 03:38 37.1 C 87 20 132/82 90
[2020-08-15] MEDS ORDERED: IOVERSOL 100ml IV ONE (15:13)
--- NOTE | 2020-08-15 15:36 | CT Scan Report ---
CT SCAN OF THE ABDOMEN AND PELVIS WITH IV CONTRAST CLINICAL HISTORY: Right lower extremity weakness and numbness. COMPARISON STUDY: Abdominal CT dated 08/09/2020. CT angiogram of the abdomen and pelvis dated 2019. TECHNIQUE: Following the IV administration of 93 cc of Optiray 320, CT scan of the abdomen and pelvi s is performed from the lung bases to the proximal femora. Images are reviewed in the axial, sagittal , and coronal planes. IV contrast was administered without complication. A dose lowering technique wa s utilized adhering to the principles of ALARA. CT DOSE: 1042.95 mGycm FINDINGS: Lung bases: The heart is normal in size and without pericardial effusion. There are coronary artery c alcifications. There are [id number] pleural effusions with associated bibasilar consolidation. Liver: The contrast-enhanced liver is normal in size, contour, and attenuation. There is mild intrahe patic biliary ductal dilatation. The hepatic veins and portal veins are patent. Gallbladder: Surgically absent noting clips in the gallbladder fossa. Spleen: Normal in size and attenuation. Pancreas: Moderately atrophic and grossly unremarkable. Adrenal glands: Unremarkable. Kidneys: There is markedly asymmetric cortical atrophy of the right kidney as compared to left. Foci of cortical scarring are seen in the left lower pole. No hydronephrosis is identified. The kidneys en manuel symmetrically. A 2.8 cm cyst is seen in the left upper pole. Additional subcentimeter cortical hypodensities also likely represent cysts but are too small for definitive characterization. Nonobstr ucting calculi in the lower pole of the left kidney measure up to 10 mm. A renal artery stent is pres ent on the right. Abdominal vasculature: There is advanced atherosclerotic calcification of the abdominal aorta. An aor tobiiliac stent graft is unchanged in position. The right iliac stent graft extends into the external iliac artery. There are bilateral iliac artery aneurysms. The right iliac artery aneurysm measures u p to 6.5 cm and the left iliac artery aneurysm measures up to 4.3 cm. There is evidence of endoleak w ithin the right iliac artery stent, likely type II related to a lumbar vessel as seen on axial image #262. There is no evidence of right iliac AV fistula at this time. Bowel: The proximal small bowel loops are distended and fluid-filled measuring up to 4.4 cm diameter. These gradually transition to decompressed loops of distal small bowel, with no focal transition poi nt identified. The colon is also decompressed. There is moderate to advanced colonic diverticulosis w ithout CT evidence of acute diverticulitis. No focally thick walled bowel loops are identified. There is no pneumatosis intestinalis or portal venous gas. The appendix is well-visualized and normal. Peritoneum: There is a small volume of abdominopelvic ascites. No intraperitoneal free air is seen. Lymphadenopathy: None. Pelvic viscera: Gas is seen within the bladder lumen. The bladder wall appears mildly thickened. The uterus and adnexa are normal as visualized. Skeletal structures: The skeletal structures are osteopenic. A chronic compression deformity is noted in the L2 with evidence of previous vertebroplasty. There is been laminectomy and posterior fusion a t L4-L5. No lytic or blastic lesions are seen. There is evidence of a left sacral insufficiency fract ure. Soft tissues: Skin clips project over the right groin. Soft tissue edema is noted in the right upper thigh. IMPRESSION: 1. An aortobiiliac stent graft is in place as above. The right iliac component has been extended as c ompared to 08/07/2020. 2. The right iliac AV fistula seen on the 08/07/2020 angiogram is no longer identified. 3. There is evidence of endoleak within the right iliac artery aneurysm, likely type II related to a lumbar vessel. 4. The proximal small bowel loops are distended and fluid-filled. This gradually transitions to decom pressed distal small bowel. No focal transition point is identified. This could represent low grade/p artial small bowel obstruction or possibly ileus. Clinical correlation will be essential. 5. No focally thick walled bowel loops are identified. There is no pneumatosis intestinalis, portal v enous gas, or intraperitoneal free air. 6. A small volume of abdominopelvic ascites has increased from 08/09/2020. 7. Small to moderate pleural effusions with bibasilar consolidation have increased in size from 08/09. 8. Asymmetric soft tissue edema is noted in the right thigh. 9. Gas is present within the bladder lumen. This may be related to instrumentation. Correlation with clinical findings and urinalysis will be required. 10. Right larger than left iliac artery aneurysms as above. These likely compress the adjacent iliac veins. 11. Left-sided nephrolithiasis. 12. Markedly asymmetric cortical atrophy of the right kidney as compared to the left is similar to pr evious. 13. Additional findings as above. ACT 112: Negative or not required by law. Electronically signed by: Neville Saravia M.D. 08/15/2020 3:35 PM
--- NOTE | 2020-08-15 21:35 | Discharge Summary ---
Date of Service August 15, 2020 Admission HPI Per Admitting Provider Pt is a 60yo with a PMHx significant for AAA, iliac artery aneurysms, CKD stage 4, chronic back pain, COPD and a Hx of blood clots in the right kidney after stent placement who was admitted with acute PEs and DVTs. Pt states that she noticed a lump under her right arm 4 days ago that progressed to purplish bruising. Was also having right groin pain with it and that brought her in today. No Hx of DVTs except years ago when she had one develop after a stent was placed in her kidney. No fam Hx of blood clots. No recent surgery or travel. Was a smoker for many years, says she started at age 8 because her older siblings forced her to. She states that by age 15 she was smoking 1 ppd. Quit smoking 2 years ago. Also has a history of chronic back pain for which she follows with a pain clinic in [place]. States she has lumbar stenosis and had shattered vetebrae. She currently takes oxycodone 10mg q6h daily. She lives at home with her son in a [address] home but she stays mostly on the first floor. She has not touched alcohol for the last 5 years. No recreational drug use. Principal Diagnosis Right leg DVT with pulmonary embolism Discharge Exam Constitutional well developed, well nourished and comfortable; no acute distress Neck trachea midline, no thyromegaly Respiratory normal respiratory effort, lungs clear to auscultation Cardiovascular Rate/Rhythm: regular rate and regular rhythm Heart Sounds: normal S1 and normal S2; no murmur Vessels: no JVD Extremities: + edema (right leg) Gastrointestinal (Abdomen) normal bowel sounds, soft, nontender, no hepatosplenomegaly Musculoskeletal no cyanosis or clubbing, extremities motor strength 5/5 Skin no rashes, warm and dry Neurologic patellar DTR's 2+ bilat, sensation intact and PERRL, EOMI, accommodation nl, no face palsy, no dysarthria + focal motor deficit (right foot drop) Psychiatric A+Ox3, euthymic affect Lymphatic no cervical or axillary lymphadenopathy Discharge Data Allergies Allergy/AdvReac Type Severity Reaction Status Date / Time codeine Allergy Severe Difficulty Verified 08/07/20 22:27 Breathing lisinopril Allergy Severe caused Verified 08/07/20 22:27 seizure/stroke adalimumab Allergy Intermediate Rash Verified 08/07/20 22:27 hydroxychloroquine Allergy Intermediate "whole Verified 08/07/20 22:27 [From Plaquenil] body turns red" leflunomide [From Arava] Allergy Intermediate rash/hive Verified 08/07/20 22:27 at injection site nickel Allergy Intermediate swelling Verified 08/07/20 22:27 with earrings Penicillins Allergy Intermediate Rash Verified 08/07/20 22:27 hydromorphone Allergy Mild Rash Verified 08/07/20 22:27 Consultations 08/08/20 01:27 ED Decision to Admit Stat 08/08/20 05:49 Consult Vascular Surgery Routine 08/09/20 11:34 Consult Case Management - Discharge Planning Routine Consult General Surgery Routine Consult Director Data Processing Routine 08/09/20 11:35 Consult Director Data Processing Routine 08/09/20 11:43 Consult Nephrology Routine 08/13/20 09:50 Consult Neurology Routine Procedures Performed Operation Date: 08/09/20 12:30 Actual Procedures p Endovascular Repair of Right iliac artery aneurysm; RIght common femoral artery endarectomy with patch; mechanical closure left common femoral artery(Not Applicable) - Sudheer Black MD Ordered Studies 08/07/20 21:38 CT angio chest dissec wo/w con Urgent CT angio humerus RT wo/w con Urgent 08/07/20 21:57 CT angio abdomen pelvis w con Urgent 08/09/20 04:54 US duplex aorta/iliacs/IVC ltd Stat 08/09/20 07:36 EV aneurysm iliac rupture Routine 08/09/20 08:31 CT abd pelvis wo con Stat 08/09/20 12:24 CT head/brain wo con Urgent 08/15/20 14:33 CT abd pelvis IV con only Stat Hospital Course (1) Pulmonary embolism: (1) Pulmonary emboli: Pt is a 60yo with a PMHx significant for AAA, iliac artery aneurysms, CKD stage 4, chronic back pain, COPD and a Hx of blood clots in the right kidney after stent placement who was admitted with acute PEs and DVTs. Acute PEs/DVTs -CTA chest showed occlusive PEs within the RLL and RUL segmental branches, diffuse atherosclerosis of the great vessels, moderate to severe stenosis of proximal L subclavian artery and tiny pulmonary nodules with a 1cm posterior LENARD ground glass nodule. -CTA abd/pelvis showed an acute DVT in R common femoral and iliac vein and possibly bilateral pelvic veins, 7cm and 4.6cm iliac artery aneurysms with mural thrombi, an atrophic R kidney and a L renal cyst with inferior L renal calculi. -CTA right humerus showed patent arteries, no anuerysm. -Of note pt states she has been a smoker since age of 8 (SIX). Quit 2 years ago. - treated with heparin drip for several days, change to Eliquis 10mg BID starting today, will change to 5mg BID after 7 days -Dr. Black initially planning for extension of endograft, however pt with rupture AAA prior to OR s/p repair on 08/09 with extension of endograft patient breathing well, no chest pain, no oxygen requirements would treat with full anticoagulation for 6-12 months suspected Small bowel ischemia due to AAA rupture, treated with 7 days of meropenem and caspofungin KUB 08/[address] abdomen/pelvis on 08/15 with some dilated loops of bowel, but clinically no signs of obstruction, eating well, no nausea, moving her bowels monitor for any signs of obstruction but she should do well with advancing diet and increased activity at rehab no signs of ischemia or inflammation in the bowel on the CT on 08/15 Right foot drop new finding, concerns for spinal cord ischemia around time of AAA consulted neurology cannot get MRI until 30 days after endograft spoke with Dr. Borges on the day of discharge, she does NOT feel this is spinal cord ischemia/stroke exam points towards peripheral neuropathy due to lack of reflexes in right lower extremity she recommends outpatient EMG could consider MRI spine in 4 weeks but really not necessary in peripheral neuropathy Chronic Back pain -pt states she takes oxycodone 10mg q6h daily for her back pain -Follows with a pain clinic [place] -continue oxycodone 10mg q6h daily -continue home flexeril 5mg qhs -pain is tolerable for several days Acute on Chronic Kidney Injury -Baseline Cr of 1.61 -Cr elevated to 2.28 this admission after AAA rupture/repair -down to 1.2 today, electrolytes stable, making adequate urine Electrolyte imbalance replaced potassium and phosphorus, now stable Elevated lipase - resolved -does not appear to be acute pancreatitis, possibly due to embolic infarction or could have been from AAA -advance to regular diet, tolerating well COPD -continue home inhaler HTN -continue home amlodipine 5mg, metoprolol tartrate 25mg bid -resume losartan 50mg HS as her Cr is back to normal GERD -continue home omeprazole 20mg daily RA -continue home prednisone 10mg daily LENARD nodule noted on CTA, will need addressed once more acute issues are resolved Concerning in appearance for adenocarcinoma, but even more so in light of pt's extensive tobacco use hx RECOMMEND REPEAT CT CHEST IN 2 MONTHS DVT prophylaxis: on heparin drip CODE STATUS: Per admitting resident: Conditional code- wants CPR,defibrillation, no intubation or ventilator support. D/w daughter post-op, states she would not want prolonged mechanical life support, but would be fine with the short term intubation that occurred post-op. (2) DVT (deep venous thrombosis): (3) Chronic kidney disease, stage 3: (4) Chronic back pain: (2) Lung nodule seen on imaging study: LENARD nodule noted on CTA, will need addressed once more acute issues are resolved Concerning in appearance for adenocarcinoma, but even more so in light of pt's extensive tobacco use hx RECOMMEND REPEAT CT CHEST IN 2 MONTHS (3) DVT (deep venous thrombosis): (4) Small bowel ischemia: (5) Hypertensive emergency: (6) Vasculopathy: (7) Aneurysm of right iliac artery: (8) Arterial aneurysm: (9) Chronic kidney disease, stage 3: (10) Chronic back pain: (11) Right foot drop: Total Time Total Time Spent Total Time Spent (In Minutes): 36 minutes Total Time Includes: Examination of the Patient, Discharge Planning, Medication Reconciliation, Communication With Other Providers (Dr. Black) and Other (spoke with family of patient) Discharge Plan Discharge Items Patient Disposition: Transfer Inpatient Rehab Fac Reason For Visit: pulmonary embolism Discharge Diagnosis: Right leg DVT with pulmonary embolism Ruptured AAA, repair with extension of graft Right foot drop Ileus, resolving Condition on Discharge: Good Goals: improve strength and mobility Activity: Resume your previous activity Weightbearing: Full weightbearing Non-emergency contact: Primary Care Provider and Surgeon Call non-emergency contact if: you have any medication questions and your symptoms worsen Follow-up/Referrals: Gustavo Stone [Primary Care Provider] - Sudheer Black MD [Physician] - (We will need to see her one week after discharge from the hospital for staple removal. Call [phone] for an appointment) Diet: Regular Addtl Attending Provider Instructions: Medications: ELIQUIS: take 10mg twice a day for 6 more days then reduce to 5mg twice a day thereafter NYSTATIN: apply as needed for rash Right leg DVT with pulmonary embolism treated initially with heparin drip, transitioned to Eliquis breathing stable on room air, vitals stable for days AAA and iliac artery aneurysm with rupture, s/p repair with endograft by Dr. Wayne reinoso for discharge from vascular standpoint follow up in two weeks in clinic Right foot drop found to have this when she participated in therapy after surgery neurology feels that this is peripheral issue, doubt spinal cord ischemia could not get MRI of spinal cord due to recent endograft, would have to wait [address] Borges recommends therapy, walking boot, should get EMG testing right leg in a few weeks she has absent reflexes in right leg which makes peripheral issue more likely Mild ileus, possible bowel ischemia due to AAA rupture advancing diet, she is moving her bowels, no vomiting continue to encourage diet, activity CT on day of discharge did not show any ischemia, there are some dilated loops of bowel likely due to mild ileus as stated above, she moved her bowels last night and today, tolerating diet, advancing slowly Addtl Dam Tender Assistant Provider Instructions: ACTIVITY RECOMMENDATIONS: May shower. Keep incision dry otherwise. SPECIAL CARE INSTRUCTIONS: Call your doctor if: * Temperature above 101 degrees * Pain not relieved by pain medicine ordered * There is increased drainage or redness from any incision * You have any unanswered questions or concerns. Pending Studies at Discharge: No Stand-Alone Forms: My [facility] Skilled Items Patient informed of condition?: Yes DNR: No Discharge Level of Care: Acute rehab Communicable Disease: No Discharge Prognosis: Stable Lines: None Urinary Catheter: No Medications and DC Order Prescriptions: New nystatin [Nystop] 100,000 unit/gram Powder 1 applic EXT TID PRN (Reason: rash) 7 Days Qty: 60 RF: 0 Eliquis 5 mg Tablet 10 mg PO BID 6 Days Qty: 24 RF: 0 Eliquis 5 mg tablet 5 mg PO BID Qty: 60 RF: 3 Continued losartan 50 mg Tablet 50 mg PO HS RF: 0 prednisone 10 mg Tablet 10 mg PO QAM RF: 0 amlodipine 5 mg Tablet 5 mg PO QAM RF: 0 aspirin [Aspirin Low Dose] 81 mg Tablet,Delayed Release (Dr/Ec) 81 mg PO QAM RF: 0 acetaminophen 500 mg Tablet 500 mg PO BID RF: 0 meclizine 25 mg Tablet 25 mg PO TID PRN (Reason: Dizziness) RF: 0 metoprolol tartrate 50 mg Tablet 25 mg PO BID RF: 0 albuterol sulfate 90 mcg/actuation Hfa Aerosol Inhaler 2 puff INHALATION QID PRN (Reason: Shortness Of Breath) RF: 0 potassium gluconate 595 mg (99 mg) Tablet 50 mg PO QAM RF: 0 omeprazole 20 mg Tablet,Delayed Release (Dr/Ec) 20 mg PO DAILY PRN (Reason: Acid Reflux) RF: 0 oxycodone 10 mg Tablet 10 mg PO Q6H PRN (Reason: Pain) RF: 0 cholecalciferol (vitamin D3) [Vitamin D3] 50 mcg (2,000 unit) Tablet 2,000 unit PO QAM RF: 0 cyclobenzaprine 5 mg Tablet 5 mg PO HS RF: 0 Discharge Orders: Discharge Order (Routine); Ordered 08/15/20 Ordered By: Benjie Colbert Admission Data Admit Date/Time: 08/08/20 02:20 Attending Provider: Benjie Colbert Admit Provider: Carolyn Page Primary Care Provider: Gustavo Stone Other Providers: Chan Cotter ; [facility] ; Elinor Turner ; Sudheer Black ; Jaydon Pfeiffer ; Lucero Graves ; Randi Merida ; Lit Davies ; Prashant Ojeda ; Katie Hilliard Jessica ; [place] Casper Jr ; Claudio Barrett ; Daya Skaggs ; Neville Huynh ; Yovani Landeros ; Gareth Hayden ; Alon Rai ; Patrick Pratt ; Jared Doyle ; Mellisa Turner ; Marcelino Fitzgerald ; Carlin Reyes ; Tatiana Orellana ; Dick Campbell ; Yovani Valles ; Huang Porras ; Darby Borges ; Radha Salinas Other Interventions: Discharge Summary Assessment (RN) Last Done: 08/15/20 16:02 Coding Level of Care Code D/C Day Management >30 mins Diagnoses Pulmonary embolism I26.99 Lung nodule seen on imaging study R91.1 DVT (deep venous thrombosis) I82.409 Small bowel ischemia K55.9 Hypertensive emergency I16.1 Vasculopathy I99.9 Aneurysm of right iliac artery I72.3 Arterial aneurysm I72.9 Chronic kidney disease, stage 3 N18.3 Chronic back pain M54.9; G89.29 Right foot drop M21.371
== END 2020-08-15 17:39 | DRG 252 ==
LOC: ED 20:39 → SUATTDRO 08-08 02:20 → EDINP 08-08 02:20 → 2S 08-08 14:20 → 1E 08-09 11:16 → 2N 08-12 12:28

== ENCOUNTER 2020-08-23 12:24 | Inpatient (IN) ==
[2020-08-23 14:16] LABS: iSTAT Creatinine 1.9 mg/dl (0.6-1.3); iSTAT Hemoglobin 14.6 g/dl (12.0-16.0); iSTAT Ionized Calcium 1.2 mmol/l (1.12-1.32); iSTAT Potassium 4.3 mmol/L (3.3-5.0)
[2020-08-23 14:23] LABS: Basophils # (auto) 0.04 K/uL (0-0.2); Basophils % (auto) 0.3 %; Eosinophils # (auto) 0.04 K/uL (0-0.5); Eosinophils % (auto) 0.3 %; Hematocrit (blood only) 43.2 % (37-47); Hemoglobin 13.3 g/dL (12.0-16.0); Immature Granulocytes # (auto) 0.07 K/uL (0.00-0.02); Immature Granulocytes % (auto) 0.6 %; Lymphocytes # (auto) 0.96 K/uL (1.2-3.4); Lymphocytes % (auto) 7.8 %; Mean Corpuscular Hemoglobin 29.1 pg (25-34); Mean Corpuscular Hgb Conc 30.8 g/dL (32-36); Mean Corpuscular Volume 94.5 fL (80-100); Mean Platelet Volume 10.2 fL (7.4-10.4); Monocytes # (auto) 1.16 K/uL (0.11-0.59); Monocytes % (auto) 9.4 %; Neutrophils # (auto) 10.01 K/uL (1.4-6.5); Neutrophils % (auto) 81.6 %; Platelet Count 670 K/uL (130-400); RDW Coefficient of Variation 15.4 % (11.5-14.5); RDW Standard Deviation 53.3 fL (36.4-46.3); Red Blood Count 4.57 M/uL (4.2-5.4); White Blood Count 12.28 K/uL (4.8-10.8)
--- NOTE | 2020-08-23 14:26 | XRay Report ---
XR chest 1V portable CLINICAL HISTORY: SEPSIS COMPARISON STUDY: No previous studies for comparison. FINDINGS: Lung volumes are normal. There is no pneumothorax. Small bilateral pleural effusions are no madai with bibasilar opacities. Cardiomegaly is unchanged. There is pulmonary vascular congestion witho ut overt pulmonary edema. IMPRESSION: 1. Small bilateral pleural effusions with bibasilar opacities. 2. Pulmonary vascular congestion without overt pulmonary edema. ACT 112: Negative or not required by law. Electronically signed by: Patrick Coates M.D. 08/23/2020 2:24 PM
[2020-08-23] MEDS ORDERED: OPTIRAY 320 125ml IV ONE (14:29)
[2020-08-23 14:39] LABS: Blood Urea Nitrogen 41 mg/dl (7-18); Carbon Dioxide 32 mmol/L (21-32); Chloride 102 mmol/L (98-107); Creatinine Clr Calc Pharmacy 35.3 ml/min; Est GFR (African American) 33.1; Est GFR (Non-African American) 28.6; Potassium 4.6 mmol/L (3.5-5.1); Sodium 139 mmol/L (136-145)
[2020-08-23 14:40] LABS: Alanine Aminotransferase 30 U/L (12-78); Albumin Level 2.5 gm/dl (3.4-5.0); Aspartate Aminotransferase 17 U/L (15-37); BUN Creatinine Ratio 21.3 (10-20); Calcium 9.2 mg/dl (8.5-10.1); Glucose 111 mg/dl (70-99); Magnesium 2.3 mg/dl (1.8-2.4)
[2020-08-23 14:44] LABS: Albumin Globulin Ratio 0.6 (0.9-2); Alkaline Phosphatase 100 U/L (45-117); Bilirubin,Total 0.3 mg/dl (0.2-1); Globulin 4.3 gm/dl (2.5-4.0); Total Protein 6.8 gm/dl (6.4-8.2); Troponin I < 0.015 ng/ml (0-0.045)
[2020-08-23 14:55] LABS: Appearance Urine Turbid (Clear); Bacteria Urine Automated 4+ (Negative); Bilirubin Urine Negative (Negative); Blood Urine Trace (Negative); Color Urine Yellow; Epithelial Cell Urine Auto >30 /lpf (0-5); Glucose Urine UA Negative (Negative); Ketones Urine Negative (Negative); Leukocyte Esterase Urine 2+ (Negative); Nitrite Urine Positive (Negative); Specific Gravity Urine 1.017 (1.000-1.030); Urobilinogen Urine Negative (Negative); WBC Urine Automated >30 /hpf (0-5); pH Urine >= 9.0 (4.5-7.5)
[2020-08-23 15:13] LABS: Protein Urine 2+ (Negative); Sulfosalicylic Acid Urine Positive (Negative)
[2020-08-23 15:15] LABS: Cast Urine Automated 0 /lpf (0-5); Triple Phosphate Crystal Urine Present (None Prsent)
[2020-08-23 15:16] LABS: RBC Urine Automated 0-4 /hpf (0-4)
--- NOTE | 2020-08-23 15:24 | CT Scan Report ---
CT ANGIOGRAPHY OF THE ABDOMEN AND PELVIS CLINICAL HISTORY: Postoperative pain. COMPARISON STUDY: CT of the abdomen and pelvis August 15, 2020. TECHNIQUE: Helical axial images of the abdomen and pelvis were obtained during arterial phase followi ng intravenous injection of 120 cc Optiray 320 IV. Sagittal coronal reconstructed reviewed as well as multiple intensity projections on an independent 3-D workstation. Automated exposure control was uti lized for the study. A dose lowering technique was utilized adhering to the principles of ALARA. FINDINGS: Imaged portions of the lower chest demonstrate small bilateral pleural effusions which have decreased in size since CT of August 15, 2020. Associated airspace opacities favor atelectasis. No pneumatosis, free air or portal venous gas is present. Arterial phase images of the liver, spleen, ad renal glands and pancreas are unremarkable. Marked right renal atrophy is unchanged. There is a cyst within the upper pole the left kidney. Note is made of an 8 mm calculus within the lower pole the lef t kidney. There is atrophy of the lower pole the left kidney. There is no hydronephrosis. There is no evidence for a bowel obstruction. There is colonic diverticulosis without evidence for acute diverti culitis. There is mild increased mucosal enhancement and wall thickening with minimal mesenteric infi ltration associated with several small bowel loops. Trace ascites within the pelvis is noted. The kavita unt of fluid within the abdomen and pelvis has significantly decreased since CT of August 15, 2020. Bifurcated aortoiliac stent graft is in place. There is no evidence for rupture. The abdominal aorta at the level of the renal arteries measures 3.5 cm. This is unchanged. As before, a renal artery sten t is occluded. There is suspected moderate narrowing at the origin of the left renal artery which is unchanged. Note is again made of bilateral iliac artery aneurysms. These are similar in size to CT of August 15, 2020. The right iliac artery aneurysm measures 6.5 cm. The left measures 4.4 cm. Vascula r stent extends across the right iliac artery aneurysm. Large endoleak is noted. Specifically, a type II endoleak from a right lumbar vessel on axial image 279 of 532 is noted. There is also a probable additional type II endoleak from a right internal iliac vessel on image 336. This results in filling of the aneurysm sac with contrast. A normal-appearing right common iliac vein is not visualized. Ther e is probable underlying AV fistula between the aneurysm sac in the right common iliac vein. There is early filling of the IVC as well as early filling of right external iliac vein. There is no evidence for rupture. Mild right thigh edema. IMPRESSION: 1. Bifurcated aortoiliac stent graft in place with stent extending across the right iliac artery aneu rysm. Two type II endoleaks which arise from a right lumbar vessel and right internal iliac vessel. S uspected AV fistula between the right common iliac vein and the aneurysm sac which is largely exclude d by the stent. However, early filling of the IVC likely due to the endoleak. No change in caliber of the bilateral common iliac artery aneurysms since CT of August 15, 2020. No rupture. 2. Findings suggestive of a mild nonspecific enteritis, as described above. 3. Interval decrease in small bilateral pleural effusions with associated atelectasis. 4. Near complete resolution of abdominal and pelvic fluid shown on prior exam. 5. Mild right thigh edema. ACT 112: Negative or not required by law. Electronically signed by: Patrick Coates M.D. 08/23/2020 3:22 PM
[2020-08-23] MEDS ORDERED: cefTRIAXone SODIUM 1,000 MG/50 ML BAG IV STA (15:36)
[2020-08-23] MEDS ORDERED: KETOROLAC TROMETHAMINE 15 MG/ML VIAL IV STA (15:55)
[2020-08-23] MEDS ORDERED: PHENAZOPYRIDINE HCL 200 MG TAB PO STA (15:55)
--- NOTE | 2020-08-23 16:13 | History & Physical Report ---
Date of Service August 23, 2020 Assessment & Plan (1) Pulmonary embolism: Patient was discharged from our facility 08/15/2022 rehabilitation on Eliquis therapy on 5 mg twice daily at this time after being loaded with 10 twice daily. Attempt to reach vascular surgeon given the description of endoleak's seen on CT angiography whether we should change her anticoagulation to something with a shorter half-life in case this would progress to further leakage. 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 Was with Dr. Black and which included endograft. The patient was [facility] poorly the patient and an appointment with Dr. Black is additions medical lab assistant 1 day prior where she was having some dysuria and abdominal discomfort. Poorly a urine analysis was done with concern for UTI. Patient was then instructed to report to the emergency department for Dr. Black recommended imaging studies of her endograft treatment of UTI. CT angiography of her lower abdomen showed a type II endograft leak which can be a normal occurrence and up to 50% of endograft repairs and abnormal urinalysis with concern for infection being such that if there were to be an infection to not have the endograft become involved. Currently the patient did have urine cultures were given Rocephin and will be brought into our facility. Patient because she has had a co horted living situation at [facility] will have a Covid test on presentation although she does not have any new pulmonary symptoms. The patient has been breathless since her pulmonary embolism and denies any recent changes in regard to that. She also is a background history of smoking. Allergies Allergy/AdvReac Type Severity Reaction Status Date / Time codeine Allergy Severe Difficulty Verified 08/23/20 16:32 Breathing lisinopril Allergy Severe caused Verified 08/23/20 16:32 seizure/stroke adalimumab Allergy Intermediate Rash Verified 08/23/20 16:32 hydroxychloroquine Allergy Intermediate "whole Verified 08/23/20 16:32 [From Plaquenil] body turns red" leflunomide [From Arava] Allergy Intermediate rash/hive Verified 08/23/20 16:32 at injection site nickel Allergy Intermediate swelling Verified 08/23/20 16:32 with earrings Penicillins Allergy Intermediate Rash Verified 08/23/20 16:32 hydromorphone Allergy Mild Rash Verified 08/23/20 16:32 Home Medications Home Medications Medication Instructions Recorded Confirmed Type acetaminophen 500 mg PO BID 04/05/20 08/23/20 History albuterol sulfate 2 puff INHALATION QID PRN 04/05/20 08/23/20 History amlodipine 5 mg PO QAM 04/05/20 08/23/20 History aspirin [Aspirin Low Dose] 81 mg PO QAM 04/05/20 08/23/20 History cholecalciferol (vitamin D3) 2,000 unit PO QAM 04/05/20 08/23/20 History [Vitamin D3] losartan 50 mg PO HS 04/05/20 08/23/20 History meclizine 25 mg PO TID PRN 04/05/20 08/23/20 History metoprolol tartrate 25 mg PO BID 04/05/20 08/23/20 History omeprazole 20 mg PO DAILY PRN 04/05/20 08/23/20 History oxycodone 10 mg PO Q6H PRN 04/05/20 08/23/20 History potassium gluconate 50 mg PO QAM 04/05/20 08/23/20 History prednisone 10 mg PO QAM 04/05/20 08/23/20 History cyclobenzaprine 5 mg PO HS 08/07/20 08/23/20 History apixaban [Eliquis] 5 mg PO BID #60 tab 08/15/20 08/23/20 Rx Past Med/Surg History Medical History (Updated 08/23/20 @ 17:50 by Silvio Velasquez) Abdominal pain Aneurysm of right iliac artery Aortic aneurysm s/p AAA repair (2011, revision 2018) Arterial aneurysm Chronic back pain Chronic kidney disease, stage 3 Diverticular disease DVT (deep venous thrombosis) DVT (deep venous thrombosis) Hearing deficit History of bronchitis reason for inhaler prn History of peptic ulcer Hx of blood clots developed in right kidney after stent placement Hyperlipidemia Hypertension Iliac artery aneurysm, bilateral Lung nodules found on CT scan--under surveillance Pulmonary emboli Pt is a 60yo with a PMHx significant for AAA, iliac artery aneurysms, CKD stage 4, chronic back pain, COPD and a Hx of blood clots in the right kidney after stent placement who was admitted with acute PEs and DVTs. Acute PEs/DVTs -Pt states she had a lump under her R arm that eventually became a large bruise, associated w/ right groin pain -CTA chest showed occlusive PEs within the RLL and RUL segmental branches, diffuse atherosclerosis of the great vessels, moderate to severe stenosis of proximal L subclavian artery and tiny pulmonary nodules with a 1cm posterior LENARD ground glass nodule. -CTA abd/pelvis showed an acute DVT in R common femoral and iliac vein and possibly bilateral pelvic veins, 7cm and 4.6cm iliac artery anuerysms with mural thrombi, an atrophic R kidney and a L renal cyst with inferior L renal calculi. -CTA right humerus showed patent arteries, no anuerysm. Pulmonary embolism Rheumatoid arthritis Seizure 12/2018--felt r/t lisinopril--no deficits, follows with Dr. Saba Pop in [place] Stroke 12/2018--felt r/t lisinopril--no deficits, follows with Dr. Saba Pop in [place] Vasculopathy Surgical History Fusion of spine 2010 @ [facility] Dr. Sanchez H/O abdominal aortic aneurysm repair 2010 Dr. Black @ [facility] History of abdominal aortic aneurysm (AAA) repair 06/2018 @ [place]--per pt had to "put a collar around the previous AAA repair" also had a renal artery stent placed at the same time History of cholecystectomy History of colonoscopy History of esophagogastroduodenoscopy (EGD) History of kyphoplasty 2014 @ [facility] History of stent insertion of renal artery 2017 @ [place] History of tubal ligation History of wisdom tooth extraction Family History Mother Family history of diabetes mellitus Brother Family hx of colon cancer Other No family history of adverse response to anesthesia Rheumatoid arthritis Stroke Social History Smoking Status: Former smoker Smoking End Date: 2017; Second Hand Exposure: Yes (parents/family smoked); Hx Alcohol Use: No Hx Substance Use: No Preferred Language: Serbian Communication Ability: Effective International Guest Coordinator Required: No Beliefs That Will Affect Care: None Current Living Situation: Family Current Living Situation Comment: Lives with son Other Information That Helps Us Care for You: No Feels Safe at Home: Yes Safety Concerns: Feels Safe At This Time Assistive Devices: Glasses and Walker Assistive Devices Comment: pt reports glasses are at [employer] Review of Systems Review of Systems: Mild distress and fatigue no headache, blurry or double vision no speech or swallowing issues no chest pain, pressure or palpitations Feels short of breath at rest without coughing or wheezing Bilateral lower quadrant abdominal pain, without nausea or vomiting, diarrhea or constipation Has dysuria and frequency no focal joint pain or swelling no back pain, CVA tenderness or radicular pain Bilateral inguinal wounds are intact with Steri-Strips in place and only minor erythema which looks to be reaction and not infection no focal signs of weakness or numbness or altered sensation no complaints of anxiety or depression. Physical Exam Physical Exam: The patient appeared well nourished and normally developed. Vital signs as documented. Head exam is normocephalic atraumatic no scleral icterus Neck is without JVD, thyromegaly, or carotid bruits. Lungs are clear to auscultation, no focal loss of breath sounds Cardiac exam, Rhythm is regular.. No murmurs, rubs or gallops. Abdominal exam reveals normal bowel sounds, soft non minor lower quadrant tenderness Extremities are nonedematous and both pedal pulses are present Neurologic exam is alert and oriented, no focal loss of strength or sensation Skin is with only mild redness to surgical sites it does not look infected Psychologically is without concerns for anxiety or depression. Results & Data Results & Data ([facility]) Vital Signs (Past 12 Hours) Vital Signs Temp Pulse Pulse Resp BP BP Pulse Ox 08/23/20 15:15 131/80 95 11/06/20 15:00 93 H 25 H 131/80 98 08/23/20 14:02 98 H 20 136/79 93 08/23/20 14:01 93 08/23/20 12:40 98.6 F 97 H 20 116/[address] angiography of abdomen and pelvis, 08/23/20 IMPRESSION: 1. Bifurcated aortoiliac stent graft in place with stent extending across the right iliac artery aneurysm. Two type II endoleaks which arise from a right lumbar vessel and right internal iliac vessel. Suspected AV fistula between the right common iliac vein and the aneurysm sac which is largely excluded by the stent. However, early filling of the IVC likely due to the endoleak. No change i n caliber of the bilateral common iliac artery aneurysms since CT of August 15, 2020. No rupture. 2. Findings suggestive of a mild nonspecific enteritis, as described above. 3. Interval decrease in small bilateral pleural effusions with associated atelectasis. 4. Near complete resolution of abdominal and pelvic fluid shown on prior exam. 5. Mild right thigh edema. PG Care Time/CCT Total # of Minutes Spent Total Time Spent with Patient: Total time spent is greater than 50% in coordination of care (as documented) at patient's floor/unit and/or counseling patient: Coding Level of Care Code 99014 Initial Inpt Care Lvl 3 Diagnoses Pulmonary embolism I26.99 Chronic kidney disease, stage 3 N18.3 Chronic back pain M54.9; G89.29 History of endovascular stent graft for abdominal aortic aneurysm (AAA) Z95.828 Hypertension I10 Chronic use of steroids
--- NOTE | 2020-08-23 17:43 | Emergency Department Note ---
History of Present Illness General Chief Complaint: Abdominal Pain Time Seen by Provider: 08/23/20 13:24 History of Present Illness Provider Complaint: abdominal pain Onset (ago): 2 day(s) Pain Consistency: constant Location: RLQ Radiation: none Maximum Pain Intensity: 8 Current Pain Intensity: 8 Quality: + stabbing and + sharp Relieved By: + nothing Exacerbated By: + nothing Context: + recent surgery/procedure Associated Symptoms: + chills and + dysuria; no nausea, no vomiting, no diarrhea, no fever, no constipation, no hematemesis, no hematochezia, no melena, no hematuria, no headache and no chest pain Patient is from [facility]. Patient states she had a vascular surgery done by Dr. Black on August 09. She also states that she was seen by him yesterday and had her osbaldo removed and she was told that her incision looks good. Patient states she has been having some dysuria and did give a urine sample at Dr. Black's office yesterday. Patient states she was recently tested for COVID-19 as she stated everyone in [facility] is being tested for COVID-19. She denies any loss of taste or smell cough or difficulty breathing. No chest pain. Related Data Patient Confirmed : No Home Medications Home Medications Medication Instructions Recorded Confirmed Type acetaminophen 500 mg PO BID 04/05/20 08/23/20 History albuterol sulfate 2 puff INHALATION QID PRN 04/05/20 08/23/20 History amlodipine 5 mg PO QAM 04/05/20 08/23/20 History aspirin [Aspirin Low Dose] 81 mg PO QAM 04/05/20 08/23/20 History cholecalciferol (vitamin D3) 2,000 unit PO QAM 04/05/20 08/23/20 History [Vitamin D3] losartan 50 mg PO HS 04/05/20 08/23/20 History meclizine 25 mg PO TID PRN 04/05/20 08/23/20 History metoprolol tartrate 25 mg PO BID 04/05/20 08/23/20 History omeprazole 20 mg PO DAILY PRN 04/05/20 08/23/20 History oxycodone 10 mg PO Q6H PRN 04/05/20 08/23/20 History potassium gluconate 50 mg PO QAM 04/05/20 08/23/20 History prednisone 10 mg PO QAM 04/05/20 08/23/20 History cyclobenzaprine 5 mg PO HS 08/07/20 08/23/20 History apixaban [Eliquis] 5 mg PO BID #60 tab 08/15/20 08/23/20 Rx Allergies Allergy/AdvReac Type Severity Reaction Status Date / Time codeine Allergy Severe Difficulty Verified 08/23/20 16:32 Breathing lisinopril Allergy Severe caused Verified 08/23/20 16:32 seizure/stroke adalimumab Allergy Intermediate Rash Verified 08/23/20 16:32 hydroxychloroquine Allergy Intermediate "whole Verified 08/23/20 16:32 [From Plaquenil] body turns red" leflunomide [From Arava] Allergy Intermediate rash/hive Verified 08/23/20 16:32 at injection site nickel Allergy Intermediate swelling Verified 08/23/20 16:32 with earrings Penicillins Allergy Intermediate Rash Verified 08/23/20 16:32 hydromorphone Allergy Mild Rash Verified 08/23/20 16:32 Past Med/Surg History Medical History (Updated 08/23/20 @ 17:50 by Silvio Velasquez) Abdominal pain Aneurysm of right iliac artery Aortic aneurysm s/p AAA repair (2010, revision 2018) Arterial aneurysm Chronic back pain Chronic kidney disease, stage 3 Diverticular disease DVT (deep venous thrombosis) DVT (deep venous thrombosis) Hearing deficit History of bronchitis reason for inhaler prn History of peptic ulcer Hx of blood clots developed in right kidney after stent placement Hyperlipidemia Hypertension Iliac artery aneurysm, bilateral Lung nodules found on CT scan--under surveillance Pulmonary emboli Pt is a 60yo with a PMHx significant for AAA, iliac artery aneurysms, CKD stage 4, chronic back pain, COPD and a Hx of blood clots in the right kidney after stent placement who was admitted with acute PEs and DVTs. Acute PEs/DVTs -Pt states she had a lump under her R arm that eventually became a large bruise, associated w/ right groin pain -CTA chest showed occlusive PEs within the RLL and RUL segmental branches, diffuse atherosclerosis of the great vessels, moderate to severe stenosis of proximal L subclavian artery and tiny pulmonary nodules with a 1cm posterior LNEARD ground glass nodule. -CTA abd/pelvis showed an acute DVT in R common femoral and iliac vein and possibly bilateral pelvic veins, 7cm and 4.6cm iliac artery anuerysms with mural thrombi, an atrophic R kidney and a L renal cyst with inferior L renal calculi. -CTA right humerus showed patent arteries, no anuerysm. Pulmonary embolism Rheumatoid arthritis Seizure 12/2018--felt r/t lisinopril--no deficits, follows with Dr. Saba Pop in [place] Stroke 12/2018--felt r/t lisinopril--no deficits, follows with Dr. Saba Pop in [place] Vasculopathy Surgical History Fusion of spine 2010 @ [facility] Dr. Sanchez H/O abdominal aortic aneurysm repair 2010 Dr. Black @ [facility] History of abdominal aortic aneurysm (AAA) repair 06/2018 @ [place]--per pt had to "put a collar around the previous AAA repair" also had a renal artery stent placed at the same time History of cholecystectomy History of colonoscopy History of esophagogastroduodenoscopy (EGD) History of kyphoplasty 2014 @ [facility] History of stent insertion of renal artery 2017 @ [place] History of tubal ligation History of wisdom tooth extraction Family History Mother Family history of diabetes mellitus Brother Family hx of colon cancer Other No family history of adverse response to anesthesia Rheumatoid arthritis Stroke Social History Smoking Status: Former smoker Second Hand Exposure: Yes (parents/family smoked); Hx Alcohol Use: Yes Hx Substance Use: No Preferred Language: Danish Communication Ability: Unable Seaman Required: No Beliefs That Will Affect Care: None Current Living Situation: Family Current Living Situation Comment: Lives with son Feels Safe at Home: Yes Assistive Devices: Walker Review of Systems A total of 10 systems reviewed and were otherwise negative Physical Exam Vital Signs: Vital Signs - 24 hr 08/23/20 12:40 08/23/20 14:01 08/23/20 14:02 Temperature 37 C Temperature Source Oral Pulse Rate 97 H 98 H Pulse Rate [Finger ] Pulse Rhythm Regular Pulse Rhythm [Fing er] Pulse Strength [Fi nger] Respiratory Rate 20 20 Respiratory Effort / Characteristics Non-Labored Sponta neous Non-Labored Respiratory Depth Normal Respiratory Patter n Regular Blood Pressure 116/72 Blood Pressure [Ri ght Radial Artery] 136/79 Blood Pressure Rosanna n 86 Blood Pressure Rosanna n [Right Radial Ar angy] 98 Blood Pressure Pos ition [Right Radia l Artery] Sitting Pulse Oximetry 93 93 93 Oxygen Delivery Me thod Room Air Room Air Room Air Sepsis Recent Feve r Within 48 Hours No Sepsis New/Unexpla ined Change in Men lake Status No Sepsis Action Take n by Nursing No Action Required 08/23/20 15:00 08/23/20 15:15 08/23/20 16:30 Temperature Temperature Source Pulse Rate Pulse Rate [Finger ] 93 H 97 H Pulse Rhythm Pulse Rhythm [Fing er] Regular Regular Pulse Strength [Fi nger] Normal Respiratory Rate 25 H 22 Respiratory Effort / Characteristics Non-Labored Non-Labored Respiratory Depth Normal Normal Respiratory Patter n Regular Regular Blood Pressure Blood Pressure [Ri ght Radial Artery] 131/80 131/80 139/84 Blood Pressure Rosanna n Blood Pressure Rosanna n [Right Radial Ar angy] 97 97 102 Blood Pressure Pos ition [Right Radia l Artery] Sitting Sitting Pulse Oximetry 98 95 93 Oxygen Delivery Me thod Room Air Room Air Room Air Sepsis Recent Feve r Within 48 Hours Sepsis New/Unexpla ined Change in Men lake Status Sepsis Action Take n by Nursing 08/23/20 17:00 08/23/20 17:23 Temperature Temperature Source Pulse Rate Pulse Rate [Finger ] 102 H Pulse Rhythm Pulse Rhythm [Fing er] Regular Pulse Strength [Fi nger] Normal Respiratory Rate 22 22 Respiratory Effort / Characteristics Non-Labored Non-Labored Respiratory Depth Normal Respiratory Patter n Regular Blood Pressure Blood Pressure [Ri ght Radial Artery] 136/77 Blood Pressure Rosanna n Blood Pressure Rosanna n [Right Radial Ar angy] 96 Blood Pressure Pos ition [Right Radia l Artery] Sitting Pulse Oximetry 94 94 Oxygen Delivery Me thod Room Air Room Air Sepsis Recent Feve r Within 48 Hours Sepsis New/Unexpla ined Change in Men lake Status Sepsis Action Take n by Nursing Physical Exam: Physical Exam GENERAL: She is oriented to person, place, and time. She appears well-developed and well-nourished. She does not appear distressed. HENT: Exam performed. -Head: Normocephalic and atraumatic. -Right Ear: External ear normal. No mastoid tenderness. -Left Ear: External ear normal. No mastoid tenderness. -Mouth/Throat: The oropharynx is clear and moist. No trismus in the jaw. No dental abscesses or uvula swelling. No oropharyngeal exudate or tonsillar abscesses. EYES: Conjunctivae and EOM are normal. Pupils are equal, round, and reactive to light. Right eye exhibits no discharge. Left eye exhibits no discharge. No scleral icterus. NECK: Normal range of motion. Neck supple. No JVD present. No spinous process tenderness present. No carotid bruit present. No rigidity. No tracheal deviation and normal range of motion present. No Brudzinski's sign and no Kernig's sign noted. CV: Tachycardic rate, regular rhythm, normal heart sounds and intact distal pulses. There is no peripheral edema. Palpable radial pulses bue. PULM/CHEST: Effort normal and breath sounds normal. No respiratory distress. No stridor. She has no wheezes. She has no rales. -Chest Wall: She exhibits no tenderness. ABD: Diffuse pain on palpation of the abdomen. MUSC/SKEL: Normal range of motion. There is no peripheral edema, tenderness or deformity. LYMPH: No cervical adenopathy. NEURO: She is alert and oriented to person, place, and time. She has normal strength. No cranial nerve deficit or sensory deficit. Coordination and gait normal. GCS eye subscore is 4. GCS verbal subscore is 5. GCS motor subscore is 6. Cerebellar tests wnl. SKIN: Surgical incision appears clean and dry. No purulent discharge. No bleeding. PSYCH: She has a normal mood and affect. Behavior is normal. Judgment and thought content normal. Course Course 1324: The patient was evaluated in room C5. A complete history and physical exam was performed. Patient was seen in full airborne precautions given her pending COVID-19 screening. Cardiac monitoring: An order was placed for continuous cardiac monitoring. The monitor shows a rate of 100 with sinus rhythm 1535: Labs show leukocytosis 12.28. Creatinine 1.9. Urine does appear infected. Spoke with Sunitha vascular surgery INVOICE CHECKER states she will contact Dr. Karl olivier to evaluate the skin. She states she saw the patient yesterday and started her on Macrobid although she is not sure if the patient after he started the antibiotic. 1545: Spoke with Dr. Black vascular surgery who states there is a type II endoleak which she did expect. He states it would be best for the patient to be admitted to the medicine service with him on consult. He states he will e valuate the patient. He states he wants the patient treated for his antibiotics for UTI because he is concerned that her surgical hardware/repair will become infected otherwise. He states he will evaluate the patient further for any more operative needs. Administered Medications Discontinued Medications Ceftriaxone Sodium (Rocephin) 1,000 mg in 50 mls @ 100 mls/hr IV NOW STA Stop: 08/23/20 16:05 Last Infusion: 08/23/20 17:06 Dose: 0 mls/hr Documented by: [id number] Admin: 08/23/20 16:27 Dose: 100 mls/hr Documented by: [id number] Ioversol (Optiray 320 125ml) 120 ml IV ONCE ONE Stop: 08/23/20 14:30 Last Admin: 08/23/20 14:29 Dose: 120 ml Documented by: [id number] Phenazopyridine HCl (Phenazopyridine Hcl 200 Mg Tab) 200 mg PO NOW STA Stop: 08/23/20 15:56 Last Admin: 08/23/20 16:26 Dose: 200 mg Documented by: [id number] Medical Decision Making Laboratory Data Result diagrams: 08/23/20 13:55 08/23/20 13:55 Lab Results 08/23/20 08/23/20 08/23/20 Range/Units 13:55 13:55 13:55 WBC 12.28 H (4.8-10.8) K/uL RBC 4.57 (4.2-5.4) M/uL Hgb 13.3 (12.0-16.0) g/dL POC Hgb (12.0-16.0) g/dl Hct 43.2 (37-47) % POC Hct (37-47) % MCV 94.5 (80-100) fL MCH 29.1 (25-34) pg MCHC 30.8 L (32-36) g/dL RDW Std Deviation 53.3 H (36.4-46.3) fL RDW Coeff of Jesus 15.4 H (11.5-14.5) % Plt Count 670 H (130-400) K/uL MPV 10.2 (7.4-10.4) fL Immature Gran % (Auto) 0.6 % Neut % (Auto) 81.6 % Lymph % (Auto) 7.8 % Mitchell % (Auto) 9.4 % Eos % (Auto) 0.3 % Baso % (Auto) 0.3 % Neut # (Auto) 10.01 H (1.4-6.5) K/uL Lymph # (Auto) 0.96 L (1.2-3.4) K/uL Mitchell # (Auto) 1.16 H (0.11-0.59) K/uL Eos # (Auto) 0.04 (0-0.5) K/uL Baso # (Auto) 0.04 (0-0.2) K/uL Immature Gran # (Auto) 0.07 H (0.00-0.02) K/uL PT Cancelled INR Cancelled APTT Cancelled PTT Ratio Cancelled POC Sodium (135-144) mmol/L Sodium 139 (136-145) mmol/L POC Potassium (3.3-5.0) mmol/L Potassium 4.6 (3.5-5.1) mmol/L POC Chloride (101-112) mmol/L Chloride 102 (98-107) mmol/L Carbon Dioxide 32 (21-32) mmol/L POC Total CO2 (24-31) mmol/L Anion Gap 5.0 (3-11) POC Anion Gap (16-25) mmol/L POC BUN (7-18) mg/dl BUN 41 H (7-18) mg/dl Creatinine 1.90 H (0.6-1.2) mg/dl POC Creatinine (0.6-1.3) mg/dl Est Cr Clr Drug Dosing 35.3 ml/min Est GFR ( Amer) 33.1 Est GFR (Non-Af Amer) 28.6 BUN/Creatinine Ratio 21.3 H (10-20) Glucose 111 H (70-99) mg/dl POC Glucose (other) (70-99) mg/dl Lactate (0.4-2.0) mmol/L Calcium 9.2 (8.5-10.1) mg/dl POC Ioniz Calcium Dre (1.12-1.32) mmol/l Magnesium 2.3 (1.8-2.4) mg/dl Total Bilirubin 0.3 (0.2-1) mg/dl AST 17 (15-37) U/L ALT 30 (12-78) U/L Alkaline Phosphatase 100 (45-117) U/L Troponin I < 0.015 (0-0.045) ng/ml Total Protein 6.8 (6.4-8.2) gm/dl Albumin 2.5 L (3.4-5.0) gm/dl Globulin 4.3 H (2.5-4.0) gm/dl Albumin/Globulin Ratio 0.6 L (0.9-2) Procalcitonin (0-0.5) ng/ml Urine Color Urine Appearance (Clear) Urine pH (4.5-7.5) Ur Specific Kerby (1.000-1.030) Urine Protein (Negative) Urine Glucose (UA) (Negative) Urine Ketones (Negative) Urine Blood (Negative) Urine Nitrite (Negative) Urine Bilirubin (Negative) Urine Urobilinogen (Negative) Ur Leukocyte Esterase (Negative) Urine WBC (Auto) (0-5) /hpf Urine RBC (Auto) (0-4) /hpf U Hyaline Cast (Auto) (0-5) /lpf U Epithel Cells (Auto) (0-5) /lpf Urine Bacteria (Auto) (Negative) Ur Renal Epithelial Cell Urine Crystals Triple Phos Crystals (None Prsent) Urine Yeast COVID-19 Eval Order COVID-19 PCR (Negative) 08/23/20 08/23/20 08/23/20 Range/Units 13:55 13:55 13:55 WBC (4.8-10.8) K/uL RBC (4.2-5.4) M/uL Hgb (12.0-16.0) g/dL POC Hgb (12.0-16.0) g/dl Hct (37-47) % POC Hct (37-47) % MCV (80-100) fL MCH (25-34) pg MCHC (32-36) g/dL RDW Std Deviation (36.4-46.3) fL RDW Coeff of Jesus (11.5-14.5) % Plt Count (130-400) K/uL MPV (7.4-10.4) fL Immature Gran % (Auto) % Neut % (Auto) % Lymph % (Auto) % Mitchell % (Auto) % Eos % (Auto) % Baso % (Auto) % Neut # (Auto) (1.4-6.5) K/uL Lymph # (Auto) (1.2-3.4) K/uL Mitchell # (Auto) (0.11-0.59) K/uL Eos # (Auto) (0-0.5) K/uL Baso # (Auto) (0-0.2) K/uL Immature Gran # (Auto) (0.00-0.02) K/uL PT INR APTT PTT Ratio POC Sodium (135-144) mmol/L Sodium (136-145) mmol/L POC Potassium (3.3-5.0) mmol/L Potassium (3.5-5.1) mmol/L POC Chloride (101-112) mmol/L Chloride (98-107) mmol/L Carbon Dioxide (21-32) mmol/L POC Total CO2 (24-31) mmol/L Anion Gap (3-11) POC Anion Gap (16-25) mmol/L POC BUN (7-18) mg/dl BUN (7-18) mg/dl Creatinine (0.6-1.2) mg/dl POC Creatinine (0.6-1.3) mg/dl Est Cr Clr Drug Dosing ml/min Est GFR ( Amer) Est GFR (Non-Af Amer) BUN/Creatinine Ratio (10-20) Glucose (70-99) mg/dl POC Glucose (other) (70-99) mg/dl Lactate 1.4 (0.4-2.0) mmol/L Calcium (8.5-10.1) mg/dl POC Ioniz Calcium Dre (1.12-1.32) mmol/l Magnesium (1.8-2.4) mg/dl Total Bilirubin (0.2-1) mg/dl AST (15-37) U/L ALT (12-78) U/L Alkaline Phosphatase (45-117) U/L Troponin I (0-0.045) ng/ml Total Protein (6.4-8.2) gm/dl Albumin (3.4-5.0) gm/dl Globulin (2.5-4.0) gm/dl Albumin/Globulin Ratio (0.9-2) Procalcitonin 0.16 (0-0.5) ng/ml Urine Color Yellow Urine Appearance Turbid A (Clear) Urine pH >= 9.0 H (4.5-7.5) Ur Specific Kerby 1.017 (1.000-1.030) Urine Protein 2+ H (Negative) Urine Glucose (UA) Negative (Negative) Urine Ketones Negative (Negative) Urine Blood Trace H (Negative) Urine Nitrite Positive A (Negative) Urine Bilirubin Negative (Negative) Urine Urobilinogen Negative (Negative) Ur Leukocyte Esterase 2+ H (Negative) Urine WBC (Auto) >30 H (0-5) /hpf Urine RBC (Auto) 0-4 (0-4) /hpf U Hyaline Cast (Auto) 0 (0-5) /lpf U Epithel Cells (Auto) >30 H (0-5) /lpf Urine Bacteria (Auto) 4+ H (Negative) Ur Renal Epithelial Cell Not Reportable Urine Crystals Not Reportable Triple Phos Crystals Present A (None Prsent) Urine Yeast Not Reportable COVID-19 Eval Order COVID-19 PCR (Negative) 08/23/20 08/23/20 08/23/20 Range/Units 13:55 13:55 14:03 WBC (4.8-10.8) K/uL RBC (4.2-5.4) M/uL Hgb (12.0-16.0) g/dL POC Hgb 14.6 (12.0-16.0) g/dl Hct (37-47) % POC Hct 43 (37-47) % MCV (80-100) fL MCH (25-34) pg MCHC (32-36) g/dL RDW Std Deviation (36.4-46.3) fL RDW Coeff of Jesus (11.5-14.5) % Plt Count (130-400) K/uL MPV (7.4-10.4) fL Immature Gran % (Auto) % Neut % (Auto) % Lymph % (Auto) % Mitchell % (Auto) % Eos % (Auto) % Baso % (Auto) % Neut # (Auto) (1.4-6.5) K/uL Lymph # (Auto) (1.2-3.4) K/uL Mitchell # (Auto) (0.11-0.59) K/uL Eos # (Auto) (0-0.5) K/uL Baso # (Auto) (0-0.2) K/uL Immature Gran # (Auto) (0.00-0.02) K/uL PT INR APTT PTT Ratio POC Sodium 138 (135-144) mmol/L Sodium (136-145) mmol/L POC Potassium 4.3 (3.3-5.0) mmol/L Potassium (3.5-5.1) mmol/L POC Chloride 99 L (101-112) mmol/L Chloride (98-107) mmol/L Carbon Dioxide (21-32) mmol/L POC Total CO2 29 (24-31) mmol/L Anion Gap (3-11) POC Anion Gap 15.0 L (16-25) mmol/L POC BUN 39 H (7-18) mg/dl BUN (7-18) mg/dl Creatinine (0.6-1.2) mg/dl POC Creatinine 1.9 H (0.6-1.3) mg/dl Est Cr Clr Drug Dosing ml/min Est GFR ( Amer) Est GFR (Non-Af Amer) BUN/Creatinine Ratio (10-20) Glucose (70-99) mg/dl POC Glucose (other) 113 H (70-99) mg/dl Lactate (0.4-2.0) mmol/L Calcium (8.5-10.1) mg/dl POC Ioniz Calcium Dre 1.20 (1.12-1.32) mmol/l Magnesium (1.8-2.4) mg/dl Total Bilirubin (0.2-1) mg/dl AST (15-37) U/L ALT (12-78) U/L Alkaline Phosphatase (45-117) U/L Troponin I (0-0.045) ng/ml Total Protein (6.4-8.2) gm/dl Albumin (3.4-5.0) gm/dl Globulin (2.5-4.0) gm/dl Albumin/Globulin Ratio (0.9-2) Procalcitonin (0-0.5) ng/ml Urine Color Urine Appearance (Clear) Urine pH (4.5-7.5) Ur Specific Kerby (1.000-1.030) Urine Protein (Negative) Urine Glucose (UA) (Negative) Urine Ketones (Negative) Urine Blood (Negative) Urine Nitrite (Negative) Urine Bilirubin (Negative) Urine Urobilinogen (Negative) Ur Leukocyte Esterase (Negative) Urine WBC (Auto) (0-5) /hpf Urine RBC (Auto) (0-4) /hpf U Hyaline Cast (Auto) (0-5) /lpf U Epithel Cells (Auto) (0-5) /lpf Urine Bacteria (Auto) (Negative) Ur Renal Epithelial Cell Urine Crystals Triple Phos Crystals (None Prsent) Urine Yeast COVID-19 Eval Order Covid19 Done at [facility] COVID-19 PCR NEGATIVE (Negative) Imaging Data Radiologist's Impression: XR chest 1V portable CLINICAL HISTORY: SEPSIS COMPARISON STUDY: No previous studies for comparison. FINDINGS: Lung volumes are normal. There is no pneumothorax. Small bilateral pleural effusions are noted with bibasilar opacities. Cardiomegaly is unchanged. There is pulmonary vascular congestion without overt pulmonary edema. IMPRESSION: 1. Small bilateral pleural effusions with bibasilar opacities. 2. Pulmonary vascular congestion without overt pulmonary edema. ACT 112: Negative or not required by law. Electronically signed by: Patrick Coates M.D. 08/23/2020 2:24 PM Dictated: 08/23/20 1421 Transcribed: 08/23/[address] ANGIOGRAPHY OF THE ABDOMEN AND PELVIS CLINICAL HISTORY: Postoperative pain. COMPARISON STUDY: CT of the abdomen and pelvis August 15, 2020. TECHNIQUE: Helical axial images of the abdomen and pelvis were obtained during arterial phase following intravenous injection of 120 cc Optiray 320 IV. Sagittal coronal reconstructed reviewed as well as multiple intensity projections on an independent 3-D workstation. Automated exposure control was utilized for the study. A dose lowering technique was utilized adhering to the principles of ALARA. FINDINGS: Imaged portions of the lower chest demonstrate small bilateral pleural effusions which have decreased in size since CT of August 15, 2020. Associated airspace opacities favor atelectasis. No pneumatosis, free air or portal venous gas is present. Arterial phase images of the liver, spleen, adrenal glands and pancreas are unremarkable. Marked right renal atrophy is unchanged. There is a cyst within the upper pole the left kidney. Note is made of an 8 mm calculus within the lower pole the left kidney. There is atrophy of the lower pole the left kidney. There is no hydronephrosis. There is no evidence for a bowel obstruction. There is colonic diverticulosis without evidence for acute diverticulitis. There is mild increased mucosal enhancement and wall thickening with minimal mesenteric infiltration associated with several small bowel loops. Trace ascites within the pelvis is noted. The amount of fluid within the abdomen and pelvis has significantly decreased since CT of August 15, 2020. Bifurcated aortoiliac stent graft is in place. There is no evidence for rupture. The abdominal aorta at the level of the renal arteries measures 3.5 cm. This is unchanged. As before, a renal artery stent is occluded. There is suspected moderate narrowing at the origin of the left renal artery which is unchanged. Note is again made of bilateral iliac artery aneurysms. These are similar in size to CT of August 15, 2020. The right iliac artery aneurysm measures 6.5 cm. The left measures 4.4 cm. Vascular stent extends across the right iliac artery aneurysm. Large endoleak is noted. Specifically, a type II endoleak from a right lumbar vessel on axial image 279 of 532 is noted. There is also a probable additional type II endoleak from a right internal iliac vessel on image 336. This results in filling of the aneurysm sac with contrast. A normal-appearing right common iliac vein is not visualized. There is probable underlying AV fistula between the aneurysm sac in the right common iliac vein. There is early filling of the IVC as well as early filling of right external iliac vein. There is no evidence for rupture. Mild right thigh edema. IMPRESSION: 1. Bifurcated aortoiliac stent graft in place with stent extending across the right iliac artery aneurysm. Two type II endoleaks which arise from a right lumbar vessel and right internal iliac vessel. Suspected AV fistula between the right common iliac vein and the aneurysm sac which is largely excluded by the stent. However, early filling of the IVC likely due to the endoleak. No change in caliber of the bilateral common iliac artery aneurysms since CT of August 15, 2020. No rupture. 2. Findings suggestive of a mild nonspecific enteritis, as described above. 3. Interval decrease in small bilateral pleural effusions with associated atelectasis. 4. Near complete resolution of abdominal and pelvic fluid shown on prior exam. 5. Mild right thigh edema. ACT 112: Negative or not required by law. Electronically signed by: Patrick Coates M.D. 08/23/2020 3:22 PM Dictated: 08/23/20 1449 Transcribed: 08/23/20 1451 ECG Data Indication: abdominal pain Rate (beats per minute): 100 Rhythm: normal sinus Findings: no ST depression and no ST elevation Additional Comments: MN and QTc intervals within normal limits. QRS 74. No delta wave. T wave inversion in lead aVR. [facility] Narrative 1324: The patient was evaluated in room C5. A complete history and physical exam was performed. Patient was seen in full airborne precautions given her pending COVID-19 screening. Cardiac monitoring: An order was placed for continuous cardiac monitoring. The monitor shows a rate of 100 with sinus rhythm 1535: Labs show leukocytosis 12.28. Creatinine 1.9. Urine does appear infected. Spoke with Sunitha vascular surgery INVOICE CHECKER states she will contact Dr. Black to evaluate the skin. She states she saw the patient yesterday and started her on Macrobid although she is not sure if the patient after he started the antibiotic. 1545: Spoke with Dr. Black vascular surgery who states there is a type II endoleak which she did expect. He states it would be best for the patient to be admitted to the medicine service with him on consult. He states he will evaluate the patient. He states he wants the patient treated for his antibiotics for UTI because he is concerned that her surgical hardware/repair will become infected otherwise. He states he will evaluate the patient further for any more operative needs. Impression & Plan Endoleak post endovascular aneurysm repair, UTI (urinary tract infection) Discharge Plan Visit Data Chief Complaint: Abdominal Pain ED Provider: Silvio Velasquez Discharge Problem: Endoleak post endovascular aneurysm repair, UTI (urinary tract infection) Patient Disposition: Admitted As Inpatient Forms Stand Alone Forms: [facility] Prescriptions Prescriptions: No Action losartan 50 mg Tablet 50 mg PO HS RF: 0 prednisone 10 mg Tablet 10 mg PO QAM RF: 0 amlodipine 5 mg Tablet 5 mg PO QAM RF: 0 aspirin [Aspirin Low Dose] 81 mg Tablet,Delayed Release (Dr/Ec) 81 mg PO QAM RF: 0 acetaminophen 500 mg Tablet 500 mg PO BID RF: 0 meclizine 25 mg Tablet 25 mg PO TID PRN (Reason: Dizziness) RF: 0 metoprolol tartrate 50 mg Tablet 25 mg PO BID RF: 0 albuterol sulfate 90 mcg/actuation Hfa Aerosol Inhaler 2 puff INHALATION QID PRN (Reason: Shortness Of Breath) RF: 0 potassium gluconate 595 mg (99 mg) Tablet 50 mg PO QAM RF: 0 omeprazole 20 mg Tablet,Delayed Release (Dr/Ec) 20 mg PO DAILY PRN (Reason: Acid Reflux) RF: 0 oxycodone 10 mg Tablet 10 mg PO Q6H PRN (Reason: Pain) RF: 0 cholecalciferol (vitamin D3) [Vitamin D3] 50 mcg (2,000 unit) Tablet 2,000 unit PO QAM RF: 0 cyclobenzaprine 5 mg Tablet 5 mg PO HS RF: 0 Eliquis 5 mg tablet 5 mg PO BID Qty: 60 RF: 3 Referrals Referrals: Gustavo Stone [Primary Care Provider] - Discharge Problem: Endoleak post endovascular aneurysm repair Qualifiers: Encounter type: initial encounter Qualified Code(s): T82.330A - Leakage of aortic (bifurcation) graft (replacement), initial encounter UTI (urinary tract infection) Qualifiers: Urinary tract infection type: site unspecified Hematuria presence: with hematuria Qualified Code(s): N39.0 - Urinary tract infection, site not specified
--- NOTE | 2020-08-23 18:23 | Electrocardiogram Report ---
Test Reason : Blood Pressure : / mmHG Vent. Rate : 100 BPM Atrial Rate : 100 BPM P-R Int : 138 ms QRS Dur : 074 ms QT Int : 326 ms P-R-T Axes : 000 157 077 degrees QTc Int : 420 ms Suspect arm lead reversal, interpretation assumes no reversal Normal sinus rhythm Lateral infarct , age undetermined Inferior infarct , age undetermined Nonspecific ST abnormality Abnormal ECG When compared with ECG of 08-AUG-2020 19:47, Significant changes have occurred Confirmed by Ruben Fernandes ([id number]) on 08/23/2020 6:23:06 PM Referred By: Confirmed By:Abdiel Fernandes
[2020-08-23] MEDS ORDERED: HYDROCORTISONE SOD SUCCINATE 100 MG/2 ML VIAL IV SCH (20:06)
[2020-08-23] MEDS ORDERED: ONDANSETRON INJ 2 MG/ML 2 ML VIAL IV PRN (20:06)
[2020-08-23] MEDS ORDERED: ALBUTEROL HFA 8 GM INHALER INH PRN (20:06)
[2020-08-23] MEDS ORDERED: MoRPHine SULFATE 4 MG/ML 1 ML CARP\\VIAL IV PRN (20:06)
[2020-08-23] MEDS ORDERED: PANTOprazole 40 MG TAB PO PRN (20:10)
[2020-08-23 21:05] LABS: INR 1.1 (0.9-1.1); Partial Thromboplastin Time 27.4 Seconds (21.0-31.0); Prothrombin Time 11.1 Seconds (9.0-12.0)
[2020-08-23] MEDS: Heparin IV Standard *NO* Bolus IV SCH ×2 (21:16→22:21)
[2020-08-23 21:17] LABS: Basophils # (auto) 0.04 K/uL (0-0.2); Basophils % (auto) 0.4 %; Eosinophils # (auto) 0.02 K/uL (0-0.5); Eosinophils % (auto) 0.2 %; Hematocrit (blood only) 41.3 % (37-47); Lymphocytes # (auto) 1.71 K/uL (1.2-3.4); Lymphocytes % (auto) 16.9 %; Mean Corpuscular Hemoglobin 29.4 pg (25-34); Mean Corpuscular Volume 93.4 fL (80-100); Mean Platelet Volume 9.8 fL (7.4-10.4); Monocytes # (auto) 1.47 K/uL (0.11-0.59); Monocytes % (auto) 14.5 %; Neutrophils # (auto) 6.77 K/uL (1.4-6.5); Platelet Count 604 K/uL (130-400); RDW Coefficient of Variation 15.2 % (11.5-14.5); RDW Standard Deviation 52.2 fL (36.4-46.3); Red Blood Count 4.42 M/uL (4.2-5.4); White Blood Count 10.11 K/uL (4.8-10.8)
[2020-08-23] MEDS: HEPARIN SODIUM/DEXTROSE 25,000 UNITS/500 ML BAG IV SCH (21:17)
[2020-08-23] MEDS: HYDROCORTISONE SOD 50 MG in SYRINGE 0 ML IV SCH (21:23)
[2020-08-23 21:26] LABS: Mean Corpuscular Hgb Conc 31.5 g/dL (32-36)
[2020-08-23] MEDS: METOPROLOL TARTRATE 25 MG TAB PO SCH (21:27)
[2020-08-23] MEDS: LOSARTAN POTASSIUM 50 MG TAB PO SCH (21:28)
[2020-08-23] MEDS: ACETAMINOPHEN 500 MG TAB PO SCH (21:28)
[2020-08-23] MEDS: CYCLOBENZAPRINE HCL 5 MG TAB PO SCH (21:28)
[2020-08-23] MEDS: oxyCODONE HCL IR 5 MG TAB (IMMEDIATE RELEASE) PO PRN (21:31)
[2020-08-24 03:24] LABS: Hemoglobin 12.6 g/dL (12.0-16.0); Mean Corpuscular Hgb Conc 32.3 g/dL (32-36); Mean Corpuscular Volume 92.9 fL (80-100); Mean Platelet Volume 9.6 fL (7.4-10.4); Platelet Count 547 K/uL (130-400); RDW Coefficient of Variation 15.2 % (11.5-14.5); RDW Standard Deviation 52.2 fL (36.4-46.3); White Blood Count 8.68 K/uL (4.8-10.8)
[2020-08-24 03:39] LABS: Partial Thromboplastin Ratio 1.4; Partial Thromboplastin Time 39.6 Seconds (21.0-31.0)
[2020-08-24 03:42] LABS: BUN Creatinine Ratio 21.5 (10-20); Calcium 8.9 mg/dl (8.5-10.1); Creatinine Clr Calc Pharmacy 35.3 ml/min; Est GFR (Non-African American) 29.3; Potassium 5.1 mmol/L (3.5-5.1)
[2020-08-24] MEDS: oxyCODONE HCL IR 5 MG TAB (IMMEDIATE RELEASE) PO PRN ×3 (04:43→19:51)
[2020-08-24] MEDS: HYDROCORTISONE SOD 50 MG in SYRINGE 0 ML IV SCH ×3 (04:45→20:29)
[2020-08-24] MEDS: ACETAMINOPHEN 500 MG TAB PO SCH ×2 (08:29→20:29)
[2020-08-24] MEDS: METOPROLOL TARTRATE 25 MG TAB PO SCH ×2 (08:29→20:29)
[2020-08-24] MEDS: CHOLECALCIFEROL 1,000 UNITS 25 MCG TAB PO SCH (08:29)
[2020-08-24] MEDS: predniSONE 10 MG TABLET PO SCH (08:29)
[2020-08-24] MEDS: amLODIPine BESYLATE 5 MG TAB PO SCH (08:30)
[2020-08-24] MEDS: cefTRIAXone SODIUM 2,000 MG in DEXTROSE 5% 50 ML IV SCH (08:34)
[2020-08-24 10:13] LABS: Partial Thromboplastin Ratio 1.4; Partial Thromboplastin Time 37.9 Seconds (21.0-31.0)
[2020-08-24] MEDS ORDERED: HEPARIN IV BOLUS 3,000 UNITS in SYRINGE 0 ML IV ONE (10:45)
--- NOTE | 2020-08-24 11:10 | Communication Note ---
Date of Service: August 24, 2020 Patient will need venography and embolization attempt through the AV fistula of the aneurysm sac and the iliac vein. Her creatinine however is elevated from baseline. Would like to hydrate and schedule the procedure for Wednesday if her creatinine decreases or remains stable.
[2020-08-24] MEDS: SODIUM CHLORIDE 0.9% 1000ML 1,000 ML IV SCH ×2 (12:20→23:47)
--- NOTE | 2020-08-24 16:29 | Hospitalist Progress Note ---
Date of Service August 24, 2020 Assessment & Plan (1) Pulmonary embolism: Patient was discharged from our facility 08/15/2022 rehabilitation on Eliquis therapy on 5 mg twice daily at this time after being loaded with 10 twice daily. Attempted to reach vascular surgeon given the description of endoleak's seen on CT angiography whether we should change her anticoagulation to something with a shorter half-life in case this would progress to further leakage. Indication is her DVT/ PEs 08/07/20 we have transitioned to iv heparin (2) UTI (urinary tract infection): Patient made with concern for urinary tract infection present on admission. 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 She has improved abdominal pain but still some dysuria laboratories are stable after review on 08/25 Review of Systems Review of Systems: Mild distress and fatigue no headache, blurry or double vision no speech or swallowing issues no chest pain, pressure or palpitations Feels short of breath at rest without coughing or wheezing Bilateral lower quadrant abdominal pain, without nausea or vomiting, diarrhea or constipation Has dysuria and frequency no focal joint pain or swelling no back pain, CVA tenderness or radicular pain Bilateral inguinal wounds are intact with Steri-Strips in place and only minor erythema which looks to be reaction and not infection no focal signs of weakness or numbness or altered sensation no complaints of anxiety or depression. Physical Exam Physical Exam: The patient appeared well nourished and normally developed. Vital signs as documented. Head exam is normocephalic atraumatic no scleral icterus Neck is without JVD, thyromegaly, or carotid bruits. Lungs are clear to auscultation, no focal loss of breath sounds Cardiac exam, Rhythm is regular.. No murmurs, rubs or gallops. Abdominal exam reveals normal bowel sounds, soft non minor lower quadrant tenderness Extremities are nonedematous and both pedal pulses are present Neurologic exam is alert and oriented, no focal loss of strength or sensation Skin is with only mild redness to surgical sites it does not look infected Psychologically is without concerns for anxiety or depression. Results & Data Results & Data ([facility]) Vital Signs (Past 12 Hours) Vital Signs Temp Pulse Resp BP Pulse Ox 08/24/20 15:55 98.1 F 96 H 18 137/83 95 08/24/20 07:38 97.7 F 91 H 18 136/84 94 08/24/20 07:25 16 94 PG Care Time/CCT Total # of Minutes Spent Total Time Spent with Patient: Total time spent is greater than 50% in coordination of care (as documented) at patient's floor/unit and/or counseling patient: Coding Level of Care Code 31435 Subseq Hosp Care Lvl 3 Diagnoses Pulmonary embolism I26.99 UTI (urinary tract infection) N39.0; R31.9 Hematuria presence: with hematuria Urinary tract infection type: site unspecified Chronic kidney disease, stage 3 N18.3 Chronic back pain M54.9; G89.29 History of endovascular stent graft for abdominal aortic aneurysm (AAA) Z95.828 Hypertension I10 Chronic use of steroids (1) UTI (urinary tract infection) Hematuria presence: with hematuria Urinary tract infection type: site unspecified Qualified Code(s): N39.0 - Urinary tract infection, site not specified; R31.9 - Hematuria, unspecified
[2020-08-24 16:35] LABS: Partial Thromboplastin Ratio 1.8; Partial Thromboplastin Time 50.2 Seconds (21.0-31.0)
[2020-08-24] MEDS: HEPARIN SODIUM/DEXTROSE 25,000 UNITS/500 ML BAG IV SCH (17:41)
[2020-08-24] MEDS: LOSARTAN POTASSIUM 50 MG TAB PO SCH (20:28)
[2020-08-24] MEDS: CYCLOBENZAPRINE HCL 5 MG TAB PO SCH (20:29)
[2020-08-25] MEDS: oxyCODONE HCL IR 5 MG TAB (IMMEDIATE RELEASE) PO PRN ×4 (02:00→20:51)
[2020-08-25 06:33] LABS: Hemoglobin 11.2 g/dL (12.0-16.0); Mean Corpuscular Hemoglobin 28.9 pg (25-34); Mean Corpuscular Hgb Conc 31.1 g/dL (32-36); Platelet Count 582 K/uL (130-400); RDW Coefficient of Variation 15.3 % (11.5-14.5); RDW Standard Deviation 51.8 fL (36.4-46.3); Red Blood Count 3.87 M/uL (4.2-5.4); White Blood Count 12.43 K/uL (4.8-10.8)
[2020-08-25 06:53] LABS: Partial Thromboplastin Ratio 1.9
[2020-08-25 06:56] LABS: Partial Thromboplastin Time 52.8 Seconds (21.0-31.0)
[2020-08-25 07:22] LABS: BUN Creatinine Ratio 22.1 (10-20); Calcium 7.9 mg/dl (8.5-10.1); Creatinine Clr Calc Pharmacy 38.4 ml/min; Est GFR (African American) 37.6; Est GFR (Non-African American) 32.4; Potassium 3.8 mmol/L (3.5-5.1)
[2020-08-25] MEDS: METOPROLOL TARTRATE 25 MG TAB PO SCH ×2 (08:08→20:48)
[2020-08-25] MEDS: ACETAMINOPHEN 500 MG TAB PO SCH ×2 (08:08→20:48)
[2020-08-25] MEDS: amLODIPine BESYLATE 5 MG TAB PO SCH (08:09)
[2020-08-25] MEDS: CHOLECALCIFEROL 1,000 UNITS 25 MCG TAB PO SCH (08:09)
[2020-08-25] MEDS: predniSONE 10 MG TABLET PO SCH (08:09)
[2020-08-25] MEDS: cefTRIAXone SODIUM 2,000 MG in DEXTROSE 5% 50 ML IV SCH (08:13)
[2020-08-25] MEDS: HEPARIN SODIUM/DEXTROSE 25,000 UNITS/500 ML BAG IV SCH (11:30)
[2020-08-25] MEDS: SODIUM CHLORIDE 0.9% 1000ML 1,000 ML IV SCH (11:31)
[2020-08-25] MEDS ORDERED: ALUMINUM/MAGNESIUM SUSP 72 ML, LIDOCAINE HCL VISCOUS 2% 24 ML, BARCODE IDENTIFIER 1 EA PO PRN (16:43)
--- NOTE | 2020-08-25 16:43 | Hospitalist Progress Note ---
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 CT angiogram of the abdomen comments abnormal liver and pancreas. She has no melena. Concern would be with anticoagulation she could have an upper GI gastritis or irritation. We will change her to twice daily p.o. Protonix and offer GI cocktail following her hemoglobin which currently is stable (3) UTI (urinary tract infection): Patient made with concern for urinary tract infection present on admission. Angulo sensitive proteus was started on ceftriaxone in the emergency department continues on the same (4) Pulmonary embolism: Patient was discharged from our facility 08/15/2022 rehabilitation on Eliquis therapy on 5 mg twice daily at this time after being loaded with 10 twice daily. Attempted to reach vascular surgeon given the description of endoleak's seen on CT angiography whether we should change her anticoagulation to something with a shorter half-life in case this would progress to further leakage. Indication is her DVT/ PEs 08/07/20 we have transitioned to iv heparin (5) Chronic kidney disease, stage 3: Chronic kidney disease properly dose adjust medications GFR just above 30 (6) Chronic back pain: vertebral fractures are present patient on chronic opiates and muscle relaxers (7) Hypertension: For hypertension patient is on metoprolol tartrate 50 twice daily losartan 50 at bedtime plus amlodipine 5 mg a day (8) Chronic use of steroids: Patient with 24 hours of stress of steroids with hydrocortisone IV 50 every 8 and then transition back to her daily prednisone use Admission and Anticipated Discharge Date Admission Date: August 23, 2020 Subjective pt feels improved, some epigastric pain, no other abdominal pain Review of Systems Review of Systems: Mild distress and fatigue no headache, blurry or double vision no speech or swallowing issues no chest pain, pressure or palpitations Feels short of breath at rest without coughing or wheezing now some epigastic and upper quadrant abdominal pain, without nausea or vomiting, diarrhea or constipation Has dysuria and frequency no focal joint pain or swelling no back pain, CVA tenderness or radicular pain Bilateral inguinal wounds are intact with Steri-Strips in place and only minor erythema which looks to be reaction and not infection no focal signs of weakness or numbness or altered sensation no complaints of anxiety or depression. Physical Exam Physical Exam: The patient appeared well nourished and normally developed. Vital signs as documented. Head exam is normocephalic atraumatic no scleral icterus Neck is without JVD, thyromegaly, or carotid bruits. Lungs are clear to auscultation, no focal loss of breath sounds Cardiac exam, Rhythm is regular.. No murmurs, rubs or gallops. Abdominal exam reveals normal bowel sounds, soft non epigastric pain mostly , so me RUQ Extremities are nonedematous and both pedal pulses are present Neurologic exam is alert and oriented, no focal loss of strength or sensation Skin is with only mild redness to surgical sites it does not look infected Psychologically is without concerns for anxiety or depression. Results & Data Results & Data ([facility]) Vital Signs (Past 12 Hours) Vital Signs Temp Pulse Resp BP Pulse Ox 08/25/20 16:27 98.2 F 84 18 117/65 93 08/25/20 07:39 98.1 F 85 18 130/76 95 PG Care Time/CCT Total # of Minutes Spent Total Time Spent with Patient: Total time spent is greater than 50% in coordination of care (as documented) at patient's floor/unit and/or counseling patient: Coding Level of Care Code 42131 Subseq Hosp Care Lvl 3 Diagnoses History of endovascular stent graft for abdominal aortic aneurysm (AAA) Z95.828 Abdominal pain R10.9 UTI (urinary tract infection) N39.0; R31.9 Hematuria presence: with hematuria Urinary tract infection type: site unspecified Pulmonary embolism I26.99 Chronic kidney disease, stage 3 N18.3 Chronic back pain M54.9; G89.29 Hypertension I10 Chronic use of steroids (1) UTI (urinary tract infection) Hematuria presence: with hematuria Urinary tract infection type: site unspecified Qualified Code(s): N39.0 - Urinary tract infection, site not specified; R31.9 - Hematuria, unspecified
[2020-08-25] MEDS: LOSARTAN POTASSIUM 50 MG TAB PO SCH (20:48)
[2020-08-25] MEDS: PANTOprazole 40 MG TAB PO SCH (20:48)
[2020-08-25] MEDS: CYCLOBENZAPRINE HCL 5 MG TAB PO SCH (20:48)
[2020-08-26] MEDS: SODIUM CHLORIDE 0.9% 1000ML 1,000 ML IV SCH ×2 (00:01→12:01)
[2020-08-26] MEDS: MoRPHine SULFATE 2 MG/ML CARP IV PRN ×2 (00:02→10:51)
[2020-08-26] MEDS: oxyCODONE HCL IR 5 MG TAB (IMMEDIATE RELEASE) PO PRN ×3 (02:52→20:54)
[2020-08-26] MEDS: HEPARIN SODIUM/DEXTROSE 25,000 UNITS/500 ML BAG IV SCH ×2 (05:56→23:08)
[2020-08-26 07:45] LABS: Hematocrit (blood only) 37.4 % (37-47); Hemoglobin 11.7 g/dL (12.0-16.0); Mean Corpuscular Hemoglobin 29.2 pg (25-34); Mean Corpuscular Hgb Conc 31.3 g/dL (32-36); Mean Corpuscular Volume 93.3 fL (80-100); Mean Platelet Volume 10.1 fL (7.4-10.4); Platelet Count 561 K/uL (130-400); RDW Coefficient of Variation 15.3 % (11.5-14.5); RDW Standard Deviation 52.2 fL (36.4-46.3); Red Blood Count 4.01 M/uL (4.2-5.4); White Blood Count 15.09 K/uL (4.8-10.8)
[2020-08-26 08:15] LABS: Partial Thromboplastin Ratio 1.7
[2020-08-26 08:16] LABS: BUN Creatinine Ratio 17.1 (10-20); Calcium 8.1 mg/dl (8.5-10.1); Creatinine Clr Calc Pharmacy 33.1 ml/min; Est GFR (African American) 31.5; Est GFR (Non-African American) 27.2; Potassium 3.7 mmol/L (3.5-5.1)
[2020-08-26 08:24] LABS: Partial Thromboplastin Time 46.7 Seconds (21.0-31.0)
[2020-08-26] MEDS: cefTRIAXone SODIUM 2,000 MG in DEXTROSE 5% 50 ML IV SCH (08:57)
[2020-08-26] MEDS: PANTOprazole 40 MG TAB PO SCH ×2 (09:00→20:42)
[2020-08-26] MEDS: METOPROLOL TARTRATE 25 MG TAB PO SCH ×2 (09:00→20:42)
[2020-08-26] MEDS: predniSONE 10 MG TABLET PO SCH (09:00)
[2020-08-26] MEDS: CHOLECALCIFEROL 1,000 UNITS 25 MCG TAB PO SCH (09:00)
[2020-08-26] MEDS: ACETAMINOPHEN 500 MG TAB PO SCH ×2 (09:00→20:42)
[2020-08-26] MEDS: amLODIPine BESYLATE 5 MG TAB PO SCH (09:00)
--- NOTE | 2020-08-26 09:44 | Consultation ---
Date of Consultation August 26, 2020 Assessment & Plan (1) Endoleak post endovascular aneurysm repair: Pt with endoleak noted causing fistula flow. Pt discussed with Dr Black, recommends pt undergo venogram with attempt at embolization of endoleak/fistula in OR tomorrow. Procedure discussed with pt, she is agreeable. Renal protection protocol to be utilized d/t decreased renal fxn, however, some risk will remain. Encounter type: initial encounter Qualified Code(s): T82.330A - Leakage of aortic (bifurcation) graft (replacement), initial encounter History of Present Illness Reason for Consultation: endoleak/fistula Attending Physician: Benjie Colbert DO History of Present Illness 60yo f with hx of ruptured R iliac artery aneurysm repair 2 weeks ago, as well as hx of endovascular AAA repair in remote past, and untreated L iliac artery aneurysm, seen today during admission for RLQ pain and UTI. Pt had CTA on admission which demonstrated Type II endoleak from lumbar and internal iliac vessels which flow into her iliac vein, with contrast noted in IVC. Pt states she is still having some RLQ pain and decreased appetite. Denies GUILLEN, fever, chest pain, SOB, cough, N/V, rest pain, claudication, other complaints. Allergies Allergy/AdvReac Type Severity Reaction Status Date / Time codeine Allergy Severe Difficulty Verified 08/23/20 16:32 Breathing lisinopril Allergy Severe caused Verified 08/23/20 16:32 seizure/stroke adalimumab Allergy Intermediate Rash Verified 08/23/20 16:32 hydroxychloroquine Allergy Intermediate "whole Verified 08/23/20 16:32 [From Plaquenil] body turns red" leflunomide [From Arava] Allergy Intermediate rash/hive Verified 08/23/20 16:32 at injection site nickel Allergy Intermediate swelling Verified 08/23/20 16:32 with earrings Penicillins Allergy Intermediate Rash Verified 08/23/20 16:32 hydromorphone Allergy Mild Rash Verified 08/23/20 16:32 Home Medications Home Medications Medication Instructions Recorded Confirmed Type acetaminophen 500 mg PO BID 04/05/20 08/23/20 History albuterol sulfate 2 puff INHALATION QID PRN 04/05/20 08/23/20 History amlodipine 5 mg PO QAM 04/05/20 08/23/20 History aspirin [Aspirin Low Dose] 81 mg PO QAM 04/05/20 08/23/20 History cholecalciferol (vitamin D3) 2,000 unit PO QAM 04/05/20 08/23/20 History [Vitamin D3] losartan 50 mg PO HS 04/05/20 08/23/20 History meclizine 25 mg PO TID PRN 04/05/20 08/23/20 History metoprolol tartrate 25 mg PO BID 04/05/20 08/23/20 History omeprazole 20 mg PO DAILY PRN 04/05/20 08/23/20 History oxycodone 10 mg PO Q6H PRN 04/05/20 08/23/20 History potassium gluconate 50 mg PO QAM 04/05/20 08/23/20 History prednisone 10 mg PO QAM 04/05/20 08/23/20 History cyclobenzaprine 5 mg PO HS 08/07/20 08/23/20 History apixaban [Eliquis] 5 mg PO BID #60 tab 08/15/20 08/23/20 Rx Patient History Medical History Abdominal pain Aneurysm of right iliac artery Aortic aneurysm s/p AAA repair (2010, revision 2018) Arterial aneurysm Chronic back pain Chronic kidney disease, stage 3 Diverticular disease DVT (deep venous thrombosis) DVT (deep venous thrombosis) Hearing deficit History of bronchitis reason for inhaler prn History of peptic ulcer Hx of blood clots developed in right kidney after stent placement Hyperlipidemia Hypertension Iliac artery aneurysm, bilateral Lung nodules found on CT scan--under surveillance Pulmonary emboli Pt is a 60yo with a PMHx significant for AAA, iliac artery aneurysms, CKD stage 4, chronic back pain, COPD and a Hx of blood clots in the right kidney after stent placement who was admitted with acute PEs and DVTs. Acute PEs/DVTs -Pt states she had a lump under her R arm that eventually became a large bruise, associated w/ right groin pain -CTA chest showed occlusive PEs within the RLL and RUL segmental branches, diffuse atherosclerosis of the great vessels, moderate to severe stenosis of proximal L subclavian artery and tiny pulmonary nodules with a 1cm posterior LENARD ground glass nodule. -CTA abd/pelvis showed an acute DVT in R common femoral and iliac vein and possibly bilateral pelvic veins, 7cm and 4.6cm iliac artery anuerysms with mural thrombi, an atrophic R kidney and a L renal cyst with inferior L renal calculi. -CTA right humerus showed patent arteries, no anuerysm. Pulmonary embolism Rheumatoid arthritis Seizure 12/2018--felt r/t lisinopril--no deficits, follows with Dr. Saba Pop in [place] Stroke 12/2018--felt r/t lisinopril--no deficits, follows with Dr. Saba Pop in [place] Vasculopathy Surgical History Fusion of spine 2010 @ [facility] Dr. Sanchez H/O abdominal aortic aneurysm repair 2010 Dr. Black @ [facility] History of abdominal aortic aneurysm (AAA) repair 06/2018 @ [place]--per pt had to "put a collar around the previous AAA repair" also had a renal artery stent placed at the same time History of cholecystectomy History of colonoscopy History of esophagogastroduodenoscopy (EGD) History of kyphoplasty 2014 @ [facility] History of stent insertion of renal artery 2017 @ [place] History of tubal ligation History of wisdom tooth extraction Family History Mother Family history of diabetes mellitus Brother Family hx of colon cancer Other No family history of adverse response to anesthesia Rheumatoid arthritis Stroke Social History Smoking Status: Former smoker Smoking End Date: 2017; Second Hand Exposure: Yes (parents/family smoked); Hx Alcohol Use: No Hx Substance Use: No Preferred Language: Sami Communication Ability: Effective Shell Plater Required: No Beliefs That Will Affect Care: None Current Living Situation: Family Current Living Situation Comment: Lives with son Other Information That Helps Us Care for You: No Feels Safe at Home: Yes Safety Concerns: Feels Safe At This Time Assistive Devices: Walker Assistive Devices Comment: pt reports glasses are at [employer] Review of Systems Review of Systems: All systems reviewed & are unremarkable except as noted in HPI & below Physical Exam Constitutional: WD/WN, vitals as above comfortable; not in distress Eyes: PERRL, conjunctivae normal, anicteric sclerae ENMT: Ears: no hearing impairment Neck: trachea midline Respiratory: normal respiratory effort, lungs clear to auscultation Auscultation: + diminished lung sounds Cardiovascular: Rate/Rhythm: regular rate and regular rhythm Vessels: femoral pulses present (incisions C/D/I with steri strips), posterior tibial pulses present and dorsalis pedis pulses present; + abnormal peripheral pulses Extremities: normal capillary refill and + edema (RLE) Gastrointestinal (Abdomen): Inspection/Auscultation: abdomen normal to inspection Percussion/Palpation: + abdomen tender (RLQ/flank) Musculoskeletal: no cyanosis or clubbing, extremities motor strength 5/5 Skin: + incision (healing) Neurologic: moves all extremities; no focal motor deficits and not confused Psychiatric: A+Ox3, euthymic affect Results & Data ([facility]) Vital Signs (Past 12 Hours) Vital Signs Temp Pulse Pulse Pulse Resp BP Pulse Ox 08/26/20 08:13 36.7 C 77 113/67 92 08/26/20 07:00 36.7 C 89 20 169/82 H 93 08/25/20 23:33 36.8 C 83 17 132/69 90
[2020-08-26 10:12] LABS: Alanine Aminotransferase 37 U/L (12-78); Albumin Level 2.2 gm/dl (3.4-5.0); Alkaline Phosphatase 122 U/L (45-117); Aspartate Aminotransferase 64 U/L (15-37); Bilirubin Direct < 0.1 mg/dl (0-0.2); Bilirubin,Total 0.2 mg/dl (0.2-1); Total Protein 5.5 gm/dl (6.4-8.2)
[2020-08-26] MEDS: ACETYLCYSTEINE 600 MG CAP PO SCH (17:18)
--- NOTE | 2020-08-26 18:04 | Hospitalist Progress Note ---
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 Black for endoleak (2) Abdominal pain: Patient with epigastric and right upper quadrant abdominal pain. CT angiogram of the abdomen comments unremarkablel liver and pancreas. Continue pantoprazole bid Hgb is stable (3) UTI (urinary tract infection): Angulo sensitive proteus on 08/23 but repeat on the same day with no growth. Will continue ceftriaxone (4) Pulmonary embolism: Patient was discharged from our facility 08/15/2022 rehabilitation on Eliquis therapy on 5 mg twice daily at this time after being loaded with 10 twice daily. Changed to heparin gtt to prepare for procedure tomorrow (5) Chronic kidney disease, stage 3: Creatinine 1.98 today which does not appear to be too far from baseline which is around 1.6, has been as low as 1.2 but this may be more due to fluids given inpatient than a true baseline. On admission patient was 1.9 Vascular surgery implemented renal protective protocol. Angiogram does pose some risk to her kidneys. (6) Chronic back pain: Chronic compression fracture of L2 with vertebroplasty on CT during previous admission. Left sacral insufficiency fracture was also seen at taht time (7) Hypertension: Continue metoprolol tartrate 50 twice daily, losartan 50 at bedtime, plus amlodipine 5 mg a day (8) Chronic use of steroids: Patient with 24 hours of stress of steroids with hydrocortisone IV 50 every 8 and then transition back to her daily prednisone use Admission and Anticipated Discharge Date Admission Date: August 23, 2020 Subjective Ms Zhao is having some pain that starts in her back and wraps around to her front lower right abdomen. ROS Constitutional: no chills, aches, sweats or fever Respiratory: no sob,cough, sputum, or wheezing Cardiac: no chest pain, palpitations, edema, orthopnea or lightheadedness GI: no nausea, vomiting, diarrhea or constipation : no dysuria or hesitancy Extremities: no joint pain or weakness Skin: no rash All other systems reviewed and negative Physical Exam Physical Exam: General: no distress Eyes: normal inspection, PERLL Respiratory: chest non tender, clear to auscultation, normal breath sounds, no respiratory distress, no accessory muscle use Cardiac: regular rate and rhythm, no rub or gallop, no murmur, no edema, no jvd GI/: active bowel sounds, no abd pain or tenderness, soft, non distended Extremities: normal range of motion, normal strength, non tender Neuro/Psych: alert and oriented x 3, normal mood and affect Skin: normal color, dry Results & Data Results & Data ([facility]) Vital Signs (Past 12 Hours) Vital Signs Temp Pulse Pulse Resp BP Pulse Ox 08/26/20 15:28 36.7 C 78 18 103/68 93 08/26/20 08:13 36.7 C 77 113/67 92 08/26/20 07:00 36.7 C 89 20 169/82 H 93 PG Care Time/CCT Total # of Minutes Spent Total Time Spent with Patient: Total time spent is greater than 50% in coordination of care (as documented) at patient's floor/unit and/or counseling patient: Coding Level of Care Code 18309 Subseq Hosp Care Lvl 3 Diagnoses History of endovascular stent graft for abdominal aortic aneurysm (AAA) Z95.828 Abdominal pain R10.9 UTI (urinary tract infection) N39.0; R31.9 Hematuria presence: with hematuria Urinary tract infection type: site unspecified Pulmonary embolism I26.99 Chronic kidney disease, stage 3 N18.3 Chronic back pain M54.9; G89.29 Hypertension I10 Chronic use of steroids (1) UTI (urinary tract infection) Hematuria presence: with hematuria Urinary tract infection type: site unspecified Qualified Code(s): N39.0 - Urinary tract infection, site not specified; R31.9 - Hematuria, unspecified
[2020-08-26] MEDS: LOSARTAN POTASSIUM 50 MG TAB PO SCH (20:42)
[2020-08-26] MEDS: CYCLOBENZAPRINE HCL 5 MG TAB PO SCH (20:42)
[2020-08-27] MEDS: MoRPHine SULFATE 2 MG/ML CARP IV PRN (04:22)
[2020-08-27] MEDS: ACETYLCYSTEINE 600 MG CAP PO SCH (05:57)
[2020-08-27] MEDS ORDERED: SODIUM BICARBONATE 8.4% 100 MEQ in WATER, STERILE 1,000 ML IV SCH ×2 (06:00→13:45)
[2020-08-27 06:28] LABS: Hemoglobin 12.5 g/dL (12.0-16.0); Mean Corpuscular Hemoglobin 29.3 pg (25-34); Mean Corpuscular Hgb Conc 31.3 g/dL (32-36); Mean Corpuscular Volume 93.9 fL (80-100); Mean Platelet Volume 9.8 fL (7.4-10.4); Platelet Count 579 K/uL (130-400); RDW Coefficient of Variation 15.5 % (11.5-14.5); Red Blood Count 4.26 M/uL (4.2-5.4); White Blood Count 19.16 K/uL (4.8-10.8)
[2020-08-27 06:37] LABS: Partial Thromboplastin Ratio 1.5; Partial Thromboplastin Time 43.1 Seconds (21.0-31.0)
[2020-08-27 06:59] LABS: BUN Creatinine Ratio 14.5 (10-20); Creatinine Clr Calc Pharmacy 31.5 ml/min; Est GFR (African American) 29.7; Est GFR (Non-African American) 25.6; Potassium 4.1 mmol/L (3.5-5.1)
--- NOTE | 2020-08-27 07:53 | History & Physical Bridge Note ---
Date of Service August 27, 2020 History & Physical Bridge Note Patient for venography,arteriography, and possible intervention today for her Type II endoleak with fistula. I have discussed the risks options and benefits of the procedure with the patient. The patient understands the risks options and benefits and agrees to the procedure. I have examined the patient, reviewed the History & Physical and in the interval since the performance of the History & Physical I have noted the following changes of clinical significance: no changes noted
[2020-08-27] MEDS ORDERED: SODIUM CHLORIDE 0.9% 1000ML 1,000 ML IV SCH ×2 (08:00→13:31)
[2020-08-27] MEDS ORDERED: HYDROCORTISONE SOD 100 MG in SYRINGE 0 ML IV ONE (08:00)
[2020-08-27] MEDS: METOPROLOL TARTRATE 25 MG TAB PO SCH (08:05)
[2020-08-27] MEDS: predniSONE 10 MG TABLET PO SCH (08:06)
[2020-08-27] MEDS: amLODIPine BESYLATE 5 MG TAB PO SCH (08:06)
[2020-08-27] MEDS: ACETAMINOPHEN 500 MG TAB PO SCH (08:06)
[2020-08-27] MEDS: CHOLECALCIFEROL 1,000 UNITS 25 MCG TAB PO SCH (08:07)
[2020-08-27] MEDS: PANTOprazole 40 MG TAB PO SCH (08:07)
[2020-08-27] MEDS ORDERED: LIDOCAINE HCL 1% 20 ML VIAL ONE (08:39)
[2020-08-27] MEDS ORDERED: THROMBIN FOR SOLN 20000 UNIT KIT ONE (08:55)
[2020-08-27] MEDS: cefTRIAXone SODIUM 2,000 MG in DEXTROSE 5% 50 ML IV SCH (09:11)
[2020-08-27] MEDS ORDERED: fentaNYL citrate 100 MCG/2 ML VIAL ONE ×2 (09:31→09:59)
[2020-08-27] MEDS ORDERED: MIDAZOLAM HCL 1 MG/ML 2ML VIAL ONE ×2 (09:31→09:59)
[2020-08-27] MEDS ORDERED: ONDANSETRON INJ 2 MG/ML 2 ML VIAL ONE (09:31)
[2020-08-27] MEDS ORDERED: ONDANSETRON INJ 2 MG/ML 2 ML VIAL IV PRN (10:12)
[2020-08-27] MEDS ORDERED: ATROPINE SULFATE 0.1 MG/ML 10ML SYR IV PRN (10:12)
[2020-08-27] MEDS ORDERED: ePHEDrine sulfate 50 MG/ML AMP IV PRN (10:12)
[2020-08-27] MEDS ORDERED: fentaNYL citrate 100 MCG/2 ML VIAL IV PRN (10:12)
--- NOTE | 2020-08-27 10:12 | Anesthesiology Consultation ---
Date of Service August 27, 2020 Assessment & Plan (1) Encounter for pre-operative examination: Chart Review Chart Review: Acceptable Risk for Surgery and Patient NOT seen in Pre Admission Testing Consults Requested none ASA ASA4 Proposed Anesthesia Anesthesia Type: MAC Risk / Benefits Reviewed With: PT / POA / Parent / Guardian, Accepts Plan and In formed Consent Obtained History Surgery Operation Date: 08/27/20 09:10 Proposed Procedures p Right Embolization Iliac Artery Aneurysm - Sudheer Black MD Height/Weight Height: 5 ft 6 in Weight: 80.5 kg Allergies Allergy/AdvReac Type Severity Reaction Status Date / Time codeine Allergy Severe Difficulty Verified 08/23/20 16:32 Breathing lisinopril Allergy Severe caused Verified 08/23/20 16:32 seizure/stroke adalimumab Allergy Intermediate Rash Verified 08/23/20 16:32 hydroxychloroquine Allergy Intermediate "whole Verified 08/23/20 16:32 [From Plaquenil] body turns red" leflunomide [From Arava] Allergy Intermediate rash/hive Verified 08/23/20 16:32 at injection site nickel Allergy Intermediate swelling Verified 08/23/20 16:32 with earrings Penicillins Allergy Intermediate Rash Verified 08/23/20 16:32 hydromorphone Allergy Mild Rash Verified 08/23/20 16:32 Medications Home Medications Medication Instructions Recorded Confirmed Last Taken acetaminophen 500 mg PO BID 04/05/20 08/23/20 08/23/20 albuterol sulfate 2 puff INHALATION QID PRN 04/05/20 08/23/20 Unknown amlodipine 5 mg PO QAM 04/05/20 08/23/20 08/23/20 aspirin [Aspirin Low Dose] 81 mg PO QAM 04/05/20 08/23/20 08/23/20 cholecalciferol (vitamin D3) 2,000 unit PO QAM 04/05/20 08/23/20 08/23/20 [Vitamin D3] losartan 50 mg PO HS 04/05/20 08/23/20 08/22/20 meclizine 25 mg PO TID PRN 04/05/20 08/23/20 Unknown metoprolol tartrate 25 mg PO BID 04/05/20 08/23/20 08/23/20 omeprazole 20 mg PO DAILY PRN 04/05/20 08/23/20 Unknown oxycodone 10 mg PO Q6H PRN 04/05/20 08/23/20 08/23/20 12:00 10 mg potassium gluconate 50 mg PO QAM 04/05/20 08/23/20 08/23/20 prednisone 10 mg PO QAM 04/05/20 08/23/20 08/23/20 cyclobenzaprine 5 mg PO HS 08/07/20 08/23/20 08/22/20 apixaban [Eliquis] 5 mg PO BID #60 tab 08/15/20 08/23/20 08/23/20 Active Medications Generic Name Dose Route Start Last Admin Trade Name Freq PRN Reason Stop Dose Admin Acetaminophen 500 mg 08/23/20 21:00 08/27/20 08:06 Acetaminophen 500 Mg Tab PO 09/22/20 20:59 500 mg BID ARIANA Administration Acetylcysteine 600 mg 08/26/20 18:00 08/27/20 05:57 Acetylcysteine 600 Mg Cap PO 08/28/20 06:01 600 mg Q12H ARIANA Administration Amlodipine Besylate 5 mg 08/24/20 09:00 08/27/20 08:06 Amlodipine Besylate 5 Mg Tab PO 09/23/20 08:59 5 mg QAM ARIANA Administration Cyclobenzaprine HCl 5 mg 08/23/20 21:00 08/26/20 20:42 Cyclobenzaprine Hcl 5 Mg Tab PO 09/22/20 20:59 5 mg HS ARIANA Administration Ceftriaxone Sodium 2,000 mg/ 70 mls @ 100 mls/hr 08/24/20 09:00 08/27/20 0 9:11 Dextrose IV 08/28/20 08:59 100 mls/hr Q24H ARIANA Administration Protocol Heparin Sodium/Dextrose 25,000 units in 500 mls @ 29 mls/hr 08/23/20 20:06 08/27/20 06:48 Heparin Sodium/Dextrose IV 09/22/20 20:05 1,450 units/hr .[id number] ARIANA 29 mls/hr Titration Protocol 1,450 UNITS/HR Sodium Bicarbonate 100 meq/ 1,100 mls @ 80 mls/hr 08/27/20 06:00 08/27/20 06:27 Sterile Water IV 09/26/20 05:59 80 mls/hr .[id number] ARIANA Infusion Sodium Chloride 1,000 mls @ 80 mls/hr 08/27/20 08:00 08/27/20 08:13 Nss 1000ml IV 09/26/20 07:59 80 mls/hr .[id number] ARIANA Administration Losartan Potassium 50 mg 08/23/20 21:00 08/26/20 20:42 Losartan Potassium 50 Mg Tab PO 09/22/20 20:59 50 mg HS ARIANA Administration Metoprolol Tartrate 25 mg 08/23/20 21:00 08/27/20 08:05 Metoprolol Tartrate 25 Mg Tab PO 09/22/20 20:59 25 mg BID ARIANA Administration Morphine Sulfate 2 mg 08/23/20 20:06 08/27/20 04:22 Morphine Sulfate 2 Mg/Ml Carp IV 09/06/20 20:05 2 mg Q4 PRN Administration Pain Morphine Sulfate 4 mg 08/23/20 20:06 08/26/20 15:10 Morphine Sulfate 4 Mg/Ml 1 Ml Carp\\Vial IV 09/06/20 20:05 4 mg Q4 PRN Administration Pain Ondansetron HCl 4 mg 08/23/20 20:06 08/27/20 06:25 Ondansetron Inj 2 Mg/Ml 2 Ml Vial IV 09/22/20 20:05 4 mg Q6H PRN Administration Nausea Oxycodone HCl 10 mg 08/23/20 20:06 08/26/20 20:54 Oxycodone Hcl Ir 5 Mg Tab (Immediate Release) PO 09/06/20 20:05 10 mg Q6H PRN Administration Pain Pantoprazole Sodium 40 mg 08/25/20 21:00 08/27/20 08:07 Pantoprazole 40 Mg Tab PO 09/24/20 20:59 40 mg BID ARIANA Administration Prednisone 10 mg 08/24/20 09:00 08/27/20 08:06 Prednisone 10 Mg Tablet PO 09/23/20 08:59 10 mg QAM ARIANA Administration Vitamin D 2,000 units 08/24/20 09:00 08/27/20 08:07 Cholecalciferol 1,000 Units 25 Mcg Tab PO 09/23/20 08:59 2,000 units QAM ARIANA Administration NPO Date Last Intake of Fluids: 08/26/20 Time Last Intake of Fluids: 23:55 Date Last Intake of Solids: 08/26/20 Time Last Intake of Solids: 23:55 Past Medical History Medical History (Updated 08/27/20 @ 10:11 by Tip Villalpando MD) Abdominal pain Aneurysm of right iliac artery Aortic aneurysm s/p AAA repair (2010, revision 2018) Arterial aneurysm Chronic back pain Chronic kidney disease, stage 3 Diverticular disease DVT (deep venous thrombosis) DVT (deep venous thrombosis) Hearing deficit History of bronchitis reason for inhaler prn History of peptic ulcer Hx of blood clots developed in right kidney after stent placement Hyperlipidemia Hypertension Iliac artery aneurysm, bilateral Lung nodules found on CT scan--under surveillance Pulmonary emboli Pt is a 60yo with a PMHx significant for AAA, iliac artery aneurysms, CKD stage 4, chronic back pain, COPD and a Hx of blood clots in the right kidney after stent placement who was admitted with acute PEs and DVTs. Acute PEs/DVTs -Pt states she had a lump under her R arm that eventually became a large bruise, associated w/ right groin pain -CTA chest showed occlusive PEs within the RLL and RUL segmental branches, diffuse atherosclerosis of the great vessels, moderate to severe stenosis of proximal L subclavian artery and tiny pulmonary nodules with a 1cm posterior LENARD ground glass nodule. -CTA abd/pelvis showed an acute DVT in R common femoral and iliac vein and possibly bilateral pelvic veins, 7cm and 4.6cm iliac artery anuerysms with mural thrombi, an atrophic R kidney and a L renal cyst with inferior L renal calculi. -CTA right humerus showed patent arteries, no anuerysm. Pulmonary embolism Rheumatoid arthritis Seizure 12/2018--felt r/t lisinopril--no deficits, follows with Dr. Saba Pop in [place] Stroke 12/2018--felt r/t lisinopril--no deficits, follows with Dr. Saba Pop in [place] Vasculopathy Exercise / Class Metabolic Activity III < 4 Walking/Shop/Light housework Past Family History Family History Mother Family history of diabetes mellitus Brother Family hx of colon cancer Other No family history of adverse response to anesthesia Rheumatoid arthritis Stroke Past Surgical History Surgical History Fusion of spine 2010 @ [facility] Dr. Sanchez H/O abdominal aortic aneurysm repair 2010 Dr. Black @ [facility] History of abdominal aortic aneurysm (AAA) repair 06/2018 @ [place]--per pt had to "put a collar around the previous AAA repair" also had a renal artery stent placed at the same time History of cholecystectomy History of colonoscopy History of esophagogastroduodenoscopy (EGD) History of kyphoplasty 2014 @ [facility] History of stent insertion of renal artery 2017 @ [place] History of tubal ligation History of wisdom tooth extraction Past Anesthesia History No Hx of Anesthesia Complications and No Family Hx of Anesthesia Complications History of PONV No Hx of PONV and No Hx of Motion Sickness Social History Smoking Status: Former smoker tobacco type: cigarettes Smoking End Date: 2017 Hx Alcohol Use: No alcohol intake frequency: holidays/special occasions only Hx Substance Use: No substance use type: does not use Physical Exam Vital Signs Last Vital Signs Temp 36.9 C 08/27/20 09:05 Pulse 87 08/27/20 09:05 Resp 18 08/27/20 09:05 BP 119/67 08/27/20 09:05 Pulse Ox 92 08/27/20 09:05 ENMT Mouth: no dentition abnormality Thyromental Distance: > or= 3.5 Finger Breadths Mallampati Class: II Neck normal visual inspection Respiratory + tachypneic Auscultation: lungs clear to auscultation bilaterally Cardiovascular Rate/Rhythm: regular rate and regular rhythm Extremities: + pedal edema (1-2+) Psychiatric Orientation: alert Testing Laboratory Results 08/27/20 06:18 08/27/20 06:18 PT 11.1 Seconds (9.0-12.0) 08/23/20 15:06 INR 1.1 (0.9-1.1) 08/23/20 15:06 APTT 43.1 Seconds (21.0-31.0) H 08/27/20 06:18 Urine Color Yellow 08/23/20 13:55 Urine Appearance Turbid (Clear) A 08/23/20 13:55 Urine pH >= 9.0 (4.5-7.5) H 08/23/20 13:55 Ur Specific [place] 1.017 (1.000-1.030) 08/23/20 13:55 Urine Protein 2+ (Negative) H 08/23/20 13:55 Urine Glucose (UA) Negative (Negative) 08/23/20 13:55 Urine Ketones Negative (Negative) 08/23/20 13:55 Urine Nitrite Positive (Negative) A 08/23/20 13:55 Ur Leukocyte Esterase 2+ (Negative) H 08/23/20 13:55 Urine WBC (Auto) >30 /hpf (0-5) H 08/23/20 13:55 Urine RBC (Auto) 0-4 /hpf (0-4) 08/23/20 13:55 U Hyaline Cast (Auto) 0 /lpf (0-5) 08/23/20 13:55 U Epithel Cells (Auto) >30 /lpf (0-5) H 08/23/20 13:55 Urine Bacteria (Auto) 4+ (Negative) H 08/23/20 13:55 Blood Type O Positive 08/26/20 15:37 Antibody Screen NEGATIVE 08/26/20 15:37 08/23/20 14:53 Aerobic Blood Culture - Preliminary Blood No growth in Aerobic bottle after 48 hours. Anaerobic Blood Culture - Preliminary No growth in Anaerobic bottle after 48 hours. 08/23/20 13:55 Aerobic Blood Culture - Preliminary Blood No growth in Aerobic bottle after 48 hours. Anaerobic Blood Culture - Preliminary No growth in Anaerobic bottle after 48 hours. 08/23/20 21:30 Urine Culture - Final Urine,Clean Catch No growth - less than 1,000 colonies/mL. 08/23/20 13:55 Urine Culture - Final Urine,Clean Catch Proteus mirabilis
[2020-08-27] MEDS ORDERED: LIDOCAINE HCL 2% 2 ML VIAL/AMP(20MG/ML) INFIL ONE (10:20)
[2020-08-27] MEDS ORDERED: ePHEDrine sulfate 50 MG/ML SYR ONE (10:20)
[2020-08-27] MEDS ORDERED: CLINDAMYCIN PHOS 300 MG/2 ML VIAL ONE (10:20)
[2020-08-27] MEDS ORDERED: PROPOFOL IV EMULSION 10 MG/ML 20 ML VIAL IV ONE (10:20)
[2020-08-27] MEDS ORDERED: VISIPAQUE IV PRN (11:03)
--- NOTE | 2020-08-27 11:23 | Procedure Note ---
Angiogram Post Procedure Fluoroscopy Time (minutes): 11.2 Radiation (mGy): 474 Contrast: 50 Post Operative Report Pre & Post Diagnosis Operation Date: 08/27/20 09:10 Pre-Op Diagnosis: Type 2 endoleak Post-Op Diagnosis: Type 2 endoleak I identified the patient and participated in the time-out.: Yes Procedure Operation Date: 08/27/20 09:10 Actual Procedures p Vena Cava Gram, Embolization of Right Common Iliac Artery Aneurysm Sac, ultrasound localization of right common femoral vein.(Right) - Sudheer Black MD Surgeon Sudheer Black MD Coffee Shop Manager None Estimated Blood Loss 20 Findings Consistent with Post-Op Diagnosis Specimens None Anesthesia Type MAC Complications none Disposition Accompanied Patient To Recovery: No Disposition: Recovery Room Indications This is a 60-year-old female who underwent endovascular repair of a ruptured right common iliac artery aneurysm with a fistula to her iliac vein. She was readmitted with abdominal pain. Her CTA at that time showed type II endoleak with filling of the iliac and vena cava. Recommended to try to get into the sac from the vein side and embolize the sac to eliminate the type II endoleak of the AV fistula. I have discussed the risks options and benefits of the procedure with the patient. The patient understands the risks options and benefits and agrees to the procedure. Description of Procedure The patient was taken to the operating room placed in the supine position. Both groins were prepped and draped in a sterile manner. Patient was identified and timeout was performed. Local anesthetic was administered to the left groin. Percutaneous puncture was made of the left common femoral vein. 6 Luxembourger sheath was inserted. Using an 035 guidewire the right iliac vein was cannulated from the left side and entered the aneurysm sac through the fistula. An angled glide catheter was inserted. The wire was removed. Injection confirmed that the catheter was in the aneurysm sac. There was flow showing the iliac vein and vena cava. We then inserted a stiffened 035 Glidewire. The 6 Luxembourger sheath was exchanged with a 8 Luxembourger destination. This was placed in the aneurysm sac. We then deployed a 22 Amplatzer plug followed by an 18 Amplatzer plug. We then injected 12,000 units of thrombin into the sac and then placed a another 18 plug followed by an 18 and finally a [address] out of the entrance of the sac. Prior to removing the destination sheath injection showed very little flow within the sac. The contrast did pool in the sac and the cava did not light up at all. Ultrasound was used to locate the right common femoral vein being that there was incision there there from the surgery a week ago. The vein in the right groin appear to be patent. Using ultrasound the vein was punctured and 035 wire was inserted and 7 Luxembourger sheath was inserted over the wire. Injection showed the previously known clotted the iliac vein on the right side. We used an 035 wire which passed through the clot. We then inserted a 14 x 4 balloon and inflated over the area where the destination went into the aneurysm sac. This occluded the AV fistula during the deployment of all the plugs and injection of thrombin. The balloon remained inflated until after the sheath was removed from the aneurysm sac. This was to prevent any flow of the devices or thrombin out of the aneurysm sac. After all the plugs were deployed the sheaths were pulled pressure was applied and act hemostasis was obtained. Dressings were applied to the wounds.The patient left the operation room in satisfactory condition and tolerated the procedure well. All needle and sponge counts were correct at the end of the procedure. I attest to the content of the Intraoperative Record and any orders documented therein. Any exceptions are noted below.
--- NOTE | 2020-08-27 12:01 | Anesthesiology Progress Note ---
Date of Service August 27, 2020 Anesthesia Post Procedure Vital Signs Vital Signs: Temp Pulse Pulse Pulse Pulse Pulse Resp 08/27/20 11:45 36.5 C 85 16 08/27/20 11:35 36.5 C 85 16 08/27/20 11:25 87 15 08/27/20 11:19 36.4 C L 87 16 08/27/20 09:05 36.9 C 87 87 18 L 18 08/27/20 07:37 36.9 C 89 18 08/26/20 23:05 37.0 C 76 16 08/26/20 20:36 87 08/26/20 15:28 36.7 C 78 18 BP Pulse Ox 08/27/20 11:45 149/82 H 93 08/27/20 11:35 141/85 H 93 08/27/20 11:25 149/84 H 94 08/27/20 11:19 148/92 H 95 08/27/20 09:05 119/67 92 08/27/20 07:37 121/74 92 08/26/20 23:05 117/64 91 08/26/20 20:36 160/88 H 08/26/20 15:28 103/68 93 Pain Intensity Abdomen: Pain Intensity: 4 Back: Pain Intensity: 8 Right Hip: Pain Intensity: 7 Right Chest: Pain Intensity: 5 Transfer of Care Handoff Completed per policy Notes Mental Status: alert / awake / arousable Patient Amnestic to Procedure: Yes Nausea / Vomiting: adequately controlled Pain: adequately controlled Airway Patency, RR, SpO2: stable & adequate BP & HR: stable & adequate Hydration State: stable & adequate Anesthetic Complications: no major complications apparent
--- NOTE | 2020-08-27 12:36 | Hospitalist Progress Note ---
Date of Service August 27, 2020 Assessment & Plan (1) History of endovascular stent graft for abdominal aortic aneurysm (AAA): Endovascular surgical repair 08/09 of right internal iliac artery aneurysm with vena caval fistula Patient will have a right iliac artery aneurysm embolization tomorrow with Dr. Black for endoleak (2) Abdominal pain: Patient with epigastric and right upper quadrant abdominal pain. CT angiogram of the abdomen comments unremarkablel liver and pancreas. Continue pantoprazole bid Hgb is stable (3) UTI (urinary tract infection): Angulo sensitive proteus on 08/23 but repeat on the same day with no growth. Will continue ceftriaxone (4) Pulmonary embolism: Patient was discharged from our facility 08/15/2022 rehabilitation on Eliq uis therapy on 5 mg twice daily at this time after being loaded with 10 twice daily. Changed to heparin gtt to prepare for procedure tomorrow (5) Chronic kidney disease, stage 3: Creatinine 1.98 today which does not appear to be too far from baseline which is around 1.6, has been as low as 1.2 but this may be more due to fluids given inpatient than a true baseline. On admission patient was 1.9 Vascular surgery implemented renal protective protocol. Angiogram does pose some risk to her kidneys. (6) Chronic back pain: Chronic compression fracture of L2 with vertebroplasty on CT during previous admission. Left sacral insufficiency fracture was also seen at taht time (7) Hypertension: Continue metoprolol tartrate 50 twice daily, losartan 50 at bedtime, plus amlodipine 5 mg a day (8) Chronic use of steroids: Patient with 24 hours of stress of steroids with hydrocortisone IV 50 every 8 and then transition back to her daily prednisone use Admission and Anticipated Discharge Date Admission Date: August 23, 2020 Subjective Ms. Zhao was a stroke alert following her arrival to the floor from PACU. She was not responsive with right side hemiparesis. She is unable to undergo MRI due to recent aneurysm stent so was sent for CTA/CT head and neck. Results & Data Results & Data ([facility]) Vital Signs (Past 12 Hours) Vital Signs Temp Pulse Pulse Pulse Pulse Pulse Resp 08/27/20 12:00 36.5 C 86 16 08/27/20 11:45 36.5 C 85 16 08/27/20 11:35 36.5 C 85 16 08/27/20 11:25 87 15 08/27/20 11:19 36.4 C L 87 16 08/27/20 09:05 36.9 C 87 87 18 L 18 08/27/20 07:37 36.9 C 89 18 BP Pulse Ox 08/27/20 12:00 167/95 H 94 08/27/20 11:45 149/82 H 93 08/27/20 11:35 141/85 H 93 08/27/20 11:25 149/84 H 94 08/27/20 11:19 148/92 H 95 08/27/20 09:05 119/67 92 08/27/20 07:37 121/74 92 PG Care Time/CCT Total # of Minutes Spent Total Time Spent with Patient: Total time spent is greater than 50% in coordination of care (as documented) at patient's floor/unit and/or counseling patient: Coding Diagnoses History of endovascular stent graft for abdominal aortic aneurysm (AAA) Z95.828 Abdominal pain R10.9 UTI (urinary tract infection) N39.0; R31.9 Hematuria presence: with hematuria Urinary tract infection type: site unspecified Pulmonary embolism I26.99 Chronic kidney disease, stage 3 N18.3 Chronic back pain M54.9; G89.29 Hypertension I10 Chronic use of steroids (1) UTI (urinary tract infection) Hematuria presence: with hematuria Urinary tract infection type: site unspecified Qualified Code(s): N39.0 - Urinary tract infection, site not specified; R31.9 - Hematuria, unspecified
[2020-08-27] MEDS ORDERED: OPTIRAY 320 125ml IV ONE (12:38)
--- NOTE | 2020-08-27 12:48 | CT Scan Report ---
CT SCAN OF THE BRAIN WITHOUT IV CONTRAST CLINICAL HISTORY: Strokelike symptoms. Weakness. COMPARISON STUDY: CT of the brain dated 08/09/2020. TECHNIQUE: Unenhanced axial CT scan of the brain is performed from the vertex to the skull base. A d ose lowering technique was utilized adhering to the principles of ALARA. FINDINGS: Brain parenchyma: There is mild microangiopathic change. There is no hemorrhage, mass effect, or evid ence of acute territorial ischemia by CT criteria. Mayfield-white matter differentiation is preserved. No extra-axial fluid collection is seen. Ventricles, sulci, cisterns: Normal in configuration. Intracranial vasculature: There is atherosclerotic calcification of the cavernous carotid and vertebr al arteries. Calvarium: Unremarkable. Sinuses and mastoids: The visualized paranasal sinuses are clear. The mastoid air cells are well pneu matized. Orbits: The bony orbits are grossly intact. IMPRESSION: There is no hemorrhage, mass effect, or evidence of acute territorial ischemia by CT hoda newell. ACT 112: Negative or not required by law. Electronically signed by: Neville Saravia M.D. 08/27/2020 12:47 PM
--- NOTE | 2020-08-27 13:03 | Communication Note ---
Date of Service: August 27, 2020 After patient returned to room she developed flaccidity of the right side. She also appeared aphasic. She has had a previous stroke years ago. Will get CT scan. Further treatment dependent on the CT results.
--- NOTE | 2020-08-27 13:05 | CT Scan Report ---
CT ANGIOGRAM OF THE BRAIN; CT ANGIOGRAM OF THE NECK CLINICAL HISTORY: Left-sided weakness. Stroke like symptoms. COMPARISON STUDY: Unenhanced CT of the brain performed concurrently on 08/27/2020. MR angiogram of t he brain dated 09/24/2018. TECHNIQUE: Following the IV administration of 120 of Optiray 320, CT angiogram of the head and neck w as performed from the aortic arch to the vertex. Images are reviewed in the axial, sagittal, and vinny nal planes. 3-D MIPS images are created and assessed. IV contrast was administered without complicati on. All measurements were calculated based on NASCET criteria. A dose lowering technique was utilize d adhering to the principles of ALARA. CT DOSE: 1109.87 mGy.cm FINDINGS: Brain parenchyma: There is mild microscopic radiographic change. There is no hemorrhage, mass effect, or evidence of acute territorial ischemia by CT criteria. There is no evidence of enhancing mass les ion on the angiogram phase images. The ventricles, sulci, and cisterns are normal in configuration. G ray-white matter differentiation is preserved. No extra-axial fluid collection is seen. Thoracic aorta: There is atherosclerotic calcification of the thoracic aorta. Visualized portions of the thoracic aorta are normal in caliber. The aortic arch demonstrates standard 3-vessel anatomy. Right carotid arterial system: The right common carotid artery is widely patent noting atheroscleroti c plaque and irregularity distally. Advanced atherosclerotic plaque in the carotid bulb causes less t ty 50% stenosis at the origin of the right internal carotid artery. The remainder of the right inter nal carotid artery is patent. There is moderate stenosis at the origin of the right external carotid artery which is otherwise clear. Left carotid arterial system: The left common carotid artery is widely patent noting atherosclerotic plaque and irregularity distally. Advanced chronic plaque is seen in the carotid bulb. This causes le ss than 50% luminal stenosis at the origin of the left internal carotid artery. The remainder of the left internal carotid artery and the left internal carotid artery are patent. Vertebral arteries: The vertebral arteries are patent bilaterally noting a right-sided dominance. Subclavian arteries: Atherosclerotic plaque of the left subclavian artery causes less than 50% stenos is below the thoracic outlet. The subclavian arteries are otherwise patent bilaterally. Intracranial vasculature: There is atherosclerotic calcification of the cavernous carotid arteries. T here is a right posterior communicating artery. The internal carotid arteries are patent at the skull base, as are the anterior and middle cerebral arteries bilaterally. The vertebrobasilar system and p osterior cerebral arteries are patent. The right vertebral artery is dominant. There is nonocclusive intraluminal thrombus identified throughout the basilar artery, which is at the basilar tip on image #92 and at the origin of the basilar artery on image #48. There is no aneurysm, high-grade stenosis, or focal vessel cut off seen throughout the intracranial circulation. Jugular veins: Patent bilaterally. Dural sinuses: Patent. Lung apices: Emphysematous change is seen at the lung apices the right pleural effusion is partially imaged. Pulmonary emboli are suspected within branches of the right upper lobe pulmonary artery. Soft tissues: The visualized pharyngeal soft tissues are normal in appearance noting angiographic pha se technique. The oropharyngeal airway appears widely patent. The salivary and thyroid glands are nor mal in appearance. No cervical lymphadenopathy is seen. Skeletal structures: The skeletal structures are osteopenic. The calvarium appears intact. The cervic al spine is within normal limits. No lytic or blastic lesion is seen. Sinuses and mastoids: The paranasal sinuses are clear. The mastoid air cells are well pneumatized. IMPRESSION: 1. Pulmonary emboli are suspected within branches of the right upper lobe pulmonary artery. 2. There is no hemorrhage, mass effect, or evidence of acute territorial ischemia by CT criteria noti ng angiographic phase technique. 3. There is nonocclusive thrombus identified within the basilar artery. 4. The remaining intracranial vessels are patent. 5. Atherosclerotic plaque causes less than 50% stenosis at the origin of both internal carotid arteri es. 6. There is less than 50% stenosis of the left subclavian artery below the thoracic outlet. 7. Emphysema. ACT 112: Negative or not required by law. Electronically signed by: Neville Saravia M.D. 08/27/2020 1:04 PM
[2020-08-27] MEDS ORDERED: SODIUM CHLORIDE 0.9% 1000ML 500 ML IV ONE (13:21)
[2020-08-27] MEDS ORDERED: SODIUM BICARBONATE 8.4% 150 MEQ in WATER, STERILE 1,000 ML IV SCH ×2 (13:30→14:15)
[2020-08-27 13:40] LABS: Partial Thromboplastin Time 28.5 Seconds (21.0-31.0)
--- NOTE | 2020-08-27 13:41 | Discharge Summary ---
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 Was with Dr. Black and which included endograft. The patient was sent to [facility] poorly the patient and an appointment with Dr. Black is additions records assistant 1 day prior where she was having some dysuria and abdominal discomfort. Poorly a urine analysis was done with concern for UTI. Patient was then instructed to report to the emergency department for Dr. Black recommended imaging studies of her endograft treatment of UTI. CT angiography of her lower abdomen showed a type II endograft leak which can be a normal occurrence and up to 50% of endograft repairs and abnormal urinalysis with concern for infection being such that if there were to be an infection to not have the endograft become involved. Currently the patient did have urine cultures were given Rocephin and will be brought into our facility. Patient because she has had a co horted living situation at [facility] will have a Covid test on presentation although she does not have any new pulmonary symptoms. The patient has been breathless since her pulmonary embolism and denies any recent changes in regard to that. She also is a background history of smoking. Principal Diagnosis Endovascual surgical repair, stroke Discharge Exam Constitutional WD/WN, vitals as above Respiratory normal respiratory effort; no respiratory distress and no labored breathing Skin + pallor Neurologic + obtunded Speech / Cognition: + abnormal speech and + expressive aphasia right arm and leg hemiplegia, right facial droop Discharge Data Allergies Allergy/AdvReac Type Severity Reaction Status Date / Time codeine Allergy Severe Difficulty Verified 08/23/20 16:32 Breathing lisinopril Allergy Severe caused Verified 08/23/20 16:32 seizure/stroke adalimumab Allergy Intermediate Rash Verified 08/23/20 16:32 hydroxychloroquine Allergy Intermediate "whole Verified 08/23/20 16:32 [From Plaquenil] body turns red" leflunomide [From Arava] Allergy Intermediate rash/hive Verified 08/23/20 16:32 at injection site nickel Allergy Intermediate swelling Verified 08/23/20 16:32 with earrings Penicillins Allergy Intermediate Rash Verified 08/23/20 16:32 hydromorphone Allergy Mild Rash Verified 08/23/20 16:32 Consultations 08/23/20 15:40 ED Decision to Admit Stat 08/23/20 20:06 Consult Vascular Surgery Routine Procedures Performed Operation Date: 08/27/20 09:10 Actual Procedures p Vena Cava Gram, Embolization of Right Common Iliac Artery Aneurysm Sac.(Right) - Sudheer Black MD Ordered Studies 08/23/20 13:35 CT angio abdomen pelvis w con Stat 08/27/20 07:13 EV aneurysm iliac repair Routine 08/27/20 09:26 EV angio LE RT Routine 08/27/20 09:37 US EV guide vascular access Routine 08/27/20 12:28 CT Brain [CT head/brain wo con] Stat 08/27/20 12:33 CT angio head w con Stat CT angio neck with con Stat Hospital Course (1) Acute CVA (cerebrovascular accident): When patient returned from surgery, right hemiparesis, right facial droop, obtunded, garbled speech. A stroke alert was called and consultation with Dr. Neil at [place] was done via stroke cart. STAT CT head/CTA head/neck perf ormed with concern for a posterior circulation intraluminal irregularity (non- occlusive) consistent with probable thrombus. Recommended resume heparin gtt, magnesium IV, not a TPA candidate per vascular surgery. 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 Black for endoleak (3) Abdominal pain: Patient with epigastric and right upper quadrant abdominal pain. CT angiogram of the abdomen comments unremarkablel liver and pancreas. Continue pantoprazole bid Hgb is stable (4) UTI (urinary tract infection): Angulo sensitive proteus on 08/23 but repeat on the same day with no growth. Given ceftriaxone (5) Pulmonary embolism: Patient was discharged from our facility 08/15/2022 rehabilitation on Eliquis therapy on 5 mg twice daily at this time after being loaded with 10 twice daily. Changed to heparin gtt to prepare for procedure tomorrow (6) Chronic kidney disease, stage 3: Creatinine 2.08 today Vascular surgery implemented renal protective protocol. Angiogram does pose some risk to her kidneys as well as necessary CTA following stroke symptoms (7) Chronic back pain: Chronic compression fracture of L2 with vertebroplasty on CT during previous admission. Left sacral insufficiency fracture was also seen at [facility] time (8) Hypertension: Continue metoprolol tartrate 50 twice daily, losartan 50 held for kidney function, plus amlodipine 5 mg a day (9) Chronic use of steroids: Patient with 24 hours of stress of steroids with hydrocortisone IV 50 every 8 and then transition back to her daily prednisone use Total Time Total Time Spent Total Time Spent (In Minutes): greater than 30 minutes Discharge Plan Discharge Items Patient Disposition: Transfer Acute Care Hospital Reason For Visit: AORTIC ENODLEAK, UTI POA Discharge Diagnosis: Aortic endoleak s/p repair Activity: As commented below Non-emergency contact: Primary Care Provider Call non-emergency contact if: you have any medication questions Follow-up/Referrals: Gustavo Stone [Primary Care Provider] - Diet: Heart Healthy Addtl Attending Provider Instructions: (1) History of endovascular stent graft for abdominal aortic aneurysm (AAA): Endovascular surgical repair 08/09 of right internal iliac artery aneurysm rupture with vena caval fistula S/p right iliac artery aneurysm embolization 08/[address] Black for endoleak. Patient returned from surgery and was unarousable with right sided hemiparesis, right facial droop, garbled speech. Stroke alert was called. Unclear source of symptoms on CTA. Patient was accepted for transfer. To continue heparin gtt, not a TPA candidate (2) Abdominal pain: Patient with epigastric and right upper quadrant abdominal pain. CT an giogram of the abdomen comments unremarkable liver and pancreas. Continue pantoprazole bid Hgb is stable (3) UTI (urinary tract infection): Angulo sensitive proteus on 08/23 but repeat on the same day with no growth. On day #4 of ceftriaxone. Patient with leukocytosis but she is on chronic prednisone chronically and appears to run an elevated white count chronically as well. Afebrile (4) Pulmonary embolism: Patient was discharged from our facility 08/15/2022 to rehabilitation on Eliquis therapy on 5 mg twice daily at this time after being loaded with 10 twice daily. Apixaban held 08/25, changed to heparin gtt for procedure, will continue per neurology recommendation on stroke alert. (5) Chronic kidney disease, stage 3: Creatinine 2 today which does not appear to be too far from baseline which is around 1.6, has been as low as 1.2 but this may be more due to fluids given inpatient than a true baseline. On admission patient was 1.9 Vascular surgery implemented renal protective protocol, on bicarb gtt and acetylcysteine (6) Chronic back pain: Chronic compression fracture of L2 with vertebroplasty on CT during previous admission. Left sacral insufficiency fracture was also seen at taht time (7) Hypertension: Continue metoprolol tartrate 50 twice daily, losartan 50 held post angiogram, amlodipine 5 mg a day (8) Chronic use of steroids: Patient with 24 hours of stress of steroids with hydrocortisone IV 50 every 8 and then transition back to her daily prednisone use. Stress steroids given pre procedure Pending Studies at Discharge: No Stand-Alone Forms: My [facility] Skilled Items Patient informed of condition?: Yes DNR: No Discharge Level of Care: Other Communicable Disease: No Discharge Prognosis: Deteriorating Lines: None Urinary Catheter: Yes Medications and DC Order Prescriptions: Continued losartan 50 mg Tablet 50 mg PO HS RF: 0 prednisone 10 mg Tablet 10 mg PO QAM RF: 0 amlodipine 5 mg Tablet 5 mg PO QAM RF: 0 aspirin [Aspirin Low Dose] 81 mg Tablet,Delayed Release (Dr/Ec) 81 mg PO QAM RF: 0 acetaminophen 500 mg Tablet 500 mg PO BID RF: 0 meclizine 25 mg Tablet 25 mg PO TID PRN (Reason: Dizziness) RF: 0 metoprolol tartrate 50 mg Tablet 25 mg PO BID RF: 0 albuterol sulfate 90 mcg/actuation Hfa Aerosol Inhaler 2 puff INHALATION QID PRN (Reason: Shortness Of Breath) RF: 0 potassium gluconate 595 mg (99 mg) Tablet 50 mg PO QAM RF: 0 omeprazole 20 mg Tablet,Delayed Release (Dr/Ec) 20 mg PO DAILY PRN (Reason: Acid Reflux) RF: 0 oxycodone 10 mg Tablet 10 mg PO Q6H PRN (Reason: Pain) RF: 0 cholecalciferol (vitamin D3) [Vitamin D3] 50 mcg (2,000 unit) Tablet 2,000 unit PO QAM RF: 0 cyclobenzaprine 5 mg Tablet 5 mg PO HS RF: 0 Eliquis 5 mg tablet 5 mg PO BID Qty: 60 RF: 3 Discharge Orders: Discharge Order (Routine); Ordered 08/27/20 Ordered By: Pam Coulter Admission Data Admit Date/Time: 08/23/20 16:18 Attending Provider: Benjie Colbert Admit Provider: Filemon Tan Primary Care Provider: Gustavo Stone Other Providers: Rashad Feng ; Sudheer Black Other Interventions: Discharge Summary Assessment (RN) Last Done: 08/27/20 14:42 Supervising Physician Co-Signing Physician Notes Patient seen and examined on the day of discharge. I agree with the discharge summary by Pam SHANNON. I have reviewed the chart including labs, imaging and plans for discharge. patient had repair of endograft leak this morning upon return to the floor she could not move her right side and she had decreased responsiveness stroke alert was called CT head negative for bleed, CTA neck/head with non-occlussive thrombus in basilar artery, other vessels patent discussion with stroke neurologist who examined patient via telemedicine and he reviewed her history and images recommended heparin bolus of 2500 units, magnesium IV, IV fluids he agreed to take patient on transfer to [place] - Acute ischemic stroke: heparin drip, transfer immediately to [place] [facility] via [facility] - Right leg pain, endograft leak, s/p repair with embolization today Coding Level of Care Code D/C Day Management >30 mins Diagnoses Acute CVA (cerebrovascular accident) I63.9 History of endovascular stent graft for abdominal aortic aneurysm (AAA) Z95.828 Abdominal pain R10.9 UTI (urinary tract infection) N39.0; R31.9 Hematuria presence: with hematuria Urinary tract infection type: site unspecified Pulmonary embolism I26.99 Chronic kidney disease, stage 3 N18.3 Chronic back pain M54.9; G89.29 Hypertension I10 Hypertension type: essential hypertension Chronic use of steroids
--- NOTE | 2020-08-27 13:44 | Critical Care Consultation ---
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 Black for endoleak. Today with acute R sided CVA with plan for transfer to [facility]. Neuro - Sedation: none Analgesia: none Acute R sided CVA: - Patient last known normal at around 11AM. - No history of PFO. Has a history of PE and was on Eliquis prior to admission, at which time she was transitioned to Heparin gtt. - Patient was on Heparin drip until about 930AM per Anesthesiologist and records. No protamine given perioperatively. - At 1230 Code Stroke Alert called for R sided facial droop, dysarthria, inability to move right arm/leg. - STAT CT head/CTA head/neck performed with concern for a posterior circulation intraluminal irregularity (non-occlusive) consistent with probable thrombus. - Care to MCA bilaterally due to symptom presentation, bilaterally appear patent. - Atherosclerotic plaque causes less than 50% stenosis at the origin of both internal carotid arteries. - There is less than 50% stenosis of the left subclavian artery below the thoracic outlet. - Tele-Neurology consult performed with [facility], Dr. Neil. - Patient is not a TPA candidate due to vascular surgery performed today per Dr. Black. - Teleneuro recommended starting Heparin 2500u bolus, with 1000u/hr following. - Magnesium 2g to run over 30 minutes for neuroprotection. - Permissive HTN 180/100 given post-CVA. - Neurology service at [facility] will transfer patient via helicopter to monitor for worsening symptoms. - Per patient's next-of-kin, she has a history of R sided CVA about one year ago with similar deficits that have since improved. Has a right foot drop that is chronic. - Family aware and consents to transfer to tertiary facility for continued care. Cardiac - HTN: - Allowing for permissive HTN (180/100) as above in the setting of acute CVA. - Hold metoprolol, losartan, amlodipine. Respiratory - Pulmonary embolus: - Diagnosed about one month prior, was on Eliquis until transition this admission due to impending vascular surgery. - Continue Heparin gtt as above for CVA, will cover for pulmonary embolus. GI - - Patient with epigastric and right upper quadrant abdominal pain at times during this admission. - CT angiogram of the abdomen comments unremarkable liver and pancreas. RENAL/LYTES - Acute on chronic renal failure: - Baseline creatinine ~1.6. - On admission with creatinine 1.9, today 2.08. - Renal protection protocol implemented given angiogram. - NSS 500mL bolus with bicarb drip (150meq in NSS) at rate of 100mL/hr. - - This admission continuing ceftriaxone for pansensitive proteus UTI diagnosed on 08/23. ENDO - Chronic steroid therapy: - Patient is on chronic steroid therapy for Hx of RA. - Had 24 hours stress dose steroids prior to surgery, can resume home dose. HEME - - Hgb stable. - Heparin gtt. ID - - UTI treatment as above. LINES/IV ACCESS - - PIVs intact. DVT PROPHYLAXIS - - Heparin bolus and gtt. CODE STATUS - - Full Code. Thank you for allowing me to participate in this patient's care. Please see Dr. Landeros's documentation at the end of this note for further details and any management changes. (2) Endoleak post endovascular aneurysm repair: (3) Hypertension: Supervising Physician Co-Signing Physician Notes Dr. Sanchez was resident physician during care of patient. I separately evaluated patient for cloud portions of the history and the exam. I was present during the critical portion of medical decision making, and I discussed the case with the resident. I generally agree with the findings and plan. Briefly this is a 60-year-old female with a history of significant peripheral vascular disease from chronic long-term tobacco use, she recently had a common femoral fistula with associated steal repaired. This had developed a endoleak and she underwent repair of the endoleak. Patient was on heparin prior to being transferred to the OR this was discontinued at about 945. I reviewed the anesthesia record as well as discussed with the attending anesthesiologist as well as the vascular surgeon, she did not receive protamine nor anticoagulants intraoperatively. Over 2 hours had passed since the patient had received any form of anticoagulation and we consider the patient to be cleared of her heparin at this time. Dr. Black the vascular surgeon had repaired the endoleak with small plugs and thrombin, there was no record of PFO in the patient. When I presented to the patient's room after a stroke alert was paged, the patient appeared to have a right upper extremity flaccid paralysis difficulty speaking. She was hypertensive with systolics in the 170s and nauseated and vomiting. She underwent a CT of the head which did not demonstrate acute intracranial hemorrhage and I reviewed the images with the radiologist there was concern for a posterior circulation intraluminal irregularity consistent with probable thrombus. The MCAs appeared open. The luminal irregularity was not occlusive. Patient was transferred to the ICU and telestroke with her history was obtained. The hospitalist got in touch with the patient's daughter and is in agreement with transfer to [facility]. I discussed with the stroke neurologist as well as in consultation with Dr. Black we will proceed with heparin 2500 unit bolus and then 1000 units/h, she will get a 500 mL normal saline bolus and per vascular surgery's request she will be started on a bicarb drip 150 mEq in 1 L normal saline to run at 100 an hour for renal protection given the contrast load administered during the endovascular procedure. This is in line with the fluid requests of stroke neurology. We will avoid hypotonic fluids given concerns for a posterior circulation CVA and possible need of swelling. The [facility] stroke service will arrange helicopter EMS and transfer the patient for close observation. We will also start 2 g IV magnesium to run over 30 minutes. Patient is critically ill I have personally spent 85 minutes of critical care time in the direct management of this patient. This is a life/limb threatening event. This includes time spent evaluating patient, direct bedside care, chart review, placing orders, interpretation of diagnostic studies, discussion with consultants, patient, and/or family members regarding treatment decisions, as well as other required patient management activities. This time is exclusive of all separately billable procedures, and teaching time and separate from and in addition to any other critical care service time. 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 Black for endoleak. Today code purple called around 1230PM for R arm weakness and decreased sensation and slurred speech, right- sided facial droop. Last known normal was in PACU at about 11AM. Patient fairly alert on my arrival, able to answer questions such as name and age but with slurring of speech. Blood pressure was elevated to 180s/110s. At that time patient denied chest pain, shortness of breath. Code Stroke Alert was called and patient taken to CT scanner for STAT CT head/CTA head and neck. Allergies Allergy/AdvReac Type Severity Reaction Status Date / Time codeine Allergy Severe Difficulty Verified 08/23/20 16:32 Breathing lisinopril Allergy Severe caused Verified 08/23/20 16:32 seizure/stroke adalimumab Allergy Intermediate Rash Verified 08/23/20 16:32 hydroxychloroquine Allergy Intermediate "whole Verified 08/23/20 16:32 [From Plaquenil] body turns red" leflunomide [From Arava] Allergy Intermediate rash/hive Verified 08/23/20 16:32 at injection site nickel Allergy Intermediate swelling Verified 08/23/20 16:32 with earrings Penicillins Allergy Intermediate Rash Verified 08/23/20 16:32 hydromorphone Allergy Mild Rash Verified 08/23/20 16:32 Home Medications Home Medications Medication Instructions Recorded Confirmed Type acetaminophen 500 mg PO BID 04/05/20 08/23/20 History albuterol sulfate 2 puff INHALATION QID PRN 04/05/20 08/23/20 History amlodipine 5 mg PO QAM 04/05/20 08/23/20 History aspirin [Aspirin Low Dose] 81 mg PO QAM 04/05/20 08/23/20 History cholecalciferol (vitamin D3) 2,000 unit PO QAM 04/05/20 08/23/20 History [Vitamin D3] losartan 50 mg PO HS 04/05/20 08/23/20 History meclizine 25 mg PO TID PRN 04/05/20 08/23/20 History metoprolol tartrate 25 mg PO BID 04/05/20 08/23/20 History omeprazole 20 mg PO DAILY PRN 04/05/20 08/23/20 History oxycodone 10 mg PO Q6H PRN 04/05/20 08/23/20 History potassium gluconate 50 mg PO QAM 04/05/20 08/23/20 History prednisone 10 mg PO QAM 04/05/20 08/23/20 History cyclobenzaprine 5 mg PO HS 08/07/20 08/23/20 History apixaban [Eliquis] 5 mg PO BID #60 tab 08/15/20 08/23/20 Rx Patient History Medical History (Updated 08/27/20 @ 13:30 by Mayi Hi DO) Abdominal pain Aneurysm of right iliac artery Aortic aneurysm s/p AAA repair (2010, revision 2018) Arterial aneurysm Chronic back pain Chronic kidney disease, stage 3 Diverticular disease DVT (deep venous thrombosis) DVT (deep venous thrombosis) Hearing deficit History of bronchitis reason for inhaler prn History of peptic ulcer Hx of blood clots developed in right kidney after stent placement Hyperlipidemia Hypertension Iliac artery aneurysm, bilateral Lung nodules found on CT scan--under surveillance Pulmonary emboli Pt is a 60yo with a PMHx significant for AAA, iliac artery aneurysms, CKD stage 4, chronic back pain, COPD and a Hx of blood clots in the right kidney after stent placement who was admitted with acute PEs and DVTs. Acute PEs/DVTs -Pt states she had a lump under her R arm that eventually became a large bruise, associated w/ right groin pain -CTA chest showed occlusive PEs within the RLL and RUL segmental branches, diffuse atherosclerosis of the great vessels, moderate to severe stenosis of proximal L subclavian artery and tiny pulmonary nodules with a 1cm posterior LENARD ground glass nodule. -CTA abd/pelvis showed an acute DVT in R common femoral and iliac vein and po ssibly bilateral pelvic veins, 7cm and 4.6cm iliac artery anuerysms with mural thrombi, an atrophic R kidney and a L renal cyst with inferior L renal calculi. -CTA right humerus showed patent arteries, no anuerysm. Pulmonary embolism Rheumatoid arthritis Seizure 12/2018--felt r/t lisinopril--no deficits, follows with Dr. Saba Pop in [place] Stroke 12/2018--felt r/t lisinopril--no deficits, follows with Dr. Saba Pop in [place] Vasculopathy Surgical History Fusion of spine 2010 @ [facility] Dr. Sanchez H/O abdominal aortic aneurysm repair 2010 Dr. Black @ [facility] History of abdominal aortic aneurysm (AAA) repair 06/2018 @ [place]--per pt had to "put a collar around the previous AAA repair" also had a renal artery stent placed at the same time History of cholecystectomy History of colonoscopy History of esophagogastroduodenoscopy (EGD) History of kyphoplasty 2014 @ [facility] History of stent insertion of renal artery 2017 @ [place] History of tubal ligation History of wisdom tooth extraction Family History Mother Family history of diabetes mellitus Brother Family hx of colon cancer Other No family history of adverse response to anesthesia Rheumatoid arthritis Stroke Social History Smoking Status: Former smoker Smoking End Date: 2017; Second Hand Exposure: Yes (parents/family smoked); Hx Alcohol Use: No Hx Substance Use: No Preferred Language: Vincentian Communication Ability: Effective Embroiderer Hand Required: No Beliefs That Will Affect Care: None Current Living Situation: Family Current Living Situation Comment: Lives with son Other Information That Helps Us Care for You: No Feels Safe at Home: Yes Safety Concerns: Feels Safe At This Time Assistive Devices: Walker Assistive Devices Comment: pt reports glasses are at [employer] Review of Systems Review of Systems: All systems reviewed & are unremarkable except as noted in HPI & below Constitutional: no fever and no chills Respiratory: no cough Cardiovascular: no chest pain, no palpitations and no edema Gastrointestinal: no constipation and no diarrhea/loose stools Neurologic: + paralysis (R sided, with dysarthria and R facial droop) Physical Exam Constitutional: well developed and + ill appearing Eyes: PERRL, conjunctivae normal, anicteric sclerae No blink reflex to confrontation on right side. Normal blink reflex left side ENMT: external ear and nose normal, oropharynx normal Respiratory: normal respiratory effort, lungs clear to auscultation Cardiovascular: RRR, no murmur, no edema Skin: no rashes, warm and dry no rashes diaphoretic Neurologic: Alert and oriented to name and place, month. Dysarthric speech. Right sided nasolabial fold flattening. Right sided facial droop. Hearing grossly intact. PERRL. No nystagmus. No blink reflex to confrontation on right eye, normal on left eye. Pinprick sensation intact bilateral UE, LE, face. Pain sensation decreased on R arm, but otherwise normal. LLE able to lift off of bed, RLE unable to lift off of bed. No tremor. Psychiatric: Orientation: alert, oriented to person and oriented to place Results & Data Results & Data ([facility]) Vital Signs (Past 12 Hours) Vital Signs Temp Pulse Pulse Pulse Pulse Pulse Resp 08/27/20 12:00 36.5 C 86 16 08/27/20 11:45 36.5 C 85 16 08/27/20 11:35 36.5 C 85 16 08/27/20 11:25 87 15 08/27/20 11:19 36.4 C L 87 16 08/27/20 09:05 36.9 C 87 87 18 L 18 08/27/20 07:37 36.9 C 89 18 BP Pulse Ox 08/27/20 12:00 167/95 H 94 08/27/20 11:45 149/82 H 93 08/27/20 11:35 141/85 H 93 08/27/20 11:25 149/84 H 94 08/27/20 11:19 148/92 H 95 08/27/20 09:05 119/67 92 08/27/20 07:37 121/74 92 Resident Activity Tracking Resident Involvement: Resident Care Provided Care Provided: Adult Hospital Medicine (1) Endoleak post endovascular aneurysm repair Encounter type: initial encounter Qualified Code(s): T82.330A - Leakage of aortic (bifurcation) graft (replacement), initial encounter (2) Hypertension Hypertension type: essential hypertension Qualified Code(s): I10 - Essential (primary) hypertension
[2020-08-27] MEDS ORDERED: MAGNESIUM SULFATE / D5W 1 GM/100 ML BAG IV SCH (13:45)
[2020-08-27] MEDS ORDERED: HEPARIN IV BOLUS 2,500 UNITS in SYRINGE 0 ML IV ONE (13:45)
[2020-08-27] MEDS ORDERED: Nursing to Pharmacy Communication SCH (13:45)
[2020-08-27] MEDS ORDERED: HEPARIN 25000 UNIT/500 ML D5W IV ONE (13:49)
--- NOTE | 2020-08-27 13:58 | Billing Data ---
Date of Service August 27, 2020 Coding Level of Care Code Critical Care ea addt'l 30 min
[2020-08-27] MEDS ORDERED: HEPARIN SODIUM/DEXTROSE 25,000 UNITS/500 ML BAG IV SCH (14:00)
[2020-08-27] MEDS ORDERED: Heparin IV Standard *NO* Bolus IV ONE (14:00)
== END 2020-08-27 14:30 | disposition short-term general hospital (02) | DRG 270 ==
LOC: ED 12:24 → SUATTDRO 16:18 → 3W 16:18 → 1E 08-27 13:30